=== PATIENT | female | born 2005 | race Hispanic/Latino ===

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

== ENCOUNTER 2024-05-13 02:59 | Emergency (ER) | payer OTHER, SELFPAY ==
--- OUTSIDE RECORDS SUMMARY | 2024-05-13 03:05 | XMS REPORT | Continuity of Care Document ---
Author Name Unknown Address [address] [facility] [facility] [address] [place] [address] [facility] [address] [place] [address] Care Team Providers Care Claims Clerk Name Role Phone Eliot CARVAJAL, [facility] Primary Care Physician [phone] BRITTANEY ARNOLD Attending Clinician Unavailable BRITTANEY ARNOLD Attending Clinician Unavailable Brittaney Bridges Attending Clinician [phone] SHILA PAULINO Attending Clinician Unavailable HOLLY VELÁZQUEZ Attending Clinician Unavailab REDDY Fry Attending Clinician Unavailable Angle Rivera PA-C Attending Clinician [phone] Unknown, Attending Attending Clinician Unavailab ANGLE Danielle Attending Clinician Unavailable MD OLGA LIDIA Attending Clinician Unavailab le LAB90 Attending Clinician Unavailable BATOOL GARRIDO Attending Clinician Unavaila BATOOL Mayer Attending Clinician Unavaila CECILIA Ahuja Attending Clinician Unavailable CECILIA MATHIS Attending Clinician Unavailable PRUDENCE RUFF Attending Clinician Unavailable Prudence Jackman Attending Clinician [phone] [facility]ending [facility]ician Unava ilable Gary Mixon Attending Clinician + GARY GUERRERO Attending Clinician Unavail able Alondra Reece MD Attending Clinician [phone] Lino CARVAJAL, Cynthia Attending Clinician [phone] Juvenal CARVAJAL, Haley Calderon Attending Clinicia n HIREN VILLAGRAN Attending Clinician Unavailable 1, [facility] N[facility] Room Attending Clinician Unavailable Doctor Unassigned, [place] Attending Clinician U navailable YULY, RITO Attending Clinician Unavailable YULYRITO Attending Clinician Unavailable Room, [facility] Attending Clinician Unavailable Ultrasound, Emersonreynaldo Attending Clinician Unavaila RADHA Mtz Attending Clinician Unavailable Radha Turcios MD Attending Clinician [phone] ALONDRA REECE Attending Clinician Unavailable ALONDRA REECE Attending Clinician Unavailable MARIANELA REYES Attending Clinician Unavailab le MARIANELA REYES Attending Clinician Unavailab le Lab, [facility] Attending Clinician Unavailable Jair Bolden RN Attending Clinician Unavailabl Kailyn Acuna DO Attending Clinician [phone] KRYSTIN KAYE Attending Clinician Unavailabl e 4, [facility] Room Attending Clinician UnavailKrystin Samosn MD Attending Clinician [phone] Adi Levin MD Attending Clinician + ADI LEVIN Attending Clinician Unav ailable OMI AGEE Attending Clinician Unavailable Farnaz Padilla Attending Clinician UnavailOmi Baptiste MD Attending Clinician [phone] Fellow, [facility] Attending Clinician Un available Jair Guzman MD Attending Clinician [phone] JAIR GUZMAN Attending Clinician Unavailable JAIR GUZMAN Attending Clinician Unavailable Nurse, [facility] Attending Clinician Unavailable KATIE ALEXANDER Attending Clinician Unav ailable Faculty, [facility] Attending Clinician Unava ilable Katie Alexander MD Attending Clinician + RADIOLOGY Attending Clinician Unavailable Radiology Attending Clinician Unavailable IBIKUNLE, FOLUSHO F Attending Clinician Unavaila ble Jackie FLIGHT OPERATIONS INSPECTOR, Katerynakarla F Attending Clinician CHANNING OQUENDO S Attending Clinician Unavailable Channing Edwards S Attending Clinician [phone] Lab, [facility] Attending Clinician Unavailab rajani Pierce FLIGHT OPERATIONS INSPECTOR, Holly Attending Clinician [phone] HOLLY PIERCE Attending Clinician Unavailable RADHA TURCIOS Admitting Clinician Unavailable Alondra Reece MD Admitting Clinician [phone] ALONDRA REECE Admitting Clinician Unavailable Radha Turcios MD Admitting Clinician [phone] JESSICA DE LA CRUZ Admitting Clinician ZACHERY Walls Admitting Clinician Unavaila thee Payers Payer Name Policy Type Policy Number Effective Date Expirati on Date Source [employer] [id number] 2022 00:[address] [facility] [id number] 2022 00:00:00 [employer] MP [employer] SILVER 2: MARCELA HMO SNACK 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 94 ON 9 [id number] 2023 00:00:00 Problems Condition Name Condition Details Condition Category Status Onset Date Resolution Date Last Treatment Date Treating Clinician Comments Source 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 Disease Active 07-14 00:00: 00 [facility] History of asthma History of asthma Disease Active 2021-06 00:00: 00 [facility] Gestationa l hypertensi on, antepartum Gestationa l hypertensi on, antepartum Disease Resolve d 10-16 00:00: 00 2023-10-08 00:00:00 2023-10-08 13:32:11 [facility] 36 weeks gestation of 36 weeks gestation of Disease Resolve d 5 00:00: 00 2023-10-08 00:00:00 2023-10-08 13:32:12 [facility] Excessive growth affecting management of , antepartum , single or unspecifie d fetus Excessive growth affecting management of , antepartum , single or unspecifie d fetus Disease Resolve d 2022-0 4-24 00:00: 00 2023-10-08 00:00:00 2023-10-08 13:32:08 [facility] Morbid obesity with body mass index of 40.0-49.9 Morbid obesity with body mass index of 40.0-49.9 Disease Resolve d 2022-0 4-14 00:00: 00 2023-10-08 00:00:00 2023-10-08 13:32:06 [facility] Non-compli ant patient, third trimester Non-compli ant patient, third trimester Disease Resolve d 2022-0 3-28 00:00: 00 2023-10-08 00:00:00 2023-10-08 13:32:04 [facility] Acute cystitis without hematuria Acute cystitis without hematuria Disease Resolve d 2022-0 2-15 00:00: 00 2023-10-08 00:00:00 2023-10-08 13:32:18 [facility] Asthma affecting , antepartum Asthma affecting , antepartum Disease Resolve d 2022-0 1-24 00:00: 00 2023-10-08 00:00:00 2023-10-08 13:31:56 [facility] Supervisio n of other high risk , antepartum Supervisio n of other high risk , antepartum Disease Resolve d 2021-06 2-08 00:00: 00 2023-10-08 00:00:00 2023-10-08 13:31:48 [facility] Pregestati onal diabetes mellitus, 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, modified White class C Disease Resolve d 2021-06 2-08 00:00: 00 2023-10-08 00:00:00 2023-10-08 13:31:50 [facility] Hypothyroi d in , antepartum Hypothyroi d in , antepartum Disease Resolve d 2021-06 2-08 00:00: 00 2023-10-08 00:00:00 2023-10-08 13:31:51 [facility] Obesity in , antepartum Obesity in , antepartum Disease Resolve d 2021-06 2- 00:00: 00 2023-10-08 00:00:00 2023-10-08 13:31:53 [facility] Dysuria Dysuria Disease Resolve d 2021-06 2- 00:00: 00 2022-06-12 00:00:00 2022-06-12 13:06:42 [facility] Vaginal discharge during , antepartum Vaginal discharge during , antepartum Disease Resolve d 2021-06 2- 00:00: 00 2022-06-12 00:00:00 2022-06-12 13:06:51 [facility] 17 weeks gestation of 17 weeks gestation of Disease Resolve d 2021-06 2- 00:00: 00 2022-06-12 00:00:00 2022-06-12 13:06:44 [facility] Allergies, Adverse Reactions, Alerts Allergy Name Allergy Type Status Severity Reaction(s) Onset Date Inactive Date Treating Clinician Comments Source EMPAGLIF LOZIN DRUG INGREDI Active Dizziness 2021-06 00:00: 00 [facility] Empaglif lozin Propensi ty to adverse reaction s Active Dizziness 2021-06 00:00: 00 [facility] Empaglif lozin Propensi ty to adverse reaction s Active 2021-06 00:00: 00 Other Reaction( s): Dizziness Noemi Jaquez - Externa l NO KNOWN ALLERGIE S Drug Class Active [facility] Social History Social Habit Start Date Stop Date Quantity Comments Source ASSERTION 2022-02-15 00:00:00 [facility] Sexual orientation Ace Jaquez - External Alcoholic beverage intake 2023-10-08 00:00:00 2023-10-08 00:00:00 Lifetime non-drinker (finding) [facility] Alcohol intake 2023-05-14 00:00:00 2023-05-14 00:00:00 Lifetime non-drinker (finding) Noemi Jaquez - External History of Social function 2023-05-04 00:00:00 2023-05-04 00:00:00 Noemi Peck Exposure to SARS-CoV-2 (event) 2022-10-27 00:00:00 2022-11-06 14:41:00 Not sure [facility] Tobacco use and exposure 2022-05-17 00:00:00 2022-05-17 00:00:00 Smokeless tobacco non-user [facility] Sex Assigned At 2005 00:00:00 2005 00:00:00 Noemi Roque External Smoking Status Start Date Stop Date Source Never smoked tobacco [facility] Tobacco smoking consumption unknown [facility] Medications Ordered Medication Name Filled Medication Name Start Date Stop Date Current Medication? Ordering Clinician Indication Dosage Frequency Signature (SIG) Comments Components Source ketorolac (TORADOL) tablet 10 mg 03-10 20:15: 00 03-10 19:55 :00 No 10mg 10 mg, Oral, ONCE NOW, 1 dose, On Sun03/10/24 at 1515, Routine [facility] Nitrofurant oin&Nit. Macrocryst 100 mg capsule 03-10 00:00: 00 Yes [id number] 100mg Take 1 capsule by mouth in the morning and 1 capsule in the evening. [facility] ketorolac 10 mg tablet 03-10 00:00: 00 Yes [id number] 10mg Take 1 tablet by mouth every 6 (six) hours as needed for Pain (scale 4-6). [facility] Ferrous Sulfate 325 (65 Fe) MG oral Tablet 2022-06 11:38: 18 05-14 00:00 :00 No 325mg Take 1 tablet (325 mg total) by mouth every other day. Noemi aponte Metronidazo le 500 MG oral Tablet 02-21 00:00: 00 05-14 00:00 :00 No Noemi aponte Cholecalcif dali, Vitamin D3, 1,250 mcg (50,000 unit) capsule 11-21 00:00: 00 Yes TAKE 1 CAPSULE BY MOUTH ONE TIME PER WEEK IN THE MORNING [facility] atorvastati n 20 mg tablet 11-21 00:00: 00 Yes 20mg Take 1 tablet by mouth at bedtime. [facility] fenofibrate 54 mg tablet 11-21 00:00: 00 Yes TAKE 1 TABLET EVERY DAY BY ORAL ROUTE IN THE MORNING FOR 60 DAYS. [facility] LOW-OGESTRE L 0.3-30 mg-mcg per tablet 11-21 00:00: 00 Yes TAKE 1 TABLET BY MOUTH EVERY DAY DIRECTED [facility] metFORMIN (GLUCOPHAGE ) tablet 1,000 mg 10-19 14:00: 00 Yes 1000mg 1,000 mg, Oral, DAILY, First dose on Sun10/19/22 at 0900, Until Discontinu ed, Routine [facility] insulin glargine (LANTUS U-100) injection 20 Units 10-19 13:00: 00 Yes 20U 20 Units, Subcutaneo us, Q24H, First dose (after last modificati on) on Sun10/19/22 at 0800, Until Discontinu ed, Routine [facility] insulin glargine (LANTUS U-100) injection 24 Units 10-19 01:00: 00 Yes 24U 24 Units, Subcutaneo us, Q24H, First dose (after last modificati on) on Sun10/18/22 at 2000, Until Discontinu ed, Routine [facility] ferrous sulfate 325 mg (65 mg iron) tablet 10-19 00:00: 00 Yes [id number] 325mg Take 1 tablet by mouth every other day. [facility] vitamin w/FA tablet 10-19 00:00: 00 Yes [id number] 1{tbl} Take 1 tablet by mouth in the morning. [facility] vitamin w/FA tablet 10-19 00:00: 00 Yes [id number] 1{tbl} Take 1 tablet by mouth in the morning. [facility] Ibuprofen (MOTRIN) 600 MG oral Tablet 10-19 00:00: 00 05-14 00:00 :00 No 600mg Q.25D Take 1 tablet (600 mg total) by mouth every 6 hours as needed. Noemi aponte NIFEdipine 30 MG oral TABLET SR 24 HR 10-19 00:00: 00 05-14 00:00 :00 No 30mg Take 1 tablet (30 mg total) by mouth daily. Noemi aponte Metformin HCl 1000 MG oral Tablet 10-19 00:00: 05-14 00:00 :00 No Noemi aponte linaGLIPtin (Tradjenta) 5 MG oral Tablet 10-19 00:00: 00 05-14 00:00 :00 No Noemi aponte Docusate Sodium (DSS) 100 MG oral Capsule 10-19 00:00: 00 05-14 00:00 :00 No Noemi aponte insulin glargine 100 unit/mL injection 10-19 00:00: 00 11-19 04:59 :00 No [id number] 24U inject 24 Units under the skin every 24 (twenty-fo ur) hours for 30 days. [facility] insulin glargine 100 unit/mL injection 10-19 00:00: 00 11-19 04:59 :00 No [id number] 20U inject 20 Units under the skin every 24 (twenty-fo ur) hours for 30 days. [facility] linaGLIPtin 5 mg tablet 10-19 00:00: 00 11-19 04:59 :00 No [id number] 5mg Take 1 tablet by mouth in the morning for 30 days. [facility] NIFEdipine ER tablet 30 mg 10-18 17:45: 00 Yes 30mg 30 mg, Oral, DAILY, First dose on Sun10/18/22 at 1245, Until Discontinu ed, Routine [facility] Sliding Scale Insulin - Lispro (HumaLOG) 10-18 17:00: 00 Yes Subcutaneo us, TID MEALS+HS, First dose on Sun10/18/22 at 1200, Until Discontinu ed, Routine [facility] budesonide- formoteroL (SYMBICORT) 80-4.5 mcg/actuati on inhaler 2 Puff 10-18 13:00: 00 Yes 2{puff} 2 Puff, Inhalation , BID, First dose on Sun10/18/22 at 0800, Until Discontinu ed, Routine [facility] insulin regular human (HUMULIN R) injection 7 Units 10-18 13:00: 00 10-18 15:04 :11 No 7U 7 Units, Subcutaneo us, QAM WITH BREAKFAST, First dose on Sun10/18/22 at 0800, Until Discontinu ed, Routine
Indicatio n for insulin: Hyperglyce ana maría [facility] levothyroxi ne (SYNTHROID) tablet 100 mcg 10-18 11:00: 00 Yes 100ug 100 mcg, Oral, QAM-0600, First dose on Sun10/18/22 at 0600, Until Discontinu ed, Routine [facility] rho(D) immune globulin (RHOGAM) syringe 300 mcg 10-18 04:48: 04 Yes 300ug 300 mcg, Intramuscu lar, ONCE, For 1 dose, Conditiona l, Routine [facility] ibuprofen (IBU) tablet 600 mg 10-18 04:47: 59 Yes 600mg 600 mg, Oral, Q6HPRN, Starting on Sun10/17/22 at 2347, Until Discontinu ed, Routine, Pain (scale 4-6) [facility] acetaminoph en (TYLENOL) tablet 650 mg 10-18 04:47: 59 Yes 650mg 650 mg, Oral, Q6HPRN, Starting on Sun10/17/22 at 2347, Until Discontinu ed, Routine, Pain (scale 1-3) [facility] diphenhydrA MINE (BENADRYL) tablet 25 mg 10-18 04:47: 59 Yes 25mg 25 mg, Oral, Q6HPRN, Starting on Sun10/17/22 at 2347, Until Discontinu ed, Routine, Sleep, Itching [facility] ondansetron (ZOFRAN (PF)) injection 4 mg 10-18 04:47: 59 Yes 4mg 4 mg, Slow IV Push, Q8HPRN, Starting on Sun10/17/22 at 2347, Until Discontinu ed, Routine, Nausea and Vomiting (N/V) [facility] simethicone (GAS RELIEF (SIMETHICON E)) chewable tablet 160 mg 10-18 04:47: 59 Yes 160mg 160 mg, Oral, PC+HSPRN, Starting on Sun10/17/22 at 2347, Until Discontinu ed, Routine, Gas [facility] docusate (COLACE) capsule 200 mg 10-18 04:47: 59 Yes 200mg 200 mg, Oral, QDAILYPRN, Starting on Sun10/17/22 at 2347, Until Discontinu ed, Routine, Constipati on [facility] magnesium hydroxide (MILK OF MAGNESIA) 400 mg/5 mL suspension 30 mL 10-18 04:47: 59 Yes 30mL 30 mL, Oral, QDAILYPRN, Starting on Sun10/17/22 at 2347, Until Discontinu ed, Routine, Constipati on [facility] benzocaine- menthol (DERMOPLAST ) 20-0.5 % topical spray 10-18 04:47: 59 Yes Topical, PRN, Starting on Sun10/17/22 at 2347, Until Discontinu ed, Routine, Perineum discomfort [facility] ondansetron (ZOFRAN (PF)) injection 4 mg 10-17 18:00: 00 10-17 16:30 :00 No 4mg 4 mg, Slow IV Push, ONCE, On Sun10/17/22 at 1300, For 1 dose
Do ses of ondansetro n 16 mg and above need to be administer ed via IV piggyback. For Dose >=24mg ECG monitoring is advisable.
[facility] ondansetron (ZOFRAN (PF)) injection 4 mg 10-17 13:15: 00 10-17 12:04 :00 No 4mg 4 mg, Slow IV Push, ONCE, On Sun10/17/22 at 0815, For 1 dose
Do ses of ondansetro n 16 mg and above need to be administer ed via IV piggyback. For Dose >=24mg ECG monitoring is advisable.
[facility] ropivacaine 0.2 % (NAROPIN (PF)) epidural infusion 10-17 13:07: 00 10-18 04:25 :45 No Epidural, CONTINUOUS PRN, Starting on Sun10/17/22 at 0807, Until Sun10/17/22 at 2325, Routine, Intra-op [facility] lidocaine-e pinephrine (XYLOCAINE W/EPINEPHRI NE) 1.5 %-1:200,000 injection 10-17 13:06: 00 10-18 04:25 :45 No Epidural, ONCE INTRA PROCEDURE, Starting on Sun10/17/22 at 0806, Until Sun10/17/22 at 2325, Routine, Intra-op [facility] lidocaine 1% (XYLOCAINE) 100 mg/10 mL (1 %) injection 10-17 13:00: 00 10-18 04:25 :45 No Infiltrati on, ONCE INTRA PROCEDURE, Starting on Sun10/17/22 at 0800, Until Sun10/17/22 at 2325, Routine, Intra-op [facility] levothyroxi ne (SYNTHROID) tablet 100 mcg 10-17 11:00: 00 10-18 04:48 :02 No 100ug 100 mcg, Oral, QAM-0600, First dose on Sun10/17/22 at 0600, Until Discontinu ed, Routine [facility] morpHINE (4 mg/mL) injection 4 mg 10-17 05:15: 00 10-17 04:36 :00 No 4mg 4 mg, Slow IV Push, ONCE, 1 dose, On Sun10/17/22 at 0015, Routine [facility] oxytocin (PITOCIN) 30 units in NS 500 mL IV infusion 10-17 04:54: 19 10-18 04:48 :02 No 2mU/min at 2-40 mL/hr, IV Infusion, TITRATE, Starting on Sun10/16/22 at 2354, Until Sun10/17/22 at 2348, ROSSI [facility] Sliding Scale Insulin 10-17 01:32: 37 10-18 04:48 :02 No Subcutaneo us, SEE-INSTRU CTIONS, Starting on Sun10/16/22 at 2032, Until Sun10/17/22 at 2348, Routine [facility] sodium citrate-cit hua acid (BICITRA) 500-334 mg/5 mL solution 30 mL 10-17 01:30: 40 10-17 12:28 :00 No 30mL 30 mL, Oral, PRE-PROCED URE ONCE, 1 dose, Starting on Sun10/16/22 at 2030, Until Discontinu ed, Routine, Surgery/Pr ocedure [facility] lactated ringers IV infusion 500 mL 10-17 01:30: 39 10-18 04:48 :02 No 500mL at 999 mL/hr, 500 mL, IV Infusion, PRN - SEE INSTRUCTIO NS, Starting on Sun10/16/22 at 2030, Until Sun10/17/22 at 2348, Routine [facility] D5W-LR IV infusion 1,000 mL 10-17 01:30: 39 10-18 04:48 :02 No 1000mL at 1-125 mL/hr, IV Infusion, TITRATE, Starting on Sun10/16/22 at 2030, Until Sun10/17/22 at 2348, Routine [facility] acetaminoph en (TYLENOL) tablet 1,000 mg 10-11 17:23: 00 10-11 17:38 :00 No 1000mg 1,000 mg, Oral, ONCE, 1 dose, On Sun10/11/22 at 1230, Routine [facility] NaCl 0.9% (NS) IV infusion 1,000 mL 10-11 16:30: 00 10-11 16:19 :07 No 1000mL at 1,000 mL/hr, IV Infusion, ONCE, 1 dose, On Sun10/11/22 at 1130, Routine [facility] ASPIRIN 81 mg EC tablet -20 00:00: 00 10-19 00:00 :00 No [id number] TAKE 1 TABLET BY MOUTH EVERY MORNING [facility] BD INSULIN SYRINGE ULTRA-FINE 0.5 mL 31 gauge x 5/16" Syrg 09-08 00:00: 00 Yes [facility] Insulin Syringe-Nee dle U-100 (BD Insulin Syringe Ultrafine) 31G X 5/16" 0.5 ML does not apply Misc 09-08 00:00: 00 05-14 00:00 :00 No Noemi aponte Aspirin (Aspirin Low Dose) 81 MG oral Tablet Delayed Response 09-05 00:00: 00 05-14 00:00 :00 No Noemi aponte NaCl 0.9% (NS) bolus infusion 1,000 mL 08-24 01:30: 00 08-24 00:34 :00 No 1000mL at 999 mL/hr, 1,000 mL, IV Infusion, ONCE, 1 dose, On Sun08/23/22 at 2030, STAT [facility] acetaminoph en (TYLENOL) tablet 650 mg 08-24 00:00: 00 08-23 23:43 :00 No 650mg 650 mg, Oral, ONCE NOW, 1 dose, On Sun08/23/22 at 1900, Routine [facility] NaCl 0.9% (NS) bolus infusion 1,000 mL 08-24 00:00: 00 08-23 23:54 :00 No 1000mL at 999 mL/hr, 1,000 mL, IV Infusion, ONCE, 1 dose, On Sun08/23/22 at 1900, STAT [facility] Nitrofurant oin&Nit. Macrocryst (MACROBID) 100 mg capsule 2-09 00:00: 00 07-28 05:59 :00 No [id number] 100mg Take 1 capsule by mouth in the morning and 1 capsule in the evening. Do all this for 7 days. [facility] Prenat-Fe Poly-Methfo l-FA-DHA (Vitafol Ultra) 29-0.6-0.4- 200 MG oral Capsule 2-06 00:00: 00 05-14 00:00 :00 No Noemi Jaquez - Marguerite aponte Levothyroxi ne 100 mcg capsule - 13:44: 53 06-12 00:00 :00 No Take by mouth. [facility] linagliptin -metformin 5-1,000 mg TBph 06-12 13:44: 44 06-12 00:00 :00 No Take 1 TAB-CAP/M2 by mouth daily. [facility] budesonide- formoteroL 80-4.5 mcg/actuati on inhaler 06-12 00:00: 00 Yes [id number] 103 2{puff} Inhale 2 Puffs in the morning and 2 Puffs in the evening. [facility] Insulin Syringes, Disposable, 1 mL Syrg 06-12 00:00: 00 Yes [id number] Use as directed [facility] Insulin Syringe-Nee dle U-100 1 mL 31 gauge x 5/16 Syrg 06-12 00:00: 00 Yes [facility] Insulin Syringes, Disposable, 1 mL Syrg 06-12 00:00: 00 Yes [id number] Use as directed [facility] Insulin Syringe-Nee dle U-100 1 mL 31 gauge x 5/16 Syrg 06-12 00:00: 00 Yes [facility] Insulin Syringe-Nee dle U-100 (INSULIN SYRINGE 1CC/31GX5/1 6") 31G X 5/16" 1 ML does not apply [facility] [place]-12 00:00: 00 05-14 00:00 :00 Syeda aponte Insulin Regular Human (NovoLIN R) 100 UNIT/ML injection Solution 06-12 00:00: 00 05-14 00:00 :00 No Noemi aponte Insulin NPH, Human,, Isophane, (NovoLIN N) 100 UNIT/ML subcutaneou s Suspension 06-12 00:00: 00 05-14 00:00 :00 Syeda aponte Insulin Syringes, Disposable, (MONOJECT INS SYR 1CC) U-100 1 ML does not apply Misc 06-12 00:00: 00 05-14 00:00 :00 No See Admin Instructio ns. Noemi aponte insulin NPH 100 unit/mL injection 06-12 00:00: 00 10-19 00:00 :00 No [id number] Inject 28 units subq in the morning and inject 10 units subq qhs [facility] insulin regular human 100 unit/mL injection 06-12 00:00: 00 10-19 00:00 :00 No [id number] Inject 14 units subq with breakfast and inject 10 units subq with dinner [facility] Levothyroxi ne Sodium 100 MCG oral Tablet 2021-06 00:00: 00 05-14 00:00 :00 No 100ug Take 1 tablet (100 mcg total) by mouth daily. Noemi aponte Norgestimat e-Eth Estradiol (Estarylla) 0.25-35 MG-MCG oral Tablet 2021-06 00:00: 00 05-14 00:00 :00 No Noemi aponte Meloxicam 7.5 MG oral Tablet 2021-06 00:00: 00 05-14 00:00 :00 Syeda aponte empaglifloz in (JARDIANCE) 10 mg Tab 2021-06 10:35: 24 05-18 00:00 :00 No 1{tbl} Take 1 tablet by mouth daily. [facility] aspirin 81 mg EC tablet 2021-06 00:00: 00 09-28 00:00 :00 No [id number] 81mg Take 1 tablet by mouth in the morning. [facility] Levothyroxi ne 100 mcg capsule 2021-06 16:07: 57 Yes Take by mouth. [facility] linagliptin -metformin 5-1,000 mg TBph 2021-06 16:07: 57 Yes Take 1 TAB-CAP/M2 by mouth daily. [facility] PNV 67-iron ps-folate no.1-dha (VITAFOL ULTRA) 29 mg iron- 1 mg-200 mg Cap 2021-06 00:00: 00 10-19 00:00 :00 No [id number] 1{capsu le} Take 1 capsule by mouth daily. [facility] VENTOLIN HFA 90 mcg/actuati on inhaler 2021-06 00:00: 00 Yes [facility] Albuterol HFA (VENTOLIN HFA) 108 (90 Base) MCG/ACT IN AERS 2021-06 00:00: 00 05-14 00:00 :00 No Noemi aponte INJECT 20 UNITS SUBCUTANEOU S EVERY MORNING. START AT 10 UNITS UNTIL MORNING FASTING GLUCOSE IS 100 2021-06 00:00: 00 No INJECT 20 UNITS SUBCUTANEOU S EVERY MORNING. START AT 10 UNITS UNTIL MORNING FASTING GLUCOSE IS 100 2021-06 00:00: 00 No FREESTYLE LITE STRIPS strip 2021-06 0-04 00:00: 00 Yes CHECK EVERY DAY [facility] FREESTYLE LITE METER Kit 2021-06 0-04 00:00: 00 Yes CHECK EVERY DAY. [facility] FREESTYLE LANCETS 28 gauge Misc 2021-06 0- 00:00: 00 Yes CHECK EVERY DAY [facility] FREESTYLE LITE STRIPS strip 2021-06 0- 00:00: 00 Yes CHECK EVERY DAY [facility] FREESTYLE LITE METER Kit 2021-06 0- 00:00: 00 Yes CHECK EVERY DAY. [facility] FREESTYLE LANCETS 28 gauge Misc 2021-06 0 00:00: 00 Yes CHECK EVERY DAY [facility] TOUJEO MAX U-300 SOLOSTAR 300 unit/mL (3 mL) InPn 2021-06 0 00:00: 00 06-12 00:00 :00 No INJECT 20 UNITS SUBCUTANEO US EVERY MORNING. START AT 10 UNITS UNTIL MORNING FASTING GLUCOSE IS 100 [facility] levothyroxi ne 100 mcg tablet 2021-06 00:00: 00 Yes 100ug Take 1 tablet by mouth every morning. [facility] Dose Unknown 01-31 00:00: 00 No Dose Unknown 01-31 00:00: 00 No Dose Unknown 01-31 00:00: 00 No Dose Unknown 01-31 00:00: 00 No iopamidol (ISOVUE 370-500 mL) injection 100 mL 08-16 05:15: 00 08-16 04:01 :00 No [id number] 4102 100mL 100 mL, Intravenou s, ONCE, 1 dose, On Sun08/15/21 at 2315, Routine [facility] NaCl 0.9% (NS) bolus infusion 1,000 mL 08-16 03:00: 00 08-16 03:11 :00 No 1000mL at 999 mL/hr, 1,000 mL, IV Infusion, ONCE, 1 dose, On Sun08/15/21 at 2100, ROSSI [facility] linagliptin -metformin (JENTADUETO XR) 5-1,000 mg TBph 08-15 18:41: 26 Yes Take 1 TAB-CAP/M2 by mouth daily. [facility] empaglifloz in (JARDIANCE) 10 mg Tab 08-15 18:41: 26 Yes 1{tbl} Take 1 tablet by mouth daily. [facility] Levothyroxi ne 100 mcg capsule 08-15 18:41: 26 Yes Take by mouth. [facility] hydrocortis one (ANUSOL-HC) 25 mg suppository 3-07 00:00: 00 08-23 04:59 :00 No [id number] 25mg Insert 1 Suppositor y into rectum 2 (two) times daily for 7 days. [facility] Levothyroxi ne 100 mcg capsule 07-06 18:22: 21 Yes Take by mouth. [facility] linagliptin -metformin (JENTADUETO XR) 5-1,000 mg [facility]ph 07-06 18:22: 21 Yes Take 1 TAB-CAP/M2 by mouth daily. [facility] Levothyroxi ne 100 mcg capsule 2016-06 19:16: 00 Yes Take by mouth. [facility] linagliptin -metformin (JENTADUETO XR) 5-1,000 mg [facility] 2016-06 19:16: 00 Yes Take 1 TAB-CAP/M2 by mouth daily. [facility] empaglifloz in (JARDIANCE) 10 mg Tab 2016-06 19:16: 00 Yes 1{tbl} Take 1 tablet by mouth daily. [facility] empaglifloz in (JARDIANCE) 10 mg Tab 2016-06 13:16: 00 Yes 1{tbl} Take 1 tablet by mouth daily. [facility] ibuprofen 600 mg tablet 2016-06 00:00: 00 06-12 00:00 :00 No 600mg Take 1 tablet by mouth every 8 (eight) hours as needed (pain). [facility] Immunizations Ordered Immunization Name Filled Immunization Name Date Status Comments Source HPV 2017-07-18 00:00:00 Completed [facility] HPV 2017-07-18 00:00:00 Completed [facility] HPV 2017-07-18 00:00:00 Completed [facility] HPV 2017-07-18 00:00:00 Completed [facility] HPV, quadrivalent 2017-07-18 00:00:00 Completed HPV, quadrivalent 2017-07-18 00:00:00 Completed HPV 2017-03-14 00:00:00 Completed [facility] HPV 2017-03-14 00:00:00 Completed [facility] HPV 2017-03-14 00:00:00 Completed [facility] HPV 2017-03-14 00:00:00 Completed [facility] HPV, quadrivalent 2017-03-14 00:00:00 Completed HPV, quadrivalent 2017-03-14 00:00:00 Completed HPV 2017-01-12 00:00:00 Completed [facility] HPV 2017-01-12 00:00:00 Completed [facility] HPV 2017-01-12 00:00:00 Completed [facility] HPV 2017-01-12 00:00:00 Completed [facility] HPV, quadrivalent 2017-01-12 00:00:00 Completed meningococcal MCV4P 2017-01-12 00:00:00 Completed Tdap 2017-01-12 00:00:00 Completed HPV, quadrivalent 2017-01-12 00:00:00 Completed meningococcal MCV4P 2017-01-12 00:00:00 Completed Tdap 2017-01-12 00:00:00 Completed Influenza, seasonal, inj 2012-04-26 00:00:00 Completed Influenza, seasonal, inj 2012-04-26 00:00:00 Completed Hep A, ped/adol, 2 dose 2009-08-25 00:00:00 Completed Hep A, ped/adol, 2 dose 2009-08-25 00:00:00 Completed Hep A, ped/adol, 2 dose 2008-10-29 00:00:00 Completed Hep A, ped/adol, 2 dose 2008-10-29 00:00:00 Completed pneumococcal conjugate P 2008-10-21 00:00:00 Completed MMR 2008-10-21 00:00:00 Completed varicella 2008-10-21 00:00:00 Completed DTaP, unspecified formul 2008-10-21 00:00:00 Completed IPV 2008-10-21 00:00:00 Completed pneumococcal conjugate P 2008-10-21 00:00:00 Completed MMR 2008-10-21 00:00:00 Completed varicella 2008-10-21 00:00:00 Completed DTaP, unspecified formul 2008-10-21 00:00:00 Completed IPV 2008-10-21 00:00:00 Completed DTaP-Hep B-IPV 2005-05-09 00:00:00 Completed DTaP-Hep B-IPV 2005-05-09 00:00:00 Completed varicella 2005-04-03 00:00:00 Completed Hib (PRP-T) 2005-04-03 00:00:00 Completed MMR 2005-04-03 00:00:00 Completed varicella 2005-04-03 00:00:00 Completed Hib (PRP-T) 2005-04-03 00:00:00 Completed MMR 2005-04-03 00:00:00 Completed Hib (PRP-T) 2005-01-17 00:00:00 Completed DTaP-Hep B-IPV 2005-01-17 00:00:00 Completed Hib (PRP-T) 2005-01-17 00:00:00 Completed DTaP-Hep B-IPV 2005-01-17 00:00:00 Completed pneumococcal conjugate P 2004 00:00:00 Completed pneumococcal conjugate P 2004 00:00:00 Completed Hep B, adolescent or ped 2004 00:00:00 Completed pneumococcal conjugate P 2004 00:00:00 Completed IPV 2004 00:00:00 Completed Hib (PRP-T) 2004 00:00:00 Completed DTaP, unspecified formul 2004 00:00:00 Completed Hep B, adolescent or ped 2004 00:00:00 Completed pneumococcal conjugate P 2004 00:00:00 Completed IPV 2004 00:00:00 Completed Hib (PRP-T) 2004 00:00:00 Completed DTaP, unspecified formul 2004 00:00:00 Completed Hib (PRP-T) 2004 00:00:00 Completed DTaP-Hep B-IPV 2004 00:00:00 Completed pneumococcal conjugate P 2004 00:00:00 Completed Hib (PRP-T) 2004 00:00:00 Completed DTaP-Hep B-IPV 2004 00:00:00 Completed pneumococcal conjugate P 2004 00:00:00 Completed Hep B, adolescent or ped 2004 00:00:00 Completed Hep B, adolescent or ped 2004 00:00:00 Completed HPV Unknown Completed [facility] HPV Unknown Completed [facility] HPV Unknown Completed [facility] DTaP/Hep B/IPV Unknown Completed Flavio talib Jaquez - External DTaP Unspecified Unknown Completed Paolo easley Gisele Roque External HEPATITIS A- PEDI/ADOL Unknown Completed Noemi Gisele - External Hepatitis B, Adolescent Or Pediatric Unknown Completed Noemi Jaquez - External Tetanus Toxoid/HIB Unknown Completed Ace pedraza Gisele - External HPV 4 (Human Papillomavirus) Unknown Completed Noemi Paredes ld - External Influenza, Seasonal, Injectable Unknown Completed Noemi Jaquez - External IPV- Inactivated Polio Vaccine Unknown Completed Noemi Jaquez - External Meningococcal Vaccine- Conjugate(Menactra) Unknown Completed Noemi waitebokatheryn - External MMR- Measles, Mumps, Rubella Unknown Completed Noemi Owens d - External Pneumococcal Vaccine, Conjugate 7 Unknown Completed Noemi Jaquez - External Tdap- (Boostrix, Adacel) Unknown Completed Noemi Gisele - External Varicella Vaccine Unknown Completed Papo Jaquez - External Vital Signs Vital Name Observation Time Observation Value Comments S ourskylar Systolic blood pressure 2024-03-10 19:17:00 135 mm[Hg] [facility] Diastolic blood pressure 2024-03-10 19:17:00 87 mm[Hg] [facility] Heart rate 2024-03-10 19:17:00 98 /min [facility] Body temperature 2024-03-10 19:17:00 36.78 Porsha [facility] Respiratory rate 2024-03-10 19:17:00 18 /min [facility] Body height 2024-03-10 19:17:00 152.4 cm [facility] Body weight 2024-03-10 19:17:00 81.647 kg [facility] BMI 2024-03-10 19:17:00 35.15 kg/m2 [facility] Oxygen saturation in Arterial blood by Pulse oximetry 2024-03-10 19:17:00 96 /min [facility] Systolic blood pressure 2023-10-08 13:33:00 128 mm[Hg] [facility] Diastolic blood pressure 2023-10-08 13:33:00 82 mm[Hg] [facility] Heart rate 2023-10-08 13:33:00 80 /min Unive [facility] Respiratory rate 2023-10-08 13:33:00 18 /min [facility] Body height 2023-10-08 13:33:00 152.4 cm [facility] Body weight 2023-10-08 13:33:00 82.555 kg [facility] BMI 2023-10-08 13:33:00 35.54 kg/m2 [facility] Systolic blood pressure 2023-09-29 21:10:00 128 mm[Hg] [facility] Diastolic blood pressure 2023-09-29 21:10:00 82 mm[Hg] [facility] Heart rate 2023-09-29 21:10:00 86 /min [facility] Body temperature 2023-09-29 21:10:00 37.06 Porsha [facility] Respiratory rate 2023-09-29 21:10:00 17 /min [facility] Body height 2023-09-29 21:10:00 152.4 cm [facility] Body weight 2023-09-29 21:10:00 83.008 kg [facility] BMI 2023-09-29 21:10:00 35.74 kg/m2 [facility] Oxygen saturation in Arterial blood by Pulse oximetry 2023-09-29 21:10:00 98 /min [facility] Systolic blood pressure 2023-05-14 17:33:00 118 mm[Hg] Noemi Seybo ld - External Diastolic blood pressure 2023-05-14 17:33:00 68 mm[Hg] Noemi Seybo ld - External Heart rate 2023-05-14 17:33:00 72 /min Flavio mayers Seybold - External Body temperature 2023-05-14 17:33:00 36.83 Porsha Noemi Seybold - External Respiratory rate 2023-05-14 17:33:00 18 /min Noemi Seybold - External Body height 2023-05-14 17:33:00 152.4 cm Maria Antonia waite Seybold - External Body weight 2023-05-14 17:33:00 85.276 kg Maria Antonia Jaquez - External BMI 2023-05-14 17:33:00 36.72 kg/m2 Maria Antonia Jaquez - External Oxygen saturation in Arterial blood by Pulse oximetry 2023-05-14 17:33:00 99 /min Noemi Paredes ld - External Systolic blood pressure 2022-12-03 20:03:00 133 mm[Hg] [facility] Diastolic blood pressure 2022-12-03 20:03:00 87 mm[Hg] [facility] Heart rate 2022-12-03 20:03:00 92 /min [facility] Body temperature 2022-12-03 20:03:00 36.89 Porsha [facility] Respiratory rate 2022-12-03 20:03:00 16 /min [facility] Body height 2022-12-03 20:03:00 152.4 cm [facility] Body weight 2022-12-03 20:03:00 80.428 kg [facility] BMI 2022-12-03 20:03:00 34.63 kg/m2 [facility] acute hospital Body mass index (BMI) [Percentile] Per age and sex 2022-12-03 20:03:00 97.41 % [facility] Oxygen saturation in Arterial blood by Pulse oximetry 2022-12-03 20:03:00 97 /min [facility] Systolic blood pressure 2022-10-26 13:20:00 138 mm[Hg] [facility] Diastolic blood pressure 2022-10-26 13:20:00 94 mm[Hg] [facility] Heart rate 2022-10-26 13:19:00 93 /min [facility] Body temperature 2022-10-26 13:18:00 36.83 Porsha [facility] Respiratory rate 2022-10-26 13:18:00 20 /min [facility] Body height 2022-10-26 13:18:00 152.4 cm [facility] Body weight 2022-10-26 13:18:00 87.181 kg [facility] BMI 2022-10-26 13:18:00 37.54 kg/m2 [facility] acute hospital Body mass index (BMI) [Percentile] Per age and sex 2022-10-26 13:18:00 98.28 % [facility] Systolic blood pressure 2022-10-19 16:42:00 125 mm[Hg] [facility] Diastolic blood pressure 2022-10-19 16:42:00 83 mm[Hg] [facility] Heart rate 2022-10-19 16:42:00 82 /min [facility] Body temperature 2022-10-19 16:42:00 37.17 Porsha [facility] Respiratory rate 2022-10-19 16:42:00 18 /min [facility] Oxygen saturation in Arterial blood by Pulse oximetry 2022-10-19 16:42:00 98 /min [facility] Body height 2022-10-17 01:29:00 152.4 cm [facility] Body weight 2022-10-17 01:29:00 103.738 kg [facility] BMI 2022-10-17 01:29:00 44.66 kg/m2 [facility] acute hospital Body mass index (BMI) [Percentile] Per age and sex 2022-10-17 01:29:00 99.13 % [facility] Systolic blood pressure 2022-10-16 18:20:00 137 mm[Hg] [facility] Diastolic blood pressure 2022-10-16 18:20:00 86 mm[Hg] [facility] Heart rate 2022-10-16 18:20:00 83 /min [facility] Respiratory rate 2022-10-16 18:20:00 18 /min [facility] Body height 2022-10-16 18:20:00 152.4 cm [facility] Body weight 2022-10-16 18:20:00 103.42 kg [facility] acute [facility] BMI 2022-10-16 18:20:00 44.53 kg/m2 [facility] acute hospital Body mass index (BMI) [Percentile] Per age and sex 2022-10-16 18:20:00 99.12 % [facility] Systolic blood pressure 2022-10-13 19:46:00 120 mm[Hg] [facility] Diastolic blood pressure 2022-10-13 19:46:00 80 mm[Hg] [facility] Heart rate 2022-10-13 19:46:00 84 /min Unive [facility] Body temperature 2022-10-13 19:46:00 36.78 Porsha [facility] Respiratory rate 2022-10-13 19:46:00 18 /min [facility] Body height 2022-10-13 19:46:00 152.4 cm [facility] Body weight 2022-10-13 19:46:00 103.42 kg [facility] BMI 2022-10-13 19:46:00 44.53 kg/m2 [facility] acute hospital Body mass index (BMI) [Percentile] Per age and sex 2022-10-13 19:46:00 99.12 % [facility] Heart rate 2022-10-11 18:00:00 69 /min [facility] Oxygen saturation in Arterial blood by Pulse oximetry 2022-10-11 18:00:00 100 /min [facility] Systolic blood pressure 2022-10-11 17:00:00 129 mm[Hg] [facility] Diastolic blood pressure 2022-10-11 17:00:00 84 mm[Hg] [facility] Body temperature 2022-10-11 14:45:00 36.89 Porsha [facility] Respiratory rate 2022-10-11 14:45:00 18 /min [facility] Body height 2022-10-11 14:45:00 152.4 cm [facility] Body weight 2022-10-11 14:45:00 101.56 kg [facility] acute [facility] BMI 2022-10-11 14:45:00 43.73 kg/m2 [facility] acute hospital Body mass index (BMI) [Percentile] Per age and sex 2022-10-11 14:45:00 99.06 % [facility] Systolic blood pressure 2022-10-06 13:25:00 120 mm[Hg] [facility] Diastolic blood pressure 2022-10-06 13:25:00 76 mm[Hg] [facility] Heart rate 2022-10-06 13:25:00 64 /min [facility] Body temperature 2022-10-06 13:25:00 36.67 Porsha [facility] Body height 2022-10-06 13:25:00 152.4 cm [facility] Body weight 2022-10-06 13:25:00 99.791 kg [facility] acute [facility] BMI 2022-10-06 13:25:00 42.97 kg/m2 [facility] acute hospital Body mass index (BMI) [Percentile] Per age and sex 2022-10-06 13:25:00 99.01 % [facility] Systolic blood pressure 2022-10-02 18:24:00 122 mm[Hg] [facility] Diastolic blood pressure 2022-10-02 18:24:00 79 mm[Hg] [facility] Heart rate 2022-10-02 18:24:00 79 /min Unive [facility] Respiratory rate 2022-10-02 18:24:00 18 /min [facility] Body height 2022-10-02 18:24:00 152.4 cm [facility] Body weight 2022-10-02 18:24:00 99.338 kg [facility] acute [facility] BMI 2022-10-02 18:24:00 42.77 kg/m2 [facility] acute hospital Body mass index (BMI) [Percentile] Per age and sex 2022-10-02 18:24:00 98.99 % [facility] Systolic blood pressure 2022-09-25 13:10:00 121 mm[Hg] [facility] Diastolic blood pressure 2022-09-25 13:10:00 81 mm[Hg] [facility] Heart rate 2022-09-25 13:10:00 89 /min [facility] Body temperature 2022-09-25 13:10:00 36.72 Porsha [facility] Respiratory rate 2022-09-25 13:10:00 17 /min [facility] Body height 2022-09-25 13:10:00 152.4 cm [facility] Body weight 2022-09-25 13:10:00 99.61 kg [facility] acute [facility] BMI 2022-09-25 13:10:00 42.89 kg/m2 [facility] acute hospital Body mass index (BMI) [Percentile] Per age and sex 2022-09-25 13:10:00 99.01 % [facility] Systolic blood pressure 2022-09-22 18:19:00 123 mm[Hg] [facility] Diastolic blood pressure 2022-09-22 18:19:00 81 mm[Hg] [facility] Heart rate 2022-09-22 18:19:00 76 /min Unive [facility] Body temperature 2022-09-22 18:19:00 36.5 Porsha [facility] Respiratory rate 2022-09-22 18:19:00 18 /min [facility] Body height 2022-09-22 18:19:00 152.4 cm [facility] Body weight 2022-09-22 18:19:00 97.977 kg [facility] acute hospital BMI 2022-09-22 18:19:00 42.18 kg/m2 [facility] acute hospital Body mass index (BMI) [Percentile] Per age and sex 2022-09-22 18:19:00 98.95 % [facility] Systolic blood pressure 2022-09-19 13:06:00 109 mm[Hg] [facility] Diastolic blood pressure 2022-09-19 13:06:00 76 mm[Hg] [facility] Heart rate 2022-09-19 13:06:00 71 /min [facility] Body temperature 2022-09-19 13:06:00 36.72 Porsha [facility] Respiratory rate 2022-09-19 13:06:00 16 /min [facility] Body height 2022-09-19 13:06:00 152.4 cm Univ [facility] Body weight 2022-09-19 13:06:00 97.206 kg [facility] acute hospital BMI 2022-09-19 13:06:00 41.85 kg/m2 [facility] acute hospital Body mass index (BMI) [Percentile] Per age and sex 2022-09-19 13:06:00 98.92 % [facility] Systolic blood pressure 2022-09-15 19:29:00 100 mm[Hg] [facility] Diastolic blood pressure 2022-09-15 19:29:00 68 mm[Hg] [facility] Heart rate 2022-09-15 19:29:00 76 /min [facility] Body temperature 2022-09-15 19:29:00 36.67 Porsha [facility] Body weight 2022-09-15 19:29:00 95.255 kg [facility] acute hospital BMI 2022-09-15 19:29:00 41.01 kg/m2 [facility] acute hospital Body mass index (BMI) [Percentile] Per age and sex 2022-09-15 19:29:00 98.83 % [facility] Systolic blood pressure 2022-09-12 13:05:00 115 mm[Hg] [facility] Diastolic blood pressure 2022-09-12 13:05:00 67 mm[Hg] [facility] Heart rate 2022-09-12 13:05:00 87 /min [facility] Body temperature 2022-09-12 13:05:00 36.72 Porsha [facility] Respiratory rate 2022-09-12 13:05:00 17 /min [facility] Body height 2022-09-12 13:05:00 152.4 cm [facility] Body weight 2022-09-12 13:05:00 96.163 kg [facility] acute [facility] BMI 2022-09-12 13:05:00 41.40 kg/m2 [facility] acute hospital Body mass index (BMI) [Percentile] Per age and sex 2022-09-12 13:05:00 98.88 % [facility] Systolic blood pressure 2022-09-08 18:08:00 115 mm[Hg] [facility] Diastolic blood pressure 2022-09-08 18:08:00 77 mm[Hg] [facility] Heart rate 2022-09-08 18:08:00 89 /min Un[facility] Respiratory rate 2022-09-08 18:08:00 16 /min [facility] Body height 2022-09-08 18:08:00 152.4 cm [facility] Body weight 2022-09-08 18:08:00 96.979 kg [facility] acute hospital BMI 2022-09-08 18:08:00 41.75 kg/m2 [facility] acute hospital Body mass index (BMI) [Percentile] Per age and sex 2022-09-08 18:08:00 98.91 % [facility] Oxygen saturation in Arterial blood by Pulse oximetry 2022-09-08 18:08:00 95 /min [facility] Systolic blood pressure 2022-09-05 14:56:00 104 mm[Hg] [facility] Diastolic blood pressure 2022-09-05 14:56:00 68 mm[Hg] [facility] Heart rate 2022-09-05 14:56:00 128 /min [facility] Body temperature 2022-09-05 14:56:00 36.72 Porsha [facility] Respiratory rate 2022-09-05 14:56:00 18 /min [facility] Body height 2022-09-05 14:56:00 152.4 cm [facility] Body weight 2022-09-05 14:56:00 97.614 kg [facility] acute hospital BMI 2022-09-05 14:56:00 42.03 kg/m2 [facility] acute hospital Body mass index (BMI) [Percentile] Per age and sex 2022-09-05 14:56:00 98.94 % [facility] Systolic blood pressure 2022-09-01 18:06:00 111 mm[Hg] [facility] Diastolic blood pressure 2022-09-01 18:06:00 58 mm[Hg] [facility] Heart rate 2022-09-01 18:06:00 73 /min [facility] Body temperature 2022-09-01 18:06:00 36.72 Porsha [facility] Respiratory rate 2022-09-01 18:06:00 16 /min [facility] Body height 2022-09-01 18:06:00 152.4 cm [facility] Body weight 2022-09-01 18:06:00 95.936 kg [facility] acute hospital BMI 2022-09-01 18:06:00 41.31 kg/m2 [facility] acute hospital Body mass index (BMI) [Percentile] Per age and sex 2022-09-01 18:06:00 98.87 % [facility] Oxygen saturation in Arterial blood by Pulse oximetry 2022-09-01 18:06:00 98 /min [facility] Systolic blood pressure 2022-08-29 18:11:00 114 mm[Hg] [facility] Diastolic blood pressure 2022-08-29 18:11:00 72 mm[Hg] [facility] Heart rate 2022-08-29 18:11:00 88 /min [facility] Body temperature 2022-08-29 18:11:00 36.78 Porsha [facility] Respiratory rate 2022-08-29 18:11:00 16 /min [facility] Body height 2022-08-29 18:11:00 152.4 cm [facility] acute [facility] Body weight 2022-08-29 18:11:00 94.348 kg [facility] acute hospital BMI 2022-08-29 18:11:00 40.62 kg/m2 [facility] acute hospital Body mass index (BMI) [Percentile] Per age and sex 2022-08-29 18:11:00 98.80 % [facility] Oxygen saturation in Arterial blood by Pulse oximetry 2022-08-29 18:11:00 96 /min [facility] Heart rate 2022-08-23 22:45:00 105 /min [facility] Oxygen saturation in Arterial blood by Pulse oximetry 2022-08-23 22:45:00 97 /min [facility] Systolic blood pressure 2022-08-23 22:30:00 131 mm[Hg] [facility] Diastolic blood pressure 2022-08-23 22:30:00 72 mm[Hg] [facility] Body temperature 2022-08-23 22:30:00 36.94 Porsha [facility] Respiratory rate 2022-08-23 22:30:00 19 /min [facility] Body weight 2022-08-23 21:55:00 95.528 kg [facility] acute hospital Systolic blood pressure 2022-08-16 20:13:00 118 mm[Hg] [facility] Diastolic blood pressure 2022-08-16 20:13:00 79 mm[Hg] [facility] Heart rate 2022-08-16 20:13:00 92 /min Unive [facility] Respiratory rate 2022-08-16 20:13:00 18 /min [facility] Body height 2022-08-16 20:13:00 152.4 cm Univ [facility] Body weight 2022-08-16 20:13:00 94.802 kg [facility] acute hospital BMI 2022-08-16 20:13:00 40.82 kg/m2 [facility] acute hospital Body mass index (BMI) [Percentile] Per age and sex 2022-08-16 20:13:00 98.83 % [facility] Body weight 2022-08-14 19:32:00 93.441 kg [facility] acute hospital Systolic blood pressure 2022-07-26 20:10:00 138 mm[Hg] [facility] Diastolic blood pressure 2022-07-26 20:10:00 66 mm[Hg] [facility] Heart rate 2022-07-26 20:10:00 82 /min [facility] Respiratory rate 2022-07-26 20:10:00 18 /min [facility] Body height 2022-07-26 20:10:00 152.4 cm [facility] Body weight 2022-07-26 20:10:00 93.895 kg [facility] acute hospital BMI 2022-07-26 20:10:00 40.43 kg/m2 [facility] acute hospital Body mass index (BMI) [Percentile] Per age and sex 2022-07-26 20:10:00 98.80 % [facility] Systolic blood pressure 2022-07-20 21:45:00 121 mm[Hg] [facility] Diastolic blood pressure 2022-07-20 21:45:00 77 mm[Hg] [facility] Heart rate 2022-07-20 21:45:00 96 /min [facility] Body temperature 2022-07-20 21:45:00 36.67 Porsha [facility] Respiratory rate 2022-07-20 21:45:00 18 /min [facility] Body height 2022-07-20 21:45:00 152.4 cm [facility] Body weight 2022-07-20 21:45:00 92.534 kg [facility] acute hospital BMI 2022-07-20 21:45:00 39.84 kg/m2 [facility] acute hospital Body mass index (BMI) [Percentile] Per age and sex 2022-07-20 21:45:00 98.73 % [facility] Systolic blood pressure 2022-06-28 20:30:00 109 mm[Hg] [facility] Diastolic blood pressure 2022-06-28 20:30:00 74 mm[Hg] [facility] Heart rate 2022-06-28 20:30:00 78 /min [facility] Body temperature 2022-06-28 20:30:00 36.67 Porsha [facility] Respiratory rate 2022-06-28 20:30:00 18 /min [facility] Body height 2022-06-28 20:30:00 152.4 cm [facility] acute hospital Body weight 2022-06-28 20:30:00 90.266 kg [facility] acute hospital BMI 2022-06-28 20:30:00 38.86 kg/m2 [facility] acute hospital Body mass index (BMI) [Percentile] Per age and sex 2022-06-28 20:30:00 98.60 % [facility] Body height 2022-06-15 20:36:00 152.4 cm [facility] Body weight 2022-06-15 20:36:00 88.905 kg [facility] acute hospital BMI 2022-06-15 20:36:00 38.28 kg/m2 [facility] acute hospital Body mass index (BMI) [Percentile] Per age and sex 2022-06-15 20:36:00 98.52 % [facility] Systolic blood pressure 2022-06-07 20:43:00 98 mm[Hg] [facility] Diastolic blood pressure 2022-06-07 20:43:00 68 mm[Hg] [facility] Heart rate 2022-06-07 20:43:00 76 /min [facility] Body height 2022-06-07 20:43:00 152.4 cm [facility] acute hospital Body weight 2022-06-07 20:43:00 88.905 kg [facility] acute hospital BMI 2022-06-07 20:43:00 38.28 kg/m2 [facility] acute hospital Body mass index (BMI) [Percentile] Per age and sex 2022-06-07 20:43:00 98.52 % [facility] Oxygen saturation in Arterial blood by Pulse oximetry 2022-06-07 20:43:00 98 /min [facility] Systolic blood pressure 2022-05-31 21:58:00 119 mm[Hg] [facility] Diastolic blood pressure 2022-05-31 21:58:00 78 mm[Hg] [facility] Heart rate 2022-05-31 21:58:00 93 /min [facility] Body temperature 2022-05-31 21:58:00 36.72 Porsha [facility] Respiratory rate 2022-05-31 21:58:00 18 /min [facility] Body height 2022-05-31 21:58:00 152.4 cm [facility] acute hospital Body weight 2022-05-31 21:58:00 87.091 kg [facility] acute hospital BMI 2022-05-31 21:58:00 37.50 kg/m2 [facility] acute hospital Body mass index (BMI) [Percentile] Per age and sex 2022-05-31 21:58:00 98.38 % [facility] Systolic blood pressure 2022-05-19 16:35:00 114 mm[Hg] [facility] Diastolic blood pressure 2022-05-19 16:35:00 78 mm[Hg] [facility] Heart rate 2022-05-19 16:35:00 81 /min [facility] Body temperature 2022-05-19 16:35:00 36.94 Porsha [facility] Respiratory rate 2022-05-19 16:35:00 16 /min [facility] Body height 2022-05-19 16:35:00 152.4 cm [facility] acute hospital Body weight 2022-05-19 16:35:00 86.501 kg [facility] acute hospital BMI 2022-05-19 16:35:00 37.24 kg/m2 [facility] acute hospital Body mass index (BMI) [Percentile] Per age and sex 2022-05-19 16:35:00 98.34 % [facility] Oxygen saturation in Arterial blood by Pulse oximetry 2022-05-19 16:35:00 97 /min [facility] Systolic blood pressure 2022-05-17 22:07:00 106 mm[Hg] [facility] Diastolic blood pressure 2022-05-17 22:07:00 72 mm[Hg] [facility] Heart rate 2022-05-17 22:07:00 108 /min [facility] Body temperature 2022-05-17 22:07:00 36.72 Porsha [facility] Respiratory rate 2022-05-17 22:07:00 18 /min [facility] Body height 2022-05-17 22:07:00 152.4 cm [facility] acute hospital Body weight 2022-05-17 22:07:00 86.637 kg [facility] acute hospital BMI 2022-05-17 22:07:00 37.30 kg/m2 [facility] acute hospital Body mass index (BMI) [Percentile] Per age and sex 2022-05-17 22:07:00 98.35 % [facility] Systolic blood pressure 2021-08-16 00:39:00 132 mm[Hg] [facility] Diastolic blood pressure 2021-08-16 00:39:00 79 mm[Hg] [facility] Heart rate 2021-08-16 00:39:00 81 /min [facility] Body temperature 2021-08-16 00:39:00 37.28 Porsha [facility] Respiratory rate 2021-08-16 00:39:00 18 /min [facility] Body height 2021-08-16 00:39:00 152.4 cm [facility] acute [facility] Body weight 2021-08-16 00:39:00 78.472 kg [facility] acute hospital BMI 2021-08-16 00:39:00 33.79 kg/m2 [facility] acute hospital Body mass index (BMI) [Percentile] Per age and sex 2021-08-16 00:39:00 97.60 % [facility] Oxygen saturation in Arterial blood by Pulse oximetry 2021-08-16 00:39:00 100 /min [facility] Systolic blood pressure 2021-07-07 02:30:00 116 mm[Hg] [facility] Diastolic blood pressure 2021-07-07 02:30:00 88 mm[Hg] [facility] Heart rate 2021-07-07 02:30:00 76 /min [facility] Respiratory rate 2021-07-07 02:30:00 16 /min [facility] Oxygen saturation in Arterial blood by Pulse oximetry 2021-07-07 02:30:00 98 /min [facility] Body temperature 2021-07-07 00:20:00 36.94 Porsha [facility] Body height 2021-07-07 00:20:00 152.4 cm [facility] acute hospital Body weight 2021-07-07 00:20:00 77.111 kg [facility] acute hospital BMI 2021-07-07 00:20:00 33.20 kg/m2 [facility] acute hospital Body mass index (BMI) [Percentile] Per age and sex 2021-07-07 00:20:00 97.40 % [facility] BP Systolic 2022-04-26 14:46:00 134 mm[Hg] BP Diastolic 2022-04-26 14:46:00 78 mm[Hg] Weight Measured 2022-04-26 14:46:00 190.40 pounds Height Measured 2022-04-26 14:46:00 59.06 inches Body Temperature 2022-04-26 14:46:00 98.40 degrees Heart Rate 2022-04-26 14:46:00 140.00 /min Respiratory Rate 2022-04-26 14:46:00 16.00 /min BP Systolic 2022-04-19 13:52:00 110 mm[Hg] BP Diastolic 2022-04-19 13:52:00 67 mm[Hg] Weight Measured 2022-04-19 13:52:00 195.20 pounds Height Measured 2022-04-19 13:52:00 59.06 inches Body Temperature 2022-04-19 13:52:00 98.10 degrees Heart Rate 2022-04-19 13:52:00 99.00 /min Respiratory Rate 2022-04-19 13:52:00 Procedures Procedure Date / Time Performed Performing Clinician Source URINALYSIS 2024-03-10 19:56:00 Brittaney Arnold [facility] acute hospital POCT TEST 2024-03-10 19:56:00 Brittaney Arnold [facility] POCT TEST 2023-09-29 21:13:00 Silvina Rivera [facility] POCT URINALYSIS 2023-09-29 21:12:[address] [facility] POCT GLUCOSE (AUTOMATED) 2022-10-19 16:43:00 Alexander Reece [facility] POCT GLUCOSE (AUTOMATED) 2022-10-19 13:34:00 Alexander Reece arik [facility] POCT GLUCOSE (AUTOMATED) 2022-10-19 02:05:00 Alexander Reece arik [facility] CBC WITH DIFF 2022-10-18 08:15:00 Markell Crisostomo [facility] VENOUS CORD GAS 2022-10-18 02:35:[address] [facility] POCT GLUCOSE (AUTOMATED) 2022-10-18 01:05:00 Chevy [facility] POCT GLUCOSE (AUTOMATED) 2022-10-18 00:06:00 Chevy [facility] POCT GLUCOSE (AUTOMATED) 2022-10-17 22:51:00 Chevy [facility] POCT GLUCOSE (AUTOMATED) 2022-10-17 20:02:00 Chevy [facility] POCT GLUCOSE (AUTOMATED) 2022-10-17 16:54:00 Chevy [facility] POCT GLUCOSE (AUTOMATED) 2022-10-17 13:54:00 Chevy [facility] CENTRAL NEURAXIAL BLOCK 2022-10-17 13:26:00 Cynthia Huynh [facility] POCT GLUCOSE (AUTOMATED) 2022-10-17 09:02:00 Chevy [facility] POCT GLUCOSE (AUTOMATED) 2022-10-17 05:17:00 Chevy [facility] CBC WITH DIFF 2022-10-17 02:42:00 John Nix [facility] acute hospital RUBELLA SCREEN IGG 2022-10-17 02:42:00 Felicity Valerio [facility] VZV ANTIBODY SCREEN 2022-10-17 02:42:00 Cindi Valerio [facility] HEPATITIS B SURFACE ANTIGEN 2022-10-17 02:42:00 John Nix [facility] HB ABO GROUPING 2022-10-17 02:42:[address] [facility] RHO (D) IMMUNE GLOBULIN 2022-10-17 02:42:00 Hernandez Crisostomo [facility] HIV 1/2 AG-AB WITH REFLEX 2022-10-17 02:42:00 Torrey Nix [facility] SYPHILIS IGG/IGM 2022-10-17 02:42:[address] [facility] POCT GLUCOSE (AUTOMATED) 2022-10-17 01:39:00 Chevy [facility] NON-STRESS TEST 2022-10-16 19:05:53 [facility] 2022-10-13 20:59:20 Milagros Devlin [facility] PROTEIN CREAT RATIO URINE RANDOM 2022-10-11 17:28:00 Adum, Radha Aponte [facility] POCT GLUCOSE (AUTOMATED) 2022-10-11 16:36:00 Adum, Guera Aponte [facility] SGOT (ASPARTATE AMINO TRANSFER) 2022-10-11 16:21:00 Adum, Radha Aponte [facility] CREATININE 2022-10-11 16:21:00 Adum, Radha [facility] ALANINE AMINO TRANSFERASE(SGPT 2022-10-11 16:21:00 Adum, Radha Aponte [facility] LACTATE DEHYDROGENASE 2022-10-11 16:21:00 Adum, Radha Aponte [facility] URIC ACID 2022-10-11 16:21:00 Adum, Radha Vidales [facility] CBC WITH DIFF 2022-10-11 16:21:00 [facility] 2022-10-11 16:21:00 Adum, Radha [facility] ADC CLC OR LCC ONLY - WET PREP 2022-10-11 16:21:00 Adum, Radha Aponte [facility] CONSENT/REFUSAL FOR DIAGNOSIS AND TREATMENT 2022-10-11 14:26:04 Doctor Unassigned, [place] [facility] NON-STRESS TEST 2022-10-06 14:12:06 Adum, aRdha Aponte [facility] NON-STRESS TEST 2022-10-02 20:09:21 Batool Garrido [facility] DIABETES TESTING REPORTS 2022-10-02 05:01:00 Doc tor Unassigned, [place] [facility] NON-STRESS TEST 2022-09-25 14:51:09 Batool Garrido [facility] NON-STRESS TEST 2022-09-22 22:20:34 Adum, Radha Aponte [facility] NON-STRESS TEST 2022-09-19 15:20:52 Hema [facility] DIABETES TESTING REPORTS 2022-09-19 05:01:00 Doc johnnie Unassigned, [place] [facility] NON-STRESS TEST 2022-09-15 22:27:49 Adum, Radha Aponte [facility] NON-STRESS TEST 2022-09-12 13:41:05 Hema [facility] NON-STRESS TEST 2022-09-08 18:45:14 Hema [facility] DIABETES TESTING REPORTS 2022-09-08 05:01:00 Jameel blair Unassigned, [place] [facility] NON-STRESS TEST 2022-09-05 17:52:44 Hema [facility] NON-STRESS TEST 2022-09-01 18:34:03 Hema [facility] NON-STRESS TEST 2022-08-29 22:26:44 Adum, Radha Aponte [facility] POCT URINALYSIS W/O SPECIFIC GRAVITY 2022-08-29 00:00:00 Adum, Radha Aponte [facility] URINALYSIS 2022-08-24 00:27:00 Adum, Radha Vidales [facility] COMP. METABOLIC PANEL ([id number]) 2022-08-23 23:56:00 Adum, Radha Aponte [facility] CBC WITH DIFF 2022-08-23 23:56:00 Adum, Radha [facility] POCT GLUCOSE (AUTOMATED) 2022-08-23 23:36:00 Adum, Guera Aponte [facility] ASSIGNMENT OF BENEFITS 2022-08-23 21:49:55 Docedmond r Unassigned, [place] [facility] CONSENT/REFUSAL FOR DIAGNOSIS AND TREATMENT 2022-08-23 21:48:37 Doctor Unassigned, [place] [facility] POCT URINALYSIS W/O SPECIFIC GRAVITY 2022-08-16 00:00:00 Batool Garrido [facility] ASSIGNMENT OF BENEFITS 2022-08-14 19:21:02 Docto r Unassigned, [place] [facility] DIABETES TESTING REPORTS 2022-07-26 06:01:00 Doc tor Unassigned, [place] [facility] POCT URINALYSIS W/O SPECIFIC GRAVITY 2022-07-26 00:00:00 Batool Garrido [facility] URINE CULTURE 2022-07-20 21:54:00 Batool Garrido [facility] POCT URINALYSIS W/O SPECIFIC GRAVITY 2022-07-20 00:00:00 Batool Garrido [facility] DIABETES TESTING REPORTS 2022-07-17 06:01:00 Doc johnnie Unassigned, [place] [facility] POCT URINALYSIS W/O SPECIFIC GRAVITY 2022-06-28 00:00:00 Batool Garrido [facility] EXTERNAL PROVIDER RECORDS 2022-06-22 06:01:00 Do ctor Unayusuf, [place] [facility] URINE CULTURE 2022-06-07 21:04:00 Batool Garrido [facility] GC & CHLAMYDIA AMPLIFIED ASSAY 2022-06-07 21:04:00 Batool Garrido [facility] POCT URINALYSIS 2022-06-07 21:02:00 Royce Garrido [facility] DIABETES TESTING REPORTS 2022-05-31 06:01:00 Jameel blair Unassigned, [place] [facility] POCT URINALYSIS W/O SPECIFIC GRAVITY 2022-05-31 00:00:00 Batool Garrido [facility] AUTHORIZATION TO RELEASE PHI TO [facility] 2022-05-17 06:01:00 Doctor Unassigned, [place] [facility] US FIRST TRIMESTER LESS THAN 14 WEEKS WITH TRANSVAGINAL 2022-05-03 19:56:07 Requisition, Paper [facility] PATIENT FINANCIAL POLICY 2022-05-03 18:57:21 Doctor Unassigned, [place] [facility] NO SHOW OR MISSED APPOINTMENT POLICY ACKNOWLEDGEMENT 2022-05-03 18:57:03 Doctor Unassigned, [place] [facility] NOTICE OF PRIVACY PRACTICES 2022-05-03 18:56:47 Doctor Unassigned, [place] [facility] CONSENT/REFUSAL FOR DIAGNOSIS AND TREATMENT 2022-05-03 18:56:30 Doctor Unassigned, [place] [facility] REFERRAL- REQUEST/RESPONSE 2022-04-26 06:01:00 D jamessohan Unassigned, [place] [facility] CT ABDOMEN PELVIS W CONTRAST 2021-08-16 04:03:00 Zachery Mejia [facility] POCT TEST 2021-08-16 02:21:00 Nida Mejia [facility] URINALYSIS 2021-08-16 02:12:00 Zachery Mejia U [facility] LIPASE 2021-08-16 01:57:00 Zachery Mejia U [facility] COMP. METABOLIC PANEL ([id number]) 2021-08-16 01:57:00 Zachery Mejia [facility] CBC WITH DIFF 2021-08-16 01:57:00 Zachery Mejia [facility] NOTICE OF PRIVACY PRACTICES 2021-08-16 00:36:17 Doctor Unassigned, [place] [facility] CONSENT/REFUSAL FOR DIAGNOSIS AND TREATMENT 2021-08-16 00:35:38 Doctor Unassigned, [place] [facility] COMP. METABOLIC PANEL ([id number]) 2021-07-07 01:10:00 Channing Oquendo [facility] CBC WITH DIFF 2021-07-07 01:10:00 Channing Oquendo [facility] URINALYSIS 2021-07-07 01:10:00 Channing Oquendo [facility] POCT TEST 2021-07-07 01:09:00 Channing Oquendo [facility] NOTICE OF PRIVACY PRACTICES 2021-07-07 00:16:47 Doctor Unassigned, [place] [facility] CONSENT/REFUSAL FOR DIAGNOSIS AND TREATMENT 2021-07-07 00:16:29 Doctor Unassigned, [place] [facility] CONSENT/REFUSAL FOR DIAGNOSIS AND TREATMENT 2021-07-07 00:15:20 Doctor Unassigned, [place] [facility] NOTICE OF PRIVACY PRACTICES 2021-07-07 00:14:58 Doctor Unassigned, [place] [facility] COVID-19 (PCR MOLECULAR TESTING) 2019-12-29 22:02:00 Prudence Ruff [facility] Plan of Care Planned Activity Planned Date Details Comments Source Goal Plan of Care Note [code = 67413-2] Goal Plan of Care Note [code = 39839-0] Goal Plan of Care Note [code = 21408-7] Goal Plan of Care Note [code = 11877-3] Goal Plan of Care Note [code = 54766-2] Goal Plan of Care Note [code = 12131-2] Goal Plan of Care Note [code = 59084-8] Goal Plan of Care Note [code = 44499-9] Goal Plan of Care Note [code = 17351-6] Goal Plan of Care Note [code = 24292-6] Encounters Start Date/Time End Date/Time Encounter Type Admission Type Attending [facility] Facility Care Department Encounter ID Source 2023-09-05 17:37:47 Emergency [facility] [id number] [facility] 2022-08-23 20:59:23 Outpatient P [facility] [id number] [facility] 2024-03-10 14:17:00 2024-03-10 16:09:00 Emergency BRITTANEY BARRIOS ERICCA [facility] E[facility] [id number] [facility] 2024-03-10 14:17:00 2024-03-10 16:09:00 Emergency Brittaney Arnold [facility] [id number] 350.1.13.10 4.2.7.2.686 [id number] [facility] 2024-02-18 09:00:00 2024-02-18 09:00:00 Outpatient SHILA MADRIGAL [facility] [id number] [facility] 2023-12-11 00:00:00 2023-12-11 00:00:00 Outpatient HOLLY VELÁZQUEZ [id number] Noemi Jaquez 2023-11-13 09:00:00 2023-11-13 09:00:00 Outpatient HOLLY VELÁZQUEZ NOEMI TOLLIVER [id number] Noemi Seaziza 2023-10-24 00:00:00 2023-10-24 00:00:00 Outpatient REDDY SIMMONS NOEMI TOLLIVER [id number] Noemi [facility] 2023-10-08 08:30:00 2023-10-08 08:52:13 Outpatient R SHILA PAULINO [facility] [id number] [facility] 2023-10-08 08:30:00 2023-10-08 08:52:13 Office Visit Osmar Shila [facility] [id number] 350.1.13.10 4.2.7.2.686 [id number] [facility] 2023-09-29 16:00:00 2023-09-29 16:26:29 Urgent Care Angle Rivera Unknown, Attending [facility] [id number] 350.1.13.10 4.2.7.2.686 [id number] [facility] 2023-09-29 16:00:00 2023-09-29 16:00:00 Outpatient ANGLE SCHULTZ [facility] [id number] [facility] 2023-08-29 00:00:00 2023-08-29 00:00:00 Outpatient MD NOEMI GARVEY [id number] Noemi Sewellaziza 2023-08-16 00:00:00 2023-08-16 00:00:00 Outpatient MD NOEMI GARVEY [id number] Noemi Jaquez 2023-07-10 19:40:00 2023-07-10 19:40:00 Outpatient R [facility] [id number] [facility] 2023-06-26 00:00:00 2023-06-26 00:00:00 Outpatient MD NOEMI GARVEY [id number] Noemi [facility] 2023-06-20 00:00:00 2023-06-20 00:00:00 Outpatient HOLLY VELÁZQUEZ [id number] Noemi [facility] 2023-05-15 00:00:00 2023-05-15 00:00:00 Outpatient HOLLY VELÁZQUEZ [id number] Noemi [facility] 2023-05-15 00:00:00 2023-05-15 00:00:00 Outpatient HOLLY VELÁZQUEZ [id number] Noemi [facility] 2023-05-15 00:00:00 2023-05-15 00:00:00 Outpatient HOLYL VELÁZQUEZ [id number] Noemi [facility] 2023-05-14 13:10:00 2023-05-14 13:10:00 Outpatient LAB90 NOEMI NOEMI [id number] Noemi [facility] 2023-05-14 11:30:00 2023-05-14 11:30:00 Outpatient HOLLY VELÁZQUEZ [id number] [facility] 2023-05-07 14:30:00 2023-05-07 14:30:00 Outpatient HOLLY VELÁZQUEZ [id number] Noemi [facility] 2023-02-21 16:15:41 2023-02-21 16:15:41 Outpatient [facility] [id number] Eugene Quinones Raghavendra 2023-01-09 11:30:00 2023-01-09 11:30:00 Outpatient R BATOOL GARRIDO CHERYAL [facility] [id number] [facility] 2022-12-26 13:30:00 2022-12-26 13:30:00 Outpatient R CECILIA MATHIS RENUKA [facility] [id number] [facility] 2022-12-25 13:00:00 2022-12-25 13:00:00 Outpatient R CECILIA MATHIS RENUKA [facility] [id number] [facility] 2022-12-03 15:00:00 2022-12-03 15:50:41 Outpatient R PRUDENCE RUFF [facility] [id number] [facility] 2022-12-03 15:00:00 2022-12-03 15:50:41 Urgent Care Prudence Ruff Unknown, Attending COUNT[facility] 1..840.114 350.1.13.10 4.2.7.2.686 [id number] [facility] 2022-11-20 16:00:00 2022-11-20 16:00:00 Outpatient R BATOOL GARRIDO CHERYAL [facility] [id number] [facility] 2022-10-27 13:00:00 2022-10-27 13:00:00 Outpatient R [facility] [id number] [facility] 2022-10-26 08:00:00 2022-10-26 08:32:32 Nurse Visit Visit, Ang-Rmchp Nurse Gary Guerrero [facility] 1..840.114 350.1.13.10 4.2.7.2.686 [id number] [facility] 2022-10-26 08:00:00 2022-10-26 08:00:00 Outpatient R GARY GUERRERO [facility] [id number] [facility] 2022-10-23 13:00:00 2022-10-23 13:00:00 Outpatient R [facility] [id number] [facility] 2022-10-20 13:00:00 2022-10-20 13:00:00 Outpatient R [facility] [id number] [facility] 2022-10-16 19:52:00 2022-10-19 13:54:00 Hospital Encounter Alondra Reece [facility] 1..840.114 350.1.13.10 4.2.7.2.686 [id number] [facility] 2022-10-17 07:45:00 2022-10-17 22:45:00 Anesthesia Event Cynthia Huynh, [facility] 1.2840.114 350.1.13.10 4.2.7.2.686 [id number] [facility] 2022-10-16 13:00:00 2022-10-16 14:02:23 Routine Visit 1, Lkj Nst Room Letabeckpeter Batool [facility] 1..114 350.1.13.10 4.2.7.2.686 [id number] [facility] 2022-10-16 13:00:00 2022-10-16 14:02:23 Outpatient R BATOOL GARRIDO [facility] [id number] [facility] 2022-10-16 13:00:00 2022-10-16 14:02:23 Outpatient R BATOOL GARRIDO [facility] [id number] [facility] 2022-10-16 00:00:00 2022-10-16 00:00:00 Telephone [facility] 1..114 350.1.13.10 4.2.7.2.686 [id number] [facility] 2022-10-16 00:00:00 2022-10-16 00:00:00 Patient Secure Msg Doctor Unassigned, [place] [facility] 1.2.114 350.1.13.10 4.2.7.2.686 [id number] [facility] 2022-10-13 15:00:00 2022-10-13 16:07:28 Outpatient RITO VALLE CORE[facility] [id number] [facility] 2022-10-13 15:00:00 2022-10-13 16:07:28 Routine Visit Room, [facility] [facility] R[facility] Ng [facility] 1.20.114 350.1.13.10 4.2.7.2.686 [id number] 134 [id number] [facility] 2022-10-13 14:00:00 2022-10-13 14:30:00 R D Intern Visit Ultrasound, Colby-m Yuly Rito [facility] 1.0.114 350.1.13.10 4.2.7.2.686 [id number] [facility] 2022-10-13 00:00:00 2022-10-13 00:00:00 [facility] 1.0.114 350.1.13.10 4.2.7.2.686 [id number] 134 [id number] [facility] 2022-10-12 13:30:00 2022-10-12 13:30:00 Outpatient P [facility] [id number] [facility] 2022-10-12 00:00:00 2022-10-12 00:00:00 [facility] 1..114 350.1.13.10 4.2.7.2.686 [id number] 134 [id number] [facility] 2022-10-11 09:33:00 2022-10-11 14:05:00 Outpatient P RADHA TURCIOS [facility] [id number] [facility] 2022-10-11 09:33:00 2022-10-11 14:05:00 Hospital Encounter Radha Turcios [facility] 1.0.114 350.1.13.10 4.2.7.2.686 [id number] [facility] 2022-10-11 00:00:00 2022-10-11 00:00:00 Telephone Adperez Radha Bong [facility] 1..114 350.1.13.10 4.2.7.2.686 [id number] 134 [id number] [facility] 2022-10-09 13:00:00 2022-10-09 13:00:00 Outpatient R [facility] [id number] [facility] 2022-10-06 13:00:00 2022-10-06 13:00:00 Outpatient R KAROLINA [facility] [id number] [facility] 2022-10-06 08:00:00 2022-10-06 09:07:47 Outpatient R KAROLINA [facility] [id number] [facility] 2022-10-06 08:00:00 2022-10-06 09:07:47 Routine Visit Room, [facility] Nst Adperez Radha [facility] 1..114 350.1.13.10 4.2.7.2.686 [id number] 134 [id number] [facility] 2022-10-02 13:00:00 2022-10-02 13:43:06 Outpatient R ADPEREZ [facility] [id number] [facility] 2022-10-02 13:00:00 2022-10-02 13:43:06 [facility]ine [facility] 1, [facility]ha [facility] 1..114 350.1.13.10 4.2.7.2.686 [id number] 134 [id number] [facility] 2022-10-02 00:00:00 2022-10-02 00:00:00 Orders Only Doctor Unassigned, [place] [facility] 1..114 350.1.13.10 4.2.7.2.686 [id number] [facility] 2022-09-29 13:00:00 2022-09-29 13:00:00 Outpatient R ADPEREZ [facility] [id number] [facility] 2022-09-29 08:00:00 2022-09-29 08:00:00 Outpatient R [facility] [id number] [facility] 2022-09-27 00:00:00 2022-09-27 00:00:00 Refill Batool Garrido [facility] 1.840.114 350.1.13.10 4.2.7.2.686 [id number] 134 [id number] [facility] 2022-09-25 13:00:00 2022-09-25 13:00:00 Outpatient R ADPEREZ [facility] [id number] [facility] 2022-09-25 08:00:00 2022-09-25 08:50:14 Outpatient R ADPEREZ [facility] [id number] [facility] 2022-09-25 08:00:00 2022-09-25 08:50:14 Routine Visit 1, [facility] Room [facility] 1..840.114 350.1.13.10 4.2.7.2.686 [id number] [facility] 2022-09-22 13:00:00 2022-09-22 14:39:21 Outpatient R ADUM [facility] [id number] [facility] 2022-09-22 13:00:00 2022-09-22 14:39:21 Routine Visit Room, [facility] Ad [facility] 1..840.114 350.1.13.10 4.2.7.2.686 [id number] [facility] 2022-09-22 13:00:00 2022-09-22 13:00:00 Outpatient R KAROLINA RADHA [facility] [id number] [facility] 2022-09-19 13:00:00 2022-09-19 13:00:00 Outpatient R BATOOL GARRIDO CHERYAL [facility] [id number] [facility] 2022-09-19 08:00:00 2022-09-19 08:49:07 Outpatient R KAROLINA [facility] [id number] [facility] 2022-09-19 08:00:00 2022-09-19 08:49:07 Routine Visit 1, Marilu Jauregui Room Karolina Radha [facility] 1.114 350.1.13.10 4.2.7.2.686 [id number] 134 [id number] [facility] 2022-09-19 00:00:00 2022-09-19 00:00:00 Orders Only Doctor Unassigned, [place] [facility] 1.114 350.1.13.10 4.2.7.2.686 [id number] [facility] 2022-09-18 13:00:00 2022-09-18 13:00:00 Outpatient R [facility] [id number] [facility] 2022-09-15 14:00:00 2022-09-15 15:14:39 Outpatient R KAROLINA RADHA [facility] [id number] [facility] 2022-09-15 14:00:00 2022-09-15 15:14:39 Routine Visit Room, Chuck Turcios [facility] 1.114 350.1.13.10 4.2.7.2.686 [id number] 134 [id number] [facility] 2022-09-15 13:00:00 2022-09-15 13:00:00 Outpatient R ADUM RADHA [facility] [id number] [facility] 2022-09-14 13:30:00 2022-09-14 14:00:00 R D Intern Visit Ultrasound, Alondra Blanchard [facility] 1..114 350.1.13.10 4.2.7.2.686 [id number] [facility] 2022-09-14 13:30:00 2022-09-14 13:49:41 Outpatient P ALONDRA REECE [facility] [id number] [facility] 2022-09-14 00:00:00 2022-09-14 00:00:00 Telephone Adum, Radha [facility] 1.114 350.1.13.10 4.2.7.2.686 [id number] [facility] 2022-09-12 08:00:00 2022-09-12 08:30:45 Outpatient R BATOOL GARRIDO [facility] [id number] [facility] 2022-09-12 08:00:00 2022-09-12 08:30:45 [facility] 1.114 350.1.13.10 4.2.7.2.686 [id number] 134 [id number] [facility] 2022-09-08 13:00:00 2022-09-08 13:51:56 Outpatient R BATOOL GARRIDO CHERYAL [facility] [id number] [facility] 2022-09-08 13:00:00 2022-09-08 13:51:56 Routine Visit 1, [facility] 1.2.840.114 350.1.13.10 4.2.7.2.686 [id number] 134 [id number] [facility] 2022-09-08 00:00:00 2022-09-08 00:00:00 Orders Only Doctor Unassigned, [place] [facility] 1.2840.114 350.1.13.10 4.2.7.2.686 [id number] [facility] 2022-09-05 10:00:00 2022-09-05 11:09:16 Outpatient R ADUM, [facility] [id number] [facility] 2022-09-05 10:00:00 2022-09-05 11:09:16 Routine Visit 1, [facility] 1.2840.114 350.1.13.10 4.2.7.2.686 [id number] 134 [id number] [facility] 2022-09-04 13:00:00 2022-09-04 13:00:00 Outpatient R [facility] [id number] [facility] 2022-09-01 13:00:00 2022-09-01 13:29:47 Outpatient R ADPEREZ [facility] [id number] [facility] 2022-09-01 13:00:00 2022-09-01 13:29:47 Routine Visit 1, [facility] 1.2840.114 350.1.13.10 4.2.7.2.686 [id number] 134 [id number] [facility] 2022-09-01 00:00:00 2022-09-01 00:00:00 Telephone Batool Garrido [facility] 1.2840.114 350.1.13.10 4.2.7.2.686 [id number] 134 [id number] [facility] 2022-08-30 15:15:00 2022-08-30 15:42:42 Outpatient R BATOOL [facility]O [facility] [id number] [facility] 2022-08-30 15:15:00 2022-08-30 15:42:42 R D Intern Visit Lab, Ang - Db Batool Garrido [facility] 1..840.114 350.1.13.10 4.2.7.2.686 [id number] [facility] 2022-08-29 13:00:00 2022-08-29 14:29:54 Outpatient R RADHA TURCIOS [facility] [id number] [facility] 2022-08-29 13:00:00 2022-08-29 14:29:54 Routine Visit 1, Marilu Nst Room AdRadha aparicio [facility] 1.840.114 350.1.13.10 4.2.7.2.686 [id number] 134 [id number] [facility] 2022-08-29 00:00:00 2022-08-29 00:00:00 Telephone Jair Bolden [facility] 1..840.114 350.1.13.10 4.2.7.2.686 [id number] 134 [id number] [facility] 2022-08-28 13:00:00 2022-08-28 13:00:00 Outpatient R [facility] [id number] [facility] 2022-08-28 00:00:00 2022-08-28 00:00:00 Telephone Radha Turcios [facility] 1.840.114 350.1.13.10 4.2.7.2.686 [id number] 134 [id number] [facility] 2022-08-27 00:00:00 2022-08-27 00:00:00 Kailyn Dallas [facility] 1.2.840.114 350.1.13.10 4.2.7.2.686 [id number] [facility] 2022-08-27 00:00:00 2022-08-27 00:00:00 Refill Batool Garrido [facility] 1.2.840.114 350.1.13.10 4.2.7.2.686 [id number] 134 [id number] [facility] 2022-08-23 17:12:00 2022-08-23 20:40:00 Outpatient P RADHA TURCIOS [facility] [place] [id number] [facility] 2022-08-23 17:12:00 2022-08-23 20:40:00 Hospital Encounter Radha Turcios [facility] 1.2.840.114 350.1.13.10 4.2.7.2.686 [id number] [facility] 2022-08-23 00:00:00 2022-08-23 00:00:00 Telephone MegBatool golden [facility] 1.2.840.114 350.1.13.10 4.2.7.2.686 [id number] 134 [id number] [facility] 2022-08-23 00:00:00 2022-08-23 00:00:00 Orders Only Doctor Unassigned, [place] [facility] 1.2.840.114 350.1.13.10 4.2.7.2.686 [id number] [facility] 2022-08-18 13:30:00 2022-08-18 13:30:00 Outpatient P [facility] [id number] [facility] 2022-08-17 00:00:00 2022-08-17 00:00:00 Telephone Cecilia Mathis [facility] 1.2.840.114 350.1.13.10 4.2.7.2.686 [id number] [facility] 2022-08-16 13:45:00 2022-08-16 14:45:49 Outpatient R BATOOL GARRIDO [facility] [id number] [facility] 2022-08-16 13:45:00 2022-08-16 14:45:49 Routine Visit [facility] 1.0.114 350.1.13.10 4.2.7.2.686 [id number] 134 [id number] [facility] 2022-08-15 15:30:00 2022-08-15 15:58:11 Outpatient P KRYSTIN KAYE [facility] [id number] [facility] 2022-08-15 15:30:00 2022-08-15 15:58:11 R D Intern Visit 4, [facility] Room LadonnaKrystin [facility] 1.114 350.1.13.10 4.2.7.2.686 [id number] [facility] 2022-08-15 00:00:00 2022-08-15 00:00:00 Case Management [facility] 1.114 350.1.13.10 4.2.7.2.686 [id number] 134 [id number] [facility] 2022-08-14 13:45:00 2022-08-14 14:21:42 Outpatient R CECILIA MATHIS [facility] [id number] [facility] 2022-08-14 13:45:00 2022-08-14 14:21:42 Office Visit Delfina formerly [facility] 1.840.114 350.1.13.10 4.2.7.2.686 [id number] 136 [id number] [facility] 2022-08-14 00:00:00 2022-08-14 00:00:00 Orders Only Doctor Unassigned, [place] [facility] 1.2.840.114 350.1.13.10 4.2.7.2.686 [id number] [facility] 2022-07-26 13:45:00 2022-07-26 14:25:22 Outpatient R BATOOL [facility]IDO [facility] [id number] [facility] 2022-07-26 13:45:00 2022-07-26 14:25:22 Routine Visit [facility] 1.2840.114 350.1.13.10 4.2.7.2.686 [id number] 134 [id number] [facility] 2022-07-26 00:00:00 2022-07-26 00:00:00 Orders Only Doctor Unassigned, [place] [facility] 1.2.840.114 350.1.13.10 4.2.7.2.686 [id number] [facility] 2022-07-20 15:45:00 2022-07-20 16:06:19 Routine Visit [facility] 1.2840.114 350.1.13.10 4.2.7.2.686 [id number] 134 [id number] [facility] 2022-07-20 13:45:00 2022-07-20 14:15:00 R D Intern Visit Ultrasound, Colby-Adi Desai [facility] 1.2.840.114 350.1.13.10 4.2.7.2.686 [id number] [facility] 2022-07-20 13:45:00 2022-07-20 14:01:55 Outpatient P ADI LEVIN [facility] [id number] [facility] 2022-07-17 00:00:00 2022-07-17 00:00:00 Orders Only Doctor Unassigned, [place] [facility] 1.0.114 350.1.13.10 4.2.7.2.686 [id number] [facility] 2022-07-14 11:15:00 2022-07-14 11:46:10 Outpatient R OMI AGEE [facility] [id number] [facility] 2022-07-14 11:15:00 2022-07-14 11:46:10 Telemedici ne Visit Farnaz Padilla Joseph W [facility] 1.114 350.1.13.10 4.2.7.2.686 [id number] [facility] 2022-07-07 13:00:00 2022-07-07 15:57:43 Outpatient R ADI LEVIN [facility] [id number] [facility] 2022-07-07 13:00:00 2022-07-07 15:57:43 Telemedici ne Visit [facility], [facility] Adi [facility] .114 350.1.13.10 4.2.7.2.686 [id number] [facility] 2022-07-04 00:00:00 2022-07-04 00:00:00 Telephone [facility] 1..114 350.1.13.10 4.2.7.2.686 [id number] 134 [id number] [facility] 2022-06-30 00:00:00 2022-06-30 00:00:00 Case Management Tridebora [facility] 1.2.840.114 350.1.13.10 4.2.7.2.686 [id number] 134 [id number] [facility] 2022-06-28 14:00:00 2022-06-28 14:51:48 Outpatient R JEREMIAH GARRIDOSTANFORD JIMENEZJEREMIAH [facility] [id number] [facility] 2022-06-28 14:00:00 2022-06-28 14:51:48 [facility] 1.2.840.114 350.1.13.10 4.2.7.2.686 [id number] 134 [id number] [facility] 2022-06-22 00:00:00 2022-06-22 00:00:00 Orders Only Doctor Unassigned, [place] [facility] 1.2840.114 350.1.13.10 4.2.7.2.686 [id number] [facility] 2022-06-21 10:45:00 2022-06-21 12:00:00 R D Intern Visit Ultrasound, Jair Irving [facility] 1.20.114 350.1.13.10 4.2.7.2.686 [id number] [facility] 2022-06-21 10:45:00 2022-06-21 10:45:00 Outpatient P JAIR GUZMAN SHANNON [facility] [id number] [facility] 2022-06-21 00:00:00 2022-06-21 00:00:00 [facility]phone [facility] 1.2.114 350.1.13.10 4.2.7.2.686 [id number] 134 [id number] [facility] 2022-06-21 00:00:00 2022-06-21 00:00:00 Case Management [facility] 1..114 350.1.13.10 4.2.7.2.686 [id number] 134 [id number] [facility] 2022-06-20 08:15:00 2022-06-20 08:30:00 R D Intern Visit Lab, Colby Garrido [facility] 1.84.114 350.1.13.10 4.2.7.2.686 [id number] [facility] 2022-06-20 08:15:00 2022-06-20 08:24:06 Outpatient R IRWINBATOOL MAR [facility] [id number] [facility] 2022-06-15 15:00:00 2022-06-15 15:15:00 R D Intern Visit Lab, Colby Garrido [facility] 1.84.114 350.1.13.10 4.2.7.2.686 [id number] [facility] 2022-06-15 14:05:00 2022-06-15 14:34:39 Outpatient R IRWINBATOOL MARBECKBATOOL MAR [facility] [id number] [facility] 2022-06-15 14:05:00 2022-06-15 14:34:39 Nurse Visit Nurse, Lkj [facility] 1.84.114 350.1.13.10 4.2.7.2.686 [id number] [facility] 2022-06-12 13:00:00 2022-06-12 16:53:06 Outpatient R KATIE SHAFFER [facility] [id number] [facility] 2022-06-12 13:00:00 2022-06-12 16:53:06 Telemedici ne Visit Faculty, Colby Yang Katie Holley [facility] 1.2.840.114 350.1.13.10 4.2.7.2.686 [id number] [facility] 2022-06-12 00:00:00 2022-06-12 00:00:00 Patient Secure Msg Batool Garrido [facility] 1.2.840.114 350.1.13.10 4.2.7.2.686 [id number] 134 [id number] [facility] 2022-06-07 14:30:00 2022-06-07 15:12:23 Outpatient R BATOOL GARRIDO [facility] [id number] [facility] 2022-06-07 14:30:00 2022-06-07 15:12:23 [facility] 1.2.840.114 350.1.13.10 4.2.7.2.686 [id number] 134 [id number] [facility] 2022-06-06 00:00:00 2022-06-06 00:00:00 Telephone [facility] 1.2.840.114 350.1.13.10 4.2.7.2.686 [id number] 134 [id number] [facility] 2022-06-01 00:00:00 2022-06-01 00:00:00 Telephone [facility] 1.2.840.114 350.1.13.10 4.2.7.2.686 [id number] 134 [id number] [facility] 2022-05-31 15:30:00 2022-05-31 16:30:04 Outpatient R BATOOL [facility] [id number] [facility] 2022-05-31 15:30:00 2022-05-31 16:30:04 Routine Visit Hema Batool [facility] 1.2.840.114 350.1.13.10 4.2.7.2.686 [id number] [facility] 2022-05-31 00:00:00 2022-05-31 00:00:00 Orders Only Doctor Unassigned, [place] [facility] 1.2.840.114 350.1.13.10 4.2.7.2.686 [id number] [facility] 2022-05-19 10:00:00 2022-05-19 10:34:02 Outpatient R HEMA BATOOL [facility] [id number] [facility] 2022-05-19 10:00:00 2022-05-19 10:34:02 Nurse Visit [facility], [facility] 1.2.840.114 350.1.13.10 4.2.7.2.686 [id number] 134 [id number] [facility] 2022-05-18 00:00:00 2022-05-18 00:00:00 [facility] 1.2.840.114 350.1.13.10 4.2.7.2.686 [id number] 134 [id number] [facility] 2022-05-17 15:30:00 2022-05-17 16:27:49 Outpatient R HEMA BATOOL TAYLOR [facility] [id number] [facility] 2022-05-17 15:30:00 2022-05-17 16:27:49 Initial Visit Batool Garrido [facility] 1.2.840.114 350.1.13.10 4.2.7.2.686 [id number] 134 [id number] [facility] 2022-05-17 00:00:00 2022-05-17 00:00:00 Orders Only Doctor Unassigned, [place] [facility] 1.2.840.114 350.1.13.10 4.2.7.2.686 [id number] [facility] 2022-05-03 12:56:18 2022-05-03 23:59:00 Outpatient R RADIOLOGY [facility] [id number] [facility] 2022-05-03 12:56:18 2022-05-03 23:59:00 Hospital Encounter Radiology [facility] 1.2.840.114 350.1.13.10 4.2.7.2.686 [id number] [facility] 2022-04-26 14:13:02 2022-04-26 14:13:02 Outpatient [facility] [id number] Eugene Mabry 2022-04-26 00:00:00 2022-04-26 00:00:00 Outpatient Visit [id number] 2022-04-26 00:00:00 2022-04-26 00:00:00 Orders Only Doctor Unassigned, [place] [facility] 1.2.840.114 350.1.13.10 4.2.7.2.686 [id number] [facility] 2022-04-20 16:10:55 2022-04-20 16:10:55 Outpatient [facility] [id number] Eugene Mabry 2022-04-19 13:53:19 2022-04-19 13:53:19 Outpatient [facility] Eugene Mabry 2022-04-19 00:00:00 2022-04-19 00:00:00 Outpatient Visit [id number] 2021-08-15 18:42:00 2021-08-15 23:56:00 Emergency X ZACHERY MEJIA [facility] ERT [id number] [facility] 2021-08-15 18:42:00 2021-08-15 23:56:00 Emergency Zachery Mejia F [facility] 1.0.114 [id number] [id number] [facility] 2021-07-06 18:24:00 2021-07-06 20:46:00 Emergency X OQUENDO, CHANNING [facility] ERT [id number] [facility] 2021-07-06 18:24:00 2021-07-06 20:46:00 Emergency Channing Oquendo S [facility] 1.0.114 [id number] [facility] 2019-12-29 16:59:39 2019-12-29 17:27:50 Laboratory Only [facility], [facility] [address] 1.114 [id number] [id number] [id number] 2019-12-29 16:59:39 2019-12-29 17:27:50 Laboratory Only Lab, [facility] [address] 1.0114 [id number] [id number] [facility] 2019-12-29 17:00:00 2019-12-29 17:00:00 Outpatient R [facility] [id number] [facility] Results Test Description Test Time Test Comments Results Result Co [facility] [id number] 21:13:00* Test Item Value Reference Range Interpretation Comme nts POCT PREG (test code = 1605) Negative On board controls acceptable with C Line (test code = 3574) Yes POCT PREG LOT # (test code = 3575) POCT PREG TEST DATE ( test code = 3576) [facility] [id number] 21:13:00* Test Item Value Reference Range Interpretation Comme nts POCT PREG (test code = 1605) Negative On board controls acceptable with C Line (test code = 3574) Yes POCT PREG LOT # (test code = 3575) POCT PREG TEST DATE ( test code = 3576) [facility] Ur[facility] W Specific [id number] 21:12:00* Test Item Value Reference Range Interpretation Comme nts POCT U SP GRAV (test code = 3255) 1.015 mg/dl 1.005-1.025 POCT PH U (test code = 3254) 7 mg/dl 5-8 POCT U LEUK EST (test code = 3263) neg Negative - Negative POCT U NIT (test code = 3262) neg Negative - Negative POCT U PROT (test code = 3259) neg Negative - Negative POCT U GLU (test code = 3256) normal Negative - Negative POCT U KETONE (test code = 3258) neg Negative - Negative POCT U UROBILI (test code = 3260) normal 0.2-1 POCT U BILI (test code = 3261) neg Negative - Negative POCT U BLD (test code = 3257) trace Negative - Negative POCT U COLOR (test code = 3266) yellow POCT U APPEAR (test code = 3267) clear SATHYA (test code = SATHYA) accurate development and interpretation of all internal controls [facility] W Specific [id number] 21:12:00* Test Item Value Reference Range Interpretation Comme nts POCT U SP GRAV (test code = 3255) 1.015 mg/dl 1.005-1.025 POCT PH U (test code = 3254) 7 mg/dl 5-8 POCT U LEUK EST (test code = 3263) neg Negative - Negative POCT U NIT (test code = 3262) neg Negative - Negative POCT U PROT (test code = 3259) neg Negative - Negative POCT U GLU (test code = 3256) normal Negative - Negative POCT U KETONE (test code = 3258) neg Negative - Negative POCT U UROBILI (test code = 3260) normal 0.2-1 POCT U BILI (test code = 3261) neg Negative - Negative POCT U BLD (test code = 3257) trace Negative - Negative POCT U COLOR (test code = 3266) yellow POCT U APPEAR (test code = 3267) clear SATHYA (test code = SATHYA) accurate development and interpretation of all internal controls [facility] GLUCOSE (AUTOMATED)2022-10-19 16:45:14* Test Item Value Reference Range Interpretation Comme nts POCT GLU (test code = 8923434555) 84 mg/dL 70-110 Lab Interpretation (test cod e = 67371-1) Normal [facility] GLUCOSE (AUTOMATED)2022-10-19 13:35:13* Test Item Value Reference Range Interpretation Comme nts POCT GLU (test code = 2939133549) 74 mg/dL 70-110 Lab Interpretation (test cod e = 31555-6) Normal [facility] GLUCOSE (AUTOMATED)2022-10-19 02:06:22* Test Item Value Reference Range Interpretation Comme nts POCT GLU (test code = 0351328499) 80 mg/dL 70-110 Lab Interpretation (test cod e = 05938-2) Normal [facility] IMMUNE [id number] 04:49:11* Test Item Value Reference Range Interpretation Comme nts RHIG CANDIDATE? (test code = 5188) No- see comment Patient is not a candidate for RhIg- Patient is Rh Positive.Performed at [facility] Laboratory Services - [facility] Blood [address] [place] [id number] Free: [phone] No. [id number] [facility] [id number] 02:55:52* Test Item Value Reference Range Interpretation Comme nts VENOUS BASE EXCESS, CORD (test code = 3010883487) -1.4 mEq/L VENOUS PH, CORD (test code = 4602184881) 7.36 7.25-7.45 VENOUS PC02, CORD (test code = 9736069141) 44 See_Comment [Automated messa ge] The system which generated this result transmitted reference range: 27 - 49 mmHg. The reference range was not used to interpret this result as normal/abnormal. VENOUS PO2, CORD (test code = 1779526831) 23 See_Comment [Automated me ssage] The system which generated this result transmitted reference range: 17 - 41 mmHg. The reference range was not used to interpret this result as normal/abnormal. VENOUS BICARBONATE, CORD (test code = 9520759592) 24 See_Comment [Automated messa ge] The system which generated this result transmitted reference range: 12 - 29 mEq/L. The reference range was not used to interpret this result as normal/abnormal. [facility] CORD [id number] 02:55:11* Test Item Value Reference Range Interpretation Comme nts BASE EXCESS, CORD (test code = 0759924464) -2.2 mEq/L AC PH, CORD (BEAKER) (test code = 3286121598) 7.28 7.18-7.38 PC02, CORD (test code = 1122664069) 56 See_Comment [Automated messa ge] The system which generated this result transmitted reference range: 32 - 66 mmHg. The reference range was not used to interpret this result as normal/abnormal. PO2, CORD (test code = 8994544526) 14 See_Comment [Automated messa ge] The system which generated this result transmitted reference range: 10 - 30 mmHg. The reference range was not used to interpret this result as normal/abnormal. BICARBONATE, CORD (test code = 3359846217) 26 See_Comment [Automated messa ge] The system which generated this result transmitted reference range: 17 - 27 mEq/L. The reference range was not used to interpret this result as normal/abnormal. [facility] GLUCOSE (AUTOMATED)2022-10-18 01:14:13* Test Item Value Reference Range Interpretation Comme [facility] POCT GLU (test code = 7576530035) 115 mg/dL 70-110 H Lab Interpretation (test cod e = 17200-1) Abnormal [facility] GLUCOSE (AUTOMATED)2022-10-18 00:16:37* Test Item Value Reference Range Interpretation Comme nts POCT GLU (test code = 4295082475) 117 mg/dL 70-110 H Lab Interpretation (test cod e = 36415-4) Abnormal [facility] GLUCOSE (AUTOMATED)2022-10-17 23:03:18* Test Item Value Reference Range Interpretation Comme nts POCT GLU (test code = 2645460974) 98 mg/dL 70-110 Lab Interpretation (test cod e = 68229-0) Normal [facility] GLUCOSE (AUTOMATED)2022-10-17 20:03:22* Test Item Value Reference Range Interpretation Comme nts POCT GLU (test code = 9147394656) 95 mg/dL 70-110 Lab Interpretation (test cod e = 29105-5) Normal [facility] GLUCOSE (AUTOMATED)2022-10-17 17:10:41* Test Item Value Reference Range Interpretation Comme nts POCT GLU (test code = 3363577143) 81 mg/dL 70-110 Lab Interpretation (test cod e = 51170-6) [facility] [id number] 15:52:59* Test Item Value Reference Range Interpretation Comme [facility] VZV IgG antibody (test code = 79674-1) Negative Negative SATHYA (test code = SATHYA) Positive - Indicat es the patient was exposed to VZV through infection or vaccination.Negative - Indicates the patient could be susceptible to VZV infection.Equivocal - A second specimen should be sent for testing. [facility] SouthRUBELLA SCREEN [id number] 15:52:59* Test Item Value Reference Range Interpretation Comme [facility] Rubella screen IgG (test code = 3586969241) Positive Negative SATHYA (test code = SATHYA) Positive - Indicat es the patient was exposed to Rubella through infection or vaccination.Negative - Indicates the patient could be susceptible to Rubella infection.Equivocal - A second specimen should be sent. [facility] ONLY - SYPHILIS [id number] 15:52:18* Test Item Value Reference Range Interpretation Comme [facility] Syphilis IgG/IgM (test code = 47761-0) Non-reactive Non-reactive SATHYA (test code = SATHYA) Non-reactive - No serologic evidence of T. pallidum infection. Cannot exclude incubating or early syphilis. Submit a second specimen in 2-4 weeks if syphilis is clinically suspected. Equivocal - Further testing to follow. Reactive - Further testing to follow. Lab Interpretation (test code = 22972-0) Normal [facility] GLUCOSE (AUTOMATED)2022-10-17 14:03:20* Test Item Value Reference Range Interpretation Comme nts POCT GLU (test code = 9240299104) 134 mg/dL 70-110 H Lab Interpretation (test cod e = 63793-5) Abnormal [facility] GLUCOSE (AUTOMATED)2022-10-17 09:03:42* Test Item Value Reference Range Interpretation Comme nts POCT GLU (test code = 3734010087) 108 mg/dL 70-110 Lab Interpretation (test cod e = 02791-0) Normal [facility] GLUCOSE (AUTOMATED)2022-10-17 05:17:50* Test Item Value Reference Range Interpretation Comme nts POCT GLU (test code = 1416733728) 109 mg/dL 70-110 Lab Interpretation (test cod e = 09214-4) Normal [facility]/2 AG-AB WITH [id number] 03:58:45* Test Item Value Reference Range Interpretation Comme nts HIV Semi-quantitative (test code = 99440-2) 0.07 Negative SATHYA (test code = SATHYA) Non-reactive for HIV-1 antigen and HIV-1/HIV-2 antibodies. ?No laboratory evidence of HIV infection. ?Repeat in 2-4 weeks if acute HIV infection is suspected. [facility] SouthHepatitis B Surface [id number] 03:49:26 * Test Item Value Reference Range Interpretation Comme nts HBsAg Semi-Quantitative (hieu t code = 5195-3) 0.04 Negative [facility] SouthCBC with [id number] 03:06:39* Test Item Value Reference Range Interpretation Comme nts WBC (test code = 6690-2) 6.51 See_Comment [Automated [employer]] The system which generated this result transmitted reference range: 4.50 - 13.50 10*3/?L. The reference range was not used to interpret this result as normal/abnormal. RBC (test code = 789-8) 3.38 See_Comment L [Automated messa ge] The system which generated this result transmitted reference range: 4.10 - 5.10 10*6/?L. The reference range was not used to interpret this result as normal/abnormal. HGB (test code = 718-7) 10.0 g/dL 12.0-16.0 L HCT (test code = 4544-3) 29.1 % 36.0-45.0 L MCV (test code = 787-2) 86.1 fL 78.0-95.0 MCH (test code = 785-6) 29.6 pg 26.0-32.0 MCHC (test code = 786-4) 34.4 g/dL 32.0-36.0 RDW-SD (test code = 81280-4) 40.6 fL 38.5-49.0 RDW-CV (test code = 788-0) 13.0 % 11.5-14.0 PLT (test code = 777-3) 171 See_Comment [Automated messa ge] The system which generated this result transmitted reference range: 135 - 361 10*3/?L. The reference range was not used to interpret this result as normal/abnormal. MPV (test code = 65990-6) 12.0 fL 9.4-13.3 NRBC/100 WBC (test code = 2450627404) 0.0 See_Comment [Automated [employer] ssage] The system which generated this result transmitted reference range: 0.0 - 10.0 /100 WBCs. The reference range was not used to interpret this result as normal/abnormal. NRBC x10^3 (test code = 6349955311) See_Comment [Automated messa ge] The system which generated this result transmitted reference range: 10*3/?L. The reference range was not used to interpret this result as normal/abnormal. GRAN MAT (NEUT) % (test code = 770-8) 65.2 % IMM GRAN % (test code = 0288275117) 0.30 % LYMPH % (test code = 736-9) 28.1 % MONO % (test code = 5905-5) 5.7 % EOS % (test code = 713-8) 0.5 % BASO % (test code = 706-2) 0.2 % GRAN MAT x10^3(ANC) (test code = 6307502922) 4.25 10*3/uL 1.50-10.30 IMM GRAN x10^3 (test code = 6168854335) 0.00-0.06 LYMPH x10^3 (test code = 731-0) 1.83 10*3/uL 0.70-7.40 MONO x10^3 (test code = 742-7) 0.37 10*3/uL 0.00-0.50 EOS x10^3 (test code = 711-2) 0.03 10*3/uL 0.00-0.40 BASO x10^3 (test code = 704-7) 0.00-0.10 Lab Interpretation (test code = 14295-2) Abnormal [facility] SouthType and Screen - ONCE [id number] 02:52:00 * Test Item Value Reference Range Interpretation Comme nts ABO & RH (test code = 20) O POSITIVE IAT (test code = 1185) Negative [facility] GLUCOSE (AUTOMATED)2022-10-17 01:41:00* Test Item Value Reference Range Interpretation Comme nts POCT GLU (test code = 2098381800) 103 mg/dL 70-110 Lab Interpretation (test cod e = 76712-8) Normal [facility] GLUCOSE (AUTOMATED)2022-10-11 16:38:50* Test Item Value Reference Range Interpretation Comme nts POCT GLU (test code = 6615031514) 95 mg/dL 70-110 Lab Interpretation (test cod e = 84931-7) Normal [facility] URINALYSIS W/O SPECIFIC [id number] 19:01:00* Test Item Value Reference Range Interpretation Comme nts POCT PH U (test code = 3254) n/a 5-8 POCT U LEUK EST (test code = 3263) n/a Negative - Negative POCT U NIT (test code = 3262) n/a Negative - Negati ve POCT U PROT (test code = 3259) negative Negative - Negat hermelinda POCT U GLU (test code = 3256) positive Negative - Negati ve POCT U KETONE (test code = 3258) n/a Negative - Neg ative POCT U BLD (test code = 3257) n/a Negative - Negati ve [facility] SouthCOMP. METABOLIC PANEL (43041)2022-08-24 00:35:47* Test Item Value Reference Range Interpretation Comme nts NA (test code = 4404452446) 133 mmol/L 135-145 L K (test code = 7655616084) 3.5 mmol/L 3.5-5.0 CL (test code = 8667886517) 105 mmol/L 98-108 CO2 TOTAL (test code = 0441617780) 20 mmol/L 23-31 L AGAP (test code = 5965921365) 8 2-16 BUN (test code = 9128033035) 8 mg/dL 7-23 GLUCOSE (test code = 3378827574) 178 mg/dL 70-110 H CREATININE (test code = 9906062523) 0.40 mg/dL 0.50-1.04 L TOTAL BILI (test code = 5349688552) 0.5 mg/dL 0.1-1.1 CALCIUM (test code = 9242021814) 8.5 mg/dL 8.6-10.6 L T PROTEIN (test code = 3196104986) 6.3 g/dL 6.3-8.2 ALBUMIN (test code = 8996315499) 3.5 g/dL 3.5-5.0 ALK PHOS (test code = 9001864928) 90 U/L 34-122 ALTv (test code = 1742-6) 22 U/L 5-35 AST(SGOT) (test code = 4603409744) 27 U/L 13-40 eGFR (test code = 7075466461) 207.9 mL/min/1.73m2 SATHYA (test code = SATHYA) Association of [...] imaging tests). Lab Interpretation (test code = 89767-9) Abnormal [facility] WITH [id number] 00:23:44* Test Item Value Reference Range Interpretation Comme nts WBC (test code = 6690-2) 6.95 See_Comment [Automated dINK] The system which generated this result transmitted reference range: 4.50 - 13.50 10*3/?L. The reference range was not used to interpret this result as normal/abnormal. RBC (test code = 789-8) 3.67 See_Comment L [Automated dINK] The system which generated this result transmitted reference range: 4.10 - 5.10 10*6/?L. The reference range was not used to interpret this result as normal/abnormal. HGB (test code = 718-7) 11.0 g/dL 12.0-16.0 L HCT (test code = 4544-3) 32.1 % 36.0-45.0 L MCV (test code = 787-2) 87.5 fL 78.0-95.0 MCH (test code = 785-6) 30.0 pg 26.0-32.0 MCHC (test code = 786-4) 34.3 g/dL 32.0-36.0 RDW-SD (test code = 07947-5) 40.2 fL 38.5-49.0 RDW-CV (test code = 788-0) 12.6 % 11.5-14.0 PLT (test code = 777-3) 194 See_Comment [Automated messa ge] The system which generated this result transmitted reference range: 135 - 361 10*3/?L. The reference range was not used to interpret this result as normal/abnormal. MPV (test code = 99632-3) 11.3 fL 9.4-13.3 NRBC/100 WBC (test code = 2910078196) 0.0 See_Comment [Automated me ssage] The system which generated this result transmitted reference range: 0.0 - 10.0 /100 WBCs. The reference range was not used to interpret this result as normal/abnormal. NRBC x10^3 (test code = 2515172481) See_Comment [Automated messa ge] The system which generated this result transmitted reference range: 10*3/?L. The reference range was not used to interpret this result as normal/abnormal. GRAN MAT (NEUT) % (test code = 770-8) 66.7 % IMM GRAN % (test code = 7877430756) 0.60 % LYMPH % (test code = 736-9) 27.1 % MONO % (test code = 5905-5) 5.2 % EOS % (test code = 713-8) 0.3 % BASO % (test code = 706-2) 0.1 % GRAN MAT x10^3(ANC) (test code = 0346572962) 4.64 10*3/uL 1.50-10.30 IMM GRAN x10^3 (test code = 8521857646) 0.04 10*3/uL 0.00-0.06 LYMPH x10^3 (test code = 731-0) 1.88 10*3/uL 0.70-7.40 MONO x10^3 (test code = 742-7) 0.36 10*3/uL 0.00-0.50 EOS x10^3 (test code = 711-2) 0.00-0.40 BASO x10^3 (test code = 704-7) 0.00-0.10 Lab Interpretation (test code = 08368-7) Abnormal [facility] GLUCOSE (AUTOMATED)2022-08-23 23:37:50* Test Item Value Reference Range Interpretation Comme nts POCT GLU (test code = 5599871127) 198 mg/dL 70-110 H Lab Interpretation (test cod e = 84966-7) Abnormal [facility] URINALYSIS W/O SPECIFIC [id number] 20:17:00* Test Item Value Reference Range Interpretation Comme nts POCT PH U (test code = 3254) N/A 5-8 POCT U LEUK EST (test code = 3263) N/A Negative - Negative POCT U NIT (test code = 3262) N/A Negative - Negati ve POCT U PROT (test code = 3259) Negative Negative - Negat hermelinda POCT U GLU (test code = 3256) 1+ Negative - Negati ve POCT U KETONE (test code = 3258) N/A Negative - Neg ative POCT U BLD (test code = 3257) N/A Negative - Negati ve [facility] URINALYSIS W/O SPECIFIC [id number] 20:19:00* Test Item Value Reference Range Interpretation Comme nts POCT PH U (test code = 3254) N/A 5-8 POCT U LEUK EST (test code = 3263) N/A Negative - Negative POCT U NIT (test code = 3262) N/A Negative - Negati ve POCT U PROT (test code = 3259) Negative Negative - Negat hermelinda POCT U GLU (test code = 3256) 1+ Negative - Negati ve POCT U KETONE (test code = 3258) N/A Negative - Neg ative POCT U BLD (test code = 3257) N/A Negative - Negati ve [facility] URINALYSIS W/O SPECIFIC [id number] 21:51:00* Test Item Value Reference Range Interpretation Comme nts POCT PH U (test code = 3254) 6 mg/dl 5-8 POCT U LEUK EST (test code = 3263) Trace Negative - Negative POCT U NIT (test code = 3262) Positive Negative - Negati ve POCT U PROT (test code = 3259) Negative Negative - Negat hermelinda POCT U GLU (test code = 3256) 3+ Negative - Negati ve POCT U KETONE (test code = 3258) Small Negative - Neg ative POCT U BLD (test code = 3257) Negative Negative - Negati ve [facility] URINALYSIS W/O SPECIFIC [id number] 20:35:00* Test Item Value Reference Range Interpretation Comme nts POCT PH U (test code = 3254) N/A 5-8 POCT U LEUK EST (test code = 3263) N/A Negative - Negative POCT U NIT (test code = 3262) N/A Negative - Negati ve POCT U PROT (test code = 3259) Negative Negative - Negat hermelinda POCT U GLU (test code = 3256) 1+ Negative - Negati ve POCT U KETONE (test code = 3258) N/A Negative - Neg ative POCT U BLD (test code = 3257) N/A Negative - Negati ve [facility] URINALYSIS W SPECIFIC [id number] 21:03:00* Test Item Value Reference Range Interpretation Comme nts POCT U SP GRAV (test code = 3255) N/A 1.005-1.025 POCT PH U (test code = 3254) N/A 5-8 POCT U LEUK EST (test code = 3263) N/A Negative - Negative POCT U NIT (test code = 3262) N/A Negative - Negati ve POCT U PROT (test code = 3259) negative Negative - Negat hermelinda POCT U GLU (test code = 3256) Negative - Negati ve POCT U KETONE (test code = 3258) N/A Negative - Neg ative POCT U UROBILI (test code = 3260) N/A 0.2-1 POCT U BILI (test code = 3261) N/A Negative - Negat hermelinda POCT U BLD (test code = 3257) N/A Negative - Negati ve POCT U COLOR (test code = 3266) yellow POCT U APPEAR (test code = 3267) clear [facility] URINALYSIS W/O SPECIFIC [id number] 21:56:00* Test Item Value Reference Range Interpretation Comme nts POCT PH U (test code = 3254) N/A 5-8 POCT U LEUK EST (test code = 3263) N/A Negative - Negative POCT U NIT (test code = 3262) N/A Negative - Negati ve POCT U PROT (test code = 3259) Negative Negative - Negat hermelinda POCT U GLU (test code = 3256) Negative Negative - Negati ve POCT U KETONE (test code = 3258) N/A Negative - Neg ative POCT U BLD (test code = 3257) N/A Negative - Negati ve [facility] South[facility]. METABOLIC PANEL (52435)2021-08-16 02:22:32* Test Item Value Reference Range Interpretation Comme nts NA (test code = 4846544504) 137 mmol/L 135-145 K (test code = 8555852902) 4.4 mmol/L 3.5-5.0 CL (test code = 0752807042) 101 mmol/L 98-108 CO2 TOTAL (test code = 1805855987) 28 mmol/L 23-31 AGAP (test code = 6681165856) 2-16 BUN (test code = 5887382477) 15 mg/dL 7-23 GLUCOSE (test code = 5430747705) 117 mg/dL 70-110 H CREATININE (test code = 0442590909) 0.79 mg/dL 0.50-1.04 TOTAL BILI (test code = 5688362003) 0.4 mg/dL 0.1-1.1 CALCIUM (test code = 5602646518) 9.1 mg/dL 8.6-10.6 T PROTEIN (test code = 5158847658) 7.1 g/dL 6.3-8.2 ALBUMIN (test code = 8782658157) 4.6 g/dL 3.5-5.0 ALK PHOS (test code = 1303111150) 81 U/L 34-122 ALTv (test code = 1742-6) 54 U/L 5-35 H AST(SGOT) (test code = 7361975279) 40 U/L 13-40 SATHYA (test code = [...] imaging tests). Lab Interpretation (test code = 88493-8) [facility]normal [facility]20[facility] 02:22:32* Test Item Value Reference Range Interpretation Comme [facility] LIPASE (test code = 9255057264) 84 U/L 0-220 Lab Interpretation (test cod e = 36332-0) Normal [facility] SouthPOND [id number] 02:21:00* Test Item Value Reference Range Interpretation Comme nts POCT PREG (test code = 1605) neg On board controls acceptable with C Line (test code = 3574) yes POCT PREG LOT # (test code = 3575) [id number] POCT PREG TEST DATE ( test code = 3576) 08/08/2022 Lab Interpretation (test cod e = 91799-1) Normal [facility] SouthCB WITH [id number] 02:13:07* Test Item Value Reference Range Interpretation Comme [facility] WBC (test code = 6690-2) See_Comment [Automated [employer]] The system which generated this result transmitted reference range: 4.50 - 13.50 10*3/?L. The reference range was not used to interpret this result as normal/abnormal. RBC (test code = 789-8) See_Comment [Automated messa ge] The system which generated this result transmitted reference range: 4.10 - 5.10 10*6/?L. The reference range was not used to interpret this result as normal/abnormal. HGB (test code = 718-7) 13.2 g/dL 12.0-16.0 HCT (test code = 4544-3) 38.9 % 36.0-45.0 MCV (test code = 787-2) 90.0 fL 78.0-95.0 MCH (test code = 785-6) 30.6 pg 26.0-32.0 MCHC (test code = 786-4) 33.9 g/dL 32.0-36.0 RDW-SD (test code = 46544-4) 38.2 fL 38.5-49.0 L RDW-CV (test code = 788-0) 11.8 % 11.5-14.0 PLT (test code = 777-3) See_Comment [Automated [employer]] The system which generated this result transmitted reference range: 135 - 361 10*3/?L. The reference range was not used to interpret this result as normal/abnormal. MPV (test code = 50515-9) 10.6 fL 9.4-13.3 NRBC/100 WBC (test code = 1507953242) See_Comment [[employer]ated [employer] ssage] The system which generated this result transmitted reference range: 0.0 - 10.0 /100 WBCs. The reference range was not used to interpret this result as normal/abnormal. NRBC x10^3 (test code = 2393916064) <0.01 See_Comment [Automated messa ge] The system which generated this result transmitted reference range: 10*3/?L. The reference range was not used to interpret this result as normal/abnormal. GRAN MAT (NEUT) % (test code = 770-8) 44.6 % IMM GRAN % (test code = 3954021278) 0.30 % LYMPH % (test code = 736-9) 46.1 % MONO % (test code = 5905-5) 7.3 % EOS % (test code = 713-8) 1.2 % BASO % (test code = 706-2) 0.5 % GRAN MAT x10^3(ANC) (test code = 3989236349) 2.96 10*3/uL 1.50-10.30 IMM GRAN x10^3 (test code = 3522844536) <0.03 0.00-0.06 LYMPH x10^3 (test code = 731-0) 3.05 10*3/uL 0.70-7.40 MONO x10^3 (test code = 742-7) 0.48 10*3/uL 0.00-0.50 EOS x10^3 (test code = 711-2) 0.08 10*3/uL 0.00-0.40 BASO x10^3 (test code = 704-7) 0.03 10*3/uL 0.00-0.10 Lab Interpretation (test code = 57651-3) Abnormal [facility] WITH [id number] 01:45:32* Test Item Value Reference Range Interpretation Comme nts WBC (test code = 6690-2) See_Comment [Automated [employer]] The system which generated this result transmitted reference range: 4.50 - 13.50 10*3/?L. The reference range was not used to interpret this result as normal/abnormal. RBC (test code = 789-8) See_Comment [Automated [employer]] The system which generated this result transmitted reference range: 4.10 - 5.10 10*6/?L. The reference range was not used to interpret this result as normal/abnormal. HGB (test code = 718-7) 13.6 g/dL 12.0-16.0 HCT (test code = 4544-3) 40.5 % 36.0-45.0 MCV (test code = 787-2) 89.6 fL 78.0-95.0 MCH (test code = 785-6) 30.1 pg 26.0-32.0 MCHC (test code = 786-4) 33.6 g/dL 32.0-36.0 RDW-SD (test code = 89720-3) 37.2 fL 38.5-49.0 L RDW-CV (test code = 788-0) 11.4 % 11.5-14.0 L PLT (test code = 777-3) See_Comment [Automated [employer]] The system which generated this result transmitted reference range: 135 - 361 10*3/?L. The reference range was not used to interpret this result as normal/abnormal. MPV (test code = 43220-2) 10.5 fL 9.4-13.3 NRBC/100 WBC (test code = 8425891291) See_Comment [[employer]ated [employer] ssage] The system which generated this result transmitted reference range: 0.0 - 10.0 /100 WBCs. The reference range was not used to interpret this result as normal/abnormal. NRBC x10^3 (test code = 0066943014) <0.01 See_Comment [Automated [employer]] The system which generated this result transmitted reference range: 10*3/?L. The reference range was not used to interpret this result as normal/abnormal. GRAN MAT (NEUT) % (test code = 770-8) 50.4 % IMM GRAN % (test code = 9477390959) 0.20 % LYMPH % (test code = 736-9) 41.8 % MONO % (test code = 5905-5) 6.3 % EOS % (test code = 713-8) 0.7 % BASO % (test code = 706-2) 0.6 % GRAN MAT x10^3(ANC) (test code = 2463706356) 2.73 10*3/uL 1.50-10.30 IMM GRAN x10^3 (test code = 4227834340) <0.03 0.00-0.06 LYMPH x10^3 (test code = 731-0) 2.26 10*3/uL 0.70-7.40 MONO x10^3 (test code = 742-7) 0.34 10*3/uL 0.00-0.50 EOS x10^3 (test code = 711-2) 0.04 10*3/uL 0.00-0.40 BASO x10^3 (test code = 704-7) 0.03 10*3/uL 0.00-0.10 Lab Interpretation (test code = 52049-0) [facility]normal [facility] SouthCOMP. METABOLIC PANEL (66537)2021-07-07 01:31:45* Test Item Value Reference Range Interpretation Comme nts NA (test code = 1164061719) 140 mmol/L 135-145 K (test code = 4475082961) 4.2 mmol/L 3.5-5.0 CL (test code = 7308820748) 105 mmol/L 98-108 CO2 TOTAL (test code = 2919275891) 28 mmol/L 23-31 AGAP (test code = 4188169444) 2-16 BUN (test code = 7934455420) 12 mg/dL 7-23 GLUCOSE (test code = 2499624121) 92 mg/dL 70-110 CREATININE (test code = 3728166838) 0.84 mg/dL 0.50-1.04 TOTAL BILI (test code = 6886835314) 0.5 mg/dL 0.1-1.1 CALCIUM (test code = 6961001382) 9.0 mg/dL 8.6-10.6 T PROTEIN (test code = 6193317166) 7.3 g/dL 6.3-8.2 ALBUMIN (test code = 4096455390) 4.8 g/dL 3.5-5.0 ALK PHOS (test code = 2171308216) 68 U/L 34-122 ALTv (test code = 1742-6) 18 U/L 5-35 AST(SGOT) (test code = 9161928589) 19 U/L 13-40 SATHYA (test code = SATHYA) [...] imaging tests). Lab Interpretation (test code = 92445-4) [id number] 01:09:00* Test Item Value Reference Range Interpretation Comme nts POCT PREG (test code = 1605) negative On board controls acceptable with C Line (test code = 3574) present POCT PREG LOT # (test code = 3575) [id number] POCT PREG TEST DATE ( test code = 3576) 08/08/2022 Lab Interpretation (test cod e = 57253-7) [facility])2019-12-30 21:01:00* Test Item Value Reference Range Interpretation Comme nts SARS-CoV-2 PCR (test code = 36589-6) Not Detected Not Detected SATHYA (test code = SATHYA) Cepheid Xpert ?Xpr ess SARS-CoV-2 Assay is a rapid, real-time RT-PCR test intended for the qualitative detection of nucleic acid from the SARS-CoV-2 in nasopharyngeal (AIRPLANE AND ENGINE INSPECTOR) specimens. It is used under Emergency Use [...] patient testing if clinically indicated. Lab Interpretation (test code = 81372-5) Normal [facility] Notes Date/Time Note Provider Source 2024-03-10 16:09:29 Patient discharged to home. Patient given printed and verbal discharge instructions regarding diagnosis. Instructed to follow up with PCP. Patient verbalized understanding of instructions. Patient awake, alert, oriented, respirations even and unlabored, skin warm and dry, color appropriate for race. No adverse reaction to meds given in ER noted upon discharge. Discussed medications. Advised to seek medical attention for new/prolonged/worsening of symptoms, patient ambulated from unit with steady gait in no apparent distress. Narciso De La Rosa RN [facility] 2024-03-10 14:14:59 Patient arrived ambulatory c/o of sudden abdominal pain that started approximately 40 minutes ago. States recently having pain with urination, burning with urination, and feeling like she had to go frequently. Patient denies any diarrhea, constipation, nausea, or vomiting. Denies any injury. GANGT Thao Ojeda RN [facility] 2023-09-29 16:00:00 Addended by: KAY DAVIS on: 09/29/2023 04:26 PM Modules accepted: Orders [facility]
--- NOTE | 2024-05-13 03:34 | EDPHYS ---
Physician Documentation [facility] Name: Deana Sanford Age: 19 yrs Sex: Female : 2005 Arrival Date: 05/13/2024 Time: 02:59 Bed 7 Private MD: [place] ED Physician Heather Izquierdo HPI: 05/13 03:31 This 19 yrs old Female presents to ER via Ambulatory with complaints of sp3 Drainage From Ear, Ear Pain. 03:31 19-year-old female with history of asthma and hypothyroidism presents with left ear sp3 pain with history concerning for TM disruption. Patient states she "felt a pop and then had clear fluid draining out" just prior to arrival. She has been having URI symptoms including congestion for the last 3 to 4 days. She denies any fever, headache, neck pain, chest pain, shortness of breath, abdominal pain, syncope, or any other signs or symptoms on ROS at this time.. 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 Flu vaccine is not up to date. - Infectious Disease History:: Denies. - Social history:: Smoking status: Patient denies any tobacco usage or history of. ROS: 03:32 Constitutional: Negative for fever, chills, and weight loss, Eyes: Negative for injury, sp3 pain, redness, and discharge, Neck: Negative for injury, pain, and swelling, Cardiovascular: Negative for chest pain, palpitations, and edema, Abdomen/GI: Negative for abdominal pain, nausea, vomiting, diarrhea, and constipation, Back: Negative for injury and pain, MS/Extremity: Negative for injury and deformity, Skin: Negative for injury, rash, and discoloration, Neuro: Negative for headache, weakness, numbness, tingling, and seizure, Psych: Negative for depression, anxiety, suicide ideation, homicidal ideation, and hallucinations, Allergy/Immunology: Negative for hives, rash, and allergies, Endocrine: Negative for neck swelling, polydipsia, polyuria, polyphagia, and marked weight changes, Hematologic/Lymphatic: Negative for swollen nodes, abnormal bleeding, and unusual bruising, 03:32 All other systems are negative, Exam: 03:32 Constitutional: This is a well developed, well nourished patient who is awake, alert, sp3 and in no acute distress. Head/Face: Normocephalic, atraumatic. Eyes: Pupils equal round and reactive to light, extra-ocular motions intact. Lids and lashes normal. Conjunctiva and sclera are non-icteric and not injected. Cornea within normal limits. Periorbital areas with no swelling, redness, or edema. Neck: Trachea midline, no thyromegaly or masses palpated, and no cervical lymphadenopathy. Supple, full range of motion without nuchal rigidity, or vertebral point tenderness. No Meningismus. Chest/axilla: Normal chest wall appearance and motion. Nontender with no deformity. No lesions are appreciated. Cardiovascular: Regular rate and rhythm with a normal S1 and S2. No gallops, murmurs, or rubs. Normal PMI, no JVD. No pulse deficits. Respiratory: Lungs have equal breath sounds bilaterally, clear to auscultation and percussion. No rales, rhonchi or wheezes noted. No increased work of breathing, no retractions or nasal flaring. Abdomen/GI: Soft, non-tender, with normal bowel sounds. No distension or tympany. No guarding or rebound. No evidence of tenderness throughout. Back: No spinal tenderness. No costovertebral tenderness. Full range of motion. Skin: Warm, dry with normal turgor. Normal color with no rashes, no lesions, and no evidence of cellulitis. MS/ Extremity: Pulses equal, no cyanosis. Neurovascular intact. Full, normal range of motion. Neuro: Awake and alert, GCS 15, oriented to person, place, time, and situation. Cranial nerves II-XII grossly intact. Motor strength 5/5 in all extremities. Sensory grossly intact. Cerebellar exam normal. Normal gait. Psych: Awake, alert, with orientation to person, place and time. Behavior, mood, and affect are within normal limits. 03:32 ENT: Left TM rupture and erythema noted.. Vital Signs: 03:10 BP 126 / 92; Pulse 61; Resp 16; Temp 97.7; Pulse Ox 100% on R/A; Weight 81.65 kg; dd2 Height 5 ft. 0 in. ; Pain 3/10; 03:42 BP 121 / 84; Pulse 67; Resp 16; Temp 97.9; Pulse Ox 99% ; dd2 03:10 Body Mass Index 35.15 (81.65 kg, 152.4 cm) dd2 03:10 Pain Scale: Adult dd2 [place] Coma Score: 03:17 Eye Response: spontaneous(4). Motor Response: obeys commands(6). Verbal Response: dd2 oriented(5). Total: 15. MDM: 03:07 Medical Screening Exam initiated sp3 03:33 Data reviewed: vital signs. ED course: TM rupture noted. Consider URI versus isolated sp3 middle ear infection. Regardless we will treat with oral antibiotic as well as eardrops. Follow-up with PCP and ENT as needed.. Administered Medications: 03:42 Drug: Ibuprofen PO 800 mg PO once Route: PO; dd2 03:43 Follow up: Response: Medication administered at discharge. dd2 Disposition Summary: 05/13/24 03:34 Discharge Ordered Notes: Location: Home sp3 Condition: Stable sp3 Diagnosis - Tympanic membrane disruption left ear sp3 Followup: sp3 - With: Private Physician - When: Upon discharge from the Emergency Department - Reason: Continuance of care Discharge Instructions: - Discharge Summary Sheet sp3 - Eardrum Rupture, Adult sp3 Forms: - Medication Reconciliation Form sp3 - Antibiotic Education sp3 - Prescription Opioid Use sp3 - Patient Portal Instructions sp3 - Leadership Thank You Letter sp3 Prescriptions: - Augmentin 875-125 mg Oral Tablet - take 1 tablet ORAL route every 12 hours for 10 days; 20 tablet; Refills: 0, sp3 Product Selection Permitted - Ciprodex 0.3-0.1 % Otic drops, suspension - instill 4 drops OTIC route every 12 hours for 7 days , for ears ONLY; 5 sp3 milliliter; Refills: 0, Product Selection Permitted Signatures: Heather Izquierdo MD MD sp3 ANN MYERS RN RN dd2 Corrections: (The following items were deleted from the chart) 03:14 03:13 PMHx: Diabetes - NIDDM; dd2 dd2
--- NOTE | 2024-05-13 03:34 | ER ---
Nurse's Notes [facility] Name: Deana Sanford Age: 19 yrs Sex: Female : 2005 Arrival Date: 05/13/2024 Time: 02:59 Bed 7 Private MD: [place] Diagnosis: Tympanic membrane disruption left ear Presentation: 05/13 03:10 Chief complaint: Patient states: Lt ear "popped" and clear drainage came out. Pt states dd2 has been congested, cough the past week. Coronavirus screen: congestion, cough unrelated to allergies, runny nose. Ebola Screen: No symptoms or risks identified at this time. Initial Sepsis Screen: Does the patient meet any 2 criteria? No. Patient's initial sepsis screen is negative. Does the patient have a suspected source of infection? No. Patient's initial sepsis screen is negative. Risk Assessment: Do you want to hurt yourself or someone else? Patient reports no desire to harm self or others. Onset of symptoms was May 13, 2024. 03:10 Method Of Arrival: Ambulatory dd2 03:10 Acuity: ZENY 4 dd2 Triage Assessment: 03:13 General: Appears in no apparent distress. Behavior is calm, cooperative, appropriate dd2 for age. Pain: Complains of pain in left ear Pain does not radiate. Pain currently is 3 out of 10 on a pain scale. EENT: Reports pain in left ear. Neuro: No deficits noted. Level of Consciousness is awake, alert, obeys commands, Oriented to person, place, time, situation, Appropriate for age. Cardiovascular: No deficits noted. Patient's skin is warm and dry. Respiratory: Airway is patent Respiratory effort is even, unlabored, Respiratory pattern is regular, symmetrical. Respiratory: Reports cough that is non-productive, GI: No deficits noted. No signs and/or symptoms were reported involving the gastrointestinal system. Abdomen is non-distended. : No deficits noted. No signs and/or symptoms were reported regarding the genitourinary system. Derm: No deficits noted. No signs and/or symptoms reported regarding the dermatologic system. Musculoskeletal: No deficits noted. No signs and/or symptoms reported regarding the musculoskeletal system. Range of motion: intact in all extremities. 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 Flu vaccine is not up to date. - Infectious Disease History:: Denies. - Social history:: Smoking status: Patient denies any tobacco usage or history of. Screenin:17 [facility] ED Fall Risk Assessment (Adult) History of falling in the last 3 months, dd2 including since admission No falls in past 3 months (0 pts) Confusion or Disorientation No (0 pts) Intoxicated or Sedated No (0 pts) Impaired Gait No (0 pts) Mobility Assist Device Used No (0 pt) Altered Elimination No (0 pt) Score/Fall Risk Level 0 - 2 = Low Risk Oriented to surroundings, Maintained a safe environment, Educated pt \\T\\ family on fall prevention, incl call for assistance when getting out of bed, Assessed \\T\\ reinforced patient's understanding of fall precautions, Hourly rounding (assess needs \\T\\ fall precautionary measures) done. Abuse screen: Denies threats or abuse. Nutritional screening: No deficits noted. Tuberculosis screening: No symptoms or risk factors identified. Assessment: 03:17 Reassessment: SEE TRIAGE ASSESSMENT FOR FULL ASSESSMENT. dd2 Vital Signs: 03:10 BP 126 / 92; Pulse 61; Resp 16; Temp 97.7; Pulse Ox 100% on R/A; Weight 81.65 kg; dd2 Height 5 ft. 0 in. ; Pain 3/10; 03:42 BP 121 / 84; Pulse 67; Resp 16; Temp 97.9; Pulse Ox 99% ; dd2 03:10 Body Mass Index 35.15 (81.65 kg, 152.4 cm) dd2 03:10 Pain Scale: Adult dd2 [place] Coma Score: 03:17 Eye Response: spontaneous(4). Motor Response: obeys commands(6). Verbal Response: dd2 oriented(5). Total: 15. ED Course: 03:04 Patient arrived in ED. gm2 03:04 [place] MD is Private Physician. gm2 03:07 Heather Izquierdo MD is Attending Physician. sp3 03:10 LOUIS, ANN, RN is Primary Nurse. dd2 03:13 Triage completed. dd2 03:13 Arm band placed on right wrist. Patient placed in an exam room, on a stretcher, on dd2 pulse oximetry. 03:17 Patient has correct armband on for positive identification. Bed in low position. Call dd2 light in reach. Client placed on continuous cardiac and pulse oximetry monitoring. NIBP monitoring applied. Door closed. Noise minimized. Warm blanket given. Verbal reassurance given. 03:17 No provider procedures requiring assistance completed. Patient maintains SpO2 dd2 saturation greater than 95% on room air. 03:42 Provided Education on: D/C EDUCATION. dd2 03:42 Patient did not have IV access during this emergency room visit. dd2 Administered Medications: 03:42 Drug: Ibuprofen PO 800 mg PO once Route: PO; dd2 03:43 Follow up: Response: Medication administered at discharge. dd2 Medication: 03:17 VIS not applicable for this client. dd2 Outcome: 03:34 Discharge ordered by . sp3 03:42 Discharged to home ambulatory, dd2 03:42 Condition: stable 03:42 Discharge instructions given to patient, Instructed on discharge instructions, follow up and referral plans. medication usage, Demonstrated understanding of instructions, follow-up care, medications, Prescriptions given X 2, 03:44 Patient left the ED. dd2 Signatures: Heather Izquierdo MD MD sp3 Luisa Hess 2 ANN MYERS, RN RN dd2 Corrections: (The following items were deleted from the chart) 03:14 03:13 PMHx: Diabetes - NIDDM; dd2 dd2
[2024-05-13] MEDS ORDERED: IBUPROFEN 400 MG TAB ONE (03:39)
[2024-05-13 05:47] VITALS: BP 121/84; TEMP 97.9; O2SAT 99
== END 2024-05-13 03:44 | disposition home or self-care (01) ==
LOC: ER 02:59
DX: H72.92 Unspecified perforation of tympanic membrane, left ear (principal)
CPT/HCPCS: 99284

== ENCOUNTER 2024-08-17 17:16 | Emergency (ER) | payer SELFPAY ==
--- OUTSIDE RECORDS SUMMARY | 2024-08-17 17:24 | XMS REPORT | Continuity of Care Document ---
Author Name Unknown Address [address] [facility] [address] [place] [address] Organization [facility] [place] Address [address] [facility] [place] [address] Care Team Providers Care Dehydrogenation Operator Name Role Phone Eliot CARVAJAL, [facility] Primary Care Physician [phone] BRITTANEY ARNOLD Attending Clinician Unavailable BRITTANEY ARNOLD Attending Clinician Unavailable Brittaney Bridges Attending Clinician [phone] SHILA PAULINO Attending Clinician Unavailable HOLLY VELÁZQUEZ Attending Clinician Unavailab REDDY Fry Attending Clinician Unavailable Angle Rivera PA-C Attending Clinician [phone] Unknown, Attending Attending Clinician Unavailab ANGLE Danielle Attending Clinician Unavailable MD OLGA LIDIA Attending Clinician Unavailab le LAB90 Attending Clinician Unavailable BATOOL GARRIDO Attending Clinician Unavaila BATOOL Mayer Attending Clinician Unavaila CECILIA Ahuja Attending Clinician Unavailable CECILIA MATHIS Attending Clinician Unavailable PRUDENCE RUFF Attending Clinician Unavailable Prudence Jackman Attending Clinician [phone] Visit, [facility] Nurse Attending Clinician Unava ilGary Hardy Attending Clinician + AKINGARY ROWLAND Attending Clinician Unavail able Alondra Reece MD Attending Clinician [phone] Lino CARVAJAL, Cynthia Attending Clinician [phone] Juvenal CARVAJAL, Haley Calderon Attending Clinicia n TYSHAWN, HIREN Attending Clinician Unavailable 1, [facility] Room Attending Clinician Unavailable Doctor Unassigned, [place] Attending Clinician U navailable YULYRITO Attending Clinician Unavailable YULY RITO Attending Clinician Unavailable Room, [facility] Attending Clinician Unavailable [facility], [facility] Attending Clinician Unavaila RADHA Mtz Attending Clinician Unavailable Radha Turcios MD Attending Clinician [phone] ALONDRA REECE Attending Clinician Unavailable ALONDRA REECE Attending Clinician Unavailable MARIANELA REYES Attending Clinician Unavailab le MARIANELA REYES Attending Clinician Unavailab le Lab, [facility] R[facility] Attending Clinician Unavailable Jair Bolden RN Attending Clinician UnavailKailyn Escalera DO Attending Clinician [phone] KRYSTIN KAYE Attending Clinician Unavailpuja e 4, [facility] Room Attending Clinician UnavailKrystin Samson MD Attending Clinician [phone] Adi Levin MD Attending Clinician + ADI LEVIN Attending Clinician Unav ailable OMI AGEE Attending Clinician Unavailable Farnaz Padilla Attending Clinician UnavailOmi Baptiste MD Attending Clinician [phone] Fellow, [facility] Attending Clinician Un available Jair Guzman MD Attending Clinician [phone] JAIR GUZMAN Attending Clinician Unavailable JAIR GUZMAN Attending Clinician Unavailable Nurse, [facility] Attending Clinician Unavailable KATIE ALEXANDER Attending Clinician Unav ailable Faculty, [facility] Attending Clinician Unava ilable Katie Alexander MD Attending Clinician + RADIOLOGY Attending Clinician Unavailable Radiology Attending Clinician Unavailable ZACHERY MEJIA Attending Clinician Unavaila thee Mejia CHURN OPERATOR, Katerynayueo F Attending Clinician CHANNING OQUENDO Attending Clinician Unavailable Channing Edwards S Attending Clinician [phone] Lab, [facility] I Attending Clinician Unavailab rajani Pierce CHURN OPERATOR, Holly Attending Clinician [phone] HOLLY PIERCE Attending Clinician Unavailable RADHA UTRCIOS Admitting Clinician Unavailable Alondra Reece MD Admitting Clinician [phone] ALONDRA REECE Admitting Clinician Unavailable Radha Turcios MD Admitting Clinician [phone] JESSICA DE LA CRUZ Admitting Clinician ZACHERY Walls Admitting Clinician Unavaila thee Payers Payer Name Policy Type Policy Number Effective Date Expirati on Date Source [employer] [id number] 2022 00:00:00 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 Disease Active 2- 00:00: 00 [facility] History of asthma History of asthma Disease Active 2021-06 00:00: 00 [facility] Gestationa l hypertensi on, antepartum Gestationa l hypertensi on, antepartum Disease Resolve d 10-16 00:00: 00 2023-10-08 00:00:00 2023-10-08 13:32:11 [facility] 36 weeks gestation of 36 weeks gestation of Disease Resolve d 508 00:00: 00 2023-10-08 00:00:00 2023-10-08 13:32:12 [facility] Excessive growth affecting management of , antepartum , single or unspecifie d fetus Excessive growth affecting management of , antepartum , single or unspecifie d fetus Disease Resolve d 2022-0 4-24 00:00: 00 2023-10-08 00:00:00 2023-10-08 13:32:08 [facility] Morbid obesity with body mass index of 40.0-49.9 Morbid obesity with body mass index of 40.0-49.9 Disease Resolve d 2022-0 4-14 00:00: 00 2023-10-08 00:00:00 2023-10-08 13:32:06 [facility] Non-compli ant patient, third trimester Non-compli ant patient, third trimester Disease Resolve d 0 3-28 00:00: 00 2023-10-08 00:00:00 2023-10-08 13:32:04 [facility] Acute cystitis without hematuria Acute cystitis without hematuria Disease Resolve d 0 2-15 00:00: 00 2023-10-08 00:00:00 2023-10-08 13:32:18 [facility] Asthma affecting , antepartum Asthma affecting , antepartum Disease Resolve d 0 1-24 00:00: 00 2023-10-08 00:00:00 2023-10-08 13:31:56 [facility] Supervisio n of other high risk , antepartum Supervisio n of other high risk , antepartum Disease Resolve d 2021-06 2-08 00:00: 00 2023-10-08 00:00:00 2023-10-08 13:31:48 [facility] Pregestati onal diabetes mellitus, 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, modified White class C Disease Resolve d 2021-06 2-08 00:00: 00 2023-10-08 00:00:00 2023-10-08 13:31:50 [facility] Hypothyroi d in , antepartum Hypothyroi d in , antepartum Disease Resolve d 2021-06 2-08 00:00: 00 2023-10-08 00:00:00 2023-10-08 13:31:51 [facility] Obesity in , antepartum Obesity in , antepartum Disease Resolve d 2021-06 208 00:00: 00 2023-10-08 00:00:00 2023-10-08 13:31:53 [facility] Dysuria Dysuria Disease Resolve d 2021-06 2- 00:00: 00 2022-06-12 00:00:00 2022-06-12 13:06:42 [facility] Vaginal discharge during , antepartum Vaginal discharge during , antepartum Disease Resolve d 2021-06 2- 00:00: 00 2022-06-12 00:00:00 2022-06-12 13:06:51 [facility] 17 weeks gestation of 17 weeks gestation of Disease Resolve d 2021-06 00:00: 00 2022-06-12 00:00:00 2022-06-12 13:06:44 [facility] Allergies, Adverse Reactions, Alerts Allergy Name Allergy Type Status Severity Reaction(s) Onset Date Inactive Date Treating Clinician Comments Source Empaglif lozin Propensi ty to adverse reaction s Active 2021-06 00:00: 00 Other Reaction( s): Dizziness Noemi Jaquez - Externa l EMPAGLIF LOZIN DRUG INGREDI Active Dizziness 2021-06 00:00: 00 [facility] Empaglif lozin Propensi ty to adverse reaction s Active Dizziness 2021-06 00:00: 00 [facility] NO KNOWN ALLERGIE S Drug Class Active [facility] Social History Social Habit Start Date Stop Date Quantity Comments Source ASSERTION 2022-02-15 00:00:00 [facility] Sexual orientation Ace Jaquez - External Alcoholic beverage intake 2023-10-08 00:00:00 2023-10-08 00:00:00 Lifetime non-drinker (finding) [facility] Alcohol intake 2023-05-14 00:00:00 2023-05-14 00:00:00 Lifetime non-drinker (finding) Noemi Jaquez - External History of Social function 2023-05-04 00:00:00 2023-05-04 00:00:00 Noemi Jaquez - External Exposure to SARS-CoV-2 (event) 2022-10-27 00:00:00 2022-11-06 14:41:00 Not sure [facility] Tobacco use and exposure 2022-05-17 00:00:00 2022-05-17 00:00:00 Smokeless tobacco non-user [facility] Sex Assigned At 2005 00:00:00 2005 00:00:00 Noemi Jaquez - External Smoking Status Start Date Stop Date Source Never smoked tobacco [facility] Tobacco smoking consumption unknown [facility] Medications Ordered Medication Name Filled Medication Name Start Date Stop Date Current Medication? Ordering Clinician Indication Dosage Frequency Signature (SIG) Comments Components Source ketorolac (TORADOL) tablet 10 mg 03-10 20:15: 00 03-10 19:55 :00 No 10mg 10 mg, Oral, ONCE NOW, 1 dose, On Sun03/10/24 at 1515, Routine [facility] Nitrofurant oin&Nit. Macrocryst 100 mg capsule 03-10 00:00: 00 Yes [id number] 100mg Take 1 capsule by mouth in the morning and 1 capsule in the evening. [facility] ketorolac 10 mg tablet 03-10 00:00: 00 Yes [id number] 10mg Take 1 tablet by mouth every 6 (six) hours as needed for Pain (scale 4-6). [facility] Ferrous Sulfate 325 (65 Fe) MG oral [...] ONE TIME PER WEEK IN THE MORNING [facility] atorvastati n 20 mg tablet 11-21 00:00: 00 Yes 20mg Take 1 tablet by mouth at bedtime. [facility] fenofibrate 54 mg tablet 11-21 00:00: 00 Yes TAKE 1 TABLET EVERY DAY BY ORAL ROUTE IN THE MORNING FOR 60 DAYS. [facility] LOW-OGESTRE L 0.3-30 mg-mcg per tablet 11-21 00:00: 00 Yes TAKE 1 TABLET BY MOUTH EVERY DAY DIRECTED [facility] metFORMIN (GLUCOPHAGE ) tablet 1,000 mg 10-19 14:00: 00 Yes 1000mg 1,000 mg, Oral, DAILY, First dose on Sun10/19/22 at 0900, Until Discontinu ed, Routine [facility] insulin glargine (LANTUS U-100) injection 20 Units 10-19 13:00: 00 Yes 20U 20 Units, Subcutaneo us, Q24H, First dose (after last modificati on) on Sun10/19/22 at 0800, Until Discontinu ed, Routine [facility] insulin glargine (LANTUS U-100) injection 24 Units 10-19 01:00: 00 Yes 24U 24 Units, Subcutaneo us, Q24H, First dose (after last modificati on) on Sun10/18/22 at 2000, Until Discontinu ed, Routine [facility] ferrous sulfate 325 mg (65 mg iron) tablet 10-19 00:00: 00 Yes [id number] 325mg Take 1 tablet by mouth every other day. [facility] vitamin w/FA tablet 10-19 00:00: 00 Yes [id number] 1{tbl} Take 1 tablet by mouth in the morning. [facility] vitamin w/FA tablet 10-19 00:00: 00 Yes [id number] 1{tbl} Take 1 tablet by mouth in the morning. [facility] Ibuprofen (MOTRIN) 600 MG oral Tablet 10-19 00:00: 05-14 00:00 :00 No 600mg Q.25D Take 1 tablet (600 mg total) by mouth every 6 hours as needed. Noemi aponte NIFEdipine 30 MG oral TABLET SR 24 HR 10-19 00:00: 00 05-14 00:00 :00 No 30mg Take 1 tablet (30 mg total) by mouth daily. Noemi aponte Metformin HCl 1000 MG oral Tablet 10-19 00:00: 00 05-14 00:00 :00 No Noemi aponte linaGLIPtin (Tradjenta) 5 MG oral Tablet 10-19 00:00: 00 05-14 00:00 :00 No Noemi aponte Docusate Sodium (DSS) 100 MG oral Capsule 10-19 00:00: 00 05-14 00:00 :00 No Noemi aponte insulin glargine 100 unit/mL injection 10-19 00:00: 00 11-19 04:59 :00 No [id number] 24U inject 24 Units under the skin every 24 (twenty-fo ur) hours for 30 days. [facility] insulin glargine 100 unit/mL injection 10-19 00:00: 00 11-19 04:59 :00 No [id number] 20U inject 20 Units under the skin every 24 (twenty-fo ur) hours for 30 days. [facility] linaGLIPtin 5 mg tablet 10-19 00:00: 00 11-19 04:59 :00 No [id number] 5mg Take 1 tablet by mouth in the morning for 30 days. [facility] NIFEdipine ER tablet 30 mg 10-18 17:45: 00 Yes 30mg 30 mg, Oral, DAILY, First dose on Sun10/18/22 at 1245, Until Discontinu ed, Routine [facility] Sliding Scale Insulin - Lispro (HumaLOG) 10-18 17:00: 00 Yes Subcutaneo us, TID MEALS+HS, First dose on Sun10/18/22 at 1200, Until Discontinu ed, Routine [facility] budesonide- formoteroL (SYMBICORT) 80-4.5 mcg/actuati on inhaler 2 Puff 10-18 13:00: 00 Yes 2{puff} 2 Puff, Inhalation , BID, First dose on Sun10/18/22 at 0800, Until Discontinu ed, Routine [facility] insulin regular human (HUMULIN R) injection 7 Units 10-18 13:00: 00 10-18 15:04 :11 No 7U 7 Units, Subcutaneo us, QAM WITH BREAKFAST, First dose on Sun10/18/22 at 0800, Until Discontinu ed, Routine
Indicatio n for insulin: Hyperglyce ana maría [facility] levothyroxi ne (SYNTHROID) tablet 100 mcg 10-18 11:00: 00 Yes 100ug 100 mcg, Oral, QAM-0600, First dose on Sun10/18/22 at 0600, Until Discontinu ed, Routine [facility] rho(D) immune globulin (RHOGAM) syringe 300 mcg 10-18 04:48: 04 Yes 300ug 300 mcg, Intramuscu lar, ONCE, For 1 dose, Conditiona l, Routine [facility] ibuprofen (IBU) tablet 600 mg 10-18 04:47: 59 Yes 600mg 600 mg, Oral, Q6HPRN, Starting on Sun10/17/22 at 2347, Until Discontinu ed, Routine, Pain (scale 4-6) [facility] acetaminoph en (TYLENOL) tablet 650 mg 10-18 04:47: 59 Yes 650mg 650 mg, Oral, Q6HPRN, Starting on Sun10/17/22 at 2347, Until Discontinu ed, Routine, Pain (scale 1-3) [facility] diphenhydrA MINE (BENADRYL) tablet 25 mg 10-18 04:47: 59 Yes 25mg 25 mg, Oral, Q6HPRN, Starting on Sun10/17/22 at 2347, Until Discontinu ed, Routine, Sleep, Itching [facility] ondansetron (ZOFRAN (PF)) injection 4 mg 10-18 04:47: 59 Yes 4mg 4 mg, Slow IV Push, Q8HPRN, Starting on Sun10/17/22 at 2347, Until Discontinu ed, Routine, Nausea and Vomiting (N/V) [facility] simethicone (GAS RELIEF (SIMETHICON E)) chewable tablet 160 mg 10-18 04:47: 59 Yes 160mg 160 mg, Oral, PC+HSPRN, Starting on Sun10/17/22 at 2347, Until Discontinu ed, Routine, Gas [facility] docusate (COLACE) capsule 200 mg 10-18 04:47: 59 Yes 200mg 200 mg, Oral, QDAILYPRN, Starting on Sun10/17/22 at 2347, Until Discontinu ed, Routine, Constipati on [facility] magnesium hydroxide (MILK OF MAGNESIA) 400 mg/5 mL suspension 30 mL 10-18 04:47: 59 Yes 30mL 30 mL, Oral, QDAILYPRN, Starting on Sun10/17/22 at 2347, Until Discontinu ed, Routine, Constipati on [facility] benzocaine- menthol (DERMOPLAST ) 20-0.5 % topical spray 10-18 04:47: 59 Yes Topical, PRN, Starting on Sun10/17/22 at 2347, Until Discontinu ed, Routine, Perineum discomfort [facility] ondansetron (ZOFRAN (PF)) injection 4 mg 10-17 18:00: 00 10-17 16:30 :00 No 4mg 4 mg, Slow IV Push, ONCE, On Sun10/17/22 at 1300, For 1 dose
Do ses of ondansetro n 16 mg and above need to be administer ed via IV piggyback. For Dose >=24mg ECG monitoring is advisable.
[facility] ondansetron (ZOFRAN (PF)) injection 4 mg 10-17 13:15: 00 10-17 12:04 :00 No 4mg 4 mg, Slow IV Push, ONCE, On Sun10/17/22 at 0815, For 1 dose
Do ses of ondansetro n 16 mg and above need to be administer ed via IV piggyback. For Dose >=24mg ECG monitoring is advisable.
[facility] 0.2 % (NAROPIN (PF)) epidural infusion 10-17 13:07: 00 10-18 04:25 :45 No Epidural, CONTINUOUS PRN, Starting on Sun10/17/22 at 0807, Until Sun10/17/22 at 2325, Routine, Intra-op [facility] lidocaine-e pinephrine (XYLOCAINE W/EPINEPHRI NE) 1.5 %-1:200,000 injection 10-17 13:06: 00 10-18 04:25 :45 No Epidural, ONCE INTRA PROCEDURE, Starting on Sun10/17/22 at 0806, Until Sun10/17/22 at 2325, Routine, Intra-op [facility] lidocaine 1% (XYLOCAINE) 100 mg/10 mL (1 %) injection 10-17 13:00: 00 10-18 04:25 :45 No Infiltrati on, ONCE INTRA PROCEDURE, Starting on Sun10/17/22 at 0800, Until Sun10/17/22 at 2325, Routine, Intra-op [facility] levothyroxi ne (SYNTHROID) tablet 100 mcg 10-17 11:00: 00 10-18 04:48 :02 No 100ug 100 mcg, Oral, QAM-0600, First dose on Sun10/17/22 at 0600, Until Discontinu ed, Routine [facility] morpHINE (4 mg/mL) injection 4 mg 10-17 05:15: 00 10-17 04:36 :00 No 4mg 4 mg, Slow IV Push, ONCE, 1 dose, On Sun10/17/22 at 0015, Routine [facility] oxytocin (PITOCIN) 30 units in NS 500 mL IV infusion 10-17 04:54: 19 10-18 04:48 :02 No 2mU/min at 2-40 mL/hr, IV Infusion, TITRATE, Starting on Sun10/16/22 at 2354, Until Sun10/17/22 at 2348, ROSSI [facility] Sliding Scale Insulin 10-17 01:32: 37 10-18 04:48 :02 No Subcutaneo us, SEE-INSTRU CTIONS, Starting on Sun10/16/22 at 2032, Until Sun10/17/22 at 2348, Routine [facility] sodium citrate-cit hua acid (BICITRA) 500-334 mg/5 mL solution 30 mL 10-17 01:30: 40 10-17 12:28 :00 No 30mL 30 mL, Oral, PRE-PROCED URE ONCE, 1 dose, Starting on Sun10/16/22 at 2030, Until Discontinu ed, Routine, Surgery/Pr ocedure [facility] lactated ringers IV infusion 500 mL 10-17 01:30: 39 10-18 04:48 :02 No 500mL at 999 mL/hr, 500 mL, IV Infusion, PRN - SEE INSTRUCTIO NS, Starting on Sun10/16/22 at 2030, Until Sun10/17/22 at 2348, Routine [facility] D5W-LR IV infusion 1,000 mL 10-17 01:30: 39 10-18 04:48 :02 No 1000mL at 1-125 mL/hr, IV Infusion, TITRATE, Starting on Sun10/16/22 at 2030, Until Sun10/17/22 at 2348, Routine [facility] acetaminoph en (TYLENOL) tablet 1,000 mg 10-11 17:23: 00 10-11 17:38 :00 No 1000mg 1,000 mg, Oral, ONCE, 1 dose, On Sun10/11/22 at 1230, Routine [facility] NaCl 0.9% (NS) IV infusion 1,000 mL 10-11 16:30: 00 10-11 16:19 :07 No 1000mL at 1,000 mL/hr, IV Infusion, ONCE, 1 dose, On Sun10/11/22 at 1130, Routine [facility] ASPIRIN 81 mg EC tablet 20 00:00: 00 10-19 00:00 :00 No [id number] TAKE 1 TABLET BY MOUTH EVERY MORNING [facility] BD INSULIN SYRINGE ULTRA-FINE 0.5 mL 31 gauge x 5/16" Syrg 09-08 00:00: 00 Yes [facility] Insulin Syringe-Nee dle U-100 (BD Insulin Syringe Ultrafine) 31G X 5/16" 0.5 ML does not apply Misc 09-08 00:00: 00 05-14 00:00 :00 No Noemi apotne Aspirin (Aspirin Low Dose) 81 MG oral Tablet Delayed Response 09-05 00:00: 00 05-14 00:00 :00 No Noemi Jaquez - Luiza l NaCl 0.9% (NS) bolus infusion 1,000 mL 08-24 01:30: 00 08-24 00:34 :00 No 1000mL at 999 mL/hr, 1,000 mL, IV Infusion, ONCE, 1 dose, On Sun08/23/22 at 2030, STAT [facility] acetaminoph en (TYLENOL) tablet 650 mg 08-24 00:00: 00 08-23 23:43 :00 No 650mg 650 mg, Oral, ONCE NOW, 1 dose, On Sun08/23/22 at 1900, Routine [facility] NaCl 0.9% (NS) bolus infusion 1,000 mL 08-24 00:00: 00 08-23 23:54 :00 No 1000mL at 999 mL/hr, 1,000 mL, IV Infusion, ONCE, 1 dose, On Sun08/23/22 at 1900, STAT [facility] Nitrofurant oin&Nit. Macrocryst (MACROBID) 100 mg capsule 2-09 00:00: 00 07-28 05:59 :00 No [id number] 100mg Take 1 capsule by mouth in the morning and 1 capsule in the evening. Do all this for 7 days. [facility] Prenat-Fe Poly-Methfo l-FA-DHA (Vitafol Ultra) 29-0.6-0.4- 200 MG oral Capsule 2-06 00:00: 00 05-14 00:00 :00 No Noemi aponte Levothyroxi ne 100 mcg capsule - 13:44: 53 06-12 00:00 :00 No Take by mouth. [facility] linagliptin -metformin 5-1,000 mg TBph 06-12 13:44: 44 06-12 00:00 :00 No Take 1 TAB-CAP/M2 by mouth daily. [facility] budesonide- formoteroL 80-4.5 mcg/actuati on inhaler 06-12 00:00: 00 Yes [id number] 103 2{puff} Inhale 2 Puffs in the morning and 2 Puffs in the evening. [facility] Insulin Syringes, Disposable, 1 mL Syrg 06-12 00:00: 00 Yes [id number] Use as directed [facility] Insulin Syringe-Nee dle U-100 1 mL 31 gauge x 5/16 Syrg 06-12 00:00: 00 Yes [facility] Insulin Syringes, Disposable, 1 mL Syrg 06-12 00:00: 00 Yes [id number] Use as directed [facility] Insulin Syringe-Nee dle U-100 1 mL 31 gauge x 5/16 Syrg 06-12 00:00: 00 Yes [facility] Insulin NPH, Human,, Isophane, (NovoLIN N) 100 UNIT/ML subcutaneou s Suspension 06-12 00:00: 00 05-14 00:00 :00 No Noemi aponte Insulin Syringes, Disposable, (MONOJECT INS SYR 1CC) U-100 1 ML does not apply Misc 06-12 00:00: 00 05-14 00:00 :00 No See Admin Instructio ns. Noemi aponte Insulin Syringe-Nee dle U-100 (INSULIN SYRINGE 1CC/31GX5/1 6") 31G X 5/16" 1 ML does not apply Misc 06-12 00:00: 00 05-14 00:00 :00 No Noemi aponte Insulin Regular Human (NovoLIN R) 100 UNIT/ML injection Solution 06-12 00:00: 00 05-14 00:00 :00 No Noemi aponte insulin NPH 100 unit/mL injection 06-12 00:00: 00 10-19 00:00 :00 No [id number] Inject 28 units subq in the morning and inject 10 units subq qhs [facility] insulin regular human 100 unit/mL injection 06-12 00:00: 00 10-19 00:00 :00 No [id number] Inject 14 units subq with breakfast and inject 10 units subq with dinner [facility] Levothyroxi ne Sodium 100 MCG oral Tablet [...] 1{tbl} Take 1 tablet by mouth daily. [facility] aspirin 81 mg EC tablet 2021-06 00:00: 00 09-28 00:00 :00 No [id number] 81mg Take 1 tablet by mouth in the morning. [facility] Levothyroxi ne 100 mcg capsule 2021-06 16:07: 57 Yes Take by mouth. [facility] linagliptin -metformin 5-1,000 mg TBph 2021-06 16:07: 57 Yes Take 1 TAB-CAP/M2 by mouth daily. [facility] PNV 67-iron ps-folate no.1-dha (VITAFOL ULTRA) 29 mg iron- 1 mg-200 mg Cap 2021-06 00:00: 00 10-19 00:00 :00 No [id number] 1{capsu le} Take 1 capsule by mouth daily. [facility] VENTOLIN HFA 90 mcg/actuati on inhaler 2021-06 00:00: 00 Yes [facility] Albuterol HFA (VENTOLIN HFA) 108 (90 Base) MCG/ACT IN AERS 2021-06 00:00: 00 05-14 00:00 :00 No Noemi Jaquez - Marguerite aponte INJECT 20 UNITS SUBCUTANEOU S EVERY MORNING. START AT 10 UNITS UNTIL MORNING FASTING GLUCOSE IS 100 2021-06 00:00: 00 No INJECT 20 UNITS SUBCUTANEOU S EVERY MORNING. START AT 10 UNITS UNTIL MORNING FASTING GLUCOSE IS 100 2021-06 00:00: 00 No FREESTYLE LITE STRIPS strip 2021-06 0-04 00:00: 00 Yes CHECK EVERY DAY [facility] FREESTYLE LITE METER Kit 2021-06 0-04 00:00: 00 Yes CHECK EVERY DAY. [facility] FREESTYLE LANCETS 28 gauge Misc 2021-06 0- 00:00: 00 Yes CHECK EVERY DAY [facility] FREESTYLE LITE STRIPS strip 2021-06 0- 00:00: 00 Yes CHECK EVERY DAY [facility] FREESTYLE LITE METER Kit 2021-06 0 00:00: 00 Yes CHECK EVERY DAY. [facility] FREESTYLE LANCETS 28 gauge Misc 2021-06 0 00:00: 00 Yes CHECK EVERY DAY [facility] TOUJEO MAX U-300 SOLOSTAR 300 unit/mL (3 mL) InPn 2021-06 0 00:00: 00 06-12 00:00 :00 No INJECT 20 UNITS SUBCUTANEO US EVERY MORNING. START AT 10 UNITS UNTIL MORNING FASTING GLUCOSE IS 100 [facility] levothyroxi ne 100 mcg tablet 2021-06 00:00: 00 Yes 100ug Take 1 tablet by mouth every morning. [facility] Dose Unknown 01-31 00:00: 00 No Dose Unknown 01-31 00:00: 00 No Dose Unknown 01-31 00:00: 00 No Dose Unknown 01-31 00:00: 00 No iopamidol (ISOVUE 370-500 mL) injection 100 mL 08-16 05:15: 00 08-16 04:01 :00 No [id number] 4102 100mL 100 mL, Intravenou s, ONCE, 1 dose, On Sun08/15/21 at 2315, Routine [facility] NaCl 0.9% (NS) bolus infusion 1,000 mL 08-16 03:00: 00 08-16 03:11 :00 No 1000mL at 999 mL/hr, 1,000 mL, IV Infusion, ONCE, 1 dose, On Sun08/15/21 at 2100, ROSSI [facility] linagliptin -metformin (JENTADUETO XR) 5-1,000 mg TBph 08-15 18:41: 26 Yes Take 1 TAB-CAP/M2 by mouth daily. [facility] empaglifloz in (JARDIANCE) 10 mg Tab 08-15 18:41: 26 Yes 1{tbl} Take 1 tablet by mouth daily. [facility] Levothyroxi ne 100 mcg capsule 08-15 18:41: 26 Yes Take by mouth. [facility] hydrocortis one (ANUSOL-HC) 25 mg suppository 07 00:00: 00 08-23 04:59 :00 No [id number] 25mg Insert 1 Suppositor y into rectum 2 (two) times daily for 7 days. [facility] Levothyroxi ne 100 mcg capsule 07-06 18:22: 21 Yes Take by mouth. [facility] linagliptin -metformin (JENTADUETO XR) 5-1,000 mg [facility] 07-06 18:22: 21 Yes Take 1 TAB-CAP/M2 by mouth daily. [facility] Levothyroxi ne 100 mcg capsule 2016-06 19:16: 00 Yes Take by mouth. [facility] linagliptin -metformin (JENTADUETO XR) 5-1,000 mg [facility] 2016-06 19:16: 00 Yes Take 1 TAB-CAP/M2 by mouth daily. [facility] empaglifloz in (JARDIANCE) 10 mg Tab 2016-06 19:16: 00 Yes 1{tbl} Take 1 tablet by mouth daily. [facility] empaglifloz in (JARDIANCE) 10 mg Tab 2016-06 13:16: 00 Yes 1{tbl} Take 1 tablet by mouth daily. [facility] ibuprofen 600 mg tablet 2016-06 00:00: 00 06-12 00:00 :00 No 600mg Take 1 tablet by mouth every 8 (eight) hours as needed (pain). [facility] Immunizations Ordered Immunization Name Filled Immunization Name Date Status Comments Source HPV, quadrivalent 2017-07-18 00:00:00 Completed HPV, quadrivalent 2017-07-18 00:00:00 Completed HPV 2017-07-18 00:00:00 Completed [facility] HPV 2017-07-18 00:00:00 Completed [facility] HPV 2017-07-18 00:00:00 Completed [facility] HPV 2017-07-18 00:00:00 Completed [facility] HPV, quadrivalent 2017-03-14 00:00:00 Completed HPV, quadrivalent 2017-03-14 00:00:00 Completed HPV 2017-03-14 00:00:00 Completed [facility] HPV 2017-03-14 00:00:00 Completed [facility] HPV 2017-03-14 00:00:00 Completed [facility] HPV 2017-03-14 00:00:00 Completed [facility] HPV, quadrivalent 2017-01-12 00:00:00 Completed meningococcal MCV4P 2017-01-12 00:00:00 Completed Tdap 2017-01-12 00:00:00 Completed HPV, quadrivalent 2017-01-12 00:00:00 Completed meningococcal MCV4P 2017-01-12 00:00:00 Completed Tdap 2017-01-12 00:00:00 Completed HPV 2017-01-12 00:00:00 Completed [facility] HPV 2017-01-12 00:00:00 Completed [facility] HPV 2017-01-12 00:00:00 Completed [facility] HPV 2017-01-12 00:00:00 Completed [facility] Influenza, seasonal, inj 2012-04-26 00:00:00 Completed Influenza, seasonal, inj 2012-04-26 00:00:00 Completed Hep A, ped/adol, 2 dose 2009-08-25 00:00:00 Completed Hep A, ped/adol, 2 dose 2009-08-25 00:00:00 Completed Hep A, ped/adol, 2 dose 2008-10-29 00:00:00 Completed Hep A, ped/adol, 2 dose 2008-10-29 00:00:00 Completed MMR 2008-10-21 00:00:00 Completed varicella 2008-10-21 00:00:00 Completed DTaP, unspecified formul 2008-10-21 00:00:00 Completed IPV 2008-10-21 00:00:00 Completed pneumococcal conjugate P 2008-10-21 00:00:00 Completed MMR 2008-10-21 00:00:00 Completed varicella 2008-10-21 00:00:00 Completed DTaP, unspecified formul 2008-10-21 00:00:00 Completed IPV 2008-10-21 00:00:00 Completed pneumococcal conjugate P 2008-10-21 00:00:00 Completed DTaP-Hep B-IPV 2005-05-09 00:00:00 [...] B, adolescent or ped 2004 00:00:00 Completed Tdap- (Boostrix, Adacel) Unknown Completed Noemi kenanold - External Varicella Vaccine Unknown Completed Papo colbertmariann Sewellybold - External HPV Unknown Completed [facility] HPV Unknown Completed [facility] HPV Unknown Completed [facility] DTaP/Hep B/IPV Unknown Completed Flavio mayers Seybold - External DTaP Unspecified Unknown Completed Paolo Jaquez - External HEPATITIS A- PEDI/ADOL Unknown Completed Noemi kenanold - External Hepatitis B, Adolescent Or Pediatric Unknown Completed Noemi kenanold - External Tetanus Toxoid/HIB Unknown Completed Ace pedraza Seybold - External HPV 4 (Human Papillomavirus) Unknown Completed Noemi Paredes ld - External Influenza, Seasonal, Injectable Unknown Completed Noemi kenanaziza - External IPV- Inactivated Polio Vaccine Unknown Completed Noemi Galeaziza - External Meningococcal Vaccine- Conjugate(Menactra) Unknown Completed Noemi waitebold - External MMR- Measles, Mumps, Rubella Unknown Completed Noemi Owens d - External Pneumococcal Vaccine, Conjugate 7 Unknown Completed Noemi Galeaziza - External Vital Signs Vital Name Observation Time Observation Value Comments S ourskylar Systolic blood pressure 2024-03-10 19:17:00 135 mm[Hg] [facility] Diastolic blood pressure 2024-03-10 19:17:00 87 mm[Hg] [facility] Heart rate 2024-03-10 19:17:00 98 /min [facility] Body temperature 2024-03-10 19:17:00 36.78 Porsha [facility] Respiratory rate 2024-03-10 19:17:00 18 /min [facility] Body height 2024-03-10 19:17:[address] [facility] Body weight 2024-03-10 19:17:[address] [facility] BMI 2024-03-10 19:17:00 35.15 kg/m2 [facility] Oxygen saturation in Arterial blood by Pulse oximetry 2024-03-10 19:17:00 96 /min [facility] Systolic blood pressure 2023-10-08 13:33:00 128 mm[Hg] [facility] Diastolic blood pressure 2023-10-08 13:33:00 82 mm[Hg] [facility] Heart rate 2023-10-08 13:33:00 80 /min [facility] 2023-10-08 13:33:00 18 /min [facility] Body height 2023-10-08 13:33:[address] [facility] Body weight 2023-10-08 13:33:[address] [facility] BMI 2023-10-08 13:33:00 35.54 kg/m2 [facility] Systolic blood pressure 2023-09-29 21:10:00 128 mm[Hg] [facility] Diastolic blood pressure 2023-09-29 21:10:00 82 mm[Hg] [facility] Heart rate 2023-09-29 21:10:00 86 /min Unive [facility] Body temperature 2023-09-29 21:10:00 37.06 Porsha [facility] Respiratory rate 2023-09-29 21:10:00 17 /min [facility] Body height 2023-09-29 21:10:[address] [facility] Body weight 2023-09-29 21:10:[address] [facility] BMI 2023-09-29 21:10:00 35.74 kg/m2 [facility] Oxygen saturation in Arterial blood by Pulse oximetry 2023-09-29 21:10:00 98 /min [facility] Systolic blood pressure 2023-05-14 17:33:00 118 mm[Hg] Noemi ybo ld - External Diastolic blood pressure 2023-05-14 17:33:00 68 mm[Hg] Noemi Seybo ld - External Heart rate 2023-05-14 17:33:00 72 /min Flavio mayers Seybold - External Body temperature 2023-05-14 17:33:00 36.83 Porsha Noemi Seybold - External Respiratory rate 2023-05-14 17:33:00 18 /min Noemi Sewellybold - External Body height 2023-05-14 17:33:00 152.4 cm Maria Antonia waite Seybold - External Body weight 2023-05-14 17:33:00 85.276 kg Maria Antonia Jaquez - External BMI 2023-05-14 17:33:00 36.72 kg/m2 Maria Antonia Jaquez - External Oxygen saturation in Arterial blood by Pulse oximetry 2023-05-14 17:33:00 99 /min Noemi Paredes ld - External Systolic blood pressure 2022-12-03 20:03:00 133 mm[Hg] [facility] Diastolic blood pressure 2022-12-03 20:03:00 87 mm[Hg] [facility] Heart rate 2022-12-03 20:03:00 92 /min [facility] Body temperature 2022-12-03 20:03:00 36.89 Porsha [facility] Respiratory rate 2022-12-03 20:03:00 16 /min [facility] Body height 2022-12-03 20:03:[address] [facility] Body weight 2022-12-03 20:03:[address] [facility] BMI 2022-12-03 20:03:00 34.63 kg/m2 [facility] Body mass index (BMI) [Percentile] Per age and sex 2022-12-03 20:03:00 97.41 % [facility] Oxygen saturation in Arterial blood by Pulse oximetry 2022-12-03 20:03:00 97 /min [facility] Systolic blood pressure 2022-10-26 13:20:00 138 mm[Hg] [facility] Diastolic blood pressure 2022-10-26 13:20:00 94 mm[Hg] [facility] Heart rate 2022-10-26 13:19:00 93 /min [facility] Body temperature 2022-10-26 13:18:00 36.83 Porsha [facility] Respiratory rate 2022-10-26 13:18:00 20 /min [facility] Body height 2022-10-26 13:18:[address] [facility] Body weight 2022-10-26 13:18:[address] [facility] BMI 2022-10-26 13:18:00 37.54 kg/m2 [facility] Body mass index (BMI) [Percentile] Per age and sex 2022-10-26 13:18:00 98.28 % [facility] Systolic blood pressure 2022-10-19 16:42:00 125 mm[Hg] [facility] Diastolic blood pressure 2022-10-19 16:42:00 83 mm[Hg] [facility] Heart rate 2022-10-19 16:42:00 82 /min [facility] Body temperature 2022-10-19 16:42:00 37.17 Porsha [facility] Respiratory rate 2022-10-19 16:42:00 18 /min [facility] Oxygen saturation in Arterial blood by Pulse oximetry 2022-10-19 16:42:00 98 /min [facility] Body height 2022-10-17 01:29:[address] [facility] Body weight 2022-10-17 01:29:[address] [facility] BMI 2022-10-17 01:29:00 44.66 kg/m2 [facility] Body mass index (BMI) [Percentile] Per age and sex 2022-10-17 01:29:00 99.13 % [facility] Systolic blood pressure 2022-10-16 18:20:00 137 mm[Hg] [facility] Diastolic blood pressure 2022-10-16 18:20:00 86 mm[Hg] [facility] Heart rate 2022-10-16 18:20:00 83 /min [facility] Respiratory rate 2022-10-16 18:20:00 18 /min [facility] Body height 2022-10-16 18:20:[address] [facility] Body weight 2022-10-16 18:20:[address] [facility] BMI 2022-10-16 18:20:00 44.53 kg/m2 [facility] Body mass index (BMI) [Percentile] Per age and sex 2022-10-16 18:20:00 99.12 % [facility] Systolic blood pressure 2022-10-13 19:46:00 120 mm[Hg] [facility] Diastolic blood pressure 2022-10-13 19:46:00 80 mm[Hg] [facility] Heart rate 2022-10-13 19:46:00 84 /min [facility] Body temperature 2022-10-13 19:46:00 36.78 Porsha [facility] Respiratory rate 2022-10-13 19:46:00 18 /min [facility] Body height 2022-10-13 19:46:[address] [facility] Body weight 2022-10-13 19:46:[address] [facility] BMI 2022-10-13 19:46:00 44.53 kg/m2 [facility] Body mass index (BMI) [Percentile] Per age and sex 2022-10-13 19:46:00 99.12 % [facility] Heart rate 2022-10-11 18:00:00 69 /min [facility] Oxygen saturation in Arterial blood by Pulse oximetry 2022-10-11 18:00:00 100 /min [facility] Systolic blood pressure 2022-10-11 17:00:00 129 mm[Hg] [facility] Diastolic blood pressure 2022-10-11 17:00:00 84 mm[Hg] [facility] Body temperature 2022-10-11 14:45:00 36.89 Porsha [facility] Respiratory rate 2022-10-11 14:45:00 18 /min [facility] Body height 2022-10-11 14:45:[address] [facility] Body weight 2022-10-11 14:45:[address] [facility] BMI 2022-10-11 14:45:00 43.73 kg/m2 [facility] Body mass index (BMI) [Percentile] Per age and sex 2022-10-11 14:45:00 99.06 % [facility] Systolic blood pressure 2022-10-06 13:25:00 120 mm[Hg] [facility] Diastolic blood pressure 2022-10-06 13:25:00 76 mm[Hg] [facility] Heart rate 2022-10-06 13:25:00 64 /min [facility] Body temperature 2022-10-06 13:25:00 36.67 Porsha [facility] Body height 2022-10-06 13:25:[address] [facility] Body weight 2022-10-06 13:25:[address] [facility] BMI 2022-10-06 13:25:00 42.97 kg/m2 [facility] Body mass index (BMI) [Percentile] Per age and sex 2022-10-06 13:25:00 99.01 % [facility] Systolic blood pressure 2022-10-02 18:24:00 122 mm[Hg] [facility] Diastolic blood pressure 2022-10-02 18:24:00 79 mm[Hg] [facility] Heart rate 2022-10-02 18:24:00 79 /min Un[facility] Respiratory rate 2022-10-02 18:24:00 18 /min [facility] Body height 2022-10-02 18:24:[address] [facility] Body weight 2022-10-02 18:24:[address] [facility] BMI 2022-10-02 18:24:00 42.77 kg/m2 [facility] Body mass index (BMI) [Percentile] Per age and sex 2022-10-02 18:24:00 98.99 % [facility] Systolic blood pressure 2022-09-25 13:10:00 121 mm[Hg] [facility] Diastolic blood pressure 2022-09-25 13:10:00 81 mm[Hg] [facility] Heart rate 2022-09-25 13:10:00 89 /min Un[facility] Body temperature 2022-09-25 13:10:00 36.72 Porsha [facility] Respiratory rate 2022-09-25 13:10:00 17 /min [facility] Body height 2022-09-25 13:10:00 152.4 cm [facility] Body weight 2022-09-25 13:10:[address] [facility] BMI 2022-09-25 13:10:00 42.89 kg/m2 [facility] Body mass index (BMI) [Percentile] Per age and sex 2022-09-25 13:10:00 99.01 % [facility] Systolic blood pressure 2022-09-22 18:19:00 123 mm[Hg] [facility] Diastolic blood pressure 2022-09-22 18:19:00 81 mm[Hg] [facility] Heart rate 2022-09-22 18:19:00 76 /min [facility] Body temperature 2022-09-22 18:19:00 36.5 Porsha [facility] Respiratory rate 2022-09-22 18:19:00 18 /min [facility] Body height 2022-09-22 18:19:[address] [facility] Body weight 2022-09-22 18:19:[address] [facility] BMI 2022-09-22 18:19:00 42.18 kg/m2 [facility] Body mass index (BMI) [Percentile] Per age and sex 2022-09-22 18:19:00 98.95 % [facility] Systolic blood pressure 2022-09-19 13:06:00 109 mm[Hg] [facility] Diastolic blood pressure 2022-09-19 13:06:00 76 mm[Hg] [facility] Heart rate 2022-09-19 13:06:00 71 /min [facility] Body temperature 2022-09-19 13:06:00 36.72 Porsha [facility] Respiratory rate 2022-09-19 13:06:00 16 /min [facility] Body height 2022-09-19 13:06:[address] [facility] Body weight 2022-09-19 13:06:[address] [facility] BMI 2022-09-19 13:06:00 41.85 kg/m2 [facility] Body mass index (BMI) [Percentile] Per age and sex 2022-09-19 13:06:00 98.92 % [facility] Systolic blood pressure 2022-09-15 19:29:00 100 mm[Hg] [facility] Diastolic blood pressure 2022-09-15 19:29:00 68 mm[Hg] [facility] Heart rate 2022-09-15 19:29:00 76 /min [facility] Body temperature 2022-09-15 19:29:00 36.67 Porsha [facility] Body weight 2022-09-15 19:29:[address] [facility] BMI 2022-09-15 19:29:00 41.01 kg/m2 [facility] Body mass index (BMI) [Percentile] Per age and sex 2022-09-15 19:29:00 98.83 % [facility] Systolic blood pressure 2022-09-12 13:05:00 115 mm[Hg] [facility] Diastolic blood pressure 2022-09-12 13:05:00 67 mm[Hg] [facility] Heart rate 2022-09-12 13:05:00 87 /min [facility] Body temperature 2022-09-12 13:05:00 36.72 Porsha [facility] Respiratory rate 2022-09-12 13:05:00 17 /min [facility] Body height 2022-09-12 13:05:[address] [facility] Body weight 2022-09-12 13:05:[address] [facility] BMI 2022-09-12 13:05:00 41.40 kg/m2 [facility] Body mass index (BMI) [Percentile] Per age and sex 2022-09-12 13:05:00 98.88 % [facility] Systolic blood pressure 2022-09-08 18:08:00 115 mm[Hg] [facility] Diastolic blood pressure 2022-09-08 18:08:00 77 mm[Hg] [facility] Heart rate 2022-09-08 18:08:00 89 /min [facility] Respiratory rate 2022-09-08 18:08:00 16 /min [facility] Body height 2022-09-08 18:08:[address] [facility] Body weight 2022-09-08 18:08:[address] [facility] BMI 2022-09-08 18:08:00 41.75 kg/m2 [facility] Body mass index (BMI) [Percentile] Per age and sex 2022-09-08 18:08:00 98.91 % [facility] Oxygen saturation in Arterial blood by Pulse oximetry 2022-09-08 18:08:00 95 /min [facility] Systolic blood pressure 2022-09-05 14:56:00 104 mm[Hg] [facility] Diastolic blood pressure 2022-09-05 14:56:00 68 mm[Hg] [facility] Heart rate 2022-09-05 14:56:00 128 /min [facility] Body temperature 2022-09-05 14:56:00 36.72 Porsha [facility] Respiratory rate 2022-09-05 14:56:00 18 /min [facility] Body height 2022-09-05 14:56:[address] [facility] Body weight 2022-09-05 14:56:[address] [facility] BMI 2022-09-05 14:56:00 42.03 kg/m2 [facility] Body mass index (BMI) [Percentile] Per age and sex 2022-09-05 14:56:00 98.94 % [facility] Systolic blood pressure 2022-09-01 18:06:00 111 mm[Hg] [facility] Diastolic blood pressure 2022-09-01 18:06:00 58 mm[Hg] [facility] Heart rate 2022-09-01 18:06:00 73 /min [facility] Body temperature 2022-09-01 18:06:00 36.72 Porsha [facility] Respiratory rate 2022-09-01 18:06:00 16 /min [facility] Body height 2022-09-01 18:06:[address] [facility] Body weight 2022-09-01 18:06:[address] [facility] BMI 2022-09-01 18:06:00 41.31 kg/m2 [facility] Body mass index (BMI) [Percentile] Per age and sex 2022-09-01 18:06:00 98.87 % [facility] Oxygen saturation in Arterial blood by Pulse oximetry 2022-09-01 18:06:00 98 /min [facility] Systolic blood pressure 2022-08-29 18:11:00 114 mm[Hg] [facility] Diastolic blood pressure 2022-08-29 18:11:00 72 mm[Hg] [facility] Heart rate 2022-08-29 18:11:00 88 /min [facility] Body temperature 2022-08-29 18:11:00 36.78 Porsha [facility] Respiratory rate 2022-08-29 18:11:00 16 /min [facility] Body height 2022-08-29 18:11:[address] [facility] Body weight 2022-08-29 18:11:[address] [facility] BMI 2022-08-29 18:11:00 40.62 kg/m2 [facility] Body mass index (BMI) [Percentile] Per age and sex 2022-08-29 18:11:00 98.80 % [facility] Oxygen saturation in Arterial blood by Pulse oximetry 2022-08-29 18:11:00 96 /min [facility] Heart rate 2022-08-23 22:45:00 105 /min [facility] Oxygen saturation in Arterial blood by Pulse oximetry 2022-08-23 22:45:00 97 /min [facility] Systolic blood pressure 2022-08-23 22:30:00 131 mm[Hg] [facility] Diastolic blood pressure 2022-08-23 22:30:00 72 mm[Hg] [facility] Body temperature 2022-08-23 22:30:00 36.94 Porsha [facility] Respiratory rate 2022-08-23 22:30:00 19 /min [facility] Body weight 2022-08-23 21:55:[address] [facility] Systolic blood pressure 2022-08-16 20:13:00 118 mm[Hg] [facility] Diastolic blood pressure 2022-08-16 20:13:00 79 mm[Hg] [facility] Heart rate 2022-08-16 20:13:00 92 /min [facility] Respiratory rate 2022-08-16 20:13:00 18 /min [facility] Body height 2022-08-16 20:13:[address] [facility] Body weight 2022-08-16 20:13:[address] [facility] BMI 2022-08-16 20:13:00 40.82 kg/m2 [facility] Body mass index (BMI) [Percentile] Per age and sex 2022-08-16 20:13:00 98.83 % [facility] Body weight 2022-08-14 19:32:[address] [facility] Systolic blood pressure 2022-07-26 20:10:00 138 mm[Hg] [facility] Diastolic blood pressure 2022-07-26 20:10:00 66 mm[Hg] [facility] Heart rate 2022-07-26 20:10:00 82 /min [facility] Respiratory rate 2022-07-26 20:10:00 18 /min [facility] Body height 2022-07-26 20:10:[address] [facility] Body weight 2022-07-26 20:10:[address] [facility] BMI 2022-07-26 20:10:00 40.43 kg/m2 [facility] Body mass index (BMI) [Percentile] Per age and sex 2022-07-26 20:10:00 98.80 % [facility] Systolic blood pressure 2022-07-20 21:45:00 121 mm[Hg] [facility] Diastolic blood pressure 2022-07-20 21:45:00 77 mm[Hg] [facility] Heart rate 2022-07-20 21:45:00 96 /min [facility] Body temperature 2022-07-20 21:45:00 36.67 Porsha [facility] Respiratory rate 2022-07-20 21:45:00 18 /min [facility] Body height 2022-07-20 21:45:[address] [facility] Body weight 2022-07-20 21:45:[address] [facility] BMI 2022-07-20 21:45:00 39.84 kg/m2 [facility] Body mass index (BMI) [Percentile] Per age and sex 2022-07-20 21:45:00 98.73 % [facility] Systolic blood pressure 2022-06-28 20:30:00 109 mm[Hg] [facility] Diastolic blood pressure 2022-06-28 20:30:00 74 mm[Hg] [facility] Heart rate 2022-06-28 20:30:00 78 /min [facility] Body temperature 2022-06-28 20:30:00 36.67 Porsha [facility] Respiratory rate 2022-06-28 20:30:00 18 /min [facility] Body height 2022-06-28 20:30:[address] [facility] Body weight 2022-06-28 20:30:[address] [facility] BMI 2022-06-28 20:30:00 38.86 kg/m2 [facility] Body mass index (BMI) [Percentile] Per age and sex 2022-06-28 20:30:00 98.60 % [facility] Body height 2022-06-15 20:36:[address] [facility] Body weight 2022-06-15 20:36:[address] [facility] BMI 2022-06-15 20:36:00 38.28 kg/m2 [facility] Body mass index (BMI) [Percentile] Per age and sex 2022-06-15 20:36:00 98.52 % [facility] Systolic blood pressure 2022-06-07 20:43:00 98 mm[Hg] [facility] Diastolic blood pressure 2022-06-07 20:43:00 68 mm[Hg] [facility] Heart rate 2022-06-07 20:43:00 76 /min [facility] Body height 2022-06-07 20:43:[address] [facility] Body weight 2022-06-07 20:43:[address] [facility] BMI 2022-06-07 20:43:00 38.28 kg/m2 [facility] Body mass index (BMI) [Percentile] Per age and sex 2022-06-07 20:43:00 98.52 % [facility] Oxygen saturation in Arterial blood by Pulse oximetry 2022-06-07 20:43:00 98 /min [facility] Systolic blood pressure 2022-05-31 21:58:00 119 mm[Hg] [facility] Diastolic blood pressure 2022-05-31 21:58:00 78 mm[Hg] [facility] Heart rate 2022-05-31 21:58:00 93 /min [facility] Body temperature 2022-05-31 21:58:00 36.72 Porsha [facility] Respiratory rate 2022-05-31 21:58:00 18 /min [facility] Body height 2022-05-31 21:58:[address] [facility] Body weight 2022-05-31 21:58:[address] [facility] BMI 2022-05-31 21:58:00 37.50 kg/m2 [facility] Body mass index (BMI) [Percentile] Per age and sex 2022-05-31 21:58:00 98.38 % [facility] Systolic blood pressure 2022-05-19 16:35:00 114 mm[Hg] [facility] Diastolic blood pressure 2022-05-19 16:35:00 78 mm[Hg] [facility] Heart rate 2022-05-19 16:35:00 81 /min [facility] Body temperature 2022-05-19 16:35:00 36.94 Porsha [facility] Respiratory rate 2022-05-19 16:35:00 16 /min [facility] Body height 2022-05-19 16:35:[address] [facility] Body weight 2022-05-19 16:35:[address] [facility] BMI 2022-05-19 16:35:00 37.24 kg/m2 [facility] Body mass index (BMI) [Percentile] Per age and sex 2022-05-19 16:35:00 98.34 % [facility] Oxygen saturation in Arterial blood by Pulse oximetry 2022-05-19 16:35:00 97 /min [facility] Systolic blood pressure 2022-05-17 22:07:00 106 mm[Hg] [facility] Diastolic blood pressure 2022-05-17 22:07:00 72 mm[Hg] [facility] Heart rate 2022-05-17 22:07:00 108 /min [facility] Body temperature 2022-05-17 22:07:00 36.72 Porsha [facility] Respiratory rate 2022-05-17 22:07:00 18 /min [facility] Body height 2022-05-17 22:07:[address] [facility] Body weight 2022-05-17 22:07:[address] [facility] BMI 2022-05-17 22:07:00 37.30 kg/m2 [facility] Body mass index (BMI) [Percentile] Per age and sex 2022-05-17 22:07:00 98.35 % [facility] Systolic blood pressure 2021-08-16 00:39:00 132 mm[Hg] [facility] Diastolic blood pressure 2021-08-16 00:39:00 79 mm[Hg] [facility] Heart rate 2021-08-16 00:39:00 81 /min [facility] Body temperature 2021-08-16 00:39:00 37.28 Porsha [facility] Respiratory rate 2021-08-16 00:39:00 18 /min [facility] Body height 2021-08-16 00:39:[address] [facility] Body weight 2021-08-16 00:39:[address] [facility] BMI 2021-08-16 00:39:00 33.79 kg/m2 [facility] Body mass index (BMI) [Percentile] Per age and sex 2021-08-16 00:39:00 97.60 % [facility] Oxygen saturation in Arterial blood by Pulse oximetry 2021-08-16 00:39:00 100 /min [facility] Systolic blood pressure 2021-07-07 02:30:00 116 mm[Hg] [facility] Diastolic blood pressure 2021-07-07 02:30:00 88 mm[Hg] [facility] Heart rate 2021-07-07 02:30:00 76 /min [facility] Respiratory rate 2021-07-07 02:30:00 16 /min [facility] Oxygen saturation in Arterial blood by Pulse oximetry 2021-07-07 02:30:00 98 /min [facility] Body temperature 2021-07-07 00:20:00 36.94 Porsha [facility] Body height 2021-07-07 00:20:[address] [facility] Body weight 2021-07-07 00:20:[address] [facility] BMI 2021-07-07 00:20:00 33.20 kg/m2 [facility] Body mass index (BMI) [Percentile] Per age and sex 2021-07-07 00:20:00 97.40 % [facility] BP Systolic 2022-04-26 14:46:00 134 mm[Hg] [...] Clinician Source URINALYSIS 2024-03-10 19:56:[address] [facility] POCT TEST 2024-03-10 19:56:00 Brittaney Arnold [facility] POCT TEST 2023-09-29 21:13:00 Silvina Rivera [facility] POCT URINALYSIS 2023-09-29 21:12:00 Angle Rivera [facility] POCT GLUCOSE (AUTOMATED) 2022-10-19 16:43:00 Alexander Reece [facility] POCT GLUCOSE (AUTOMATED) 2022-10-19 13:34:00 Alexander Reece [facility] POCT GLUCOSE (AUTOMATED) 2022-10-19 02:05:00 Alexander Reece [facility] CBC WITH DIFF 2022-10-18 08:15:00 Markell Crisostomo [facility] VENOUS CORD GAS 2022-10-18 02:35:00 John Nix [facility] POCT GLUCOSE (AUTOMATED) 2022-10-18 01:05:00 [facility] POCT GLUCOSE (AUTOMATED) 2022-10-18 00:06:00 [facility] POCT GLUCOSE (AUTOMATED) 2022-10-17 22:51:00 [facility] POCT GLUCOSE (AUTOMATED) 2022-10-17 20:02:00 [facility] POCT GLUCOSE (AUTOMATED) 2022-10-17 16:54:00 [facility] POCT GLUCOSE (AUTOMATED) 2022-10-17 13:54:00 [facility] CENTRAL NEURAXIAL BLOCK 2022-10-17 13:26:00 Cynthia Huynh [facility] POCT GLUCOSE (AUTOMATED) 2022-10-17 09:02:00 [facility] POCT GLUCOSE (AUTOMATED) 2022-10-17 05:17:00 [facility] CBC WITH DIFF 2022-10-17 02:42:[address] [facility] RUBELLA SCREEN IGG 2022-10-17 02:42:00 Felicity Valerio [facility] VZV ANTIBODY SCREEN 2022-10-17 02:42:00 Cindi Valerio [facility] HEPATITIS B SURFACE ANTIGEN 2022-10-17 02:42:00 John Nix [facility] HB ABO GROUPING 2022-10-17 02:42:00 John Nix [facility] RHO (D) IMMUNE GLOBULIN 2022-10-17 02:42:00 Hernandez Crisostomo [facility] HIV 1/2 AG-AB WITH REFLEX 2022-10-17 02:42:00 Torrey Nix [facility] SYPHILIS IGG/IGM 2022-10-17 02:42:00 John Nix [facility] POCT GLUCOSE (AUTOMATED) 2022-10-17 01:39:00 Reece, Munoz arik [facility] NON-STRESS TEST 2022-10-16 19:05:53 Batool Garrido [facility] NON-STRESS TEST 2022-10-13 20:59:20 Milagros Devlin [facility] PROTEIN CREAT RATIO URINE RANDOM 2022-10-11 17:28:00 Adum, Radha Aponte [facility] POCT GLUCOSE (AUTOMATED) 2022-10-11 16:36:00 Adum, Guera Aponte [facility] SGOT (ASPARTATE AMINO TRANSFER) 2022-10-11 16:21:00 Adum, Radha Aponte [facility] CREATININE 2022-10-11 16:21:00 Adum, Radha Aponte [facility] ALANINE AMINO TRANSFERASE(SGPT 2022-10-11 16:21:00 Adum, Radha Aponte [facility] LACTATE DEHYDROGENASE 2022-10-11 16:21:00 Adum, Radha Aponte [facility] URIC ACID 2022-10-11 16:21:00 [facility] 2022-10-11 16:21:00 Adum, Radha [facility] HB ABO GROUPING 2022-10-11 16:21:00 Adum, Radha Coles [facility] ADC CLC OR LCC ONLY - WET PREP 2022-10-11 16:21:00 Adum, Radha Aponte [facility] CONSENT/REFUSAL FOR DIAGNOSIS AND TREATMENT 2022-10-11 14:26:04 Doctor Unassigned, [place] [facility] NON-STRESS TEST 2022-10-06 14:12:06 Adum, Radha Aponte [facility] NON-STRESS TEST 2022-10-02 20:09:21 Batool Garrido [facility] DIABETES TESTING REPORTS 2022-10-02 05:01:00 Doc tor Unassigned, [place] [facility] NON-STRESS TEST 2022-09-25 14:51:09 Batool Garrido [facility] NON-STRESS TEST 2022-09-22 22:20:34 Adum, Radha Aponte [facility] NON-STRESS TEST 2022-09-19 15:20:52 Batool Garrido [facility] DIABETES TESTING REPORTS 2022-09-19 05:01:00 Doc johnnie Unassigned, [place] [facility] NON-STRESS TEST 2022-09-15 22:27:49 Adum, Radha Aponte [facility] NON-STRESS TEST 2022-09-12 13:41:05 Hema [facility] NON-STRESS TEST 2022-09-08 18:45:14 Hema [facility] DIABETES TESTING REPORTS 2022-09-08 05:01:00 Jameel blair Unassigned, [place] [facility] NON-STRESS TEST 2022-09-05 17:52:44 Hema [facility] NON-STRESS TEST 2022-09-01 18:34:03 Hema [facility] NON-STRESS TEST 2022-08-29 22:26:44 Adum, Radha Aponte [facility] POCT URINALYSIS W/O SPECIFIC GRAVITY 2022-08-29 00:00:00 Adum, Radha Aponte [facility] URINALYSIS 2022-08-24 00:27:00 Adum, Radha [facility] COMP. METABOLIC PANEL (29130) 2022-08-23 23:56:00 Adum, Radha Aponte [facility] CBC WITH DIFF 2022-08-23 23:56:00 Adum, Radha [facility] POCT GLUCOSE (AUTOMATED) 2022-08-23 23:36:00 Adum, Guera Aponte [facility] ASSIGNMENT OF BENEFITS 2022-08-23 21:49:55 Docto r Unassigned, [place] [facility] CONSENT/REFUSAL FOR DIAGNOSIS AND TREATMENT 2022-08-23 21:48:37 Doctor Unassigned, [place] [facility] POCT URINALYSIS W/O SPECIFIC GRAVITY 2022-08-16 00:00:00 Batool Garrido [facility] ASSIGNMENT OF BENEFITS 2022-08-14 19:21:02 Docto r Unassigned, [place] [facility] DIABETES TESTING REPORTS 2022-07-26 06:01:00 Doc tor Unassigned, [place] [facility] POCT URINALYSIS W/O SPECIFIC GRAVITY 2022-07-26 00:00:00 Batool Garrido [facility] URINE CULTURE 2022-07-20 21:54:00 Batool Garrido [facility] POCT URINALYSIS W/O SPECIFIC GRAVITY 2022-07-20 00:00:00 Batool Garrido [facility] DIABETES TESTING REPORTS 2022-07-17 06:01:00 Doc tor Unassigned, [place] [facility] POCT URINALYSIS W/O SPECIFIC GRAVITY 2022-06-28 00:00:00 Batool Garrido [facility] EXTERNAL PROVIDER RECORDS 2022-06-22 06:01:00 Do ctor Unassabby, [place] [facility] URINE CULTURE 2022-06-07 21:04:00 Batool Garrido [facility] GC & CHLAMYDIA AMPLIFIED ASSAY 2022-06-07 21:04:00 Batool Garrido [facility] POCT URINALYSIS 2022-06-07 21:02:00 Royce Garrido [facility] DIABETES TESTING REPORTS 2022-05-31 06:01:00 Doc johnnie Unassigned, [place] [facility] POCT URINALYSIS W/O SPECIFIC GRAVITY 2022-05-31 00:00:00 Batool Garrido [facility] AUTHORIZATION TO RELEASE PHI TO [facility] 2022-05-17 06:01:00 Doctor Unassigned, [place] [facility] US FIRST TRIMESTER LESS THAN 14 WEEKS WITH TRANSVAGINAL 2022-05-03 19:56:07 Requisition, Paper [facility] PATIENT FINANCIAL POLICY 2022-05-03 18:57:21 Doctor Unassigned, [place] [facility] NO SHOW OR MISSED APPOINTMENT POLICY ACKNOWLEDGEMENT 2022-05-03 18:57:03 Doctor Unassigned, [place] [facility] NOTICE OF PRIVACY PRACTICES 2022-05-03 18:56:47 Doctor Unassigned, [place] [facility] CONSENT/REFUSAL FOR DIAGNOSIS AND TREATMENT 2022-05-03 18:56:30 Doctor Unassigned, [place] [facility] REFERRAL- REQUEST/RESPONSE 2022-04-26 06:01:00 D taniya Unassigned, [place] [facility] CT ABDOMEN PELVIS W CONTRAST 2021-08-16 04:03:00 Zachery Mejia [facility] POCT TEST 2021-08-16 02:21:00 Nida Mejia [facility] URINALYSIS 2021-08-16 02:12:00 Zachery Mejia [facility] LIPASE 2021-08-16 01:57:00 Zachery Mejia [facility] COMP. METABOLIC PANEL (60739) 2021-08-16 01:57:00 Zachery Mejia [facility] CBC WITH DIFF 2021-08-16 01:57:00 Zachery Mejia [facility] NOTICE OF PRIVACY PRACTICES 2021-08-16 00:36:17 Doctor Unassigned, [place] [facility] CONSENT/REFUSAL FOR DIAGNOSIS AND TREATMENT 2021-08-16 00:35:38 Doctor Unassigned, [place] [facility] COMP. METABOLIC PANEL ([id number]) 2021-07-07 01:10:00 Channing Oquendo [facility] CBC WITH DIFF 2021-07-07 01:10:00 Channing Oquendo [facility] URINALYSIS 2021-07-07 01:10:00 Channing Oquendo [facility] POCT TEST 2021-07-07 01:09:00 Channing Oquendo [facility] NOTICE OF PRIVACY PRACTICES 2021-07-07 00:16:47 Doctor Unassigned, [place] [facility] CONSENT/REFUSAL FOR DIAGNOSIS AND TREATMENT 2021-07-07 00:16:29 Doctor Unassigned, [place] [facility] CONSENT/REFUSAL FOR DIAGNOSIS AND TREATMENT 2021-07-07 00:15:20 Doctor Unassigned, [place] [facility] NOTICE OF PRIVACY PRACTICES 2021-07-07 00:14:58 Doctor Unassigned, [place] [facility] COVID-19 (PCR MOLECULAR TESTING) 2019-12-29 22:02:00 Prudence Ruff [facility] Plan of Care Planned Activity Planned Date Details Comments Source Goal Plan of Care Note [code = 59575-0] Goal Plan of Care Note [code = 76418-7] Goal Plan of Care Note [code = 73283-7] Goal Plan of Care Note [code = 04311-6] Goal Plan of Care Note [code = 73883-2] Goal Plan of Care Note [code = 83830-5] Goal Plan of Care Note [code = 64724-8] Goal Plan of Care Note [code = 54767-5] Goal Plan of Care Note [code = 72758-6] Goal Plan of Care Note [code = 73977-0] Encounters Start Date/Time End Date/Time Encounter Type Admission Type Attending [facility] Facility Care Department Encounter ID Source 2023-09-05 17:37:47 Emergency [facility] [id number] [facility] 2022-08-23 20:59:23 Outpatient P [facility] [id number] [facility] 2024-03-10 14:17:00 2024-03-10 16:09:00 Emergency X BRITTANEY ARNOLD ERICCA [facility] ERT [id number] [facility] 2024-03-10 14:17:00 2024-03-10 16:09:00 Emergency Brittaney Arnold D [facility] 1.2.840.114 350.1.13.10 4.2.7.2.686 [id number] [facility] 2024-02-18 09:00:00 2024-02-18 09:00:00 Outpatient SHILA MADRIGAL [facility] [id number] [facility] 2023-12-11 00:00:00 2023-12-11 00:00:00 Outpatient HOLLY VELÁZQUEZ [id number] [facility] 2023-11-13 09:00:00 2023-11-13 09:00:00 Outpatient HOLLY VELÁZQUEZ NOEMI TOLLIVER [id number] [facility] 2023-10-24 00:00:00 2023-10-24 00:00:00 Outpatient REDDY SIMMONS NOEMI TOLLIVER [id number] [facility] 2023-10-08 08:30:00 2023-10-08 08:52:13 Outpatient R SHILA PAULINO [facility] [id number] [facility] 2023-10-08 08:30:00 2023-10-08 08:52:13 Office Visit Shila Paulino [facility] 1.2.840.114 350.1.13.10 4.2.7.2.686 [id number] [facility] 2023-09-29 16:00:00 2023-09-29 16:26:29 Urgent Care Angle Rivera Unknown, Attending [facility] 1.2.840.114 350.1.13.10 4.2.7.2.686 [id number] [facility] 2023-09-29 16:00:00 2023-09-29 16:00:00 Outpatient ANGLE SCHULTZ [facility] [id number] [facility] 2023-08-29 00:00:00 2023-08-29 00:00:00 Outpatient MD NOEMI GARVEY [id number] [facility] 2023-08-16 00:00:00 2023-08-16 00:00:00 Outpatient MD NOEMI GARVEY [id number] [facility] 2023-07-10 19:40:00 2023-07-10 19:40:00 Outpatient R [facility] [id number] [facility] 2023-06-26 00:00:00 2023-06-26 00:00:00 Outpatient MD NOEMI GARVEY [id number] [facility] 2023-06-20 00:00:00 2023-06-20 00:00:00 Outpatient HOLLY VELÁZQUEZ [id number] [facility] 2023-05-15 00:00:00 2023-05-15 00:00:00 Outpatient HOLLY VELÁZQUEZ NOEMI [id number] [facility] 2023-05-15 00:00:00 2023-05-15 00:00:00 Outpatient HOLLY VELÁZQUEZ NOEMI [id number] [facility] 2023-05-15 00:00:00 2023-05-15 00:00:00 Outpatient HOLLY VELÁZQUEZ NOEMI [id number] [facility] 2023-05-14 13:10:00 2023-05-14 13:10:00 Outpatient LAB90 NOEMI NOEMI [id number] [facility] 2023-05-14 11:30:00 2023-05-14 11:30:00 Outpatient HOLLY VELÁZQUEZ NOEMI [id number] [facility] 2023-05-07 14:30:00 2023-05-07 14:30:00 Outpatient HOLLY VELÁZQUEZ NOEMI [id number] [facility] 2023-02-21 16:15:41 2023-02-21 16:15:41 Outpatient S[facility] [id number] Eugene Mabry 2023-01-09 11:30:00 2023-01-09 11:30:00 Outpatient R BATOOL GARRIDO CHERYAL [facility] [id number] [facility] 2022-12-26 13:30:00 2022-12-26 13:30:00 Outpatient R CECILIA MATHIS RENUKA [facility] [id number] [facility] 2022-12-25 13:00:00 2022-12-25 13:00:00 Outpatient R CECILIA MATHIS RENUKA [facility] [id number] [facility] 2022-12-03 15:00:00 2022-12-03 15:50:41 Outpatient R PRUDENCE RUFF [facility] [id number] [facility] 2022-12-03 15:00:00 2022-12-03 15:50:41 Urgent Care Prudence Ruff Unknown, Attending [facility] 1..840.114 350.1.13.10 4.2.7.2.686 [id number] [facility] 2022-11-20 16:00:00 2022-11-20 16:00:00 Outpatient R BATOOL GARRIDO CHERYAL [facility] [id number] [facility] 2022-10-27 13:00:00 2022-10-27 13:00:00 Outpatient R [facility] [id number] [facility] 2022-10-26 08:00:00 2022-10-26 08:32:32 Nurse Visit Visit, Ang-Rmchp Nurse Gary Guerrero [facility] BILL HIKER [facility] MATERNAL & CHILD HEALTH [facility] 1..840.114 350.1.13.10 4.2.7.2.686 [id number] [facility] 2022-10-26 08:00:00 2022-10-26 08:00:00 Outpatient R GARY GUERRERO [facility] [id number] [facility] 2022-10-23 13:00:00 2022-10-23 13:00:00 Outpatient R [facility] [id number] [facility] 2022-10-20 13:00:00 2022-10-20 13:00:00 Outpatient R [facility] [id number] [facility] 2022-10-16 19:52:00 2022-10-19 13:54:00 Hospital Encounter Alondra Reece [facility] 1..840.114 350.1.13.10 4.2.7.2.686 [id number] [facility] 2022-10-17 07:45:00 2022-10-17 22:45:00 Anesthesia Event Cynthia Huynh, [facility] 1.2.114 350.1.13.10 4.2.7.2.686 [id number] [facility] 2022-10-16 13:00:00 2022-10-16 14:02:23 Routine Visit 1, Lkj Nst Room Batool Garrido [facility] 1.114 350.1.13.10 4.2.7.2.686 [id number] [facility] 2022-10-16 13:00:00 2022-10-16 14:02:23 Outpatient R BATOOL GARRIDO [facility] [id number] [facility] 2022-10-16 13:00:00 2022-10-16 14:02:23 Outpatient R BATOOL GARRIDO [facility] [id number] [facility] 2022-10-16 00:00:00 2022-10-16 00:00:00 Telephone Hema [facility] 1..114 350.1.13.10 4.2.7.2.686 [id number] [facility] 2022-10-16 00:00:00 2022-10-16 00:00:00 Patient Secure Msg Doctor Unassigned, [place] [facility] 1..114 350.1.13.10 4.2.7.2.686 [id number] [facility] 2022-10-13 15:00:00 2022-10-13 16:07:28 Outpatient RITO VALLE COREY [facility] [id number] [facility] 2022-10-13 15:00:00 2022-10-13 16:07:28 Routine Visit Room, [facility] Rito Ng [facility] 1.0.114 350.1.13.10 4.2.7.2.686 [id number] [facility] 2022-10-13 14:00:00 2022-10-13 14:30:00 Front End Driver Visit Ultrasound, Colby-reynaldo Yuly Rito [facility] BILL HIKER [facility] 1.0.114 350.1.13.10 4.2.7.2.686 [id number] [facility] 2022-10-13 00:00:00 2022-10-13 00:00:00 Telephone Batool Garrido [facility] 1.0.114 350.1.13.10 4.2.7.2.686 [id number] [facility] 2022-10-12 13:30:00 2022-10-12 13:30:00 Outpatient P [facility] [id number] [facility] 2022-10-12 00:00:00 2022-10-12 00:00:00 Telephone [facility] 1.0.114 350.1.13.10 4.2.7.2.686 [id number] [facility] 2022-10-11 09:33:00 2022-10-11 14:05:00 Outpatient P RADHA TURCIOS [facility] [id number] [facility] 2022-10-11 09:33:00 2022-10-11 14:05:00 Hospital Encounter Radha Turcios [facility] 1.0.114 350.1.13.10 4.2.7.2.686 [id number] [facility] 2022-10-11 00:00:00 2022-10-11 00:00:00 Telephone Adum Radha Bong [facility] 1..114 350.1.13.10 4.2.7.2.686 [id number] [facility] 2022-10-09 13:00:00 2022-10-09 13:00:00 Outpatient R [facility] [id number] [facility] 2022-10-06 13:00:00 2022-10-06 13:00:00 Outpatient R KEVIN [facility] [id number] [facility] 2022-10-06 08:00:00 2022-10-06 09:07:47 Outpatient R ADPEREZ [facility] [id number] [facility] 2022-10-06 08:00:00 2022-10-06 09:07:47 Routine Visit Room, [facility] Nst Adum Radha [facility] 1..114 [id number] [facility] 2022-10-02 13:00:00 2022-10-02 13:43:06 Outpatient R ADPEREZ, [facility] [id number] [facility] 2022-10-02 13:00:00 2022-10-02 13:43:06 Routine Visit 1, j [facility] Room Adum Radha [facility] 1..114 [id number] [facility] 2022-10-02 00:00:00 2022-10-02 00:00:00 Orders Only Doctor Unassigned, [place] [facility] 1..114 350.1.13.10 4.2.7.2.686 [id number] [facility] 2022-09-29 13:00:00 2022-09-29 13:00:00 Outpatient R KEVIN [facility] [id number] [facility] 2022-09-29 08:00:00 2022-09-29 08:00:00 Outpatient R [facility] [id number] [facility] 2022-09-27 00:00:00 2022-09-27 00:00:00 Refill MegkanbeckBatool green [facility] 1..114 350.1.13.10 4.2.7.2.686 [id number] 134 [id number] [facility] 2022-09-25 13:00:00 2022-09-25 13:00:00 Outpatient R KEVIN [facility] [id number] [facility] 2022-09-25 08:00:00 2022-09-25 08:50:14 Outpatient R ADPEREZ [facility] [id number] [facility] 2022-09-25 08:00:00 2022-09-25 08:50:14 Routine Visit 1, [facility] Room Ad [facility] 1.840.114 350.1.13.10 4.2.7.2.686 [id number] [facility] 2022-09-22 13:00:00 2022-09-22 14:39:21 Outpatient R ADPEREZ [facility] [id number] [facility] 2022-09-22 13:00:00 2022-09-22 14:39:21 Routine Visit Room, [facility] Ad [facility] 1.840.114 350.1.13.10 4.2.7.2.686 [id number] [facility] 2022-09-22 13:00:00 2022-09-22 13:00:00 Outpatient R ADPEREZ RADHA [facility] [id number] [facility] 2022-09-19 13:00:00 2022-09-19 13:00:00 Outpatient R BATOOL GARRIDO CHERYAL [facility] [id number] [facility] 2022-09-19 08:00:00 2022-09-19 08:49:07 Outpatient R KEVIN [facility] [id number] [facility] 2022-09-19 08:00:00 2022-09-19 08:49:07 Routine Visit 1, Eris Shania Room AdGuera aparicioian Bong [facility] 1.114 350.1.13.10 4.2.7.2.686 [id number] 134 [id number] [facility] 2022-09-19 00:00:00 2022-09-19 00:00:00 Orders Only Doctor Unassigned, [place] [facility] 1.114 350.1.13.10 4.2.7.2.686 [id number] [facility] 2022-09-18 13:00:00 2022-09-18 13:00:00 Outpatient R [facility] [id number] [facility] 2022-09-15 14:00:00 2022-09-15 15:14:39 Outpatient R KEVIN [facility] [id number] [facility] 2022-09-15 14:00:00 2022-09-15 15:14:39 Routine Visit Room, Chuck Shania Turcios [facility] 1..114 350.1.13.10 4.2.7.2.686 [id number] [facility] 2022-09-15 13:00:00 2022-09-15 13:00:00 Outpatient R ADUM RADHA [facility] [id number] [facility] 2022-09-14 13:30:00 2022-09-14 14:00:00 Front End Driver Visit Ultrasound, Alondra Blanchard [facility] BILL HIKER [facility]ALTH [facility] 1.840.114 350.1.13.10 4.2.7.2.686 [id number] [facility] 2022-09-14 13:30:00 2022-09-14 13:49:41 Outpatient P [facility] [id number] [facility] 2022-09-14 00:00:00 2022-09-14 00:00:00 Telephone Adum, Radha LAFOURCHE, [facility] 1.0.114 350.1.13.10 4.2.7.2.686 [id number] 134 [id number] [facility] 2022-09-12 08:00:00 2022-09-12 08:30:45 Outpatient R BATOOL GARRIDO [facility] [id number] [facility] 2022-09-12 08:00:00 2022-09-12 08:30:45 [facility], [facility] 1.0.114 350.1.13.10 4.2.7.2.686 [id number] [facility] 2022-09-08 13:00:00 2022-09-08 13:51:56 Outpatient R BATOOL GARRIDO CHERYAL [facility] [id number] [facility] 2022-09-08 13:00:00 2022-09-08 13:51:56 Routine Visit 1, [facility] 1.840.114 350.1.13.10 4.2.7.2.686 [id number] [facility] 2022-09-08 00:00:00 2022-09-08 00:00:00 Orders Only Doctor Unassigned, [place] [facility] 1.2.840.114 350.1.13.10 4.2.7.2.686 [id number] [facility] 2022-09-05 10:00:00 2022-09-05 11:09:16 Outpatient R AD [facility] [id number] [facility] 2022-09-05 10:00:00 2022-09-05 11:09:16 Routine Visit 1, [facility] Room [facility] 1.840.114 350.1.13.10 4.2.7.2.686 [id number] [facility] 2022-09-04 13:00:00 2022-09-04 13:00:00 Outpatient R [facility] [id number] [facility] 2022-09-01 13:00:00 2022-09-01 13:29:47 Outpatient R ADUM [facility] [id number] [facility] 2022-09-01 13:00:00 2022-09-01 13:29:47 Routine Visit 1, [facility] 1.2840.114 350.1.13.10 4.2.7.2.686 [id number] [facility] 2022-09-01 00:00:00 2022-09-01 00:00:00 Telephone Batool Garrido [facility] 1.2.840.114 350.1.13.10 4.2.7.2.686 [id number] 134 [id number] [facility] 2022-08-30 15:15:00 2022-08-30 15:42:42 Outpatient R BATOOL [facility]IDO [facility] [id number] [facility] 2022-08-30 15:15:00 2022-08-30 15:42:42 Front End Driver Visit Lab, Ang - Db Batool Garrido [facility] MYNOR MCMULLEN?[facility] 1.2840.114 350.1.13.10 4.2.7.2.686 [id number] [facility] 2022-08-29 13:00:00 2022-08-29 14:29:54 Outpatient R RADHA TURCIOS [facility] [id number] [facility] 2022-08-29 13:00:00 2022-08-29 14:29:54 Routine Visit 1, Lkj Nst Room AdRadha aparicio [facility] 1.2840.114 350.1.13.10 4.2.7.2.686 [id number] 134 [id number] [facility] 2022-08-29 00:00:00 2022-08-29 00:00:00 Telephone Jair Bolden [facility] 1.2840.114 350.1.13.10 4.2.7.2.686 [id number] 134 [id number] [facility] 2022-08-28 13:00:00 2022-08-28 13:00:00 Outpatient R [facility] [id number] [facility] 2022-08-28 00:00:00 2022-08-28 00:00:00 Telephone Radha Turcios [facility] 1.2.114 350.1.13.10 4.2.7.2.686 [id number] 134 [id number] [facility] 2022-08-27 00:00:00 2022-08-27 00:00:00 aKilyn [place] [facility] BILL HIKER [facility] 1.2.840.114 350.1.13.10 4.2.7.2.686 [id number] [facility] 2022-08-27 00:00:00 2022-08-27 00:00:00 Gold Garrido Jeremiahstanford [facility] 1.2.840.114 350.1.13.10 4.2.7.2.686 [id number] 134 [id number] [facility] 2022-08-23 17:12:00 2022-08-23 20:40:00 Outpatient RADHA VICTORIA [facility] [id number] [facility] 2022-08-23 17:12:00 2022-08-23 20:40:00 Hospital Encounter Radha Turcios [facility] 1.2.840.114 350.1.13.10 4.2.7.2.686 [id number] [facility] 2022-08-23 00:00:00 2022-08-23 00:00:00 Telephone Batool Garrido [facility] 1.2.840.114 350.1.13.10 4.2.7.2.686 [id number] 134 [id number] [facility] 2022-08-23 00:00:00 2022-08-23 00:00:00 Orders Only Doctor Unassigned, [place] [facility] 1.2.840.114 350.1.13.10 4.2.7.2.686 [id number] [facility] 2022-08-18 13:30:00 2022-08-18 13:30:00 Outpatient P [facility] [id number] [facility] 2022-08-17 00:00:00 2022-08-17 00:00:00 Telephone Cecilia Mathis [facility] 1.2.840.114 350.1.13.10 4.2.7.2.686 [id number] [facility] 2022-08-16 13:45:00 2022-08-16 14:45:49 Outpatient R BATOOL GARRIDO [facility] [id number] [facility] 2022-08-16 13:45:00 2022-08-16 14:45:49 [facility] 1.840.114 350.1.13.10 4.2.7.2.686 [id number] 134 [id number] [facility] 2022-08-15 15:30:00 2022-08-15 15:58:11 Outpatient P KRYSTIN KAYE [facility] [id number] [facility] 2022-08-15 15:30:00 2022-08-15 15:58:11 Front End Driver Visit 4, [facility] Room LadonnaKrystin [facility] 1.0.114 350.1.13.10 4.2.7.2.686 [id number] [facility] 2022-08-15 00:00:00 2022-08-15 00:00:00 Case Management [facility] 1.0.114 350.1.13.10 4.2.7.2.686 [id number] 134 [id number] [facility] 2022-08-14 13:45:00 2022-08-14 14:21:42 Outpatient R CECILIA MATHIS [facility] [id number] [facility] 2022-08-14 13:45:00 2022-08-14 14:21:42 Office Visit [facility] 1.0.114 350.1.13.10 4.2.7.2.686 [id number] [facility] 2022-08-14 00:00:00 2022-08-14 00:00:00 Orders Only Doctor Unassigned, [place] [facility] 1.2840.114 350.1.13.10 4.2.7.2.686 [id number] [facility] 2022-07-26 13:45:00 2022-07-26 14:25:22 Outpatient R BATOOL GARRIDO [facility] [id number] [facility] 2022-07-26 13:45:00 2022-07-26 14:25:22 Routine Visit [facility] 1.0.114 350.1.13.10 4.2.7.2.686 [id number] 134 [id number] [facility] 2022-07-26 00:00:00 2022-07-26 00:00:00 Orders Only Doctor Unassigned, [place] [facility] 1.0.114 350.1.13.10 4.2.7.2.686 [id number] [facility] 2022-07-20 15:45:00 2022-07-20 16:06:19 Routine Visit [facility] 1.0.114 350.1.13.10 4.2.7.2.686 [id number] 134 [id number] [facility] 2022-07-20 13:45:00 2022-07-20 14:15:00 Front End Driver Visit Ultrasound, Adi Wei [facility] BILL HIKER [facility] 1.840.114 350.1.13.10 4.2.7.2.686 [id number] [facility] 2022-07-20 13:45:00 2022-07-20 14:01:55 Outpatient P ADI LEVIN [facility] [id number] [facility] 2022-07-17 00:00:00 2022-07-17 00:00:00 Orders Only Doctor Unassigned, [place] [facility] 1.114 350.1.13.10 4.2.7.2.686 [id number] [facility] 2022-07-14 11:15:00 2022-07-14 11:46:10 Outpatient R OMI AGEE [facility] [id number] [facility] 2022-07-14 11:15:00 2022-07-14 11:46:10 Telemedici ne Visit Farnaz Padilla Joseph W [facility] BILL HIKER [facility] 1.114 350.1.13.10 4.2.7.2.686 [id number] [facility] 2022-07-07 13:00:00 2022-07-07 15:57:43 Outpatient R ADI LEVIN [facility] [id number] [facility] 2022-07-07 13:00:00 2022-07-07 15:57:43 Telemedici ne Visit Fellow, [facility] Adi Levin [facility] .114 350.1.13.10 4.2.7.2.686 [id number] [facility] 2022-07-04 00:00:00 2022-07-04 00:00:00 [facility] ..114 350.1.13.10 4.2.7.2.686 [id number] 134 [id number] [facility] 2022-06-30 00:00:00 2022-06-30 00:00:00 Case Management [facility] 1.2.840.114 350.1.13.10 4.2.7.2.686 [id number] 134 [id number] [facility] 2022-06-28 14:00:00 2022-06-28 14:51:48 Outpatient R BATOOL GARRIDO [facility] [id number] [facility] 2022-06-28 14:00:00 2022-06-28 14:51:48 Routine Visit Megchantel [facility] 1.2.840.114 350.1.13.10 4.2.7.2.686 [id number] 134 [id number] [facility] 2022-06-22 00:00:00 2022-06-22 00:00:00 Orders Only Doctor Unassigned, [place] [facility] 1.840.114 350.1.13.10 4.2.7.2.686 [id number] [id number] [facility] 2022-06-21 10:45:00 2022-06-21 12:00:00 Front End Driver Visit Ultrasound, Jair Irving [facility] BILL HIKER [facility] 1.2840.114 350.1.13.10 4.2.7.2.686 [id number] [facility] 2022-06-21 10:45:00 2022-06-21 10:45:00 Outpatient P JAIR GUZMAN SHANNON [facility] [id number] [facility] 2022-06-21 00:00:00 2022-06-21 00:00:00 Telephone AmritaJeremiah [facility] 1.20.114 350.1.13.10 4.2.7.2.686 [id number] [facility] 2022-06-21 00:00:00 2022-06-21 00:00:00 Case Management Hema Cheryal [facility] 1.2840.114 350.1.13.10 4.2.7.2.686 [id number] 134 [id number] [facility] 2022-06-20 08:15:00 2022-06-20 08:30:00 Front End Driver Visit Lab, [facility] 1.2840.114 350.1.13.10 4.2.7.2.686 [id number] [facility] 2022-06-20 08:15:00 2022-06-20 08:24:06 Outpatient R MEGBATOOL GOLDEN [facility] [id number] [facility] 2022-06-15 15:00:00 2022-06-15 15:15:00 Front End Driver Visit Lab, Colby [facility] Hema [facility] 1..840.114 350.1.13.10 4.2.7.2.686 [id number] [facility] 2022-06-15 14:05:00 2022-06-15 14:34:39 Outpatient R MEGBATOOL GOLDEN [facility] [id number] [facility] 2022-06-15 14:05:00 2022-06-15 14:34:39 Nurse Visit Nurse, Lkj [facility] 1.2840.114 350.1.13.10 4.2.7.2.686 [id number] [facility] 2022-06-12 13:00:00 2022-06-12 16:53:06 Outpatient R KATIE SHAFFER [facility] [id number] [facility] 2022-06-12 13:00:00 2022-06-12 16:53:06 Telemedici ne Visit Faculty, Colby Yang Katie Holley [facility] BILL HIKER [facility] 1.2.840.114 350.1.13.10 4.2.7.2.686 [id number] [facility] 2022-06-12 00:00:00 2022-06-12 00:00:00 Patient Secure Msg Batool Garrido [facility] 1.2.840.114 350.1.13.10 4.2.7.2.686 [id number] 134 [id number] [facility] 2022-06-07 14:30:00 2022-06-07 15:12:23 Outpatient R [facility]OL [facility] [id number] [facility] 2022-06-07 14:30:00 2022-06-07 15:12:23 Routine Visit Batool Garrido [facility] 1.2.840.114 350.1.13.10 4.2.7.2.686 [id number] 134 [id number] [facility] 2022-06-06 00:00:00 2022-06-06 00:00:00 Telephone [facility] 1.2.840.114 350.1.13.10 4.2.7.2.686 [id number] 134 [id number] [facility] 2022-06-01 00:00:00 2022-06-01 00:00:00 Telephone Batool Garrido [facility] 1.2.840.114 350.1.13.10 4.2.7.2.686 [id number] 134 [id number] [facility] 2022-05-31 15:30:00 2022-05-31 16:30:04 Outpatient R BATOOL GARRIDO CHERYAL [facility] [id number] [facility] 2022-05-31 15:30:00 2022-05-31 16:30:04 Routine Visit AmritaBatool green [facility] 1.2.840.114 350.1.13.10 4.2.7.2.686 [id number] 134 [id number] [facility] 2022-05-31 00:00:00 2022-05-31 00:00:00 Orders Only Doctor Unassigned, [place] [facility] 1.2.840.114 350.1.13.10 4.2.7.2.686 [id number] [facility] 2022-05-19 10:00:00 2022-05-19 10:34:02 Outpatient R HEMAJEREMIAHSTANFORD JIMENEZKANBECKZAID [facility] [id number] [facility] 2022-05-19 10:00:00 2022-05-19 10:34:02 [facility] 1.2.840.114 350.1.13.10 4.2.7.2.686 [id number] 134 [id number] [facility] 2022-05-18 00:00:00 2022-05-18 00:00:00 Telephone Letachivo [facility] 1.2.840.114 350.1.13.10 4.2.7.2.686 [id number] 134 [id number] [facility] 2022-05-17 15:30:00 2022-05-17 16:27:49 Outpatient R HEMAJEREMIAHSTANFORD JIMENEZJEREMIAH [facility] [id number] [facility] 2022-05-17 15:30:00 2022-05-17 16:27:49 [facility] 1.2.840.114 350.1.13.10 4.2.7.2.686 [id number] 134 [id number] [facility] 2022-05-17 00:00:00 2022-05-17 00:00:00 Orders Only Doctor Unassigned, [place] [facility] 1.2.840.114 350.1.13.10 4.2.7.2.686 [id number] [facility] 2022-05-03 12:56:18 2022-05-03 23:59:00 Outpatient R RADIOLOGY [facility] [id number] [facility] 2022-05-03 12:56:18 2022-05-03 23:59:00 Hospital Encounter Radiology [facility] 1.2.840.114 350.1.13.10 4.2.7.2.686 [id number] [facility] 2022-04-26 14:13:02 2022-04-26 14:13:02 Outpatient [facility] Eugene Quinones Raghavendra 2022-04-26 00:00:00 2022-04-26 00:00:00 Orders Only Doctor Unassigned, [place] [facility] 1.2.840.114 350.1.13.10 4.2.7.2.686 [id number] [facility] 2022-04-26 00:00:00 2022-04-26 00:00:00 Outpatient Visit [id number] 2022-04-20 16:10:55 2022-04-20 16:10:55 Outpatient [facility] [id number] Eugene Mabry 2022-04-19 13:53:19 2022-04-19 13:53:19 Outpatient [facility] Eugene Mabry 2022-04-19 00:00:00 2022-04-19 00:00:00 Outpatient Visit [id number] 2021-08-15 18:42:00 2021-08-15 23:56:00 Emergency X ZACHERY MEJIA [facility] ERT [id number] [facility] 2021-08-15 18:42:00 2021-08-15 23:56:00 Emergency Zachery Mejia F [facility] 1.840.114 350.1.13.10 4.2.7.2.686 [id number] [facility] 2021-07-06 18:24:00 2021-07-06 20:46:00 Emergency X OQUENDO, CHANNING [facility] ERT [id number] [facility] 2021-07-06 18:24:00 2021-07-06 20:46:00 Emergency OquendoChanning waite S [facility] 1.840.114 350.1.13.10 4.2.7.2.686 [id number] [facility] 2019-12-29 16:59:39 2019-12-29 17:27:50 Laboratory Only Lab, [facility] Office [address] .114 350.1.13.10 4.2.7.2.686 [id number] 2019-12-29 16:59:39 2019-12-29 17:27:50 [facility] Only [facility] 1.0.114 350.1.13.10 4.2.7.2.686 [id number] [facility] 2019-12-29 17:00:00 2019-12-29 17:00:00 Outpatient R MIMI PIERCETHIA [facility] [id number] [facility] Results Test Description Test Time Test Comments Results Result Co mments Source [facility] [id number] 21:13:00* Test Item Value Reference Range Interpretation Comme nts POCT PREG (test code = 1605) Negative On board controls acceptable with C Line (test code = 3574) Yes POCT PREG LOT # (test code = 3575) POCT PREG TEST DATE ( test code = 3576) [facility] [id number] 21:13:00* Test Item Value Reference Range Interpretation Comme nts POCT PREG (test code = 1605) Negative On board controls acceptable with C Line (test code = 3574) Yes POCT PREG LOT # (test code = 3575) POCT PREG TEST DATE ( test code = 3576) [facility] Urinalysis W Specific [id number] 21:12:00* Test Item Value Reference Range Interpretation [...] U APPEAR (test code = 3267) clear SATHAY (test code = SATHYA) accurate development and interpretation of all internal controls [facility] Ur[facility] W Specific [id number] 21:12:00* Test Item Value Reference Range Interpretation [...] development and interpretation of all internal controls [facility] GLUCOSE (AUTOMATED)2022-10-19 16:45:14* Test Item Value Reference Range Interpretation Comme nts POCT GLU (test code = 1619551175) 84 mg/dL 70-110 Lab Interpretation (test cod e = 42248-2) Normal [facility] GLUCOSE (AUTOMATED)2022-10-19 13:35:13* Test Item Value Reference Range Interpretation Comme nts POCT GLU (test code = 7712731312) 74 mg/dL 70-110 Lab Interpretation (test cod e = 87835-8) Normal [facility] GLUCOSE (AUTOMATED)2022-10-19 02:06:22* Test Item Value Reference Range Interpretation Comme nts POCT GLU (test code = 8970327126) 80 mg/dL 70-110 Lab Interpretation (test cod e = 44224-5) Normal [facility] IMMUNE [id number] 04:49:11* Test Item Value Reference Range Interpretation Comme nts RHIG CANDIDATE? (test code = 5188) No- see comment Patient is not a candidate for RhIg- Patient is Rh Positive.Performed at [facility] Laboratory Services - [facility] Blood [address] [place] [id number] Free: [phone] No. [id number] [facility] [id number] 02:55:52* Test Item Value Reference Range Interpretation Comme nts VENOUS BASE EXCESS, CORD (test code = 7184379018) -1.4 mEq/L VENOUS PH, CORD (test code = 4122642750) 7.36 7.25-7.45 VENOUS PC02, CORD (test code = 2370339758) 44 See_Comment [Automated messa ge] The system which generated this result transmitted reference range: 27 - 49 mmHg. The reference range was not used to interpret this result as normal/abnormal. VENOUS PO2, CORD (test code = 4399605300) 23 See_Comment [Automated me ssage] The system which generated this result transmitted reference range: 17 - 41 mmHg. The reference range was not used to interpret this result as normal/abnormal. VENOUS BICARBONATE, CORD (test code = 0384886526) 24 See_Comment [Automated messa ge] The system which generated this result transmitted reference range: 12 - 29 mEq/L. The reference range was not used to interpret this result as normal/abnormal. [facility] CORD [id number] 02:55:11* Test Item Value Reference Range Interpretation Comme nts BASE EXCESS, CORD (test code = 0006365822) -2.2 mEq/L AC PH, CORD (BEAKER) (test code = 3146197860) 7.28 7.18-7.38 PC02, CORD (test code = 2262270005) 56 See_Comment [Automated messa ge] The system which generated this result transmitted reference range: 32 - 66 mmHg. The reference range was not used to interpret this result as normal/abnormal. PO2, CORD (test code = 2022186190) 14 See_Comment [Automated messa ge] The system which generated this result transmitted reference range: 10 - 30 mmHg. The reference range was not used to interpret this result as normal/abnormal. BICARBONATE, CORD (test code = 5258156636) 26 See_Comment [Automated messa ge] The system which generated this result transmitted reference range: 17 - 27 mEq/L. The reference range was not used to interpret this result as normal/abnormal. [facility] GLUCOSE (AUTOMATED)2022-10-18 01:14:13* Test Item Value Reference Range Interpretation Comme [facility] POCT GLU (test code = 3469094443) 115 mg/dL 70-110 H Lab Interpretation (test cod e = 52121-4) Abnormal [facility] GLUCOSE (AUTOMATED)2022-10-18 00:16:37* Test Item Value Reference Range Interpretation Comme nts POCT GLU (test code = 2372984182) 117 mg/dL 70-110 H Lab Interpretation (test cod e = 47078-9) Abnormal [facility] GLUCOSE (AUTOMATED)2022-10-17 23:03:18* Test Item Value Reference Range Interpretation Comme nts POCT GLU (test code = 2058603842) 98 mg/dL 70-110 Lab Interpretation (test cod e = 89899-9) Normal [facility] GLUCOSE (AUTOMATED)2022-10-17 20:03:22* Test Item Value Reference Range Interpretation Comme nts POCT GLU (test code = 8990616820) 95 mg/dL 70-110 Lab Interpretation (test cod e = 08727-0) Normal [facility] GLUCOSE (AUTOMATED)2022-10-17 17:10:41* Test Item Value Reference Range Interpretation Comme nts POCT GLU (test code = 7722014629) 81 mg/dL 70-110 Lab Interpretation (test cod e = 62043-7) [facility] [id number] 15:52:59* Test Item Value Reference Range Interpretation Comme [facility] VZV IgG antibody (test code = 29012-1) Negative Negative SATHYA (test code = SATHYA) Positive - Indicat es the patient was exposed to VZV through infection or vaccination.Negative - Indicates the patient could be susceptible to VZV infection.Equivocal - A second specimen should be sent for testing. [facility] CenterRUBELL[facility] SCREEN [id number] 15:52:59* Test Item Value Reference Range Interpretation Comme [facility] Rubella screen IgG (test code = 5093145189) Positive Negative SATHYA (test code = SATHYA) Positive - Indicat es the patient was exposed to Rubella through infection or vaccination.Negative - Indicates the patient could be susceptible to Rubella infection.Equivocal - A second specimen should be sent. [facility] CenterGAL ONLY - SYPHILIS [id number] 15:52:18* Test Item Value Reference Range Interpretation Comme [facility] Syphilis IgG/IgM (test code = 82115-9) Non-reactive Non-reactive SATHYA (test code = SATHYA) Non-reactive - No serologic evidence of T. pallidum infection. Cannot exclude incubating or early syphilis. Submit a second specimen in 2-4 weeks if syphilis is clinically suspected. Equivocal - Further testing to follow. Reactive - Further testing to follow. Lab Interpretation (test code = 08862-1) Normal [facility] GLUCOSE (AUTOMATED)2022-10-17 14:03:20* Test Item Value Reference Range Interpretation Comme nts POCT GLU (test code = 5354793823) 134 mg/dL 70-110 H Lab Interpretation (test cod e = 29636-8) Abnormal [facility] GLUCOSE (AUTOMATED)2022-10-17 09:03:42* Test Item Value Reference Range Interpretation Comme nts POCT GLU (test code = 5899494450) 108 mg/dL 70-110 Lab Interpretation (test cod e = 40640-7) Normal [facility] GLUCOSE (AUTOMATED)2022-10-17 05:17:50* Test Item Value Reference Range Interpretation Comme nts POCT GLU (test code = 4542214045) 109 mg/dL 70-110 Lab Interpretation (test cod e = 86630-1) Normal [facility] CenterHIV [facility]2 AG-AB WITH [id number] 03:58:45* Test Item Value Reference Range Interpretation Comme nts HIV Semi-quantitative (test code = 28515-3) 0.07 Negative SATHYA (test code = SATHYA) Non-reactive for HIV-1 antigen and HIV-1/HIV-2 antibodies. ?No laboratory evidence of HIV infection. ?Repeat in 2-4 weeks if acute HIV infection is suspected. [facility] CenterHepatitis B Surface [id number] 03:49:26 * Test Item Value Reference Range Interpretation Comme nts HBsAg Semi-Quantitative (hieu t code = 5195-3) 0.04 Negative [facility] CenterCBC with [id number] 03:06:39* Test Item Value Reference Range Interpretation Comme nts WBC (test code = 6690-2) 6.51 See_Comment [Automated Bleachersa ge] The system which generated this result [...] 34.4 g/dL 32.0-36.0 RDW-SD (test code = 58957-8) 40.6 fL 38.5-49.0 RDW-CV (test code = 788-0) 13.0 % 11.5-14.0 PLT (test code = 777-3) 171 See_Comment [Automated messa ge] The system which generated this result transmitted reference range: 135 - 361 10*3/?L. The reference range was not used to interpret this result as normal/abnormal. MPV (test code = 04638-8) 12.0 fL 9.4-13.3 NRBC/100 WBC (test code = 5680646769) 0.0 See_Comment [Automated Oxigene ssage] The system which generated this result transmitted reference range: 0.0 - 10.0 /100 WBCs. The reference range was not used to interpret this result as normal/abnormal. NRBC x10^3 (test code = 7222459944) See_Comment [Automated messa ge] The system which generated this result transmitted reference range: 10*3/?L. The reference range was not used to interpret this result as normal/abnormal. GRAN MAT (NEUT) % (test code = 770-8) 65.2 % IMM GRAN % (test code = 9189036744) 0.30 % LYMPH % (test code = 736-9) 28.1 % MONO % (test code = 5905-5) 5.7 % EOS % (test code = 713-8) 0.5 % BASO % (test code = 706-2) 0.2 % GRAN MAT x10^3(ANC) (test code = 8786994043) 4.25 10*3/uL 1.50-10.30 IMM GRAN x10^3 (test code = 6255904895) 0.00-0.06 LYMPH x10^3 (test code = 731-0) 1.83 10*3/uL 0.70-7.40 MONO x10^3 (test code = 742-7) 0.37 10*3/uL 0.00-0.50 EOS x10^3 (test code = 711-2) 0.03 10*3/uL 0.00-0.40 BASO x10^3 (test code = 704-7) 0.00-0.10 Lab Interpretation (test code = 67057-4) Abnormal [facility] CenterType and Screen - ONCE [id number] 02:52:00 * Test Item Value Reference Range Interpretation Comme nts ABO & RH (test code = 20) O POSITIVE IAT (test code = 1185) Negative [facility] GLUCOSE (AUTOMATED)2022-10-17 01:41:00* Test Item Value Reference Range Interpretation Comme nts POCT GLU (test code = 2180818449) 103 mg/dL 70-110 Lab Interpretation (test cod e = 16178-5) Normal [facility] GLUCOSE (AUTOMATED)2022-10-11 16:38:50* Test Item Value Reference Range Interpretation Comme nts POCT GLU (test code = 5196808150) 95 mg/dL 70-110 Lab Interpretation (test cod e = 10828-8) Normal [facility] URINALYSIS W/O SPECIFIC [id number] 19:01:00* Test Item Value Reference Range Interpretation [...] = 3257) n/a Negative - Negati ve [facility] CenterCOMP. METABOLIC PANEL (93722)2022-08-24 00:35:47* Test Item Value Reference Range Interpretation Comme nts NA (test code = 6095705926) 133 mmol/L 135-145 L K (test code = 9863087168) 3.5 mmol/L 3.5-5.0 CL (test code = 8025447401) 105 mmol/L 98-108 CO2 TOTAL (test code = 3008871261) 20 mmol/L 23-31 L AGAP (test code = 0140269707) 8 2-16 BUN (test code = 6606662173) 8 mg/dL 7-23 GLUCOSE (test code = 0696218730) 178 mg/dL 70-110 H CREATININE (test code = 8402368004) 0.40 mg/dL 0.50-1.04 L TOTAL BILI (test code = 0426520934) 0.5 mg/dL 0.1-1.1 CALCIUM (test code = 9157298521) 8.5 mg/dL 8.6-10.6 L T PROTEIN (test code = 0246825074) 6.3 g/dL 6.3-8.2 ALBUMIN (test code = 9269535944) 3.5 g/dL 3.5-5.0 ALK PHOS (test code = 6799547941) 90 U/L 34-122 ALTv (test code = 1742-6) 22 U/L 5-35 AST(SGOT) (test code = 9555491465) 27 U/L 13-40 eGFR (test code = 9453044102) 207.9 mL/min/1.73m2 SATHYA (test code = SATHYA) [...] imaging tests). Lab Interpretation (test code = 80835-9) Abnormal [facility] WITH [id number] 00:23:44* Test Item Value Reference Range Interpretation Comme nts WBC (test code = 6690-2) 6.95 See_Comment [Automated Need] The system which generated this result transmitted reference range: 4.50 - 13.50 10*3/?L. The reference range was not used to interpret this result as normal/abnormal. RBC (test code = 789-8) 3.67 See_Comment L [Automated Need] The system which generated this result transmitted [...] 34.3 g/dL 32.0-36.0 RDW-SD (test code = 18241-8) 40.2 fL 38.5-49.0 RDW-CV (test code = 788-0) 12.6 % 11.5-14.0 PLT (test code = 777-3) 194 See_Comment [Automated messa ge] The system which generated this result transmitted reference range: 135 - 361 10*3/?L. The reference range was not used to interpret this result as normal/abnormal. MPV (test code = 17746-5) 11.3 fL 9.4-13.3 NRBC/100 WBC (test code = 9305917940) 0.0 See_Comment [Automated me ssage] The system which generated this result transmitted reference range: 0.0 - 10.0 /100 WBCs. The reference range was not used to interpret this result as normal/abnormal. NRBC x10^3 (test code = 7543860577) See_Comment [Automated messa ge] The system which generated this result transmitted reference range: 10*3/?L. The reference range was not used to interpret this result as normal/abnormal. GRAN MAT (NEUT) % (test code = 770-8) 66.7 % IMM GRAN % (test code = 2163670326) 0.60 % LYMPH % (test code = 736-9) 27.1 % MONO % (test code = 5905-5) 5.2 % EOS % (test code = 713-8) 0.3 % BASO % (test code = 706-2) 0.1 % GRAN MAT x10^3(ANC) (test code = 8326757632) 4.64 10*3/uL 1.50-10.30 IMM GRAN x10^3 (test code = 2931407119) 0.04 10*3/uL 0.00-0.06 LYMPH x10^3 (test code = 731-0) 1.88 10*3/uL 0.70-7.40 MONO x10^3 (test code = 742-7) 0.36 10*3/uL 0.00-0.50 EOS x10^3 (test code = 711-2) 0.00-0.40 BASO x10^3 (test code = 704-7) 0.00-0.10 Lab Interpretation (test code = 83036-2) Abnormal [facility] GLUCOSE (AUTOMATED)2022-08-23 23:37:50* Test Item Value Reference Range Interpretation Comme nts POCT GLU (test code = 5240718810) 198 mg/dL 70-110 H Lab Interpretation (test cod e = 22289-8) Abnormal [facility] URINALYSIS W/O SPECIFIC [id number] 20:17:00* Test Item Value Reference Range Interpretation [...] = 3257) N/A Negative - Negati ve [facility] URINALYSIS W/O SPECIFIC [id number] 20:19:00* Test Item Value Reference Range Interpretation [...] = 3257) N/A Negative - Negati ve [facility] URINALYSIS W/O SPECIFIC [id number] 21:51:00* Test Item Value Reference Range Interpretation [...] = 3257) Negative Negative - Negati ve [facility] URINALYSIS W/O SPECIFIC [id number] 20:35:00* Test Item Value Reference Range Interpretation [...] = 3257) N/A Negative - Negati ve [facility] URINALYSIS W SPECIFIC [id number] 21:03:00* Test Item Value Reference Range Interpretation [...] U APPEAR (test code = 3267) clear [facility] URINALYSIS W/O SPECIFIC [id number] 21:56:00* Test Item Value Reference Range Interpretation [...] = 3257) N/A Negative - Negati ve [facility] CenterCOM[facility] METABOLIC PANEL (45991)2021-08-16 02:22:32* Test Item Value Reference Range Interpretation Comme nts NA (test code = 7835374586) 137 mmol/L 135-145 K (test code = 2426811826) 4.4 mmol/L 3.5-5.0 CL (test code = 5613669276) 101 mmol/L 98-108 CO2 TOTAL (test code = 3992886507) 28 mmol/L 23-31 AGAP (test code = 8653777681) 2-16 BUN (test code = 7822677627) 15 mg/dL 7-23 GLUCOSE (test code = 1867237819) 117 mg/dL 70-110 H CREATININE (test code = 1071783097) 0.79 mg/dL 0.50-1.04 TOTAL BILI (test code = 2340359150) 0.4 mg/dL 0.1-1.1 CALCIUM (test code = 3010690115) 9.1 mg/dL 8.6-10.6 T PROTEIN (test code = 1329324458) 7.1 g/dL 6.3-8.2 ALBUMIN (test code = 4841756055) 4.6 g/dL 3.5-5.0 ALK PHOS (test code = 9609805252) 81 U/L 34-122 ALTv (test code = 1742-6) 54 U/L 5-35 H AST(SGOT) (test code = 5240841684) 40 U/L 13-40 SATHYA (test code = [...] imaging tests). Lab Interpretation (test code = 13489-8) Abnormal [facility] CenterLIPASE2022-[facility] 02:22:32* Test Item Value Reference Range Interpretation Comme [facility] LIPASE (test code = 6299904262) 84 U/L 0-220 Lab Interpretation (test cod e = 75803-5) Normal [facility] CenterPO[facility] [id number] 02:21:00* Test Item Value Reference Range Interpretation Comme nts POCT PREG (test code = 1605) neg On board controls acceptable with C Line (test code = 3574) yes POCT PREG LOT # (test code = 3575) [id number] POCT PREG TEST DATE ( test code = 3576) 08/08/2022 Lab Interpretation (test cod e = 19436-1) Normal [facility] WITH [id number] 02:13:07* Test Item Value Reference Range Interpretation Comme nts WBC (test code = 6690-2) See_Comment [Automated Need] The system which generated this result transmitted [...] 33.9 g/dL 32.0-36.0 RDW-SD (test code = 78223-6) 38.2 fL 38.5-49.0 L RDW-CV (test code = 788-0) 11.8 % 11.5-14.0 PLT (test code = 777-3) See_Comment [Automated Bleachersa ge] The system which generated this result transmitted reference range: 135 - 361 10*3/?L. The reference range was not used to interpret this result as normal/abnormal. MPV (test code = 10460-9) 10.6 fL 9.4-13.3 NRBC/100 WBC (test code = 2008488030) See_Comment [Automated Oxigene ssage] The system which generated this result transmitted reference range: 0.0 - 10.0 /100 WBCs. The reference range was not used to interpret this result as normal/abnormal. NRBC x10^3 (test code = 9176312352) <0.01 See_Comment [Automated messa ge] The system which generated this result transmitted reference range: 10*3/?L. The reference range was not used to interpret this result as normal/abnormal. GRAN MAT (NEUT) % (test code = 770-8) 44.6 % IMM GRAN % (test code = 9893986380) 0.30 % LYMPH % (test code = 736-9) 46.1 % MONO % (test code = 5905-5) 7.3 % EOS % (test code = 713-8) 1.2 % BASO % (test code = 706-2) 0.5 % GRAN MAT x10^3(ANC) (test code = 1132344523) 2.96 10*3/uL 1.50-10.30 IMM GRAN x10^3 (test code = 4481305271) <0.03 0.00-0.06 LYMPH x10^3 (test code = 731-0) 3.05 10*3/uL 0.70-7.40 MONO x10^3 (test code = 742-7) 0.48 10*3/uL 0.00-0.50 EOS x10^3 (test code = 711-2) 0.08 10*3/uL 0.00-0.40 BASO x10^3 (test code = 704-7) 0.03 10*3/uL 0.00-0.10 Lab Interpretation (test code = 06290-5) Abnormal [facility] WITH [id number] 01:45:32* Test Item Value Reference Range Interpretation Comme nts WBC (test code = 6690-2) See_Comment [Automated Bleachersa ge] The system which generated this result transmitted reference range: 4.50 - 13.50 10*3/?L. The reference range was not used to interpret this result as normal/abnormal. RBC (test code = 789-8) See_Comment [Automated Bleachersa ge] The system which generated this result [...] 33.6 g/dL 32.0-36.0 RDW-SD (test code = 57799-0) 37.2 fL 38.5-49.0 L RDW-CV (test code = 788-0) 11.4 % 11.5-14.0 L PLT (test code = 777-3) See_Comment [Automated messa ge] The system which generated this result transmitted reference range: 135 - 361 10*3/?L. The reference range was not used to interpret this result as normal/abnormal. MPV (test code = 84153-4) 10.5 fL 9.4-13.3 NRBC/100 WBC (test code = 6195032389) See_Comment [Automated Oxigene ssage] The system which generated this result transmitted reference range: 0.0 - 10.0 /100 WBCs. The reference range was not used to interpret this result as normal/abnormal. NRBC x10^3 (test code = 1929081465) <0.01 See_Comment [Automated messa ge] The system which generated this result transmitted reference range: 10*3/?L. The reference range was not used to interpret this result as normal/abnormal. GRAN MAT (NEUT) % (test code = 770-8) 50.4 % IMM GRAN % (test code = 8856990163) 0.20 % LYMPH % (test code = 736-9) 41.8 % MONO % (test code = 5905-5) 6.3 % EOS % (test code = 713-8) 0.7 % BASO % (test code = 706-2) 0.6 % GRAN MAT x10^3(ANC) (test code = 1868225530) 2.73 10*3/uL 1.50-10.30 IMM GRAN x10^3 (test code = 4009557288) <0.03 0.00-0.06 LYMPH x10^3 (test code = 731-0) 2.26 10*3/uL 0.70-7.40 MONO x10^3 (test code = 742-7) 0.34 10*3/uL 0.00-0.50 EOS x10^3 (test code = 711-2) 0.04 10*3/uL 0.00-0.40 BASO x10^3 (test code = 704-7) 0.03 10*3/uL 0.00-0.10 Lab Interpretation (test code = 57930-5) Abnormal [facility] (43252)2021-07-07 01:31:45* Test Item Value Reference Range Interpretation Comme nts NA (test code = 5724220295) 140 mmol/L 135-145 K (test code = 6305483154) 4.2 mmol/L 3.5-5.0 CL (test code = 9009501374) 105 mmol/L 98-108 CO2 TOTAL (test code = 6319672793) 28 mmol/L 23-31 AGAP (test code = 7491580872) 2-16 BUN (test code = 1883937293) 12 mg/dL 7-23 GLUCOSE (test code = 4407993558) 92 mg/dL 70-110 CREATININE (test code = 0275774316) 0.84 mg/dL 0.50-1.04 TOTAL BILI (test code = 7221716337) 0.5 mg/dL 0.1-1.1 CALCIUM (test code = 0467544535) 9.0 mg/dL 8.6-10.6 T PROTEIN (test code = 6847628899) 7.3 g/dL 6.3-8.2 ALBUMIN (test code = 0780539335) 4.8 g/dL 3.5-5.0 ALK PHOS (test code = 5018308909) 68 U/L 34-122 ALTv (test code = 1742-6) 18 U/L 5-35 AST(SGOT) (test code = 0026427654) 19 U/L 13-40 SATHYA (test code = [...] imaging tests). Lab Interpretation (test code = 29736-7) Normal [facility] CenterPOUT [id number] 01:09:00* Test Item Value Reference Range Interpretation Comme nts POCT PREG (test code = 1605) negative On board controls acceptable with C Line (test code = 3574) present POCT PREG LOT # (test code = 3575) [id number] POCT PREG TEST DATE ( test code = 3576) 08/08/2022 Lab Interpretation (test cod e = 13150-0) Normal [facility] CenterCOVID- (PCR MOLECULAR TESTING)2019-12-30 21:01:00* Test Item Value Reference Range Interpretation Comme nts SARS-CoV-2 PCR (test code = 01231-3) Not Detected Not Detected SATHYA (test code = SATHYA) [employer] Xpert ?Xpr ess SARS-CoV-2 Assay is a rapid, real-time RT-PCR test intended for the qualitative detection of nucleic acid from the SARS-CoV-2 in nasopharyngeal (FUMIGATOR AND STERILIZER) specimens. It is used under Emergency Use [...] clinically indicated. Lab Interpretation (test code = 34522-5) Normal [facility] Notes Date/Time Note Provider Source 2024-03-10 16:09:29 [...] apparent distress. Narciso De La Rosa RN [facility] 2024-03-10 14:14:59 Patient arrived ambulatory c/o of sudden abdominal pain that started approximately 40 minutes ago. States recently having pain with urination, burning with urination, and feeling like she had to go frequently. Patient denies any diarrhea, constipation, nausea, or vomiting. Denies any injury. Thao Ojeda RN [facility] 2023-09-29 16:00:00 Addended by: KAY DAVIS on: 09/29/2023 04:26 PM Modules accepted: Orders T [facility]
[2024-08-17] MEDS ORDERED: KETOROLAC 30 MG/ML INJ ONE (18:44)
[2024-08-17] MEDS ORDERED: DIPHENHYDRAMINE 50 MG/ML VIAL ONE (18:44)
[2024-08-17] MEDS ORDERED: METOCLOPRAMIDE 10 MG/2mL INJ ONE (18:45)
[2024-08-17] MEDS ORDERED: NA CHLORIDE 0.9% 1,000 ML ONE (18:45)
[2024-08-17 19:12] LABS: Specific Gravity > 1.030 (1.005-1.030)
[2024-08-17 19:13] LABS: Specific Gravity > 1.030 (1.005-1.030); Sqamous Epithelial <5 /HPF (None Seen); Urine Bacteria <20 /HPF (<20); Urine Bilirubin NEGATIVE (Negative); Urine Blood Negative (Negative); Urine Clarity Turbid (Clear); Urine Color Light-Yellow (Yellow); Urine Culture Reflex Order NOT NEEDED; Urine Glucose NEGATIVE (Negative); Urine Ketones NEGATIVE (Negative); Urine Microscopic Reflex YN ORDER UMIC; Urine Mucus Slight /HPF (None Seen); Urine Nitrite NEGATIVE (Negative); Urine Protein TRACE (Negative); Urine RBC 21-50 /HPF (None Seen); Urine Urobilinogen Normal (Normal); Urine WBC <5 /HPF (<5); Urine WBC Clump Rare /HPF (None Seen); Urine pH 7.5 (5.0-7.0)
[2024-08-17 19:15] LABS: Absolute Lymphocytes (CBC) 1.1 K/uL (0.7-4.9); Absolute Monocytes 0.2 K/uL (0.1-1.3); Absolute Neutrophil 3.3 K/uL (1.8-8.0); Basophils % 0.3 % (0-1.3); Eosinophils % 0.2 % (0-4.4); Hematocrit 39.5 % (36.0-45.0); Hemoglobin 13.3 g/dL (12.0-15.0); Lymphocytes % 22.9 % (15.3-44.8); MCH 29.4 pg (27.0-35.0); MCHC 33.8 g/dL (32.0-36.0); MCV 86.9 fL (80-100); MPV 8.7 fL (7.6-11.3); Monocytes % 4.6 % (3.3-12.3); Nucleated Red Blood Cells % 0.1 % (0-0); Platelets 245 thou/uL (152-406); RBC Red Blood Cell Count 4.54 M/uL (3.86-4.86); Red Cell Distribution Width 12.8 % (12.1-15.2)
[2024-08-17 19:26] LABS: Albumin 3.8 g/dL (3.4-5.0); Anion Gap 7.5 mEq/L (5.0-15.0); Bilirubin Total 0.4 mg/dL (0.2-1.0); Globulin 3.8 g/dL (2.3-3.5); Potassium 3.5 mEq/L (3.5-5.1); Protein, Total 7.6 g/dL (6.4-8.2)
--- NOTE | 2024-08-17 19:37 | ER ---
Nurse's Notes [facility] Name: Deana Sanford Age: 19 yrs Sex: Female : 2005 Arrival Date: 08/17/2024 Time: 17:16 Bed 17 Private MD: Diagnosis: Migraine without aura, not intractable Presentation: 08/17 17:27 Chief complaint: Patient states: HEADACHE SINCE YESTERDAY TRIED OTC MEDS NOT HELPING. db NAUSEA AND VOMITING TODAY. SENT HOME FROM WORK DUE TO VOMITING. Coronavirus screen: Client denies travel out of the [place] in the last 14 days. At this time, the client does not indicate any symptoms associated with coronavirus-19. Ebola Screen: Patient negative for fever greater than or equal to 101.5 degrees Fahrenheit, and additional compatible Ebola Virus Disease symptoms Patient denies exposure to infectious person. Patient denies travel to an Ebola-affected area in the 21 days before illness onset. No symptoms or risks identified at this time. Initial Sepsis Screen: Does the patient meet any 2 criteria? No. Patient's initial sepsis screen is negative. Does the patient have a suspected source of infection? No. Patient's initial sepsis screen is negative. Risk Assessment: Do you want to hurt yourself or someone else? Patient reports no desire to harm self or others. Onset of symptoms was August 16, 2024. 17:27 Method Of Arrival: Ambulatory db 17:27 Acuity: ZENY 3 db Triage Assessment: 17:31 General: Appears in no apparent distress. comfortable, Behavior is calm, cooperative. db Pain: Complains of pain in head. Neuro: Level of Consciousness is awake, alert, obeys commands, Oriented to person, place, time, situation. Respiratory: Airway is patent Respiratory effort is even, unlabored, Respiratory pattern is regular, symmetrical. GI: Reports nausea, vomiting. 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 - Infectious Disease History:: Denies. - Social history:: Smoking status: Patient denies any tobacco usage or history of. Screenin:07 [facility] ED Fall Risk Assessment (Adult) History of falling in the last 3 months, kc6 including since admission No falls in past 3 months (0 pts) Confusion or Disorientation No (0 pts) Intoxicated or Sedated No (0 pts) Impaired Gait No (0 pts) Mobility Assist Device Used No (0 pt) Altered Elimination No (0 pt) Score/Fall Risk Level 0 - 2 = Low Risk Oriented to surroundings, Maintained a safe environment, Educated pt \T\ family on fall prevention, incl call for assistance when getting out of bed. Abuse screen: Denies threats or abuse. Denies injuries from another. Nutritional screening: No deficits noted. Tuberculosis screening: No symptoms or risk factors identified. Assessment: 19:07 General: Appears in no apparent distress. comfortable, well groomed, well developed, kc6 Behavior is calm, cooperative, appropriate for age, quiet. Pain: Complains of pain in head Pain does not radiate. Quality of pain is described as dull, throbbing, Pain began 1 day ago. Is continuous. Neuro: Level of Consciousness is awake, alert, obeys commands, Oriented to person, place, time, situation, Appropriate for age Reports headache. Cardiovascular: Capillary refill < 3 seconds. Respiratory: Airway is patent Trachea midline Respiratory effort is even, unlabored, Respiratory pattern is regular, symmetrical. GI: Abdomen is round non-distended, Reports nausea, vomiting, Patient currently denies abdominal pain, diarrhea. : No signs and/or symptoms were reported regarding the genitourinary system. Urine is clear. EENT: No signs and/or symptoms were reported regarding the EENT system. Derm: No signs and/or symptoms reported regarding the dermatologic system. Skin is intact, is healthy with good turgor, Skin is pink, warm \T\ dry. Musculoskeletal: No signs and/or symptoms reported regarding the musculoskeletal system. Circulation, motion, and sensation intact. Range of motion: intact in all extremities. 19:15 Reassessment: Patient and/or family updated on plan of care and expected duration. Pain ha1 level reassessed. Patient is alert, oriented x 3, equal unlabored respirations, skin warm/dry/pink. General: Appears comfortable, Behavior is calm, cooperative. Pain: Complains of pain in head Pain does not radiate. Pain currently is 5 out of 10 on a pain scale. Quality of pain is described as aching. Neuro: Level of Consciousness is awake, alert, obeys commands, Oriented to person, place, time, situation. Cardiovascular: Capillary refill < 3 seconds Patient's skin is warm and dry. Respiratory: Airway is patent Respiratory effort is even, unlabored, Respiratory pattern is regular, symmetrical. GI: Reports nausea, vomiting. 20:11 Reassessment: Patient and/or family updated on plan of care and expected duration. Pain ha1 level reassessed. Patient is alert, oriented x 3, equal unlabored respirations, skin warm/dry/pink. Patient denies pain at this time. Patient states feeling better. Patient states symptoms have improved. Vital Signs: 17:29 BP 130 / 84; Pulse 94; Resp 16; Temp 98.9; Pulse Ox 98% ; Weight 80.74 kg; Height 5 ft. db 0 in. ; 19:07 BP 120 / 67; Pulse 86; Resp 16 S; Pulse Ox 100% on R/A; kc6 20:11 BP 111 / 55; Pulse 74; Resp 16 S; Pulse Ox 99% on R/A; ha1 17:29 Body Mass Index 34.76 (80.74 kg, 152.4 cm) db ED Course: 17:20 Patient arrived in ED. al6 17:20 Barbara Godinez PA-C is PHCP. sb4 17:20 Rito Henson MD is Attending Physician. sb4 17:29 Triage completed. db 17:31 Arm band placed on. db 18:37 Liset Gregory RN is Primary Nurse. kc6 19:06 Patient has correct armband on for positive identification. Bed in low position. Call kc6 light in reach. Side rails up X 1. Pulse ox on. NIBP on. Door closed. Noise minimized. Lights dimmed. Warm blanket given. Pillow given. Verbal reassurance given. 19:06 No provider procedures requiring assistance completed. Inserted saline lock: 20 gauge kc6 in left antecubital area, using aseptic technique. Blood collected. Flushed with 10 mL NS. Patient maintains SpO2 saturation greater than 95% on room air. 19:09 Report given to PATRICK MENDES RN. kc6 20:12 Provided Education on: follow ups and medication administration . ha1 20:12 IV discontinued, intact, bleeding controlled, No redness/swelling at site. Pressure ha1 dressing applied. Administered Medications: 19:06 Drug: TORadol - Ketorolac IVP 15 mg IVP once Route: IVP; Site: left antecubital; kc6 19:06 Drug: NS 0.9% IV 1000 ml IV at 1 bolus Per protocol; to be given as a bolus over 60 kc6 minutes Route: IV; Rate: 1 bolus; Site: left antecubital; 19:06 Drug: metoCLOPramide IVP 10 mg IVP once; over 1 to 2 minutes Route: IVP; Site: left kc6 antecubital; 19:50 Follow up: Response: No adverse reaction; Marked relief of symptoms ha1 19:06 Drug: diphenhydrAMINE IVP 25 mg IVP once Route: IVP; Site: left antecubital; kc6 19:50 Follow up: Response: No adverse reaction; Marked relief of symptoms ha1 Medication: 20:12 VIS not applicable for this client. ha1 Outcome: 19:36 Discharge ordered by MD. sb4 20:11 Discharged to home ambulatory, ha1 20:11 Condition: stable 20:11 Discharge instructions given to patient, Instructed on discharge instructions, follow up and referral plans. medication usage, Demonstrated understanding of instructions, follow-up care, medications, Prescriptions given X 2, 20:12 Patient left the ED. ha1 Signatures: Patrick Mendes RN RN ha1 Liset Gregory RN RN kc6 Aida Hdez RN RN db Brown, Sophia, PA-C PALan sb4 Shae Sebastian6 Corrections: (The following items were deleted from the chart) 20:11 20:11 Reassessment: Patient and/or family updated on plan of care and expected ha1 duration. Pain level reassessed. Patient is alert, oriented x 3, equal unlabored respirations, skin warm/dry/pink. ha1
--- NOTE | 2024-08-17 19:37 | EDPHYS ---
Physician Documentation [facility] Name: Deana Sanford Age: 19 yrs Sex: Female : 2005 Arrival Date: 08/17/2024 Time: 17:16 Bed 17 Private MD: ED Physician Rito Henson HPI: 08/17 18:50 This 19 yrs old Female presents to ER via Ambulatory with complaints of sb4 Nausea/Vomiting, Headache. 18:50 Patient reports a migraine since yesterday. States that she started having nausea and sb4 vomiting today so her work sent her home. She has taken Tylenol and ibuprofen without relief in her symptoms. She does endorse sensitivity to light and noise. She denies any history of migraines. Denies any abdominal pain, dizziness, blurry vision. 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 - Infectious Disease History:: Denies. - Social history:: Smoking status: Patient denies any tobacco usage or history of. ROS: 18:50 Constitutional: Negative for fever, chills, and weight loss, sb4 18:51 Abdomen/GI: Positive for nausea and vomiting, sb4 18:51 Neuro: Positive for headache, 18:51 All other systems are negative, Exam: 18:51 Constitutional: This is a well developed, well nourished patient who is awake, alert, sb4 and in no acute distress. Head/Face: Normocephalic, atraumatic. Eyes: Extra-ocular motions intact. Periorbital areas with no swelling, redness, or edema. ENT: Mucous membranes moist. Cardiovascular: Regular rate and rhythm with a normal S1 and S2. Respiratory: No increased work of breathing, no retractions or nasal flaring. Abdomen/GI: Soft, non-tender, no distension. Skin: Warm, dry with normal turgor. Normal color with no rashes, no lesions, and no evidence of cellulitis. MS/ Extremity: Pulses equal, no cyanosis. Neurovascular intact. Full, normal range of motion. Neuro: Awake and alert, GCS 15, oriented to person, place, time, and situation. Motor strength 5/5 in all extremities. Sensory grossly intact. Vital Signs: 17:29 BP 130 / 84; Pulse 94; Resp 16; Temp 98.9; Pulse Ox 98% ; Weight 80.74 kg; Height 5 ft. db 0 in. ; 19:07 BP 120 / 67; Pulse 86; Resp 16 S; Pulse Ox 100% on R/A; kc6 20:11 BP 111 / 55; Pulse 74; Resp 16 S; Pulse Ox 99% on R/A; ha1 17:29 Body Mass Index 34.76 (80.74 kg, 152.4 cm) db MDM: 17:22 Medical Screening Exam initiated sb4 19:35 Data reviewed: vital signs, nurses notes, lab test result(s), and as a result, I will sb4 discharge patient. Counseling: I had a detailed discussion with the patient and/or guardian regarding the historical points, exam findings, and any diagnostic results supporting the discharge/admit diagnosis, lab results, the need for outpatient follow up, for definitive care, to return to the emergency department if symptoms worsen or persist or if there are any questions or concerns that arise at home. 08/17 18:22 Order name: CBC with Diff; Complete Time: 19:30 4 08/17 18:22 Order name: CMP; Complete Time: 19:30 sb4 08/17 18:22 Order name: Test, Urine; Complete Time: 19:13 4 08/17 18:22 Order name: Urinalysis w/ reflexes; Complete Time: 19:15 4 08/17 18:22 Order name: IV Saline Lock; Complete Time: 19:06 4 08/17 18:22 Order name: Labs collected and sent; Complete Time: 19:06 sb4 08/17 19:30 Order name: PO challenge; Complete Time: 20:00 sb4 Administered Medications: 19:06 Drug: TORadol - Ketorolac IVP 15 mg IVP once Route: IVP; Site: left antecubital; kc6 19:06 Drug: NS 0.9% IV 1000 ml IV at 1 bolus Per protocol; to be given as a bolus over 60 kc6 minutes Route: IV; Rate: 1 bolus; Site: left antecubital; 19:06 Drug: metoCLOPramide IVP 10 mg IVP once; over 1 to 2 minutes Route: IVP; Site: left kc6 antecubital; 19:50 Follow up: Response: No adverse reaction; Marked relief of symptoms ha1 19:06 Drug: diphenhydrAMINE IVP 25 mg IVP once Route: IVP; Site: left antecubital; kc6 19:50 Follow up: Response: No adverse reaction; Marked relief of symptoms ha1 Disposition Summary: 08/17/24 19:36 Discharge Ordered Notes: Location: Home sb4 Problem: new sb4 Symptoms: have improved sb4 Condition: Stable sb4 Diagnosis - Migraine without aura, not intractable sb4 Followup: sb4 - With: Emergency Department - When: As needed - Reason: Trouble breathing, Worsening of condition Discharge Instructions: - Discharge Summary Sheet sb4 - Migraine Headache, [id number] sb4 Forms: - Work release form sb4 - Patient Portal Instructions sb4 - Leadership Thank You Letter sb4 Prescriptions: - ketorolac 10 mg Oral tablet - take 1 tablet ORAL route every 8 hours for 3 days as needed for pain; 12 sb4 tablet; Refills: 0, Product Selection Permitted - Zofran 4 mg Oral Tablet - take 1 tablet ORAL route every 12 hours As needed; 6 tablet; Refills: 0, sb4 Product Selection Permitted Signatures: Dispatcher [employer] Liset Bolden RN RN kc6 Aida Hdez RN RN Barbara Mclean PA-C PA-C sb4 Solange Lopez RN ha1 Corrections: (The following items were deleted from the chart) 18:22 18:22 CBC+H.LAB.BRZ ordered. EDMS EDMS 18:22 18:22 COMPREHENSIVE METABOLIC PANEL+C.LAB.BRZ ordered. EDMS EDMS 18:22 18:22 Test, Urine+UC.LAB.BRZ ordered. EDMS EDMS 18:22 18:22 Urinalysis+U.LAB.BRZ ordered. EDMS EDMS
[2024-08-17 20:57] VITALS: TEMP 98.9
[2024-08-17 21:09] VITALS: BP 111/55; O2SAT 99
== END 2024-08-17 20:12 | disposition home or self-care (01) ==
LOC: ER 17:16
DX: G43.009 Migraine without aura, not intractable, without status migrainosus (principal); R11.2 Nausea with vomiting, unspecified
CPT/HCPCS: 36415; 80053; 81001; 81025; 85025; 96374; 96375; 99284; J1200; J2765; J7030

== ENCOUNTER 2024-08-18 04:47 | Emergency (ER) | payer SELFPAY ==
--- OUTSIDE RECORDS SUMMARY | 2024-08-18 04:55 | XMS REPORT | Continuity of Care Document ---
Author Name Unknown Address [address] [facility] [address] [place] [address] Organization [facility] [place] Address [address] [facility] [place] [address] Care Team Providers Care General Office Associate Name Role Phone Eliot CARVAJAL, [facility] Primary Care Physician [phone] BRITTANEY ARNOLD Attending Clinician Unavailable BRITTANEY ARNOLD Attending Clinician Unavailable Brittaney Bridges Attending Clinician [phone] SHILA PAULINO Attending Clinician Unavailable HOLLY VELÁZQUEZ Attending Clinician Unavailab REDDY Fry Attending Clinician Unavailable Angle Rivera PA-C Attending Clinician [phone] Unknown, Attending Attending Clinician Unavailab ANGLE Danielle Attending Clinician Unavailable MD OLGA LIDIA Attending Clinician Unavailab le LAB90 Attending Clinician Unavailable BATOOL GARRIDO Attending Clinician Unavaila BATOOL Mayer Attending Clinician Unavaila CECILIA Ahuja Attending Clinician Unavailable CECILIA MATHIS Attending Clinician Unavailable PRUDENCE RUFF Attending Clinician Unavailable Prudence aJckman Attending Clinician [phone] Visit, [facility] Nurse Attending Clinician Unava ilGary Hardy Attending Clinician + EITANGARY ROWLAND Attending Clinician Unavail able Alondra Reece MD Attending Clinician [phone] Lino CARVAJAL, Cynthia Attending Clinician [phone] Juvenal CARVAJAL, Haley Calderon Attending Clinicia n TYSHAWN, HIREN Attending Clinician Unavailable 1, [facility] Nst Room Attending Clinician Unavailable Doctor Unassigned, [place] Attending Clinician U navailable YULYRITO Attending Clinician Unavailable YULYRITO Attending Clinician Unavailable Room, [facility] Nst Attending Clinician Unavailable Ultrasound, Emersonm Attending Clinician Unavaila RADHA Mtz Attending Clinician Unavailable Radha Turcios MD Attending Clinician [phone] ALONDRA REECE Attending Clinician Unavailable ALONDRA REECE Attending Clinician Unavailable MARIANELA REYES Attending Clinician Unavailab le MARIANELA REYES Attending Clinician Unavailab le Lab, Colby Razo Attending Clinician Unavailable Yuan MEDELLIN, Jair Attending Clinician Unavailabl Kailyn Acuna DO Attending Clinician [phone] KRYSTIN KAYE Attending Clinician Unavailpuja e 4, [facility] Usg Room Attending Clinician UnavailKrystin Samson MD Attending Clinician [phone] Adi Levin MD Attending Clinician + ADI LEVIN Attending Clinician Unav ailable OMI AGEE Attending Clinician Unavailable Farnaz Padilla Attending Clinician UnavailOmi Baptiste MD Attending Clinician [phone] Fellow, Gal [facility] Attending Clinician Un available Jair Guzman MD Attending Clinician [phone] JAIR GUZMAN Attending Clinician Unavailable JAIR GUZMAN Attending Clinician Unavailable Nurse, [facility] Attending Clinician Unavailable KATIE ALEXANDER Attending Clinician Unav ailable Faculty, Colby [facility] Attending Clinician Unava ilable Katie Alexander MD Attending Clinician + RADIOLOGY Attending Clinician Unavailable Radiology Attending Clinician Unavailable ZACHERY MEJIA Attending Clinician Unavaila ble Jackie ARCHITECTURE CONSULTANT, Katerynakarla F Attending Clinician CHANNING OQUENDO Attending Clinician Unavailable Channing Edwards S Attending Clinician [phone] Lab, Adc Fam Pob I Attending Clinician Unavailab rajani Pierce ARCHITECTURE CONSULTANT, Holly Attending Clinician [phone] HOLLY PIERCE Attending Clinician Unavailable RADHA TURCIOS Admitting Clinician Unavailable Alondra Reece MD Admitting Clinician [phone] ALONDRA REECE Admitting Clinician Unavailable Radha Turcios MD Admitting Clinician [phone] JESSICA DE LA CRUZ Admitting Clinician ZACHERY Walls Admitting Clinician Unavaila ble Payers Payer Name Policy Type Policy Number Effective Date Expirati on Date Source [employer]WORK [id number] 2022 00:00:00 [facility] [id number] 2022 00:00:00 [employer] MP [facility] 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 94 ON 9 [id number] 2023 00:00:00 Problems Condition Name Condition Details Condition Category Status Onset Date Resolution Date Last Treatment Date Treating Clinician Comments Source 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 Disease Active 2- 00:00: 00 [facility] History of asthma History of asthma Disease Active 2021-06 00:00: 00 [facility] Gestationa l hypertensi on, antepartum Gestationa l hypertensi on, antepartum Disease Resolve d 2022-10-16 00:00: 00 2023-10-08 00:00:00 2023-10-08 13:32:11 [facility] 36 weeks gestation of 36 weeks gestation of Disease Resolve d 2022-0 5-08 00:00: 00 2023-10-08 00:00:00 2023-10-08 13:32:12 [facility] Excessive growth affecting management of , antepartum , single or unspecifie d fetus Excessive growth affecting management of , antepartum , single or unspecifie d fetus Disease Resolve d 0 4-24 00:00: 00 2023-10-08 00:00:00 2023-10-08 13:32:08 [facility] Morbid obesity with body mass index of 40.0-49.9 Morbid obesity with body mass index of 40.0-49.9 Disease Resolve d 0 4-14 00:00: 00 2023-10-08 00:00:00 2023-10-08 13:32:06 [facility] Non-compli ant patient, third trimester Non-compli ant patient, third trimester Disease Resolve d 0 3-28 00:00: 00 2023-10-08 00:00:00 2023-10-08 13:32:04 [facility] Acute cystitis without hematuria Acute cystitis without hematuria Disease Resolve d 0 2-15 00:00: 00 2023-10-08 00:00:00 2023-10-08 13:32:18 [facility] Asthma affecting , antepartum Asthma affecting , antepartum Disease Resolve d 0 1-24 00:00: 00 2023-10-08 00:00:00 2023-10-08 13:31:56 [facility] Supervisio n of other high risk , antepartum Supervisio n of other high risk , antepartum Disease Resolve d 2021-06 2-08 00:00: 00 2023-10-08 00:00:00 2023-10-08 13:31:48 [facility] Pregestati onal diabetes mellitus, 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, modified White class C Disease Resolve d 2021-06 2-08 00:00: 00 2023-10-08 00:00:00 2023-10-08 13:31:50 [facility] Hypothyroi d in , antepartum Hypothyroi d in , antepartum Disease Resolve d 2021-06 2-08 00:00: 00 2023-10-08 00:00:00 2023-10-08 13:31:51 [facility] Obesity in , antepartum Obesity in , antepartum Disease Resolve d 2021-06 2-08 00:00: 00 2023-10-08 00:00:00 2023-10-08 13:31:53 [facility] Dysuria Dysuria Disease Resolve d 2021-06 2- 00:00: 00 2022-06-12 00:00:00 2022-06-12 13:06:42 [facility] Vaginal discharge during , antepartum Vaginal discharge during , antepartum Disease Resolve d 2021-06 2- 00:00: 00 2022-06-12 00:00:00 2022-06-12 13:06:51 [facility] 17 weeks gestation of 17 weeks gestation of Disease Resolve d 2021-06 2 00:00: 00 2022-06-12 00:00:00 2022-06-12 13:06:44 [facility] Allergies, Adverse Reactions, Alerts Allergy Name Allergy Type Status Severity Reaction(s) Onset Date Inactive Date Treating Clinician Comments Source Empaglif lozin Propensi ty to adverse reaction s Active 2021-06 00:00: 00 Other Reaction( s): Dizziness Noemi Jaquez - Externa l EMPAGLIF LOZIN DRUG INGREDI Active Dizziness 2021-06 00:00: 00 [facility] Empaglif lozin Propensi ty to adverse reaction s Active Dizziness 2021-06 00:00: 00 [facility] NO KNOWN ALLERGIE S Drug Class Active [facility] Social History Social Habit Start Date Stop Date Quantity Comments Source ASSERTION 2022-02-15 00:00:00 [facility] Sexual orientation Ace Jaquez - External Alcoholic beverage intake 2023-10-08 00:00:00 2023-10-08 00:00:00 Lifetime non-drinker (finding) [facility] Alcohol intake 2023-05-14 00:00:00 2023-05-14 00:00:00 Lifetime non-drinker (finding) Noemi Jaquez - External History of Social function 2023-05-04 00:00:00 2023-05-04 00:00:00 Noemi Jaquez - External Exposure to SARS-CoV-2 (event) 2022-10-27 00:00:00 2022-11-06 14:41:00 Not sure [facility] Tobacco use and exposure 2022-05-17 00:00:00 2022-05-17 00:00:00 Smokeless tobacco non-user [facility] Sex Assigned At 2005 00:00:00 2005 00:00:00 Noemi aJquez - External Smoking Status Start Date Stop Date Source Never smoked tobacco [facility] Tobacco smoking consumption unknown [facility] Medications Ordered Medication Name Filled Medication Name Start Date Stop Date Current Medication? Ordering Clinician Indication Dosage Frequency Signature (SIG) Comments Components Source ketorolac (TORADOL) tablet 10 mg 03-10 20:15: 00 03-10 19:55 :00 No 10mg 10 mg, Oral, ONCE NOW, 1 dose, On Sun03/10/24 at 1515, Routine [facility] Nitrofurant oin&Nit. Macrocryst 100 mg capsule 03-10 00:00: 00 Yes [id number] 100mg Take 1 capsule by mouth in the morning and 1 capsule in the evening. [facility] ketorolac 10 mg tablet 03-10 00:00: 00 Yes [id number] 10mg Take 1 tablet by mouth every 6 (six) hours as needed for Pain (scale 4-6). [facility] Ferrous Sulfate 325 (65 Fe) MG oral Tablet 2022-06 11:38: 18 05-14 00:00 :00 No 325mg Take 1 tablet (325 mg total) by mouth every other day. Neomi aponte Metronidazo le 500 MG oral Tablet 02-21 00:00: 00 05-14 00:00 :00 No Noemi aponte Cholecalcif dali, Vitamin D3, 1,250 mcg (50,000 unit) capsule 11-21 00:00: 00 Yes TAKE 1 CAPSULE BY MOUTH ONE TIME PER WEEK IN THE MORNING [facility] atorvastati n 20 mg tablet 11-21 00:00: 00 Yes 20mg Take 1 tablet by mouth at bedtime. [facility] fenofibrate 54 mg tablet 11-21 00:00: 00 Yes TAKE 1 TABLET EVERY DAY BY ORAL ROUTE IN THE MORNING FOR 60 DAYS. [facility] LOW-OGESTRE L 0.3-30 mg-mcg per tablet 11-21 00:00: 00 Yes TAKE 1 TABLET BY MOUTH EVERY DAY DIRECTED [facility] metFORMIN (GLUCOPHAGE ) tablet 1,000 mg 10-19 14:00: 00 Yes 1000mg 1,000 mg, Oral, DAILY, First dose on Sun10/19/22 at 0900, Until Discontinu ed, Routine [facility] insulin glargine (LANTUS U-100) injection 20 Units 10-19 13:00: 00 Yes 20U 20 Units, Subcutaneo us, Q24H, First dose (after last modificati on) on Sun10/19/22 at 0800, Until Discontinu ed, Routine [facility] insulin glargine (LANTUS U-100) injection 24 Units 10-19 01:00: 00 Yes 24U 24 Units, Subcutaneo us, Q24H, First dose (after last modificati on) on Sun10/18/22 at 2000, Until Discontinu ed, Routine [facility] ferrous sulfate 325 mg (65 mg iron) tablet 10-19 00:00: 00 Yes [id number] 325mg Take 1 tablet by mouth every other day. [facility] vitamin w/FA tablet 10-19 00:00: 00 Yes [id number] 1{tbl} Take 1 tablet by mouth in the morning. [facility] vitamin w/FA tablet 10-19 00:00: 00 Yes [id number] 1{tbl} Take 1 tablet by mouth in the morning. [facility] Ibuprofen (MOTRIN) 600 MG oral [...] 10-19 00:00: 00 11-19 04:59 :00 No [id number] 24U inject 24 Units under the skin every 24 (twenty-fo ur) hours for 30 days. [facility] insulin glargine 100 unit/mL injection 10-19 00:00: 00 11-19 04:59 :00 No [id number] 20U inject 20 Units under the skin every 24 (twenty-fo ur) hours for 30 days. [facility] linaGLIPtin 5 mg tablet 10-19 00:00: 00 11-19 04:59 :00 No [id number] 5mg Take 1 tablet by mouth in the morning for 30 days. [facility] NIFEdipine ER tablet 30 mg 10-18 17:45: 00 Yes 30mg 30 mg, Oral, DAILY, First dose on Sun10/18/22 at 1245, Until Discontinu ed, Routine [facility] Sliding Scale Insulin - Lispro (HumaLOG) 10-18 17:00: 00 Yes Subcutaneo us, TID MEALS+HS, First dose on Sun10/18/22 at 1200, Until Discontinu ed, Routine [facility] budesonide- formoteroL (SYMBICORT) 80-4.5 mcg/actuati on inhaler 2 Puff 10-18 13:00: 00 Yes 2{puff} 2 Puff, Inhalation , BID, First dose on Sun10/18/22 at 0800, Until Discontinu ed, Routine [facility] insulin regular human (HUMULIN R) injection 7 Units 10-18 13:00: 00 10-18 15:04 :11 No 7U 7 Units, Subcutaneo us, QAM WITH BREAKFAST, First dose on Sun10/18/22 at 0800, Until Discontinu ed, Routine
Indicatio n for insulin: Hyperglyce ana maría [facility] levothyroxi ne (SYNTHROID) tablet 100 mcg 10-18 11:00: 00 Yes 100ug 100 mcg, Oral, QAM-0600, First dose on Sun10/18/22 at 0600, Until Discontinu ed, Routine [facility] rho(D) immune globulin (RHOGAM) syringe 300 mcg 10-18 04:48: 04 Yes 300ug 300 mcg, Intramuscu lar, ONCE, For 1 dose, Conditiona l, Routine [facility] ibuprofen (IBU) tablet 600 mg 10-18 04:47: 59 Yes 600mg 600 mg, Oral, Q6HPRN, Starting on Sun10/17/22 at 2347, Until Discontinu ed, Routine, Pain (scale 4-6) [facility] acetaminoph en (TYLENOL) tablet 650 mg 10-18 04:47: 59 Yes 650mg 650 mg, Oral, Q6HPRN, Starting on Sun10/17/22 at 2347, Until Discontinu ed, Routine, Pain (scale 1-3) [facility] diphenhydrA MINE (BENADRYL) tablet 25 mg 10-18 04:47: 59 Yes 25mg 25 mg, Oral, Q6HPRN, Starting on Sun10/17/22 at 2347, Until Discontinu ed, Routine, Sleep, Itching [facility] ondansetron (ZOFRAN (PF)) injection 4 mg 10-18 04:47: 59 Yes 4mg 4 mg, Slow IV Push, Q8HPRN, Starting on Sun10/17/22 at 2347, Until Discontinu ed, Routine, Nausea and Vomiting (N/V) [facility] simethicone (GAS RELIEF (SIMETHICON E)) chewable tablet 160 mg 10-18 04:47: 59 Yes 160mg 160 mg, Oral, PC+HSPRN, Starting on Sun10/17/22 at 2347, Until Discontinu ed, Routine, Gas [facility] docusate (COLACE) capsule 200 mg 10-18 04:47: 59 Yes 200mg 200 mg, Oral, QDAILYPRN, Starting on Sun10/17/22 at 2347, Until Discontinu ed, Routine, Constipati on [facility] magnesium hydroxide (MILK OF MAGNESIA) 400 mg/5 mL suspension 30 mL 10-18 04:47: 59 Yes 30mL 30 mL, Oral, QDAILYPRN, Starting on Sun10/17/22 at 2347, Until Discontinu ed, Routine, Constipati on [facility] benzocaine- menthol (DERMOPLAST ) 20-0.5 % topical spray 10-18 04:47: 59 Yes Topical, PRN, Starting on Sun10/17/22 at 2347, Until Discontinu ed, Routine, Perineum discomfort [facility] ondansetron (ZOFRAN (PF)) injection 4 mg 10-17 18:00: 00 10-17 16:30 :00 No 4mg 4 mg, Slow IV Push, ONCE, On Sun10/17/22 at 1300, For 1 dose
Do ses of ondansetro n 16 mg and above need to be administer ed via IV piggyback. For Dose >=24mg ECG monitoring is advisable.
[facility] ondansetron (ZOFRAN (PF)) injection 4 mg 10-17 13:15: 00 10-17 12:04 :00 No 4mg 4 mg, Slow IV Push, ONCE, On Sun10/17/22 at 0815, For 1 dose
Do ses of ondansetro n 16 mg and above need to be administer ed via IV piggyback. For Dose >=24mg ECG monitoring is advisable.
[facility] ropiv[facility] 0.2 % (NAROPIN (PF)) epidural infusion 10-17 13:07: 00 10-18 04:25 :45 No Epidural, CONTINUOUS PRN, Starting on Sun10/17/22 at 0807, Until Sun10/17/22 at 2325, Routine, Intra-op [facility] lidocaine-e pinephrine (XYLOCAINE W/EPINEPHRI NE) 1.5 %-1:200,000 injection 10-17 13:06: 00 10-18 04:25 :45 No Epidural, ONCE INTRA PROCEDURE, Starting on Sun10/17/22 at 0806, Until Sun10/17/22 at 2325, Routine, Intra-op [facility] lidocaine 1% (XYLOCAINE) 100 mg/10 mL (1 %) injection 10-17 13:00: 00 10-18 04:25 :45 No Infiltrati on, ONCE INTRA PROCEDURE, Starting on Sun10/17/22 at 0800, Until Sun10/17/22 at 2325, Routine, Intra-op [facility] levothyroxi ne (SYNTHROID) tablet 100 mcg 10-17 11:00: 00 10-18 04:48 :02 No 100ug 100 mcg, Oral, QAM-0600, First dose on Sun10/17/22 at 0600, Until Discontinu ed, Routine [facility] morpHINE (4 mg/mL) injection 4 mg 10-17 05:15: 00 10-17 04:36 :00 No 4mg 4 mg, Slow IV Push, ONCE, 1 dose, On Sun10/17/22 at 0015, Routine [facility] oxytocin (PITOCIN) 30 units in NS 500 mL IV infusion 10-17 04:54: 19 10-18 04:48 :02 No 2mU/min at 2-40 mL/hr, IV Infusion, TITRATE, Starting on Sun10/16/22 at 2354, Until Sun10/17/22 at 2348, ROSSI [facility] Sliding Scale Insulin 10-17 01:32: 37 10-18 04:48 :02 No Subcutaneo us, SEE-INSTRU CTIONS, Starting on Sun10/16/22 at 2032, Until Sun10/17/22 at 2348, Routine [facility] sodium citrate-cit hua acid (BICITRA) 500-334 mg/5 mL solution 30 mL 10-17 01:30: 40 10-17 12:28 :00 No 30mL 30 mL, Oral, PRE-PROCED URE ONCE, 1 dose, Starting on Sun10/16/22 at 2030, Until Discontinu ed, Routine, Surgery/Pr ocedure [facility] lactated ringers IV infusion 500 mL 10-17 01:30: 39 10-18 04:48 :02 No 500mL at 999 mL/hr, 500 mL, IV Infusion, PRN - SEE INSTRUCTIO NS, Starting on Sun10/16/22 at 2030, Until Sun10/17/22 at 2348, Routine [facility] D5W-LR IV infusion 1,000 mL 10-17 01:30: 39 10-18 04:48 :02 No 1000mL at 1-125 mL/hr, IV Infusion, TITRATE, Starting on Sun10/16/22 at 2030, Until Sun10/17/22 at 2348, Routine [facility] acetaminoph en (TYLENOL) tablet 1,000 mg 10-11 17:23: 00 10-11 17:38 :00 No 1000mg 1,000 mg, Oral, ONCE, 1 dose, On Sun10/11/22 at 1230, Routine [facility] NaCl 0.9% (NS) IV infusion 1,000 mL 10-11 16:30: 00 10-11 16:19 :07 No 1000mL at 1,000 mL/hr, IV Infusion, ONCE, 1 dose, On Sun10/11/22 at 1130, Routine [facility] ASPIRIN 81 mg EC tablet 20 00:00: 00 10-19 00:00 :00 No [id number] TAKE 1 TABLET BY MOUTH EVERY MORNING [facility] BD INSULIN SYRINGE ULTRA-FINE 0.5 mL 31 gauge x 5/16" Syrg 09-08 00:00: 00 Yes [facility] Insulin Syringe-Nee dle U-100 (BD [...] 1 dose, On Sun08/23/22 at 2030, STAT [facility] acetaminoph en (TYLENOL) tablet 650 mg 08-24 00:00: 00 08-23 23:43 :00 No 650mg 650 mg, Oral, ONCE NOW, 1 dose, On Sun08/23/22 at 1900, Routine [facility] NaCl 0.9% (NS) bolus infusion 1,000 mL 08-24 00:00: 00 08-23 23:54 :00 No 1000mL at 999 mL/hr, 1,000 mL, IV Infusion, ONCE, 1 dose, On Sun08/23/22 at 1900, STAT [facility] Nitrofurant oin&Nit. Macrocryst (MACROBID) 100 mg capsule 2-09 00:00: 00 07-28 05:59 :00 No [id number] 100mg Take 1 capsule by mouth in the morning and 1 capsule in the evening. Do all this for 7 days. [facility] Prenat-Fe Poly-Methfo l-FA-DHA (Vitafol Ultra) 29-0.6-0.4- 200 MG oral Capsule 2-06 00:00: 00 05-14 00:00 :00 No Noemi aponte Levothyroxi ne 100 mcg capsule - 13:44: 53 06-12 00:00 :00 No Take by mouth. [facility] linagliptin -metformin 5-1,000 mg TBph 06-12 13:44: 44 06-12 00:00 :00 No Take 1 TAB-CAP/M2 by mouth daily. [facility] budesonide- formoteroL 80-4.5 mcg/actuati on inhaler 06-12 00:00: 00 Yes [id number] 103 2{puff} Inhale 2 Puffs in the morning and 2 Puffs in the evening. [facility] Insulin Syringes, Disposable, 1 mL Syrg 06-12 00:00: 00 Yes [id number] Use as directed [facility] Insulin Syringe-Nee dle U-100 1 mL 31 gauge x 5/16 Syrg 06-12 00:00: 00 Yes [facility] Insulin Syringes, Disposable, 1 mL Syrg 06-12 00:00: 00 Yes [id number] Use as directed [facility] Insulin Syringe-Nee dle U-100 1 mL 31 gauge x 5/16 Syrg 06-12 00:00: 00 Yes [facility] Insulin NPH, Human,, Isophane, (NovoLIN [...] Misc 06-12 00:00: 00 05-14 00:00 :00 Syeda aponte Insulin Regular Human (NovoLIN R) 100 UNIT/ML injection Solution 06-12 00:00: 00 05-14 00:00 :00 No Noemi aponte insulin NPH 100 unit/mL injection 06-12 00:00: 00 10-19 00:00 :00 No [id number] Inject 28 units subq in the morning and inject 10 units subq qhs [facility] insulin regular human 100 unit/mL injection 06-12 00:00: 00 10-19 00:00 :00 No [id number] Inject 14 units subq with breakfast and inject 10 units subq with dinner [facility] Levothyroxi ne Sodium 100 MCG [...] 1{tbl} Take 1 tablet by mouth daily. [facility] aspirin 81 mg EC tablet 2021-06 00:00: 00 09-28 00:00 :00 No [id number] 81mg Take 1 tablet by mouth in the morning. [facility] Levothyroxi ne 100 mcg capsule 2021-06 16:07: 57 Yes Take by mouth. [facility] linagliptin -metformin 5-1,000 mg TBph 2021-06 16:07: 57 Yes Take 1 TAB-CAP/M2 by mouth daily. [facility] PNV 67-iron ps-folate no.1-dha (VITAFOL ULTRA) 29 mg iron- 1 mg-200 mg Cap 2021-06 00:00: 00 10-19 00:00 :00 No [id number] 1{capsu le} Take 1 capsule by mouth daily. [facility] VENTOLIN HFA 90 mcg/actuati on inhaler 2021-06 00:00: 00 Yes [facility] Albuterol HFA (VENTOLIN HFA) 108 [...] 0-04 00:00: 00 Yes CHECK EVERY DAY [facility] FREESTYLE LITE METER Kit 2021-06 0-04 00:00: 00 Yes CHECK EVERY DAY. [facility] FREESTYLE LANCETS 28 gauge Misc 2021-06 0- 00:00: 00 Yes CHECK EVERY DAY [facility] FREESTYLE LITE STRIPS strip 2021-06 0- 00:00: 00 Yes CHECK EVERY DAY [facility] FREESTYLE LITE METER Kit 2021-06 0 00:00: 00 Yes CHECK EVERY DAY. [facility] FREESTYLE LANCETS 28 gauge Misc 2021-06 0- 00:00: 00 Yes CHECK EVERY DAY [facility] TOUJEO MAX U-300 SOLOSTAR 300 unit/mL (3 mL) InPn 2021-06 0- 00:00: 00 06-12 00:00 :00 No INJECT 20 UNITS SUBCUTANEO US EVERY MORNING. START AT 10 UNITS UNTIL MORNING FASTING GLUCOSE IS 100 [facility] levothyroxi ne 100 mcg tablet 2021-06 0 00:00: 00 Yes 100ug Take 1 tablet by mouth every morning. [facility] Dose Unknown 01-31 00:00: 00 No Dose Unknown 01-31 00:00: 00 No Dose Unknown 01-31 00:00: 00 No Dose Unknown 01-31 00:00: 00 No iopamidol (ISOVUE 370-500 mL) injection 100 mL 08-16 05:15: 00 08-16 04:01 :00 No [id number] 4102 100mL 100 mL, Intravenou s, ONCE, 1 dose, On Sun08/15/21 at 2315, Routine [facility] NaCl 0.9% (NS) bolus infusion 1,000 mL 08-16 03:00: 00 08-16 03:11 :00 No 1000mL at 999 mL/hr, 1,000 mL, IV Infusion, ONCE, 1 dose, On Sun08/15/21 at 2100, ROSSI [facility] linagliptin -metformin (JENTADUETO XR) 5-1,000 mg TBph 08-15 18:41: 26 Yes Take 1 TAB-CAP/M2 by mouth daily. [facility] empaglifloz in (JARDIANCE) 10 mg Tab 08-15 18:41: 26 Yes 1{tbl} Take 1 tablet by mouth daily. [facility] Levothyroxi ne 100 mcg capsule 08-15 18:41: 26 Yes Take by mouth. [facility] hydrocortis one (ANUSOL-HC) 25 mg suppository 07 00:00: 00 08-23 04:59 :00 No [id number] 25mg Insert 1 Suppositor y into rectum 2 (two) times daily for 7 days. [facility] Levothyroxi ne 100 mcg capsule 07-06 18:22: 21 Yes Take by mouth. [facility] linagliptin -metformin (JENTADUETO XR) 5-1,000 mg [facility] 07-06 18:22: 21 Yes Take 1 TAB-CAP/M2 by mouth daily. [facility] Levothyroxi ne 100 mcg capsule 2016-06 19:16: 00 Yes Take by mouth. [facility] linagliptin -metformin (JENTADUETO XR) 5-1,000 mg [facility] 2016-06 19:16: 00 Yes Take 1 TAB-CAP/M2 by mouth daily. [facility] empaglifloz in (JARDIANCE) 10 mg Tab 2016-06 19:16: 00 Yes 1{tbl} Take 1 tablet by mouth daily. [facility] empaglifloz in (JARDIANCE) 10 mg Tab 2016-06 13:16: 00 Yes 1{tbl} Take 1 tablet by mouth daily. [facility] ibuprofen 600 mg tablet 2016-06 00:00: 00 06-12 00:00 :00 No 600mg Take 1 tablet by mouth every 8 (eight) hours as needed (pain). [facility] Immunizations Ordered Immunization Name Filled Immunization Name Date Status Comments Source HPV, quadrivalent 2017-07-18 00:00:00 Completed HPV, quadrivalent 2017-07-18 00:00:00 Completed HPV 2017-07-18 00:00:00 Completed [facility] HPV 2017-07-18 00:00:00 Completed [facility] HPV 2017-07-18 00:00:00 Completed [facility] HPV 2017-07-18 00:00:00 Completed [facility] HPV, quadrivalent 2017-03-14 00:00:00 Completed HPV, quadrivalent 2017-03-14 00:00:00 Completed HPV 2017-03-14 00:00:00 Completed [facility] HPV 2017-03-14 00:00:00 Completed [facility] HPV 2017-03-14 00:00:00 Completed [facility] HPV 2017-03-14 00:00:00 Completed [facility] HPV, quadrivalent 2017-01-12 00:00:00 Completed meningococcal MCV4P 2017-01-12 00:00:00 Completed Tdap 2017-01-12 00:00:00 Completed HPV, quadrivalent 2017-01-12 00:00:00 Completed meningococcal MCV4P 2017-01-12 00:00:00 Completed Tdap 2017-01-12 00:00:00 Completed HPV 2017-01-12 00:00:00 Completed [facility] HPV 2017-01-12 00:00:00 Completed [facility] HPV 2017-01-12 00:00:00 Completed [facility] HPV 2017-01-12 00:00:00 Completed [facility] Influenza, seasonal, inj 2012-04-26 00:00:00 Completed Influenza, [...] ped 2004 00:00:00 Completed HPV Unknown Completed [facility] HPV Unknown Completed [facility] HPV Unknown Completed [facility] DTaP/Hep B/IPV Unknown Completed Flavio Jaquez - External DTaP Unspecified Unknown Completed Paolo Jaquez - External HEPATITIS A- PEDI/ADOL Unknown Completed Noemi Jaquez - External Hepatitis B, Adolescent Or Pediatric Unknown Completed Noemi Jaquez - External Tetanus Toxoid/HIB Unknown Completed Ace milo Gisele - External HPV 4 (Human Papillomavirus) [...] External Tdap- (Boostrix, Adacel) Unknown Completed Noemi Jaquez - External Varicella Vaccine Unknown Completed Papo Jaquez - External Vital Signs Vital Name Observation Time Observation Value Comments S ource Systolic blood pressure 2024-03-10 19:17:00 135 mm[Hg] [facility] Diastolic blood pressure 2024-03-10 19:17:00 87 mm[Hg] [facility] Heart rate 2024-03-10 19:17:00 98 /min [facility] Body temperature 2024-03-10 19:17:00 36.78 [facility] Respiratory rate 2024-03-10 19:17:00 18 /min [facility] Body height 2024-03-10 19:17:00 152.4 cm [facility] Body weight 2024-03-10 19:17:00 81.647 kg [facility] BMI 2024-03-10 19:17:00 35.15 kg/m2 [facility] Oxygen saturation in Arterial blood by Pulse oximetry 2024-03-10 19:17:00 96 /min [facility] Systolic blood pressure 2023-10-08 13:33:00 128 mm[Hg] [facility] Diastolic blood pressure 2023-10-08 13:33:00 82 mm[Hg] [facility] Heart rate 2023-10-08 13:33:00 80 /[facility] 2023-10-08 13:33:00 18 /min [facility] Body height 2023-10-08 13:33:00 152.4 cm [facility] Body weight 2023-10-08 13:33:00 82.555 kg [facility] BMI 2023-10-08 13:33:00 35.54 kg/m2 [facility] Systolic blood pressure 2023-09-29 21:10:00 128 mm[Hg] [facility] Diastolic blood pressure 2023-09-29 21:10:00 82 mm[Hg] [facility] Heart rate 2023-09-29 21:10:00 86 /min [facility] Body temperature 2023-09-29 21:10:00 37.06 P[facility] Respiratory rate 2023-09-29 21:10:00 17 /min [facility] Body height 2023-09-29 21:10:00 152.4 cm [facility] Body weight 2023-09-29 21:10:00 83.008 kg [facility] BMI 2023-09-29 21:10:00 35.74 kg/m2 [facility] Oxygen saturation in Arterial blood by Pulse oximetry 2023-09-29 21:10:00 98 /min [facility] Systolic blood pressure 2023-05-14 17:33:00 118 mm[Hg] [facility] Diastolic blood pressure 2023-05-14 17:33:00 68 mm[Hg] [facility] Heart rate 2023-05-14 17:33:00 [...] blood pressure 2022-12-03 20:03:00 133 mm[Hg] [facility] Diastolic blood pressure 2022-12-03 20:03:00 87 mm[Hg] [facility] Heart rate 2022-12-03 20:03:00 92 /min [facility] Body temperature 2022-12-03 20:03:00 36.89 [facility] Respiratory rate 2022-12-03 20:03:00 16 /min [facility] Body height 2022-12-03 20:03:00 152.4 cm [facility] Body weight 2022-12-03 20:03:00 80.428 kg [facility] BMI 2022-12-03 20:03:00 34.63 kg/m2 [facility] Body mass index (BMI) [Percentile] Per age and sex 2022-12-03 20:03:00 97.41 % [facility] Oxygen saturation in Arterial blood by Pulse oximetry 2022-12-03 20:03:00 97 /min [facility] Systolic blood pressure 2022-10-26 13:20:00 138 mm[Hg] [facility] Diastolic blood pressure 2022-10-26 13:20:00 94 mm[Hg] [facility] Heart rate 2022-10-26 13:19:00 93 /min [facility] Body temperature 2022-10-26 13:18:00 36.83 [facility] Respiratory rate 2022-10-26 13:18:00 20 /min [facility] Body height 2022-10-26 13:18:00 152.4 cm [facility] Body weight 2022-10-26 13:18:00 87.181 kg [facility] BMI 2022-10-26 13:18:00 37.54 kg/m2 [facility] Body mass index (BMI) [Percentile] Per age and sex 2022-10-26 13:18:00 98.28 % [facility] Systolic blood pressure 2022-10-19 16:42:00 125 mm[Hg] [facility] Diastolic blood pressure 2022-10-19 16:42:00 83 mm[Hg] [facility] Heart rate 2022-10-19 16:42:00 82 /min [facility] Body temperature 2022-10-19 16:42:00 37.17 [facility] Respiratory rate 2022-10-19 16:42:00 18 /min [facility] Oxygen saturation in Arterial blood by Pulse oximetry 2022-10-19 16:42:00 98 /min [facility] Body height 2022-10-17 01:29:00 152.4 cm [facility] Body weight 2022-10-17 01:29:00 103.738 kg [facility] BMI 2022-10-17 01:29:00 44.66 kg/m2 [facility] Body mass index (BMI) [Percentile] Per age and sex 2022-10-17 01:29:00 99.13 % [facility] Systolic blood pressure 2022-10-16 18:20:00 137 mm[Hg] [facility] Diastolic blood pressure 2022-10-16 18:20:00 86 mm[Hg] [facility] Heart rate 2022-10-16 18:20:00 83 /min [facility] Respiratory rate 2022-10-16 18:20:00 18 /min [facility] Body height 2022-10-16 18:20:00 152.4 cm [facility] Body weight 2022-10-16 18:20:00 103.42 kg [facility] BMI 2022-10-16 18:20:00 44.53 kg/m2 [facility] Body mass index (BMI) [Percentile] Per age and sex 2022-10-16 18:20:00 99.12 % [facility] Systolic blood pressure 2022-10-13 19:46:00 120 mm[Hg] [facility] Diastolic blood pressure 2022-10-13 19:46:00 80 mm[Hg] [facility] Heart rate 2022-10-13 19:46:00 84 /min [facility] Body temperature 2022-10-13 19:46:00 36.78 P[facility] Respiratory rate 2022-10-13 19:46:00 18 /min [facility] Body height 2022-10-13 19:46:00 152.4 cm [facility] Body weight 2022-10-13 19:46:00 103.42 kg [facility] BMI 2022-10-13 19:46:00 44.53 kg/m2 [facility] Body mass index (BMI) [Percentile] Per age and sex 2022-10-13 19:46:00 99.12 % [facility] Heart rate 2022-10-11 18:00:00 69 /min [facility] Oxygen saturation in Arterial blood by Pulse oximetry 2022-10-11 18:00:00 100 /min [facility] Systolic blood pressure 2022-10-11 17:00:00 129 mm[Hg] [facility] Diastolic blood pressure 2022-10-11 17:00:00 84 mm[Hg] [facility] Body temperature 2022-10-11 14:45:00 36.89 P[facility] Respiratory rate 2022-10-11 14:45:00 18 /min [facility] Body height 2022-10-11 14:45:00 152.4 cm [facility] Body weight 2022-10-11 14:45:00 101.56 kg [facility] BMI 2022-10-11 14:45:00 43.73 kg/m2 [facility] Body mass index (BMI) [Percentile] Per age and sex 2022-10-11 14:45:00 99.06 % [facility] Systolic blood pressure 2022-10-06 13:25:00 120 mm[Hg] [facility] Diastolic blood pressure 2022-10-06 13:25:00 76 mm[Hg] [facility] Heart rate 2022-10-06 13:25:00 64 /min [facility] Body temperature 2022-10-06 13:25:00 36.67 P[facility] Body height 2022-10-06 13:25:00 152.4 cm [facility] Body weight 2022-10-06 13:25:00 99.791 kg [facility] BMI 2022-10-06 13:25:00 42.97 kg/m2 [facility] Body mass index (BMI) [Percentile] Per age and sex 2022-10-06 13:25:00 99.01 % [facility] Systolic blood pressure 2022-10-02 18:24:00 122 mm[Hg] [facility] Diastolic blood pressure 2022-10-02 18:24:00 79 mm[Hg] [facility] Heart rate 2022-10-02 18:24:00 79 /min [facility] Respiratory rate 2022-10-02 18:24:00 18 /min [facility] Body height 2022-10-02 18:24:00 152.4 cm [facility] Body weight 2022-10-02 18:24:00 99.338 kg [facility] BMI 2022-10-02 18:24:00 42.77 kg/m2 [facility] Body mass index (BMI) [Percentile] Per age and sex 2022-10-02 18:24:00 98.99 % [facility] Systolic blood pressure 2022-09-25 13:10:00 121 mm[Hg] [facility] Diastolic blood pressure 2022-09-25 13:10:00 81 mm[Hg] [facility] Heart rate 2022-09-25 13:10:00 89 /min [facility] Body temperature 2022-09-25 13:10:00 36.72 P[facility] Respiratory rate 2022-09-25 13:10:00 17 /min [facility] Body height 2022-09-25 13:10:00 152.4 cm [facility] Body weight 2022-09-25 13:10:00 99.61 kg [facility] BMI 2022-09-25 13:10:00 42.89 kg/m2 [facility] Body mass index (BMI) [Percentile] Per age and sex 2022-09-25 13:10:00 99.01 % [facility] Systolic blood pressure 2022-09-22 18:19:00 123 mm[Hg] [facility] Diastolic blood pressure 2022-09-22 18:19:00 81 mm[Hg] [facility] Heart rate 2022-09-22 18:19:00 76 /min [facility] Body temperature 2022-09-22 18:19:00 36.5 [facility] Respiratory rate 2022-09-22 18:19:00 18 /min [facility] Body height 2022-09-22 18:19:00 152.4 cm [facility] Body weight 2022-09-22 18:19:00 97.977 kg [facility] BMI 2022-09-22 18:19:00 42.18 kg/m2 [facility] Body mass index (BMI) [Percentile] Per age and sex 2022-09-22 18:19:00 98.95 % [facility] Systolic blood pressure 2022-09-19 13:06:00 109 mm[Hg] [facility] Diastolic blood pressure 2022-09-19 13:06:00 76 mm[Hg] [facility] Heart rate 2022-09-19 13:06:00 71 /min [facility] Body temperature 2022-09-19 13:06:00 36.72 P[facility] Respiratory rate 2022-09-19 13:06:00 16 /min [facility] Body height 2022-09-19 13:06:00 152.4 cm [facility] Body weight 2022-09-19 13:06:00 97.206 kg [facility] BMI 2022-09-19 13:06:00 41.85 kg/m2 [facility] Body mass index (BMI) [Percentile] Per age and sex 2022-09-19 13:06:00 98.92 % [facility] Systolic blood pressure 2022-09-15 19:29:00 100 mm[Hg] [facility] Diastolic blood pressure 2022-09-15 19:29:00 68 mm[Hg] [facility] Heart rate 2022-09-15 19:29:00 76 /min [facility] Body temperature 2022-09-15 19:29:00 36.67 [facility] Body weight 2022-09-15 19:29:00 95.255 kg [facility] BMI 2022-09-15 19:29:00 41.01 kg/m2 [facility] Body mass index (BMI) [Percentile] Per age and sex 2022-09-15 19:29:00 98.83 % [facility] Systolic blood pressure 2022-09-12 13:05:00 115 mm[Hg] [facility] Diastolic blood pressure 2022-09-12 13:05:00 67 mm[Hg] [facility] Heart rate 2022-09-12 13:05:00 87 /min [facility] Body temperature 2022-09-12 13:05:00 36.72 [facility] Respiratory rate 2022-09-12 13:05:00 17 /min [facility] Body height 2022-09-12 13:05:00 152.4 cm [facility] Body weight 2022-09-12 13:05:00 96.163 kg [facility] BMI 2022-09-12 13:05:00 41.40 kg/m2 [facility] Body mass index (BMI) [Percentile] Per age and sex 2022-09-12 13:05:00 98.88 % [facility] Systolic blood pressure 2022-09-08 18:08:00 115 mm[Hg] [facility] Diastolic blood pressure 2022-09-08 18:08:00 77 mm[Hg] [facility] Heart rate 2022-09-08 18:08:00 89 /min [facility] Respiratory rate 2022-09-08 18:08:00 16 /min [facility] Body height 2022-09-08 18:08:00 152.4 cm [facility] Body weight 2022-09-08 18:08:00 96.979 kg [facility] BMI 2022-09-08 18:08:00 41.75 kg/m2 [facility] Body mass index (BMI) [Percentile] Per age and sex 2022-09-08 18:08:00 98.91 % [facility] Oxygen saturation in Arterial blood by Pulse oximetry 2022-09-08 18:08:00 95 /min [facility] Systolic blood pressure 2022-09-05 14:56:00 104 mm[Hg] [facility] Diastolic blood pressure 2022-09-05 14:56:00 68 mm[Hg] [facility] Heart rate 2022-09-05 14:56:00 128 /min [facility] Body temperature 2022-09-05 14:56:00 36.72 [facility] Respiratory rate 2022-09-05 14:56:00 18 /min [facility] Body height 2022-09-05 14:56:00 152.4 cm [facility] Body weight 2022-09-05 14:56:00 97.614 kg [facility] BMI 2022-09-05 14:56:00 42.03 kg/m2 [facility] Body mass index (BMI) [Percentile] Per age and sex 2022-09-05 14:56:00 98.94 % [facility] Systolic blood pressure 2022-09-01 18:06:00 111 mm[Hg] [facility] Diastolic blood pressure 2022-09-01 18:06:00 58 mm[Hg] [facility] Heart rate 2022-09-01 18:06:00 73 /min [facility] Body temperature 2022-09-01 18:06:00 36.72 [facility] Respiratory rate 2022-09-01 18:06:00 16 /min [facility] Body height 2022-09-01 18:06:00 152.4 cm [facility] Body weight 2022-09-01 18:06:00 95.936 kg [facility] BMI 2022-09-01 18:06:00 41.31 kg/m2 [facility] Body mass index (BMI) [Percentile] Per age and sex 2022-09-01 18:06:00 98.87 % [facility] Oxygen saturation in Arterial blood by Pulse oximetry 2022-09-01 18:06:00 98 /min [facility] Systolic blood pressure 2022-08-29 18:11:00 114 mm[Hg] [facility] Diastolic blood pressure 2022-08-29 18:11:00 72 mm[Hg] [facility] Heart rate 2022-08-29 18:11:00 88 /min [facility] Body temperature 2022-08-29 18:11:00 36.78 [facility] Respiratory rate 2022-08-29 18:11:00 16 /min [facility] Body height 2022-08-29 18:11:00 152.4 cm [facility] Body weight 2022-08-29 18:11:00 94.348 kg [facility] BMI 2022-08-29 18:11:00 40.62 kg/m2 [facility] Body mass index (BMI) [Percentile] Per age and sex 2022-08-29 18:11:00 98.80 % [facility] Oxygen saturation in Arterial blood by Pulse oximetry 2022-08-29 18:11:00 96 /min [facility] Heart rate 2022-08-23 22:45:00 105 /min [facility] Oxygen saturation in Arterial blood by Pulse oximetry 2022-08-23 22:45:00 97 /min [facility] Systolic blood pressure 2022-08-23 22:30:00 131 mm[Hg] [facility] Diastolic blood pressure 2022-08-23 22:30:00 72 mm[Hg] [facility] Body temperature 2022-08-23 22:30:00 36.94 [facility] Respiratory rate 2022-08-23 22:30:00 19 /min [facility] Body weight 2022-08-23 21:55:00 95.528 kg [facility] Systolic blood pressure 2022-08-16 20:13:00 118 mm[Hg] [facility] Diastolic blood pressure 2022-08-16 20:13:00 79 mm[Hg] [facility] Heart rate 2022-08-16 20:13:00 92 /min [facility] Respiratory rate 2022-08-16 20:13:00 18 /min [facility] Body height 2022-08-16 20:13:00 152.4 cm [facility] Body weight 2022-08-16 20:13:00 94.802 kg [facility] BMI 2022-08-16 20:13:00 40.82 kg/m2 [facility] Body mass index (BMI) [Percentile] Per age and sex 2022-08-16 20:13:00 98.83 % [facility] Body weight 2022-08-14 19:32:00 93.441 kg [facility] Systolic blood pressure 2022-07-26 20:10:00 138 mm[Hg] [facility] Diastolic blood pressure 2022-07-26 20:10:00 66 mm[Hg] [facility] Heart rate 2022-07-26 20:10:00 82 /min [facility] 2022-07-26 20:10:00 18 /min [facility] Body height 2022-07-26 20:10:00 152.4 cm [facility] Body weight 2022-07-26 20:10:00 93.895 kg [facility] BMI 2022-07-26 20:10:00 40.43 kg/m2 [facility] Body mass index (BMI) [Percentile] Per age and sex 2022-07-26 20:10:00 98.80 % [facility] Systolic blood pressure 2022-07-20 21:45:00 121 mm[Hg] [facility] Diastolic blood pressure 2022-07-20 21:45:00 77 mm[Hg] [facility] Heart rate 2022-07-20 21:45:00 96 /min [facility] Body temperature 2022-07-20 21:45:00 36.67 [facility] Respiratory rate 2022-07-20 21:45:00 18 /min [facility] Body height 2022-07-20 21:45:00 152.4 cm [facility] Body weight 2022-07-20 21:45:00 92.534 kg [facility] BMI 2022-07-20 21:45:00 39.84 kg/m2 [facility] Body mass index (BMI) [Percentile] Per age and sex 2022-07-20 21:45:00 98.73 % [facility] Systolic blood pressure 2022-06-28 20:30:00 109 mm[Hg] [facility] Diastolic blood pressure 2022-06-28 20:30:00 74 mm[Hg] [facility] Heart rate 2022-06-28 20:30:00 78 /min [facility] Body temperature 2022-06-28 20:30:00 36.67 [facility] Respiratory rate 2022-06-28 20:30:00 18 /min [facility] Body height 2022-06-28 20:30:00 152.4 cm [facility] Body weight 2022-06-28 20:30:00 90.266 kg [facility] BMI 2022-06-28 20:30:00 38.86 kg/m2 [facility] Body mass index (BMI) [Percentile] Per age and sex 2022-06-28 20:30:00 98.60 % [facility] Body height 2022-06-15 20:36:00 152.4 cm [facility] Body weight 2022-06-15 20:36:00 88.905 kg [facility] BMI 2022-06-15 20:36:00 38.28 kg/m2 [facility] Body mass index (BMI) [Percentile] Per age and sex 2022-06-15 20:36:00 98.52 % [facility] Systolic blood pressure 2022-06-07 20:43:00 98 mm[Hg] [facility] Diastolic blood pressure 2022-06-07 20:43:00 68 mm[Hg] [facility] Heart rate 2022-06-07 20:43:00 76 /min [facility] Body height 2022-06-07 20:43:00 152.4 cm [facility] Body weight 2022-06-07 20:43:00 88.905 kg [facility] BMI 2022-06-07 20:43:00 38.28 kg/m2 [facility] Body mass index (BMI) [Percentile] Per age and sex 2022-06-07 20:43:00 98.52 % [facility] Oxygen saturation in Arterial blood by Pulse oximetry 2022-06-07 20:43:00 98 /min [facility] Systolic blood pressure 2022-05-31 21:58:00 119 mm[Hg] [facility] Diastolic blood pressure 2022-05-31 21:58:00 78 mm[Hg] [facility] Heart rate 2022-05-31 21:58:00 93 /min [facility] Body temperature 2022-05-31 21:58:00 36.72 [facility] Respiratory rate 2022-05-31 21:58:00 18 /min [facility] Body height 2022-05-31 21:58:00 152.4 cm [facility] Body weight 2022-05-31 21:58:00 87.091 kg [facility] BMI 2022-05-31 21:58:00 37.50 kg/m2 [facility] Body mass index (BMI) [Percentile] Per age and sex 2022-05-31 21:58:00 98.38 % [facility] Systolic blood pressure 2022-05-19 16:35:00 114 mm[Hg] [facility] Diastolic blood pressure 2022-05-19 16:35:00 78 mm[Hg] [facility] Heart rate 2022-05-19 16:35:00 81 /min [facility] Body temperature 2022-05-19 16:35:00 36.94 [facility] Respiratory rate 2022-05-19 16:35:00 16 /min [facility] Body height 2022-05-19 16:35:00 152.4 cm [facility] Body weight 2022-05-19 16:35:00 86.501 kg [facility] BMI 2022-05-19 16:35:00 37.24 kg/m2 [facility] Body mass index (BMI) [Percentile] Per age and sex 2022-05-19 16:35:00 98.34 % [facility] Oxygen saturation in Arterial blood by Pulse oximetry 2022-05-19 16:35:00 97 /min [facility] Systolic blood pressure 2022-05-17 22:07:00 106 mm[Hg] [facility] Diastolic blood pressure 2022-05-17 22:07:00 72 mm[Hg] [facility] Heart rate 2022-05-17 22:07:00 108 /min [facility] Body temperature 2022-05-17 22:07:00 36.72 [facility] Respiratory rate 2022-05-17 22:07:00 18 /min [facility] Body height 2022-05-17 22:07:00 152.4 cm [facility] Body weight 2022-05-17 22:07:00 86.637 kg [facility] BMI 2022-05-17 22:07:00 37.30 kg/m2 [facility] Body mass index (BMI) [Percentile] Per age and sex 2022-05-17 22:07:00 98.35 % [facility] Systolic blood pressure 2021-08-16 00:39:00 132 mm[Hg] [facility] Diastolic blood pressure 2021-08-16 00:39:00 79 mm[Hg] [facility] Heart rate 2021-08-16 00:39:00 81 /min [facility] Body temperature 2021-08-16 00:39:00 37.28 [facility] Respiratory rate 2021-08-16 00:39:00 18 /min [facility] Body height 2021-08-16 00:39:00 152.4 cm [facility] Body weight 2021-08-16 00:39:00 78.472 kg [facility] BMI 2021-08-16 00:39:00 33.79 kg/m2 [facility] Body mass index (BMI) [Percentile] Per age and sex 2021-08-16 00:39:00 97.60 % [facility] [facility] Oxygen saturation in Arterial blood by Pulse oximetry 2021-08-16 00:39:00 100 /min [facility] Systolic blood pressure 2021-07-07 02:30:00 116 mm[Hg] [facility] Diastolic blood pressure 2021-07-07 02:30:00 88 mm[Hg] [facility] Heart rate 2021-07-07 02:30:00 76 /min [facility] Respiratory rate 2021-07-07 02:30:00 16 /min [facility] Oxygen saturation in Arterial blood by Pulse oximetry 2021-07-07 02:30:00 98 /min [facility] Body temperature 2021-07-07 00:20:00 36.94 Porsha [facility] Body height 2021-07-07 00:20:00 152.4 cm [facility] Body weight 2021-07-07 00:20:00 77.111 kg [facility] BMI 2021-07-07 00:20:00 33.20 kg/m2 [facility] Body mass index (BMI) [Percentile] Per age and sex 2021-07-07 00:20:00 97.40 % [facility] Heart Rate 2022-04-26 14:46:00 140.00 /min Respiratory Rate 2022-04-26 14:46:00 16.00 /min BP Systolic 2022-04-26 14:46:00 134 mm[Hg] BP Diastolic 2022-04-26 14:46:00 78 mm[Hg] Weight Measured 2022-04-26 14:46:00 190.40 pounds Height Measured 2022-04-26 14:46:00 59.06 inches Body Temperature 2022-04-26 14:46:00 98.40 degrees BP Systolic 2022-04-19 13:52:00 110 mm[Hg] BP Diastolic 2022-04-19 13:52:00 67 mm[Hg] Weight Measured 2022-04-19 13:52:00 195.20 pounds Height Measured 2022-04-19 13:52:00 59.06 inches Body Temperature 2022-04-19 13:52:00 98.10 degrees Heart Rate 2022-04-19 13:52:00 99.00 /min Respiratory Rate 2022-04-19 13:52:00 Procedures Procedure Date / Time Performed Performing Clinician Source URINALYSIS 2024-03-10 19:56:00 Brittaney Arnold [facility] POCT TEST 2024-03-10 19:56:00 Brittaney Arnold [facility] POCT TEST 2023-09-29 21:13:00 Silvina Rivera [facility] POCT URINALYSIS 2023-09-29 21:12:00 Angle Rivera [facility] POCT GLUCOSE (AUTOMATED) 2022-10-19 16:43:00 Alexander Reece [facility] POCT GLUCOSE (AUTOMATED) 2022-10-19 13:34:00 Alexander Reece arik [facility] POCT GLUCOSE (AUTOMATED) 2022-10-19 02:05:00 Alexander Reece [facility] CBC WITH DIFF 2022-10-18 08:15:00 Markell Crisostomo [facility] VENOUS CORD GAS 2022-10-18 02:35:00 John Nix [facility] POCT GLUCOSE (AUTOMATED) 2022-10-18 01:05:00 Chevy [facility] POCT GLUCOSE (AUTOMATED) 2022-10-18 00:06:00 Chevy [facility] POCT GLUCOSE (AUTOMATED) 2022-10-17 22:51:00 Chevy [facility] POCT GLUCOSE (AUTOMATED) 2022-10-17 20:02:00 Chevy [facility] POCT GLUCOSE (AUTOMATED) 2022-10-17 16:54:00 Chevy [facility] POCT GLUCOSE (AUTOMATED) 2022-10-17 13:54:00 Chevy [facility] CENTRAL NEURAXIAL BLOCK 2022-10-17 13:26:00 Cynthia Huynh [facility] POCT GLUCOSE (AUTOMATED) 2022-10-17 09:02:00 Chevy [facility] POCT GLUCOSE (AUTOMATED) 2022-10-17 05:17:00 Chevy [facility] CBC WITH DIFF 2022-10-17 02:42:00 John Nix [facility] RUBELLA SCREEN IGG 2022-10-17 02:42:00 Felicity Valerio [facility] VZV ANTIBODY SCREEN 2022-10-17 02:42:00 Cindi Valerio [facility] HEPATITIS B SURFACE ANTIGEN 2022-10-17 02:42:00 John Nix [facility] HB ABO GROUPING 2022-10-17 02:42:00 John Nix [facility] RHO (D) IMMUNE GLOBULIN 2022-10-17 02:42:00 Hernandez Crisostomo [facility] HIV 1/2 AG-AB WITH REFLEX 2022-10-17 02:42:00 Torrey Nix [facility] SYPHILIS IGG/IGM 2022-10-17 02:42:[address] [facility] POCT GLUCOSE (AUTOMATED) 2022-10-17 01:39:00 Reece, Umnoz arik [facility] NON-STRESS TEST 2022-10-16 19:05:53 Batool Garrido [facility] NON-STRESS TEST 2022-10-13 20:59:20 Milagros Devlin [facility] PROTEIN CREAT RATIO URINE RANDOM 2022-10-11 17:28:00 Adum, Radha Aponte [facility] POCT GLUCOSE (AUTOMATED) 2022-10-11 16:36:00 Adum, Guera Aponte [facility] SGOT (ASPARTATE AMINO TRANSFER) 2022-10-11 16:21:00 Adum, Radha Aponte [facility] CREATININE 2022-10-11 16:21:00 Adum, Radha Aponte [facility] ALANINE AMINO TRANSFERASE(SGPT 2022-10-11 16:21:00 Adum, Radha Aponte [facility] LACTATE DEHYDROGENASE 2022-10-11 16:21:00 Adum, Radha Aponte [facility] URIC ACID 2022-10-11 16:21:00 [facility] 2022-10-11 16:21:00 [facility] 2022-10-11 16:21:00 Adum, Radha Coles [facility] ADC CLC OR LCC ONLY - WET PREP 2022-10-11 16:21:00 Adum, Radha Aponte [facility] CONSENT/REFUSAL FOR DIAGNOSIS AND TREATMENT 2022-10-11 14:26:04 Doctor Unassigned, [place] [facility] NON-STRESS TEST 2022-10-06 14:12:06 Adum, Radha Aponte [facility] NON-STRESS TEST 2022-10-02 20:09:21 Hema [facility] DIABETES TESTING REPORTS 2022-10-02 05:01:00 Doc tor Unassigned, [place] [facility] NON-STRESS TEST 2022-09-25 14:51:09 Hema [facility] NON-STRESS TEST 2022-09-22 22:20:34 Adum, Radha Aponte [facility] NON-STRESS TEST 2022-09-19 15:20:52 Batool Garrido [facility] DIABETES TESTING REPORTS 2022-09-19 05:01:00 Doc johnnie Unassigned, [place] [facility] NON-STRESS TEST 2022-09-15 22:27:49 Adum, Radha Aponte [facility] NON-STRESS TEST 2022-09-12 13:41:05 Hema [facility] NON-STRESS TEST 2022-09-08 18:45:14 Hema [facility] DIABETES TESTING REPORTS 2022-09-08 05:01:00 Jameel blair Unassigned, [place] [facility] NON-STRESS TEST 2022-09-05 17:52:44 Hema [facility] NON-STRESS TEST 2022-09-01 18:34:03 Hema [facility] NON-STRESS TEST 2022-08-29 22:26:44 Adum, Radha Aponte [facility] POCT URINALYSIS W/O SPECIFIC GRAVITY 2022-08-29 00:00:00 Adum, Radha Aponte [facility] URINALYSIS 2022-08-24 00:27:00 Adum, Radha [facility] COMP. METABOLIC PANEL ([id number]) 2022-08-23 23:56:00 Adum, Radha Aponte [facility] CBC WITH DIFF 2022-08-23 23:56:00 Adum, Rad[facility] POCT GLUCOSE (AUTOMATED) 2022-08-23 23:36:00 Adum, Guera Aponte [facility] ASSIGNMENT OF BENEFITS 2022-08-23 21:49:55 Docedmond r Unassigned, [place] [facility] CONSENT/REFUSAL FOR DIAGNOSIS AND TREATMENT 2022-08-23 21:48:37 Doctor Unassigned, [place] [facility] POCT URINALYSIS W/O SPECIFIC GRAVITY 2022-08-16 00:00:00 Batool Garrido [facility] ASSIGNMENT OF BENEFITS 2022-08-14 19:21:02 Docto r Unassigned, [place] [facility] DIABETES TESTING REPORTS 2022-07-26 06:01:00 Doc tor Unassigned, [place] [facility] POCT URINALYSIS W/O SPECIFIC GRAVITY 2022-07-26 00:00:00 Batool Garrido [facility] URINE CULTURE 2022-07-20 21:54:00 Batool Garrido [facility] POCT URINALYSIS W/O SPECIFIC GRAVITY 2022-07-20 00:00:00 Batool Garrido [facility] DIABETES TESTING REPORTS 2022-07-17 06:01:00 Doc johnnie Unassigned, [place] [facility] POCT URINALYSIS W/O SPECIFIC GRAVITY 2022-06-28 00:00:00 Batool Garrido [facility] EXTERNAL PROVIDER RECORDS 2022-06-22 06:01:00 Do ctor Unassabby, [place] [facility] URINE CULTURE 2022-06-07 21:04:00 Batool Garrido [facility] GC & CHLAMYDIA AMPLIFIED ASSAY 2022-06-07 21:04:00 Batool Garrido [facility] POCT URINALYSIS 2022-06-07 21:02:00 Royce Garrido [facility] DIABETES TESTING REPORTS 2022-05-31 06:01:00 Jameel blair Unassigned, [place] [facility] POCT URINALYSIS W/O SPECIFIC GRAVITY 2022-05-31 00:00:00 Batool Garrido [facility] AUTHORIZATION TO RELEASE PHI TO [facility] 2022-05-17 06:01:00 Doctor Unassigned, [place] [facility] US FIRST TRIMESTER LESS THAN 14 WEEKS WITH TRANSVAGINAL 2022-05-03 19:56:07 Requisition, [facility] PATIENT FINANCIAL POLICY 2022-05-03 18:57:21 Doctor Unassigned, [place] [facility] NO SHOW OR MISSED APPOINTMENT POLICY ACKNOWLEDGEMENT 2022-05-03 18:57:03 Doctor Unassigned, [place] [facility] NOTICE OF PRIVACY PRACTICES 2022-05-03 18:56:47 Doctor Unassigned, [place] [facility] CONSENT/REFUSAL FOR DIAGNOSIS AND TREATMENT 2022-05-03 18:56:30 Doctor Unassigned, [place] [facility] REFERRAL- REQUEST/RESPONSE 2022-04-26 06:01:00 D taniya Unassigned, [place] [facility] CT ABDOMEN PELVIS W CONTRAST 2021-08-16 04:03:00 Zachery Mejia [facility] POCT TEST 2021-08-16 02:21:00 Nida Mejia [facility] URINALYSIS 2021-08-16 02:12:[address] [facility] LIPASE 2021-08-16 01:57:[address] [facility] COMP. METABOLIC PANEL (03889) 2021-08-16 01:57:00 Zachery Mejia [facility] CBC WITH DIFF 2021-08-16 01:57:00 Zachery Mejia [facility] NOTICE OF PRIVACY PRACTICES 2021-08-16 00:36:17 Doctor Unassigned, [place] [facility] CONSENT/REFUSAL FOR DIAGNOSIS AND TREATMENT 2021-08-16 00:35:38 Doctor Unassigned, [place] [facility] COMP. METABOLIC PANEL ([id number]) 2021-07-07 01:10:00 Channing Oquendo [facility] CBC WITH DIFF 2021-07-07 01:10:00 Channing Oquendo [facility] URINALYSIS 2021-07-07 01:10:00 Channing Oquendo [facility] POCT TEST 2021-07-07 01:09:00 Channing Oquendo [facility] NOTICE OF PRIVACY PRACTICES 2021-07-07 00:16:47 Doctor Unassigned, [place] [facility] CONSENT/REFUSAL FOR DIAGNOSIS AND TREATMENT 2021-07-07 00:16:29 Doctor Unassigned, [place] [facility] CONSENT/REFUSAL FOR DIAGNOSIS AND TREATMENT 2021-07-07 00:15:20 Doctor Unassigned, [place] [facility] NOTICE OF PRIVACY PRACTICES 2021-07-07 00:14:58 Doctor Unassigned, [place] [facility] COVID-19 (PCR MOLECULAR TESTING) 2019-12-29 22:02:00 Speedy Prudence [facility] Plan of Care Planned Activity Planned Date Details Comments Source Goal Plan of Care Note [code = 95040-0] Goal Plan of Care Note [code = 00742-5] Goal Plan of Care Note [code = 62892-8] Goal Plan of Care Note [code = 39474-8] Goal Plan of Care Note [code = 11749-6] Goal Plan of Care Note [code = 89216-8] Goal Plan of Care Note [code = 25274-8] Goal Plan of Care Note [code = 89577-9] Goal Plan of Care Note [code = 30591-2] Goal Plan of Care Note [code = 14229-9] Encounters Start Date/Time End Date/Time Encounter Type Admission Type Attending [facility] Facility Care Department Encounter ID Source 2023-09-05 17:37:47 Emergency [facility] [id number] [facility] 2022-08-23 20:59:23 Outpatient P [facility] [id number] [facility] 2024-03-10 14:17:00 2024-03-10 16:09:00 Emergency BRITTANEY BARRIOS ERICCA [facility] ERT [id number] [facility] 2024-03-10 14:17:00 2024-03-10 16:09:00 Emergency Brittaney Arnold D [facility] 1.2.840.114 350.1.13.10 4.2.7.2.686 [id number] [facility] 2024-02-18 09:00:00 2024-02-18 09:00:00 Outpatient SHILA MADRIGAL [facility] [id number] [facility] 2023-12-11 00:00:00 2023-12-11 00:00:00 Outpatient HOLLY VELÁZQUEZ [id number] Noemi Galeold 2023-11-13 09:00:00 2023-11-13 09:00:00 Outpatient HOLLY VELÁZQUEZ NOEMI TOLLIVER [id number] Noemi [facility] 2023-10-24 00:00:00 2023-10-24 00:00:00 Outpatient REDDY SIMMONS NOEMI TOLLIVER [id number] Noemi [facility] 2023-10-08 08:30:00 2023-10-08 08:52:13 Outpatient R JORGENOY SHILA [facility] [id number] [facility] 2023-10-08 08:30:00 2023-10-08 08:52:13 Office Visit Jorgenoy Shila [facility] 1.2.840.114 350.1.13.10 4.2.7.2.686 [id number] [facility] 2023-09-29 16:00:00 2023-09-29 16:26:29 Urgent Care Angle Rivera Unknown, Attending [facility] 1.2.840.114 350.1.13.10 4.2.7.2.686 [id number] [facility] 2023-09-29 16:00:00 2023-09-29 16:00:00 Outpatient ANGLE SCHULTZ [facility] [id number] [facility] 2023-08-29 00:00:00 2023-08-29 00:00:00 Outpatient MD NOEMI GARVEY [id number] Noemi [facility] 2023-08-16 00:00:00 2023-08-16 00:00:00 Outpatient MD NOEMI GARVEY [id number] [facility] 2023-07-10 19:40:00 2023-07-10 19:40:00 Outpatient R [facility] [id number] [facility] 2023-06-26 00:00:00 2023-06-26 00:00:00 Outpatient MD NOEMI GARVEY [id number] Noemi [facility] 2023-06-20 00:00:00 2023-06-20 00:00:00 Outpatient HOLLY VELZÁQUEZ [id number] Noemi [facility] 2023-05-15 00:00:00 2023-05-15 00:00:00 Outpatient HOLLY VELÁZQUEZ NOEMI [id number] Noemi [facility] 2023-05-15 00:00:00 2023-05-15 00:00:00 Outpatient HOLLY VELÁZQUEZ NOEMI [id number] Noemi [facility] 2023-05-15 00:00:00 2023-05-15 00:00:00 Outpatient HOLLY VELÁZQUEZ NOEMI [id number] Noemi [facility] 2023-05-14 13:10:00 2023-05-14 13:10:00 Outpatient LAB90 NOEMI NOEMI [id number] [facility] 2023-05-14 11:30:00 2023-05-14 11:30:00 Outpatient HOLLY VELÁZQUEZ NOEMI [id number] [facility] 2023-05-07 14:30:00 2023-05-07 14:30:00 Outpatient HOLLY VELÁZQUEZ NOEMI [id number] [facility] 2023-02-21 16:15:41 2023-02-21 16:15:41 Outpatient SFA [facility] [id number] Eugene Stacie Mabry 2023-01-09 11:30:00 2023-01-09 11:30:00 Outpatient R BATOOL GARRIDO CHERYAL [facility] [id number] [facility] 2022-12-26 13:30:00 2022-12-26 13:30:00 Outpatient R CECILIA MATHIS RENUKA [facility] [id number] [facility] 2022-12-25 13:00:00 2022-12-25 13:00:00 Outpatient R CECILIA MATHIS RENUKA [facility] [id number] [facility] 2022-12-03 15:00:00 2022-12-03 15:50:41 Outpatient R PRUDENCE RUFF [facility] [id number] [facility] 2022-12-03 15:00:00 2022-12-03 15:50:41 Urgent Care Prudence Ruff Unknown, Attending [facility] 1..840.114 350.1.13.10 4.2.7.2.686 [id number] [facility] 2022-11-20 16:00:00 2022-11-20 16:00:00 Outpatient R BATOOL GARRIDO CHERYAL [facility] [id number] [facility] 2022-10-27 13:00:00 2022-10-27 13:00:00 Outpatient R [facility] [id number] [facility] 2022-10-26 08:00:00 2022-10-26 08:32:32 Nurse Visit Visit, Ang-Rmchp Nurse Gary Guerrero [facility] ROOM INSPECTOR [facility] 1..840.114 350.1.13.10 4.2.7.2.686 [id number] [facility] 2022-10-26 08:00:00 2022-10-26 08:00:00 Outpatient R GARY GUERRERO [facility] [id number] [facility] 2022-10-23 13:00:00 2022-10-23 13:00:00 Outpatient R [facility] [id number] [facility] 2022-10-20 13:00:00 2022-10-20 13:00:00 Outpatient R [facility] [id number] [facility] 2022-10-16 19:52:00 2022-10-19 13:54:00 Hospital Encounter Alondra Reece [facility] 1..840.114 350.1.13.10 4.2.7.2.686 [id number] [facility] 2022-10-17 07:45:00 2022-10-17 22:45:00 Anesthesia Event Cynthia Huynh, [facility] 1..114 350.1.13.10 4.2.7.2.686 [id number] [facility] 2022-10-16 13:00:00 2022-10-16 14:02:23 Routine Visit 1, Lkj Nst Room MegkanBatool levin [facility] 1.114 350.1.13.10 4.2.7.2.686 [id number] [facility] 2022-10-16 13:00:00 2022-10-16 14:02:23 Outpatient R BATOOL GARRIDO [facility] [id number] [facility] 2022-10-16 13:00:00 2022-10-16 14:02:23 Outpatient R BATOOL GARRIDO [facility] [id number] [facility] 2022-10-16 00:00:00 2022-10-16 00:00:00 Telephone Hema [facility] 1.114 350.1.13.10 4.2.7.2.686 [id number] [facility] 2022-10-16 00:00:00 2022-10-16 00:00:00 Patient Secure Msg Doctor Unassigned, [place] [facility]IC [facility] 1..114 350.1.13.10 4.2.7.2.686 [id number] [facility] 2022-10-13 15:00:00 2022-10-13 16:07:28 Outpatient RITO VALLE COREY [facility] [id number] [facility] 2022-10-13 15:00:00 2022-10-13 16:07:28 Routine Visit Room, [facility] Rito Ng [facility] 1.0.114 350.1.13.10 4.2.7.2.686 [id number] [facility] 2022-10-13 14:00:00 2022-10-13 14:30:00 Commutator Undercutter Visit Ultrasound, Colby-reynaldo Yuly Rito [facility] ROOM INSPECTOR [facility] 1.0.114 350.1.13.10 4.2.7.2.686 [id number] [facility] 2022-10-13 00:00:00 2022-10-13 00:00:[address] [facility] 1.0.114 350.1.13.10 4.2.7.2.686 [id number] [facility] 2022-10-12 13:30:00 2022-10-12 13:30:00 Outpatient P [facility] [id number] [facility] 2022-10-12 00:00:00 2022-10-12 00:00:[address] [facility] 1..114 350.1.13.10 4.2.7.2.686 [id number] [facility] 2022-10-11 09:33:00 2022-10-11 14:05:00 Outpatient P RADHA TURCIOS [facility] [id number] [facility] 2022-10-11 09:33:00 2022-10-11 14:05:00 Hospital Encounter Radha Turcios [facility] 1.0.114 350.1.13.10 4.2.7.2.686 [id number] [facility] 2022-10-11 00:00:00 2022-10-11 00:00:00 Telephone Adum Radha [facility] 1..114 350.1.13.10 4.2.7.2.686 [id number] [facility] 2022-10-09 13:00:00 2022-10-09 13:00:00 Outpatient R [facility] [id number] [facility] 2022-10-06 13:00:00 2022-10-06 13:00:00 Outpatient R KEVIN [facility] [id number] [facility] 2022-10-06 08:00:00 2022-10-06 09:07:47 Outpatient R ADPEREZ [facility] [id number] [facility] 2022-10-06 08:00:00 2022-10-06 09:07:47 Routine Visit Room, [facility] Nst Adum Radha [facility] 1..114 350.1.13.10 4.2.7.2.686 [id number] [facility] 2022-10-02 13:00:00 2022-10-02 13:43:06 Outpatient R ADPEREZ [facility] [id number] [facility] 2022-10-02 13:00:00 2022-10-02 13:43:06 Routine Visit 1, [facility] Nst Room Ad Radha [facility] 1..114 350.1.13.10 4.2.7.2.686 [id number] [facility] 2022-10-02 00:00:00 2022-10-02 00:00:00 Orders Only Doctor Unassigned, [place] [facility] 1..114 350.1.13.10 4.2.7.2.686 [id number] [facility] 2022-09-29 13:00:00 2022-09-29 13:00:00 Outpatient R ADPEREZ [facility] [id number] [facility] 2022-09-29 08:00:00 2022-09-29 08:00:00 Outpatient R [facility] [id number] [facility] 2022-09-27 00:00:00 2022-09-27 00:00:00 Refill HemaBatool [facility] 1.840.114 350.1.13.10 4.2.7.2.686 [id number] [facility] 2022-09-25 13:00:00 2022-09-25 13:00:00 Outpatient R ADPEREZ [facility] [id number] [facility] 2022-09-25 08:00:00 2022-09-25 08:50:14 Outpatient R ADPEREZ [facility] [id number] [facility] 2022-09-25 08:00:00 2022-09-25 08:50:14 Routine Visit 1, [facility] Room Ad [facility] 1.840.114 350.1.13.10 4.2.7.2.686 [id number] [facility] 2022-09-22 13:00:00 2022-09-22 14:39:21 Outpatient R AD [facility] [id number] [facility] 2022-09-22 13:00:00 2022-09-22 14:39:21 Routine Visit Room, [facility] Ad [facility] 1..840.114 350.1.13.10 4.2.7.2.686 [id number] [facility] 2022-09-22 13:00:00 2022-09-22 13:00:00 Outpatient R ADPEREZ [facility] [id number] [facility] 2022-09-19 13:00:00 2022-09-19 13:00:00 Outpatient R BATOOL GARRIDO CHERYAL [facility] [id number] [facility] 2022-09-19 08:00:00 2022-09-19 08:49:07 Outpatient R KEVIN [facility] [id number] [facility] 2022-09-19 08:00:00 2022-09-19 08:49:07 Routine Visit 1, Eris Shania Room AdRadha aparicio [facility] 1..114 350.1.13.10 [id number] [facility] 2022-09-19 00:00:00 2022-09-19 00:00:00 Orders Only Doctor Unassigned, [place] [facility] 1.114 350.1.13.10 [id number] [id number] [facility] 2022-09-18 13:00:00 2022-09-18 13:00:00 Outpatient R [facility] [id number] [facility] 2022-09-15 14:00:00 2022-09-15 15:14:39 Outpatient R [facility] [id number] [facility] 2022-09-15 14:00:00 2022-09-15 15:14:39 Routine Visit Room, Chuck Shania Adperez [facility] 1..114 [id number] 4.2.7.2.686 [id number] 134 [id number] [facility] 2022-09-15 13:00:00 2022-09-15 13:00:00 Outpatient R ADUM, RADHA [facility] [id number] [facility] 2022-09-14 13:30:00 2022-09-14 14:00:00 Commutator Undercutter Visit Ultrasound, Alondra Blanchard [facility] ROOM INSPECTOR [facility]ERNAL & [facility]ILD HEALTH [facility] 1.0.114 350.1.13.10 4.2.7.2.686 [id number] [facility] 2022-09-14 13:30:00 2022-09-14 13:49:41 Outpatient P [facility] [id number] [facility] 2022-09-14 00:00:00 2022-09-14 00:00:00 Telephone Adum, Radha [facility] 1..114 350.1.13.10 4.2.7.2.686 [id number] [facility] 2022-09-12 08:00:00 2022-09-12 08:30:45 Outpatient R [facility] [id number] [facility] 2022-09-12 08:00:00 2022-09-12 08:30:45 [facility] 1..114 350.1.13.10 4.2.7.2.686 [id number] [facility] 2022-09-08 13:00:00 2022-09-08 13:51:56 Outpatient R BATOOL GARRIDO CHERYAL [facility] [id number] [facility] 2022-09-08 13:00:00 2022-09-08 13:51:56 [facility]ine [facility] 1, [facility] 1.2.840.114 350.1.13.10 4.2.7.2.686 [id number] [facility] 2022-09-08 00:00:00 2022-09-08 00:00:00 Orders Only Doctor Unassigned, [place] [facility] 1.2.840.114 350.1.13.10 4.2.7.2.686 [id number] [facility] 2022-09-05 10:00:00 2022-09-05 11:09:16 Outpatient R ADUM, [facility] [id number] [facility] 2022-09-05 10:00:00 2022-09-05 11:09:16 Routine Visit 1, [facility] 1.840.114 350.1.13.10 4.2.7.2.686 [id number] [facility] 2022-09-04 13:00:00 2022-09-04 13:00:00 Outpatient R [facility] [id number] [facility] 2022-09-01 13:00:00 2022-09-01 13:29:47 Outpatient R ADUM, [facility] [id number] [facility] 2022-09-01 13:00:00 2022-09-01 13:29:47 Routine Visit 1, [facility] Room [facility] 1.2840.114 350.1.13.10 4.2.7.2.686 [id number] 134 [id number] [facility] 2022-09-01 00:00:00 2022-09-01 00:00:00 Telephone Batool Garrido [facility] 1.2.840.114 350.1.13.10 4.2.7.2.686 [id number] [facility] 2022-08-30 15:15:00 2022-08-30 15:42:42 Out[address] R [address] [facility] [facility] [id number] [facility] 2022-08-30 15:15:00 2022-08-30 15:42:42 Commutator Undercutter Visit Lab, Ang - Db Batool Garrido [facility] 1.2840.114 350.1.13.10 4.2.7.2.686 [id number] [facility] 2022-08-29 13:00:00 2022-08-29 14:29:54 Outpatient R RADHA TURCIOS [facility] [id number] [facility] 2022-08-29 13:00:00 2022-08-29 14:29:54 Routine Visit 1, Lkj Nst Room AdRadha aparicio [facility] 1.2840.114 350.1.13.10 4.2.7.2.686 [id number] 134 [id number] [facility] 2022-08-29 00:00:00 2022-08-29 00:00:00 Telephone Jair Bolden [facility] 1.2840.114 350.1.13.10 4.2.7.2.686 [id number] [facility] 2022-08-28 13:00:00 2022-08-28 13:00:00 Outpatient R [facility] [id number] [facility] 2022-08-28 00:00:00 2022-08-28 00:00:00 Telephone Radha Turcios [facility] 1.2.114 350.1.13.10 4.2.7.2.686 [id number] 134 [id number] [facility] 2022-08-27 00:00:00 2022-08-27 00:00:00 Kailyn [place] [facility] ROOM INSPECTOR [facility] 1.2.840.114 350.1.13.10 4.2.7.2.686 [id number] [facility] 2022-08-27 00:00:00 2022-08-27 00:00:[address] [facility] 1.2.840.114 350.1.13.10 4.2.7.2.686 [id number] 134 [id number] [facility] 2022-08-23 17:12:00 2022-08-23 20:40:00 Outpatient P RADHA TURCIOS [facility] [id number] [facility] 2022-08-23 17:12:00 2022-08-23 20:40:00 Hospital Encounter Radha Turcios [facility] 1.2840.114 350.1.13.10 4.2.7.2.686 [id number] [id number] [facility] 2022-08-23 00:00:00 2022-08-23 00:00:[address] [facility] 1.2.840.114 350.1.13.10 4.2.7.2.686 [id number] [facility] 2022-08-23 00:00:00 2022-08-23 00:00:00 Orders Only Doctor Unassigned, [place] [facility] 1.2.840.114 350.1.13.10 4.2.7.2.686 [id number] [facility] 2022-08-18 13:30:00 2022-08-18 13:30:00 Outpatient P [facility] [id number] [facility] 2022-08-17 00:00:00 2022-08-17 00:00:00 Telephone Cecilia Mathis [facility] 1.2.840.114 350.1.13.10 4.2.7.2.686 [id number] [facility] 2022-08-16 13:45:00 2022-08-16 14:45:49 Outpatient R [facility]OL [facility]O [facility] [id number] [facility] 2022-08-16 13:45:00 2022-08-16 14:45:49 Routine Visit [facility] 1.840.114 350.1.13.10 4.2.7.2.686 [id number] 134 [id number] [facility] 2022-08-15 15:30:00 2022-08-15 15:58:11 Outpatient P KRYSTIN KAYE [facility] [id number] [facility] 2022-08-15 15:30:00 2022-08-15 15:58:11 Commutator Undercutter Visit 4, [facility] Us Room LadonnaKrystin [facility] 1.0.114 350.1.13.10 4.2.7.2.686 [id number] [facility] 2022-08-15 00:00:00 2022-08-15 00:00:00 [facility] 1.20.114 350.1.13.10 4.2.7.2.686 [id number] [facility] 2022-08-14 13:45:00 2022-08-14 14:21:42 Outpatient R CECILIA MATHIS [facility] [id number] [facility] 2022-08-14 13:45:00 2022-08-14 14:21:42 Office Visit Delfina [facility] 1.0.114 350.1.13.10 4.2.7.2.686 [id number] [facility] 2022-08-14 00:00:00 2022-08-14 00:00:00 Orders Only Doctor Unassigned, [place] [facility] 1.2840.114 350.1.13.10 4.2.7.2.686 [id number] [id number] [facility] 2022-07-26 13:45:00 2022-07-26 14:25:22 Outpatient R [facility]OOL [facility] [id number] [facility] 2022-07-26 13:45:00 2022-07-26 14:25:22 Routine Visit [facility] 1.840.114 350.1.13.10 4.2.7.2.686 [id number] 134 [id number] [facility] 2022-07-26 00:00:00 2022-07-26 00:00:00 Orders Only Doctor Unassigned, [place] [facility] 1.0.114 350.1.13.10 4.2.7.2.686 [id number] 009 [id number] [facility] 2022-07-20 15:45:00 2022-07-20 16:06:19 Routine Visit [facility] 1.0.114 350.1.13.10 4.2.7.2.686 [id number] 134 [id number] [facility] 2022-07-20 13:45:00 2022-07-20 14:15:00 Commutator Undercutter Visit Ultrasound, Adi Wei [facility] ROOM INSPECTOR [facility] 1.840.114 350.1.13.10 4.2.7.2.686 [id number] [facility] 2022-07-20 13:45:00 2022-07-20 14:01:55 Outpatient P ADI LEVIN [facility] [id number] [facility] 2022-07-17 00:00:00 2022-07-17 00:00:00 Orders Only Doctor Unassigned, [place] [facility] 1.114 350.1.13.10 4.2.7.2.686 [id number] 009 [id number] [facility] 2022-07-14 11:15:00 2022-07-14 11:46:10 Outpatient R OMI AGEE [facility] [id number] [facility] 2022-07-14 11:15:00 2022-07-14 11:46:10 Telemedici ne Visit Farnaz Padilla Joseph W [facility] ROOM INSPECTOR [facility]ERNAL [facility]ILD HE[facility] 1..114 350.1.13.10 4.2.7.2.686 [id number] [facility] 2022-07-07 13:00:00 2022-07-07 15:57:43 Outpatient R ADI LEVIN [facility] [id number] [facility] 2022-07-07 13:00:00 2022-07-07 15:57:43 Telemedici ne Visit Fellow, [facility] reynaldo Adi [facility] .114 350.1.13.10 4.2.7.2.686 [id number] [facility] 2022-07-04 00:00:00 2022-07-04 00:00:00 Telephone Tripsychiatriczaid [facility] .114 350.1.13.10 4.2.7.2.686 [id number] 134 [id number] [facility] 2022-06-30 00:00:00 2022-06-30 00:00:00 Case Management [facility] 1.2.840.114 350.1.13.10 4.2.7.2.686 [id number] 134 [id number] [facility] 2022-06-28 14:00:00 2022-06-28 14:51:48 Outpatient R [facility]OL [facility]O [facility] [id number] [facility] 2022-06-28 14:00:00 2022-06-28 14:51:48 Routine Visit Megchantel [facility] 1.2.840.114 350.1.13.10 4.2.7.2.686 [id number] 134 [id number] [facility] 2022-06-22 00:00:00 2022-06-22 00:00:00 Orders Only Doctor Unassigned, [place] [facility] 1.840.114 350.1.13.10 4.2.7.2.686 [id number] 009 [id number] [facility] 2022-06-21 10:45:00 2022-06-21 12:00:00 Commutator Undercutter Visit Ultrasound, Jair Irving [facility] ROOM INSPECTOR [facility] 1.2840.114 350.1.13.10 4.2.7.2.686 [id number] [facility] 2022-06-21 10:45:00 2022-06-21 10:45:00 Outpatient P JAIR GUZMAN SHANNON [facility] [id number] [facility] 2022-06-21 00:00:00 2022-06-21 00:00:00 Telephone Irwinzaid [facility] 1.20.114 350.1.13.10 4.2.7.2.686 [id number] 134 [id number] [facility] 2022-06-21 00:00:00 2022-06-21 00:00:00 Case Management Hema [facility] 1.2840.114 350.1.13.10 4.2.7.2.686 [id number] [facility] 2022-06-20 08:15:00 2022-06-20 08:30:00 Commutator Undercutter Visit Lab, [facility] MEDICAL OFFICE BUILD[facility] 1.2840.114 350.1.13.10 4.2.7.2.686 [id number] [facility] 2022-06-20 08:15:00 2022-06-20 08:24:06 Out[address] [facility] [id number] [facility] 2022-06-15 15:00:00 2022-06-15 15:15:00 Commutator Undercutter Visit Lab, Col[facility] Hema [facility] MED[facility] OFF[facility] BUILD[facility] 1..840.114 350.1.13.10 4.2.7.2.686 [id number] [facility] 2022-06-15 14:05:00 2022-06-15 14:34:39 Outpatient R [address]OOL [address] [facility]USJEREMIAH [facility] [id number] [facility] 2022-06-15 14:05:00 2022-06-15 14:34:39 Nurse Visit Nurse, Lkj [facility] 1.2840.114 350.1.13.10 4.2.7.2.686 [id number] [facility] 2022-06-12 13:00:00 2022-06-12 16:53:06 Outpatient R KATIE SHAFFER [facility] [id number] [facility] 2022-06-12 13:00:00 2022-06-12 16:53:06 Telemedici ne Visit Faculty, Colby Yang Katie Holley [facility] ROOM INSPECTOR [facility] 1.2.840.114 350.1.13.10 4.2.7.2.686 [id number] [facility] 2022-06-12 00:00:00 2022-06-12 00:00:00 Patient Secure Msg Batool Garrido [facility] 1.2.840.114 350.1.13.10 4.2.7.2.686 [id number] 134 [id number] [facility] 2022-06-07 14:30:00 2022-06-07 15:12:23 Outpatient R BATOOL GARRIDO [facility] [id number] [facility] 2022-06-07 14:30:00 2022-06-07 15:12:23 Routine Visit [facility] 1.2.840.114 350.1.13.10 4.2.7.2.686 [id number] 134 [id number] [facility] 2022-06-06 00:00:00 2022-06-06 00:00:00 Telephone [facility] 1.2.840.114 350.1.13.10 4.2.7.2.686 [id number] 134 [id number] [facility] 2022-06-01 00:00:00 2022-06-01 00:00:00 Telephone [facility] Rehabilitation[facility] 1.2.840.114 350.1.13.10 4.2.7.2.686 [id number] 134 [id number] [facility] 2022-05-31 15:30:00 2022-05-31 16:30:04 Outpatient R BATOOL GARRIDO CHERYAL [facility] [id number] [facility] 2022-05-31 15:30:00 2022-05-31 16:30:[address] [facility] 1.2.840.114 350.1.13.10 4.2.7.2.686 [id number] 134 [id number] [facility] 2022-05-31 00:00:00 2022-05-31 00:00:00 Orders Only Doctor Unassigned, [place] [facility] 1.2.840.114 350.1.13.10 4.2.7.2.686 [id number] [facility] 2022-05-19 10:00:00 2022-05-19 10:34:02 Outpatient R HEMAJEREMIAHSTANFORD GARRIDO [facility] [id number] [facility] 2022-05-19 10:00:00 2022-05-19 10:34:02 [facility] 1.2.840.114 350.1.13.10 4.2.7.2.686 [id number] 134 [id number] [facility] 2022-05-18 00:00:00 2022-05-18 00:00:00 Telephone Irwnizaid [facility] 1.2.840.114 350.1.13.10 4.2.7.2.686 [id number] 134 [id number] [facility] 2022-05-17 15:30:00 2022-05-17 16:27:49 Outpatient R HEMAJEREMIAHSTANFORD JIMENEZSHYZAID [facility] [id number] [facility] 2022-05-17 15:30:00 2022-05-17 16:27:49 Initial Visit Hema [facility] 1.2.840.114 350.1.13.10 4.2.7.2.686 [id number] [facility] 2022-05-17 00:00:00 2022-05-17 00:00:00 Orders Only Doctor Unassigned, [place] [facility] 1.2.840.114 350.1.13.10 4.2.7.2.686 [id number] [id number] [facility] 2022-05-03 12:56:18 2022-05-03 23:59:00 Outpatient R RADIOLOGY [facility] [id number] [facility] 2022-05-03 12:56:18 2022-05-03 23:59:00 Hospital Encounter Radiology [facility] 1.2.840.114 350.1.13.10 4.2.7.2.686 [id number] [facility] 2022-04-26 14:13:02 2022-04-26 14:13:02 Outpatient [facility] Eugene Mabry 2022-04-26 00:00:00 2022-04-26 00:00:00 Orders Only Doctor Unassigned, [place] [facility] 1.2.840.114 350.1.13.10 4.2.7.2.686 [id number] [facility] 2022-04-26 00:00:00 2022-04-26 00:00:00 Outpatient Visit [id number] 2022-04-20 16:10:55 2022-04-20 16:10:55 Outpatient [facility] [id number] Eugene Mabry 2022-04-19 13:53:19 2022-04-19 13:53:19 Outpatient [facility] Eugene Mabry 2022-04-19 00:00:00 2022-04-19 00:00:00 Outpatient Visit [id number] 2021-08-15 18:42:00 2021-08-15 23:56:00 Emergency X ZACHERY MEJIA [facility] [id number] [facility] 2021-08-15 18:42:00 2021-08-15 23:56:00 Emergency Zachery Mejia F [facility] 1.840.114 350.1.13.10 4.2.7.2.686 [id number] [facility] 2021-07-06 18:24:00 2021-07-06 20:46:00 Emergency X OQUENDO, CHANNING [facility] ERT [id number] [facility] 2021-07-06 18:24:00 2021-07-06 20:46:00 Emergency OquendoChanning waite S [facility] 1.840.114 350.1.13.10 4.2.7.2.686 [id number] [facility] 2019-12-29 16:59:39 2019-12-29 17:27:50 Laboratory Only Lab, [facility] Office [facility] One .114 350.1.13.10 4.2.7.2.686 [id number] 2019-12-29 16:59:39 2019-12-29 17:27:50 [facility] 1.0114 350.1.13.10 4.2.7.2.686 [id number] [facility] 2019-12-29 17:00:00 2019-12-29 17:00:00 Out[facility] [id number] [facility] Results Test Description Test Time Test Comments Results Result Co mments Source [facility] [id number] 21:13:00* Test Item Value Reference Range Interpretation Comme nts POCT PREG (test code = 1605) Negative On board controls acceptable with C Line (test code = 3574) Yes POCT PREG LOT # (test code = 3575) POCT PREG TEST DATE ( test code = 3576) [facility] [id number] 21:13:00* Test Item Value Reference Range Interpretation Comme nts POCT PREG (test code = 1605) Negative On board controls acceptable with C Line (test code = 3574) Yes POCT PREG LOT # (test code = 3575) POCT PREG TEST DATE ( test code = 3576) [facility] Urinalysis W Specific [id number] 21:12:00* Test Item Value Reference Range Interpretation [...] development and interpretation of all internal controls [facility] W Specific [id number] 21:12:00* Test Item Value Reference Range Interpretation [...] development and interpretation of all internal controls [facility] GLUCOSE (AUTOMATED)2022-10-19 16:45:14* Test Item Value Reference Range Interpretation Comme nts POCT GLU (test code = 7624168266) 84 mg/dL 70-110 Lab Interpretation (test cod e = 81749-2) Normal [facility] GLUCOSE (AUTOMATED)2022-10-19 13:35:13* Test Item Value Reference Range Interpretation Comme nts POCT GLU (test code = 7356388221) 74 mg/dL 70-110 Lab Interpretation (test cod e = 47413-0) Normal [facility] GLUCOSE (AUTOMATED)2022-10-19 02:06:22* Test Item Value Reference Range Interpretation Comme nts POCT GLU (test code = 7484340176) 80 mg/dL 70-110 Lab Interpretation (test cod e = 84169-1) Normal [facility] (D) IMMUNE [id number] 04:49:11* Test Item Value Reference Range Interpretation Comme nts RHIG CANDIDATE? (test code = 5188) No- see comment Patient is not a candidate for RhIg- Patient is Rh Positive.Performed at [facility] Laboratory Services - [facility] Blood [address] [place] [address] 99[address]Pocy Free: [phone] No. [id number] [facility] [id number] 02:55:52* Test Item Value Reference Range Interpretation Comme nts VENOUS BASE EXCESS, CORD (test code = 1190713498) -1.4 mEq/L VENOUS PH, CORD (test code = 7513531329) 7.36 7.25-7.45 VENOUS PC02, CORD (test code = 6330202130) 44 See_Comment [Automated messa ge] The system which generated this result transmitted reference range: 27 - 49 mmHg. The reference range was not used to interpret this result as normal/abnormal. VENOUS PO2, CORD (test code = 9202171294) 23 See_Comment [Automated me ssage] The system which generated this result transmitted reference range: 17 - 41 mmHg. The reference range was not used to interpret this result as normal/abnormal. VENOUS BICARBONATE, CORD (test code = 1128319341) 24 See_Comment [Automated messa ge] The system which generated this result transmitted reference range: 12 - 29 mEq/L. The reference range was not used to interpret this result as normal/abnormal. [facility] CORD [id number] 02:55:11* Test Item Value Reference Range Interpretation Comme nts BASE EXCESS, CORD (test code = 3610908024) -2.2 mEq/L AC PH, CORD (BEAKER) (test code = 7107732420) 7.28 7.18-7.38 PC02, CORD (test code = 3132818894) 56 See_Comment [Automated messa ge] The system which generated this result transmitted reference range: 32 - 66 mmHg. The reference range was not used to interpret this result as normal/abnormal. PO2, CORD (test code = 1733735234) 14 See_Comment [Automated messa ge] The system which generated this result transmitted reference range: 10 - 30 mmHg. The reference range was not used to interpret this result as normal/abnormal. BICARBONATE, CORD (test code = 0323981434) 26 See_Comment [Automated messa ge] The system which generated this result transmitted reference range: 17 - 27 mEq/L. The reference range was not used to interpret this result as normal/abnormal. [facility] GLUCOSE (AUTOMATED)2022-10-18 01:14:13* Test Item Value Reference Range Interpretation Comme [facility] POCT GLU (test code = 6525173173) 115 mg/dL 70-110 H Lab Interpretation (test cod e = 48325-7) Abnormal [facility] GLUCOSE (AUTOMATED)2022-10-18 00:16:37* Test Item Value Reference Range Interpretation Comme nts POCT GLU (test code = 0528020136) 117 mg/dL 70-110 H Lab Interpretation (test cod e = 58986-7) Abnormal [facility] GLUCOSE (AUTOMATED)2022-10-17 23:03:18* Test Item Value Reference Range Interpretation Comme nts POCT GLU (test code = 9301219057) 98 mg/dL 70-110 Lab Interpretation (test cod e = 94491-4) Normal [facility] GLUCOSE (AUTOMATED)2022-10-17 20:03:22* Test Item Value Reference Range Interpretation Comme nts POCT GLU (test code = 5768756041) 95 mg/dL 70-110 Lab Interpretation (test cod e = 18518-7) Normal [facility] GLUCOSE (AUTOMATED)2022-10-17 17:10:41* Test Item Value Reference Range Interpretation Comme nts POCT GLU (test code = 3695350459) 81 mg/dL 70-110 Lab Interpretation (test cod e = 39043-5) [id number] 15:52:59* Test Item Value Reference Range Interpretation Comme [facility] VZV IgG antibody (test code = 38933-9) Negative Negative SATHYA (test code = SATHYA) Positive - Indicat es the patient was exposed to VZV through infection or vaccination.Negative - Indicates the patient could be susceptible to VZV infection.Equivocal - A second specimen should be sent for testing. [facility] [id number] 15:52:59* Test Item Value Reference Range Interpretation Comme [facility] Rubella screen IgG (test code = 6123150811) Positive Negative SATHYA (test code = SATHYA) Positive - Indicat es the patient was exposed to Rubella through infection or vaccination.Negative - Indicates the patient could be susceptible to Rubella infection.Equivocal - A second specimen should be sent. [facility] SYPHILIS [id number] 15:52:18* Test Item Value Reference Range Interpretation Comme [facility] Syphilis IgG/IgM (test code = 01013-9) Non-reactive Non-reactive SATHYA (test code = SATHYA) Non-reactive - No serologic evidence of T. pallidum infection. Cannot exclude incubating or early syphilis. Submit a second specimen in 2-4 weeks if syphilis is clinically suspected. Equivocal - Further testing to follow. Reactive - Further testing to follow. Lab Interpretation (test code = 69265-4) Normal [facility] GLUCOSE (AUTOMATED)2022-10-17 14:03:20* Test Item Value Reference Range Interpretation Comme nts POCT GLU (test code = 7466435742) 134 mg/dL 70-110 H Lab Interpretation (test cod e = 77199-5) Abnormal [facility] GLUCOSE (AUTOMATED)2022-10-17 09:03:42* Test Item Value Reference Range Interpretation Comme nts POCT GLU (test code = 4339667475) 108 mg/dL 70-110 Lab Interpretation (test cod e = 49609-1) Normal [facility] GLUCOSE (AUTOMATED)2022-10-17 05:17:50* Test Item Value Reference Range Interpretation Comme nts POCT GLU (test code = 9907716336) 109 mg/dL 70-110 Lab Interpretation (test cod e = 69981-5) Normal [facility]2 AG-AB WITH [id number] 03:58:45* Test Item Value Reference Range Interpretation Comme nts HIV Semi-quantitative (test code = 18537-6) 0.07 Negative SATHYA (test code = SATHYA) Non-reactive for HIV-1 antigen and HIV-1/HIV-2 antibodies. ?No laboratory evidence of HIV infection. ?Repeat in 2-4 weeks if acute HIV infection is suspected. [facility] Surface [id number] 03:49:26 * Test Item Value Reference Range Interpretation Comme nts HBsAg Semi-Quantitative (hieu t code = 5195-3) 0.04 Negative [facility] DallasCBC with [id number] 03:06:39* Test Item Value Reference Range Interpretation Comme nts WBC (test code = 6690-2) 6.51 See_Comment [Automated [employer]] The system which generated this result [...] 34.4 g/dL 32.0-36.0 RDW-SD (test code = 69597-8) 40.6 fL 38.5-49.0 RDW-CV (test code = 788-0) 13.0 % 11.5-14.0 PLT (test code = 777-3) 171 See_Comment [Automated messa ge] The system which generated this result transmitted reference range: 135 - 361 10*3/?L. The reference range was not used to interpret this result as normal/abnormal. MPV (test code = 08035-1) 12.0 fL 9.4-13.3 NRBC/100 WBC (test code = 9942614174) 0.0 See_Comment [Automated [employer] ssage] The system which generated this result transmitted reference range: 0.0 - 10.0 /100 WBCs. The reference range was not used to interpret this result as normal/abnormal. NRBC x10^3 (test code = 5975417491) See_Comment [Automated messa ge] The system which generated this result transmitted reference range: 10*3/?L. The reference range was not used to interpret this result as normal/abnormal. GRAN MAT (NEUT) % (test code = 770-8) 65.2 % IMM GRAN % (test code = 6907092771) 0.30 % LYMPH % (test code = 736-9) 28.1 % MONO % (test code = 5905-5) 5.7 % EOS % (test code = 713-8) 0.5 % BASO % (test code = 706-2) 0.2 % GRAN MAT x10^3(ANC) (test code = 9569557912) 4.25 10*3/uL 1.50-10.30 IMM GRAN x10^3 (test code = 1885768930) 0.00-0.06 LYMPH x10^3 (test code = 731-0) 1.83 10*3/uL 0.70-7.40 MONO x10^3 (test code = 742-7) 0.37 10*3/uL 0.00-0.50 EOS x10^3 (test code = 711-2) 0.03 10*3/uL 0.00-0.40 BASO x10^3 (test code = 704-7) 0.00-0.10 Lab Interpretation (test code = 83182-3) [facility]normal [facility] Screen - ONCE [id number] 02:52:00 * Test Item Value Reference Range Interpretation Comme nts ABO & RH (test code = 20) O POSITIVE IAT (test code = 1185) Negative [facility] GLUCOSE (AUTOMATED)2022-10-17 01:41:00* Test Item Value Reference Range Interpretation Comme nts POCT GLU (test code = 6526223873) 103 mg/dL 70-110 Lab Interpretation (test cod e = 23281-3) Normal [facility] GLUCOSE (AUTOMATED)2022-10-11 16:38:50* Test Item Value Reference Range Interpretation Comme nts POCT GLU (test code = 9646994712) 95 mg/dL 70-110 Lab Interpretation (test cod e = 74486-3) Normal [facility] URINALYSIS W/O SPECIFIC [id number] 19:01:00* Test Item Value Reference Range Interpretation [...] = 3257) n/a Negative - Negati ve [facility]COMP. MET[facility]OLIC PANEL (22148)2022-08-24 00:35:47* Test Item Value Reference Range Interpretation Comme nts NA (test code = 7662633986) 133 mmol/L 135-145 L K (test code = 4921303292) 3.5 mmol/L 3.5-5.0 CL (test code = 3211921504) 105 mmol/L 98-108 CO2 TOTAL (test code = 1333568123) 20 mmol/L 23-31 L AGAP (test code = 4374985957) 8 2-16 BUN (test code = 1969457555) 8 mg/dL 7-23 GLUCOSE (test code = 1199978239) 178 mg/dL 70-110 H CREATININE (test code = 7454074882) 0.40 mg/dL 0.50-1.04 L TOTAL BILI (test code = 8658629247) 0.5 mg/dL 0.1-1.1 CALCIUM (test code = 6960391852) 8.5 mg/dL 8.6-10.6 L T PROTEIN (test code = 7289805308) 6.3 g/dL 6.3-8.2 ALBUMIN (test code = 4820115643) 3.5 g/dL 3.5-5.0 ALK PHOS (test code = 1394835353) 90 U/L 34-122 ALTv (test code = 1742-6) 22 U/L 5-35 AST(SGOT) (test code = 9964511132) 27 U/L 13-40 eGFR (test code = 8319819382) 207.9 mL/min/1.73m2 SATHYA (test code = SATHYA) [...] imaging tests). Lab Interpretation (test code = 13842-9) Abnormal [facility] WITH [id number] 00:23:44* Test Item Value Reference Range Interpretation Comme nts WBC (test code = 6690-2) 6.95 See_Comment [Automated [employer]] The system which generated this result transmitted reference range: 4.50 - 13.50 10*3/?L. The reference range was not used to interpret this result as normal/abnormal. RBC (test code = 789-8) 3.67 See_Comment L [Automated [employer]] The system which generated this result transmitted [...] 34.3 g/dL 32.0-36.0 RDW-SD (test code = 90169-3) 40.2 fL 38.5-49.0 RDW-CV (test code = 788-0) 12.6 % 11.5-14.0 PLT (test code = 777-3) 194 See_Comment [Automated messa ge] The system which generated this result transmitted reference range: 135 - 361 10*3/?L. The reference range was not used to interpret this result as normal/abnormal. MPV (test code = 80859-6) 11.3 fL 9.4-13.3 NRBC/100 WBC (test code = 1888781139) 0.0 See_Comment [Automated me ssage] The system which generated this result transmitted reference range: 0.0 - 10.0 /100 WBCs. The reference range was not used to interpret this result as normal/abnormal. NRBC x10^3 (test code = 2016702524) See_Comment [Automated messa ge] The system which generated this result transmitted reference range: 10*3/?L. The reference range was not used to interpret this result as normal/abnormal. GRAN MAT (NEUT) % (test code = 770-8) 66.7 % IMM GRAN % (test code = 4507639997) 0.60 % LYMPH % (test code = 736-9) 27.1 % MONO % (test code = 5905-5) 5.2 % EOS % (test code = 713-8) 0.3 % BASO % (test code = 706-2) 0.1 % GRAN MAT x10^3(ANC) (test code = 7253875478) 4.64 10*3/uL 1.50-10.30 IMM GRAN x10^3 (test code = 4519849068) 0.04 10*3/uL 0.00-0.06 LYMPH x10^3 (test code = 731-0) 1.88 10*3/uL 0.70-7.40 MONO x10^3 (test code = 742-7) 0.36 10*3/uL 0.00-0.50 EOS x10^3 (test code = 711-2) 0.00-0.40 BASO x10^3 (test code = 704-7) 0.00-0.10 Lab Interpretation (test code = 06343-9) Abnormal [facility] GLUCOSE (AUTOMATED)2022-08-23 23:37:50* Test Item Value Reference Range Interpretation Comme nts POCT GLU (test code = 0245477355) 198 mg/dL 70-110 H Lab Interpretation (test cod e = 98107-0) Abnormal [facility] URINALYSIS W/O SPECIFIC [id number] 20:17:00* Test Item Value Reference Range Interpretation [...] = 3257) N/A Negative - Negati ve [facility] URINALYSIS W/O SPECIFIC [id number] 20:19:00* Test Item Value Reference Range Interpretation [...] = 3257) N/A Negative - Negati ve [facility] URINALYSIS W/O SPECIFIC [id number] 21:51:00* Test Item Value Reference Range Interpretation [...] = 3257) Negative Negative - Negati ve [facility] URINALYSIS W/O SPECIFIC [id number] 20:35:00* Test Item Value Reference Range Interpretation [...] = 3257) N/A Negative - Negati ve [facility] URINALYSIS W SPECIFIC [id number] 21:03:00* Test Item Value Reference Range Interpretation [...] U APPEAR (test code = 3267) clear [facility] URINALYSIS W/O SPECIFIC [id number] 21:56:00* Test Item Value Reference Range Interpretation [...] = 3257) N/A Negative - Negati ve [facility]COMP. METABOLIC PANEL (23381)2021-08-16 02:22:32* Test Item Value Reference Range Interpretation Comme nts NA (test code = 1611120189) 137 mmol/L 135-145 K (test code = 9419912034) 4.4 mmol/L 3.5-5.0 CL (test code = 7700761863) 101 mmol/L 98-108 CO2 TOTAL (test code = 9338144436) 28 mmol/L 23-31 AGAP (test code = 2571319713) 2-16 BUN (test code = 5032985393) 15 mg/dL 7-23 GLUCOSE (test code = 0821204643) 117 mg/dL 70-110 H CREATININE (test code = 8962981136) 0.79 mg/dL 0.50-1.04 TOTAL BILI (test code = 8040938823) 0.4 mg/dL 0.1-1.1 CALCIUM (test code = 7097557897) 9.1 mg/dL 8.6-10.6 T PROTEIN (test code = 8134485166) 7.1 g/dL 6.3-8.2 ALBUMIN (test code = 7181007552) 4.6 g/dL 3.5-5.0 ALK PHOS (test code = 6809285848) 81 U/L 34-122 ALTv (test code = 1742-6) 54 U/L 5-35 H AST(SGOT) (test code = 9912069141) 40 U/L 13-40 SATHYA (test code = [...] imaging tests). Lab Interpretation (test code = 09857-9) Abnormal [facility] 02:22:32* Test Item Value Reference Range Interpretation Comme [facility] LIPASE (test code = 3968422179) 84 U/L 0-220 Lab Interpretation (test cod e = 50897-4) Normal [facility] DallasPOIN [id number] 02:21:00* Test Item Value Reference Range Interpretation Comme nts POCT PREG (test code = 1605) neg On board controls acceptable with C Line (test code = 3574) yes POCT PREG LOT # (test code = 3575) [id number] POCT PREG TEST DATE ( test code = 3576) 08/08/2022 Lab Interpretation (test cod e = 29331-3) Normal [facility] WITH [id number] 02:13:07* Test Item Value Reference Range Interpretation Comme nts WBC (test code = 6690-2) See_Comment [Automated [employer]] The system which generated this result transmitted [...] 33.9 g/dL 32.0-36.0 RDW-SD (test code = 10410-7) 38.2 fL 38.5-49.0 L RDW-CV (test code = 788-0) 11.8 % 11.5-14.0 PLT (test code = 777-3) See_Comment [Automated [employer]] The system which generated this result transmitted reference range: 135 - 361 10*3/?L. The reference range was not used to interpret this result as normal/abnormal. MPV (test code = 56908-8) 10.6 fL 9.4-13.3 NRBC/100 WBC (test code = 1977409948) See_Comment [Automated [employer] ssage] The system which generated this result transmitted reference range: 0.0 - 10.0 /100 WBCs. The reference range was not used to interpret this result as normal/abnormal. NRBC x10^3 (test code = 7705901616) <0.01 See_Comment [Automated messa ge] The system which generated this result transmitted reference range: 10*3/?L. The reference range was not used to interpret this result as normal/abnormal. GRAN MAT (NEUT) % (test code = 770-8) 44.6 % IMM GRAN % (test code = 6118298762) 0.30 % LYMPH % (test code = 736-9) 46.1 % MONO % (test code = 5905-5) 7.3 % EOS % (test code = 713-8) 1.2 % BASO % (test code = 706-2) 0.5 % GRAN MAT x10^3(ANC) (test code = 1807930827) 2.96 10*3/uL 1.50-10.30 IMM GRAN x10^3 (test code = 6152141387) <0.03 0.00-0.06 LYMPH x10^3 (test code = 731-0) 3.05 10*3/uL 0.70-7.40 MONO x10^3 (test code = 742-7) 0.48 10*3/uL 0.00-0.50 EOS x10^3 (test code = 711-2) 0.08 10*3/uL 0.00-0.40 BASO x10^3 (test code = 704-7) 0.03 10*3/uL 0.00-0.10 Lab Interpretation (test code = 50200-1) Abnormal [facility] WITH [id number] 01:45:32* Test Item Value Reference Range Interpretation Comme nts WBC (test code = 6690-2) See_Comment [[employer]ated [employer]] The system which generated this result transmitted reference range: 4.50 - 13.50 10*3/?L. The reference range was not used to interpret this result as normal/abnormal. RBC (test code = 789-8) See_Comment [[employer]ated [employer]] The system which generated this result [...] 33.6 g/dL 32.0-36.0 RDW-SD (test code = 55929-5) 37.2 fL 38.5-49.0 L RDW-CV (test code = 788-0) 11.4 % 11.5-14.0 L PLT (test code = 777-3) See_Comment [Automated messa ge] The system which generated this result transmitted reference range: 135 - 361 10*3/?L. The reference range was not used to interpret this result as normal/abnormal. MPV (test code = 91247-7) 10.5 fL 9.4-13.3 NRBC/100 WBC (test code = 3739301960) See_Comment [Automated [employer] ssage] The system which generated this result transmitted reference range: 0.0 - 10.0 /100 WBCs. The reference range was not used to interpret this result as normal/abnormal. NRBC x10^3 (test code = 1573820080) <0.01 See_Comment [[employer]ated [employer]] The system which generated this result transmitted reference range: 10*3/?L. The reference range was not used to interpret this result as normal/abnormal. GRAN MAT (NEUT) % (test code = 770-8) 50.4 % IMM GRAN % (test code = 3770950573) 0.20 % LYMPH % (test code = 736-9) 41.8 % MONO % (test code = 5905-5) 6.3 % EOS % (test code = 713-8) 0.7 % BASO % (test code = 706-2) 0.6 % GRAN MAT x10^3(ANC) (test code = 9205922253) 2.73 10*3/uL 1.50-10.30 IMM GRAN x10^3 (test code = 2584944340) <0.03 0.00-0.06 LYMPH x10^3 (test code = 731-0) 2.26 10*3/uL 0.70-7.40 MONO x10^3 (test code = 742-7) 0.34 10*3/uL 0.00-0.50 EOS x10^3 (test code = 711-2) 0.04 10*3/uL 0.00-0.40 BASO x10^3 (test code = 704-7) 0.03 10*3/uL 0.00-0.10 Lab Interpretation (test code = 63778-8) [facility]normal [facility] (41338)2021-07-07 01:31:45* Test Item Value Reference Range Interpretation Comme nts NA (test code = 7827663666) 140 mmol/L 135-145 K (test code = 9333717267) 4.2 mmol/L 3.5-5.0 CL (test code = 5477448150) 105 mmol/L 98-108 CO2 TOTAL (test code = 5274828490) 28 mmol/L 23-31 AGAP (test code = 4735980678) 2-16 BUN (test code = 3297935596) 12 mg/dL 7-23 GLUCOSE (test code = 3030773790) 92 mg/dL 70-110 CREATININE (test code = 1422674870) 0.84 mg/dL 0.50-1.04 TOTAL BILI (test code = 7530696521) 0.5 mg/dL 0.1-1.1 CALCIUM (test code = 1241041339) 9.0 mg/dL 8.6-10.6 T PROTEIN (test code = 2732004941) 7.3 g/dL 6.3-8.2 ALBUMIN (test code = 0743302212) 4.8 g/dL 3.5-5.0 ALK PHOS (test code = 9329383625) 68 U/L 34-122 ALTv (test code = 1742-6) 18 U/L 5-35 AST(SGOT) (test code = 3807370756) 19 U/L 13-40 SATHYA (test code = [...] imaging tests). Lab Interpretation (test code = 74631-5) Normal [facility] [id number] 01:09:00* Test Item Value Reference Range Interpretation Comme nts POCT PREG (test code = 1605) negative On board controls acceptable with C Line (test code = 3574) present POCT PREG LOT # (test code = 3575) [id number] POCT PREG TEST DATE ( test code = 3576) 08/08/2022 Lab Interpretation (test cod e = 23349-1) Normal [facility] MO[facility]CULAR TESTING)2019-12-30 21:01:00* Test Item Value Reference Range Interpretation Comme nts SARS-CoV-2 PCR (test code = 17512-6) Not Detected Not Detected SATHYA (test code = SATHYA) [facility] Xpert ?Xpr ess SARS-CoV-2 Assay is a rapid, real-time RT-PCR test intended for the qualitative detection of nucleic acid from the SARS-CoV-2 in nasopharyngeal ([employer]) specimens. It is used under Emergency Use [...] clinically indicated. Lab Interpretation (test code = 60962-1) Normal [facility] Notes Date/Time Note Provider Source 2024-03-10 16:09:29 [...] apparent distress. Narciso De La Rosa RN [facility] 2024-03-10 14:14:59 Patient arrived ambulatory c/o of sudden abdominal pain that started approximately 40 minutes ago. States recently having pain with urination, burning with urination, and feeling like she had to go frequently. Patient denies any diarrhea, constipation, nausea, or vomiting. Denies any injury. Thao Ojeda RN [facility] 2023-09-29 16:00:00 Addended by: KAY DAVIS on: 09/29/2023 04:26 PM Modules accepted: Orders T [facility]
[2024-08-18] MEDS ORDERED: droPERidol 5 MG/2 ML VIAL ONE (05:20)
[2024-08-18] MEDS ORDERED: KETOROLAC 30 MG/ML INJ ONE (05:21)
[2024-08-18] MEDS ORDERED: dexAMETHasone 10 MG/ML VIAL ONE (05:21)
--- NOTE | 2024-08-18 06:55 | ER ---
Nurse's Notes [facility] Name: Deana Sanford Age: 19 yrs Sex: Female : 2005 Arrival Date: 08/18/2024 Time: 04:47 Bed 17 Private MD: Diagnosis: Migraine without aura, not intractable;Nausea with vomiting, unspecified Presentation: 08/18 05:02 Chief complaint: Patient states: HERE LAST NIGHT AROUND 5 PM FOR A MIGRAINE AND vc1 VOMITING, NOW IT IS WORSE. I TOOK MEDICINE BUT THREW IT UP. IT WAS TOO LATE TO FILL THE MEDICINE WHEN I LEFT. Coronavirus screen: Client denies travel out of the [place] in the last 14 days. At this time, the client does not indicate any symptoms associated with coronavirus-19. Ebola Screen: Patient negative for fever greater than or equal to 101.5 degrees Fahrenheit, and additional compatible Ebola Virus Disease symptoms Patient denies exposure to infectious person. Patient denies travel to an Ebola-affected area in the 21 days before illness onset. No symptoms or risks identified at this time. Initial Sepsis Screen: Does the patient meet any 2 criteria? No. Patient's initial sepsis screen is negative. Does the patient have a suspected source of infection? No. Patient's initial sepsis screen is negative. Risk Assessment: Do you want to hurt yourself or someone else? Patient reports no desire to harm self or others. Onset of symptoms was August 17, 2024. 05:02 Method Of Arrival: Ambulatory vc1 05:02 Acuity: ZENY 3 vc1 Triage Assessment: 05:13 General: Appears in no apparent distress. uncomfortable, Behavior is calm, cooperative, vc1 appropriate for age. Pain: Complains of pain in right eye and left eye Pain does not radiate. Pain currently is 10 out of 10 on a pain scale. Noted to be resistant to movement, Also complains of photophobia. EENT: No deficits noted. No signs and/or symptoms were reported regarding the EENT system. Neuro: Level of Consciousness is awake, alert, obeys commands, Oriented to person, place, time, situation, Appropriate for age. Cardiovascular: Capillary refill < 3 seconds Patient's skin is warm and dry. Respiratory: Airway is patent Respiratory effort is even, unlabored, Respiratory pattern is regular, symmetrical. GI: Reports nausea, vomiting. : No deficits noted. No signs and/or symptoms were reported regarding the genitourinary system. Derm: Skin is intact, is healthy with good turgor, Skin is dry, Skin is normal, Skin temperature is warm. Musculoskeletal: Circulation, motion, and sensation intact. Range of motion: intact in all extremities. [employer]: 05:11 LMP 08/09/2024, unknown vc1 Historical: - Allergies: 05:07 No Known Allergies; vc1 - Home Meds: 05:07 None [Active]; vc1 - PMHx: 05:07 Asthma; Hypothyroidism; vc1 - PSHx: 05:07 lipo; vc1 - Immunization history:: Client reports having NOT received the Covid vaccine. Flu vaccine status is unknown. - Infectious Disease History:: Denies. - Social history:: Smoking status: Patient denies any tobacco usage or history of. - Family history:: not pertinent. Screenin:10 [facility] ED Fall Risk Assessment (Adult) History of falling in the last 3 months, vc1 including since admission No falls in past 3 months (0 pts) Confusion or Disorientation No (0 pts) Intoxicated or Sedated No (0 pts) Impaired Gait No (0 pts) Mobility Assist Device Used No (0 pt) Altered Elimination No (0 pt) Score/Fall Risk Level 0 - 2 = Low Risk Oriented to surroundings, Maintained a safe environment, Educated pt \T\ family on fall prevention, incl call for assistance when getting out of bed, Hourly rounding (assess needs \T\ fall precautionary measures) done. Abuse screen: Denies threats or abuse. Nutritional screening: No deficits noted. Tuberculosis screening: No symptoms or risk factors identified. Assessment: 05:30 General: Appears uncomfortable, Behavior is cooperative. Pain: Complains of pain in ha1 headache Pain currently is 10 out of 10 on a pain scale. Quality of pain is described as throbbing. Neuro: Level of Consciousness is awake, alert, obeys commands, Oriented to person, place, time, situation. Cardiovascular: Capillary refill < 3 seconds Patient's skin is warm and dry. Respiratory: Airway is patent Respiratory effort is even, unlabored, Respiratory pattern is regular, symmetrical. GI: Abdomen is round non-distended, Reports nausea, vomiting. Derm: Skin is pink, warm \T\ dry. Musculoskeletal: Circulation, motion, and sensation intact. Range of motion: intact in all extremities. 06:30 Reassessment: Patient and/or family updated on plan of care and expected duration. Pain ha1 level reassessed. Patient is alert, oriented x 3, equal unlabored respirations, skin warm/dry/pink. Patient denies pain at this time. Patient states feeling better. Patient states symptoms have improved. Vital Signs: 05:02 BP 124 / 83; Pulse 87; Resp 15; Temp 99.9; Pulse Ox 99% ; Weight 80.74 kg; Height 5 ft. vc1 0 in. ; Pain 10/10; 05:02 Body Mass Index 34.76 (80.74 kg, 152.4 cm) vc1 05:02 Pain Scale: Adult vc1 ED Course: 04:54 Patient arrived in ED. gm2 04:54 Jose Lisa MD is Attending Physician. rt 05:07 Triage completed. vc1 05:09 Arm band placed on right wrist. vc1 05:11 Patient has correct armband on for positive identification. Bed in low position. vc1 Provided Education on: CALL LIGHT. Pulse ox on. NIBP on. 05:18 Solange Lopez, RN is Primary Nurse. ha1 05:40 Inserted saline lock: 20 gauge in left antecubital area, using aseptic technique. Blood ha1 collected. Flushed with 10 mL NS. 05:45 CT Head Brain wo Cont In Process Unspecified. EDMS 07:13 No provider procedures requiring assistance completed. IV discontinued, intact, ha1 bleeding controlled, No redness/swelling at site. Pressure dressing applied. Administered Medications: 05:36 Drug: Droperidol IVP 1.25 mg IVP once Route: IVP; Site: left antecubital; ha1 06:30 Follow up: Response: No adverse reaction; Marked relief of symptoms ha1 05:39 Drug: Ketorolac IVP 15 mg IVP once Route: IVP; Site: left antecubital; ha1 06:54 Follow up: Response: No adverse reaction; Marked relief of symptoms; Pain is decreased ha1 05:40 Drug: Decadron - Dexamethasone IVP 10 mg IVP once Route: IVP; Site: left antecubital; ha1 06:30 Follow up: Response: No adverse reaction; Marked relief of symptoms ha1 Medication: 05:11 VIS not applicable for this client. vc1 Outcome: 06:54 Discharge ordered by . rt 07:13 Discharged to home ambulatory, with family, ha1 07:13 Condition: stable 07:13 Discharge instructions given to patient, Instructed on discharge instructions, follow up and referral plans. Demonstrated understanding of instructions, follow-up care, 07:17 Patient left the ED. ha1 Signatures: Dispatcher [employer] EDGris Murphy RN RN vc1 Solange Lopez RN RN ha1 Jose Lisa MD MD rt Luisa Hess 2 Corrections: (The following items were deleted from the chart) 05:46 05:30 Pain: Complains of pain in headache Quality of pain is described as throbbing, ha11 06:54 06:30 Response: No adverse reaction; Marked relief of symptoms ha1 ha1
--- NOTE | 2024-08-18 06:55 | EDPHYS ---
Physician Documentation [facility] Name: Deana Sanford Age: 19 yrs Sex: Female : 2005 Arrival Date: 08/18/2024 Time: 04:47 Bed 17 Private MD: ED Physician Jose Lisa HPI: 08/18 05:48 This 19 yrs old Female presents to ER via Ambulatory with complaints of rt Nausea/Vomiting. 05:48 Patient was seen yesterday evening for migraine, was given Reglan, Benadryl, Toradol to rt relief that lasted for about an hour. She had a negative workup not including a CT scan of the head while she was here. Reports continued nausea, vomiting. Denies other acute complaints at this time, symptoms are moderate in severity, no other aggravating or alleviating factors.. 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 Flu vaccine status is unknown. - Infectious Disease History:: Denies. - Social history:: Smoking status: Patient denies any tobacco usage or history of. - Family history:: not pertinent. ROS: 05:48 Constitutional: Negative for fever, chills, and weight loss, Cardiovascular: Negative rt for chest pain, palpitations, and edema, Respiratory: Negative for shortness of breath, cough, wheezing, and pleuritic chest pain, MS/Extremity: Negative for injury and deformity, Skin: Negative for injury, rash, and discoloration, 05:48 Abdomen/GI: Positive for nausea and vomiting, Negative for abdominal pain, 05:48 Neuro: Positive for headache, Negative for altered mental status, Exam: 05:48 Constitutional: This is a well developed, well nourished patient who is awake, alert, rt and in no acute distress. Head/Face: Normocephalic, atraumatic. Chest/axilla: Normal chest wall appearance and motion. Nontender with no deformity. No lesions are appreciated. Cardiovascular: Regular rate and rhythm with a normal S1 and S2. No gallops, murmurs, or rubs. Normal PMI, no JVD. No pulse deficits. Respiratory: Lungs have equal breath sounds bilaterally, clear to auscultation and percussion. No rales, rhonchi or wheezes noted. No increased work of breathing, no retractions or nasal flaring. Abdomen/GI: Soft, non-tender, with normal bowel sounds. No distension or tympany. No guarding or rebound. No evidence of tenderness throughout. Skin: Warm, dry with normal turgor. Normal color with no rashes, no lesions, and no evidence of cellulitis. MS/ Extremity: Pulses equal, no cyanosis. Neurovascular intact. Full, normal range of motion. Vital Signs: 05:02 BP 124 / 83; Pulse 87; Resp 15; Temp 99.9; Pulse Ox 99% ; Weight 80.74 kg; Height 5 ft. vc1 0 in. ; Pain 10/10; 05:02 Body Mass Index 34.76 (80.74 kg, 152.4 cm) vc1 05:02 Pain Scale: Adult vc1 MDM: 05:02 Medical Screening Exam initiated rt 06:55 Differential diagnosis: Migraine, intracranial hemorrhage. Data reviewed: vital signs, rt nurses notes, radiologic studies. I considered the following discharge prescriptions or medication management in the emergency department Medications were administered in the Emergency Department. See MAR. Independent interpretation of the following test(s) in the Emergency Department CT Scan: My interpretation is No intracranial hemorrhage syndrome interpretation of CT scan images. Test considered but Not performed: Labs: Labs performed roughly 12 hours prior to arrival, repeat labs are not indicated. Counseling: I had a detailed discussion with the patient and/or guardian regarding the historical points, exam findings, and any diagnostic results supporting the discharge/admit diagnosis, radiology results, the need for outpatient follow up. ED course: Patient states that she feels better, wishes to go home, I do not have the radiology result for the CT scan yet but I do not see any obvious intracranial hemorrhage, tumor. Inform patient that radiology does not read the report yet but she still wishes to go home, risk benefits were discussed, she has decision-making capacity.. 08/18 05:07 Order name: CT Head Brain wo Cont rt Administered Medications: 05:36 Drug: Droperidol IVP 1.25 mg IVP once Route: IVP; Site: left antecubital; ha1 06:30 Follow up: Response: No adverse reaction; Marked relief of symptoms ha1 05:39 Drug: Ketorolac IVP 15 mg IVP once Route: IVP; Site: left antecubital; ha1 06:54 Follow up: Response: No adverse reaction; Marked relief of symptoms; Pain is decreased ha1 05:40 Drug: Decadron - Dexamethasone IVP 10 mg IVP once Route: IVP; Site: left antecubital; ha1 06:30 Follow up: Response: No adverse reaction; Marked relief of symptoms ha1 Disposition Summary: 08/18/24 06:54 Discharge Ordered Notes: Location: Home rt Problem: new rt Symptoms: have improved rt Condition: Stable rt Diagnosis - Migraine without aura, not intractable rt - Nausea with vomiting, unspecified rt Followup: rt - With: Private Physician - When: 2 - 3 days - Reason: Discharge Instructions: - Discharge Summary Sheet rt - Migraine Headache rt - Nausea and Vomiting, Adult rt Forms: - Medication Reconciliation Form rt - Antibiotic Education rt - Prescription Opioid Use rt - Patient Portal Instructions rt - Leadership Thank You Letter rt Signatures: Dispatcher [employer] EDMS Gris Dotson RN RN vc1 Solange Lopez RN RN ha1 Jose Lisa MD MD rt Corrections: (The following items were deleted from the chart) 05:07 05:07 Head Brain Wo [id number] ordered. EDMS EDMS
[2024-08-18 07:27] VITALS: BP 124/83; TEMP 99.9; O2SAT 99
--- NOTE | 2024-08-18 08:09 | RAD REPORT ---
EXAM: CT Head Brain Wo Cont HISTORY: HEADACHE COMPARISON: None TECHNIQUE: Multiple contiguous axial images were obtained for a CT of the brain without contrast. Sag ittal and coronal reformats were performed. One or more of the following dose reduction techniques were used: Automated exposure control, adjus tment of the mA and kV according to patient size, and iterative reconstruction. Unless otherwise specified, incidental findings do not require dedicated imaging follow-up. FINDINGS: No evidence of hydrocephalus, intracranial hemorrhage, or extra-axial fluid collection. The brain is normal in morphology. The calvarium is intact. Air-fluid level with mucosal thickening in the left sphenoid sinus with mild opacification in the left ethmoidal air cells. The visualized paranasal sinuses are otherwise well aerated. Patchy opacification of the posterior left mastoid air cells. IMPRESSION: No evidence of acute intracranial abnormality. Opacification within the left sphenoid sinus as above. Please correlate clinically for evidence of ac quechan sinusitis.
== END 2024-08-18 07:17 | disposition home or self-care (01) ==
LOC: ER 04:47
DX: G43.009 Migraine without aura, not intractable, without status migrainosus (principal)
CPT/HCPCS: 70450; 96374; 96375; 99284; J1100; J1790